=== PATIENT | female | born 1970 | race Caucasian/White ===

== ENCOUNTER 2020-11-25 21:38 | Emergency (ER) | payer BC, SELFPAY ==
--- NOTE | ~2020-11-25 | XR_ITS ---
EXAMINATION: XR TIBIA AND FIBULA, RIGHT CLINICAL INFORMATION: Low suspicion for osteomyelitis distal medial lower extremity COMPARISON: None TECHNIQUE: AP and lateral views of the right tibia and fibula were obtained. FINDINGS: The bones and soft tissues are normal. No fracture. No osseous lesions. XR/XR tibia fibula RT 2V IMPRESSION: Normal right tibia and fibula.
[2020-11-25 22:15] VITALS: BP 161/68; PULSE 57; RESP 18; TEMP 36.5; O2SAT 100; BMI 35.4
--- NOTE | 2020-11-25 22:54 | ED_ITS ---
HPI - General Adult General Chief complaint: General Medical Stated complaint: leg pain Time Seen by Provider: 11/25/20 22:41 Source: patient Mode of arrival: ambulatory Limitations: no limitations History of Present Illness HPI narrative: Patient comes emergency room complaining of pain in her right lower extremity distal aspect. Patient has a chronic healed ulcer, states that now she has a new small ulcer that is draining bloody fluid, but is unsure if she has seen pus. Patient denies fever or chills. Patient also complaining of left leg cramping. At this time, no cramping in either leg. Patient denies bilateral calf pain, no chest pain, no shortness of breath. Patient also concerned that she has not been taking Xarelto for over 3 weeks now. Patient has had history of multiple DVTs in the past due to antiphospholipid syndrome. Patient is considering moving to [place], and at the moment she has no access to her old primary care physician or to a new PCP. Patient denies GI bleed, no dark stool. Related Data Previous Rx's Medication Instructions Recorded cephalexin [Keflex] 750 mg PO BID #13 cap 11/26/20 doxycycline hyclate 100 mg PO BID #13 tab 11/26/20 rivaroxaban [Xarelto] 10 mg PO DAILY #30 tab 11/26/20 Allergies Allergy/AdvReac Type Severity Reaction Status Date / Time No Known Allergies Allergy Verified 11/25/20 22:18 Review of Systems Review of Systems: Constitutional : No Weight loss, No Fever, No Chills, No Night Sweats, No Fatigue, No Malaise ENT/Mouth : No Hearing loss, No Ear Pain, No Nasal Congestion, No Sinus Pain, No Hoarseness, No sore throat, No Rhinorrhea, No Swallowing Difficulty Eyes: No Eye Pain, No Swelling, No Redness, No Foreign Body, No Discharge, No Vision Changes Cardiovascular : No Chest Pain, No SOB, No Dyspnea on Exertion, No Orthopnea, No Edema, No Palpitations Respiratory : No Cough, No Sputum, No Wheezing, No Smoke Exposure, No Dyspnea Gastrointestinal : No Nausea, No Vomiting, No Diarrhea, No Constipation, No abdominal Pain, No Hematochezia, No Melena Genitourinary : no irregular bleeding, No Dysuria, No Urinary Frequency, No Hematuria, No Urinary Incontinence, No Urgency, No Flank Pain, No Urinary Flow Changes, No Hesitancy Musculoskeletal : No joint pain, complaining of left charley horse cramping this morning. Complaining and oozing ulcer in the right lower extremity Skin : No Skin Lesions, No rash Neuro : No Weakness, No Numbness, No Paresthesias, No Loss of Consciousness, No Dizziness, No Headache Psych : No Anxiety/Panic, No Depression, No SI/HI/AH/VH, No Social Issues, Heme/Lymph: No Bruising, No Bleeding,No Lymphadenopathy Endocrine : No Polyuria, No Polydipsia, No Temperature Intolerance [facility] Past Medical History Medical History Antiphospholipid syndrome Diabetes DVT (deep venous thrombosis) Pulmonary embolism Social History Social History Advance Directives: No Patient : No Physical Exam Vital Signs: Vital Signs: Last Vital Signs Temp 97.7 F 11/25/20 22:15 Pulse 57 11/25/20 22:15 Resp 18 11/25/20 22:15 BP 161/68 H 11/25/20 22:15 Pulse Ox 100 11/25/20 22:15 Body Mass Index 35.4 Appearance: Alert. Oriented X3. No acute distress. Eyes: Pupils equal, round and reactive to light. ENT: Pharynx normal. Neck: Normal inspection. Neck supple. No lymph nodes noted. No crepitus CVS: Normal heart rate and rhythm. Pulses normal. Normal S1 and S2 Respiratory: No respiratory distress. Breath sounds normal. No Wheezing. No rales Abdomen: Soft and nontender. No rigidity. No distention. good BS x4 Skin: Skin warm and dry. See below Extremities: No lower extremity edema. Right lower extremity distal aspect medial aspect, there is a 1 cm x 1 cm oozing ulcer, does not seem to be draining pus, has a small eschar on top. Very painful to touch, erythematous and warm. Negative Juliano sign bilaterally Neuro: Oriented X 3. No motor deficit. No sensory deficit. Moving all extermities. No slurred speech. Course Course Course Narrative: Patient likely has cellulitis, patient will be given antibiotic. Also, patient has been out of Xarelto for 3 weeks. Patient's coagulation studies and guaiac are within normal limits. Patient is at high risk for DVT and PE due to the antiphospholipid syndrome. At this time, discussed with the patient that we can go ahead and restart her on Xarelto, but she needs to have very close follow-up with her primary care physician back home. Medical Decision Making Lab Data Result diagrams: 11/25/20 23:19 11/25/20 23:19 Labs: Lab Results 11/25/20 11/25/20 11/25/20 Range/Units 23:19 23:19 23:19 WBC 7.0 (4.8-10.8) X10*3/uL RBC 4.01 L (4.20-5.50) X10*6/uL Hgb 10.8 L (12.0-16.0) g/dl Hct 33.6 L (37-47) % MCV 83.8 (80-98) fL MCH 26.9 L (27.0-33.0) pg MCHC 32.1 (31.0-35.0) g/dl RDW 14.6 (11.0-16.0) % Plt Count 249 (160-400) X10*3/uL MPV 11.5 (9.4-12.3) fL Immature Gran % (Auto) 0.3 (0.0-0.4) % Neut % (Auto) 58.9 (45-73) % Lymph % (Auto) 30.2 (20-40) % Maverick % (Auto) 7.2 (2-11) % Eos % (Auto) 2.4 (0-4) % Baso % (Auto) 1.0 (0-2) % Lymph # (Auto) 2.1 (1.2-4.9) X10*3/uL Maverick # (Auto) 0.5 (0.1-1.2) X10*3/uL Eos # (Auto) 0.2 (0.0-0.4) X10*3/uL Baso # (Auto) 0.1 (0.0-0.2) X10*3/uL Abs Immat Gran (auto) 0.02 (0.00-0.03) X10*3/uL Absolute Neuts (auto) 4.1 (2.0-8.3) X10*3/uL Absolute Nucleated RBC 0.000 (0.0-0.012) X10*3/uL Nucleated RBC % (auto) 0.0 (0.0-0.2) /100WBC PT 13.1 H (9.9-13.0) SEC INR 1.2 H (0.9-1.1) APTT 36.0 (24.1-38.0) SEC Sodium 142 (135-145) mmol/L Potassium 4.5 (3.3-5.1) mmol/L Chloride 108 (96-108) mmol/L Carbon Dioxide 26 (22-29) mmol/L Anion Gap 13 (12-20) BUN 17 H (9-16) mg/dL Creatinine 1.00 (0.5-1.4) mg/dL Estim Creat Clear Calc 89.4 Estimated GFR 59 Random Glucose 96 (60-115) mg/dL Calcium 9.0 (8.4-10.2) mg/dL Magnesium (1.6-2.6) mg/dL Total Bilirubin < 0.2 (0.0-1.0) mg/dL Direct Bilirubin < 0.2 (0.0-0.5) mg/dL AST 14 (5-31) U/L ALT 8 (0-31) U/L Alkaline Phosphatase 62 (39-117) U/L Total Protein 6.7 (6.5-8.0) g/dL Albumin 4.0 (3.5-5.0) g/dL Stool Occult Blood (NEGATIVE) 11/25/20 11/26/20 Range/Units 23:19 00:16 WBC (4.8-10.8) X10*3/uL RBC (4.20-5.50) X10*6/uL Hgb (12.0-16.0) g/dl Hct (37-47) % MCV (80-98) fL MCH (27.0-33.0) pg MCHC (31.0-35.0) g/dl RDW (11.0-16.0) % Plt Count (160-400) X10*3/uL MPV (9.4-12.3) fL Immature Gran % (Auto) (0.0-0.4) % Neut % (Auto) (45-73) % Lymph % (Auto) (20-40) % Maverick % (Auto) (2-11) % Eos % (Auto) (0-4) % Baso % (Auto) (0-2) % Lymph # (Auto) (1.2-4.9) X10*3/uL Maverick # (Auto) (0.1-1.2) X10*3/uL Eos # (Auto) (0.0-0.4) X10*3/uL Baso # (Auto) (0.0-0.2) X10*3/uL Abs Immat Gran (auto) (0.00-0.03) X10*3/uL Absolute Neuts (auto) (2.0-8.3) X10*3/uL Absolute Nucleated RBC (0.0-0.012) X10*3/uL Nucleated RBC % (auto) (0.0-0.2) /100WBC PT (9.9-13.0) SEC INR (0.9-1.1) APTT (24.1-38.0) SEC Sodium (135-145) mmol/L Potassium (3.3-5.1) mmol/L Chloride (96-108) mmol/L Carbon Dioxide (22-29) mmol/L Anion Gap (12-20) BUN (9-16) mg/dL Creatinine (0.5-1.4) mg/dL Estim Creat Clear Calc Estimated GFR Random Glucose (60-115) mg/dL Calcium (8.4-10.2) mg/dL Magnesium 1.9 (1.6-2.6) mg/dL Total Bilirubin (0.0-1.0) mg/dL Direct Bilirubin (0.0-0.5) mg/dL AST (5-31) U/L ALT (0-31) U/L Alkaline Phosphatase (39-117) U/L Total Protein (6.5-8.0) g/dL Albumin (3.5-5.0) g/dL Stool Occult Blood NEGATIVE (NEGATIVE) Discharge Plan Discharge Clinical Impression: Cellulitis of leg Qualifiers: Laterality: right Qualified Code(s): L03.115 - Cellulitis of right lower limb Patient Disposition: Home, Self-Care Instructions: Cellulitis (ED) Additional Instructions: Please follow-up with your primary care physician tomorrow. If you have any worsening or new symptoms, please return to the emergency room or call 911 Prescriptions: New doxycycline hyclate 100 mg tablet 100 mg PO BID Qty: 13 RF: 0 cephalexin [Keflex] 750 mg capsule 750 mg PO BID Qty: 13 RF: 0 Xarelto 10 mg tablet 10 mg PO DAILY Qty: 30 RF: 0
[2020-11-25 23:24] LABS: MANUAL DIFF FLAG NO
[2020-11-25 23:25] LABS: Basophils Absolute Auto 0.1 X10*3/uL (0.0-0.2); Eosinophils Absolute Auto 0.2 X10*3/uL (0.0-0.4); Eosinophils Percent Auto 2.4 % (0-4); Hematocrit 33.6 % (37-47); Hemoglobin 10.8 g/dl (12.0-16.0); Imm Gran Abs Auto 0.02 X10*3/uL (0.00-0.03); Imm Gran Pct Auto 0.3 % (0.0-0.4); Lymphocytes Absolute Auto 2.1 X10*3/uL (1.2-4.9); Lymphocytes Percent Auto 30.2 % (20-40); Mean Corpuscular HGB Conc 32.1 g/dl (31.0-35.0); Mean Corpuscular Hemoglobin 26.9 pg (27.0-33.0); Mean Corpuscular Volume 83.8 fL (80-98); Mean Platelet Volume 11.5 fL (9.4-12.3); Monocytes Absolute Auto 0.5 X10*3/uL (0.1-1.2); Monocytes Percent Auto 7.2 % (2-11); Neutrophils Absolute Auto 4.1 X10*3/uL (2.0-8.3); Neutrophils Percent Auto 58.9 % (45-73); Platelet Count 249 X10*3/uL (160-400); Red Blood Count 4.01 X10*6/uL (4.20-5.50); Red Cell Distribution Width 14.6 % (11.0-16.0)
[2020-11-25 23:31] LABS: INTERNATIONAL NORM RATIO 1.2 (0.9-1.1); Prothrombin Time 13.1 SEC (9.9-13.0)
[2020-11-25 23:54] LABS: Magnesium 1.9 mg/dL (1.6-2.6)
[2020-11-25 23:58] LABS: Alanine Aminotransferase 8 U/L (0-31); Alkaline Phosphatase 62 U/L (39-117); Anion Gap 13 (12-20); Aspartate Amino Transferase 14 U/L (5-31); Bilirubin Direct < 0.2 mg/dL (0.0-0.5); Bilirubin Total < 0.2 mg/dL (0.0-1.0); Blood Urea Nitrogen 17 mg/dL (9-16); Carbon Dioxide 26 mmol/L (22-29); Chloride 108 mmol/L (96-108); Creatinine Clr Calc Pharmacy 89.4; Estimated Glomerular Filt Rate 59; Glucose Random 96 mg/dL (60-115); Potassium 4.5 mmol/L (3.3-5.1); Sodium 142 mmol/L (135-145); Total Protein 6.7 g/dL (6.5-8.0)
[2020-11-26 00:20] LABS: OBS Int Ctl Valid YES; OBS1 NEGATIVE (NEGATIVE)
[2020-11-26] MEDS: cephALEXin 500 MG CAPSULE PO (00:52)
== END 2020-11-26 01:23 | disposition home or self-care (01) ==
PROVIDERS: Emergency Provider Emergency Medicine
DX: L03.115 Cellulitis of right lower limb (principal); M79.661 Pain in right lower leg; E11.9 Type 2 diabetes mellitus without complications; Z86.718 Personal history of other venous thrombosis and embolism; Z86.711 Personal history of pulmonary embolism; Z79.01 Long term (current) use of anticoagulants
CPT/HCPCS: 36415; 73590; 80048; 80076; 82272; 83735; 85025; 85610; 85730; 99283

== ENCOUNTER 2021-02-22 10:55 | Emergency (ER) | payer MEDICAID, SELFPAY ==
--- NOTE | ~2021-02-22 | US_ITS ---
EXAMINATION: US VENOUS ULTRASOUND WITH DOPPLER LOWER EXTREMITY, BILATERAL CLINICAL INFORMATION: Posterior knee pain COMPARISON: None TECHNIQUE: Ultrasound of the deep veins is performed from the hip to the calf with compression sonography and color and pulse Doppler assessment. Spectral analysis with color-flow imaging is performed. FINDINGS: RIGHT: There is normal venous compression and respiratory variation and augmented flow. The visualized common femoral vein, superficial femoral vein, profunda femoral vein, popliteal vein, and the trifurcation region shows no evidence of deep venous thrombosis. There is no significant popliteal fossa cyst. No popliteal artery aneurysm. LEFT: There is normal venous compression and respiratory variation and augmented flow. There appears be some thickening of the superficial femoral vein wall with some linear filling defects present with the appearance of synechiae from recannulated chronic deep venous thrombosis. There is no significant popliteal fossa cyst. No popliteal artery aneurysm. If the patient's symptoms persist, followup ultrasound in 5 days 7 days might be of value to exclude proximal propagation from a non-visualized calf vein. US/US venous duplex LE BI IMPRESSION: No acute DVT demonstrated in the bilateral lower extremity. Findings within the left deep venous system for old recannulated DVT.
--- NOTE | ~2021-02-22 | XR_ITS ---
EXAMINATION: RIGHT FOOT AND RIGHT TIBIA AND FIBULA. CLINICAL INFORMATION: Redness. Question osteomyelitis. COMPARISON: November 25, 2020 TECHNIQUE: Three-view right foot and AP and lateral views of the tibia and fibula. FINDINGS: There is no evidence of acute fracture or dislocation of the right tibia or fibula. No erosive changes are identified. There appears to be a soft tissue defect seen about the medial aspect of the distal tibia consistent with ulceration with some underlying edema. No new periosteal thickening is seen. Vascular calcifications are present. There is no evidence of acute fracture or dislocation of the right foot. There is some soft tissue swelling seen about the ankle and dorsum of the foot. No destructive bony lesions are identified. No osteopenia or erosive bony changes seen. Small calcaneal spurs at sites of insertion of Achilles and plantar tendons evident. Soft tissue ulceration with underlying edema is seen about the medial ankle. No radio opaque foreign body. XR/XR tibia fibula RT 2V IMPRESSION: No evidence to suggest acute osteomyelitis of the right foot or lower leg. Ulceration medial aspect of the distal tibia/ankle with edema.
--- NOTE | ~2021-02-22 | XR_ITS ---
EXAMINATION: RIGHT FOOT AND RIGHT TIBIA AND FIBULA. CLINICAL INFORMATION: Redness. Question osteomyelitis. COMPARISON: November 25, 2020 TECHNIQUE: Three-view right foot and AP and lateral views of the tibia and fibula. FINDINGS: There is no evidence of acute fracture or dislocation of the right tibia or fibula. No erosive changes are identified. There appears to be a soft tissue defect seen about the medial aspect of the distal tibia consistent with ulceration with some underlying edema. No new periosteal thickening is seen. Vascular calcifications are present. There is no evidence of acute fracture or dislocation of the right foot. There is some soft tissue swelling seen about the ankle and dorsum of the foot. No destructive bony lesions are identified. No osteopenia or erosive bony changes seen. Small calcaneal spurs at sites of insertion of Achilles and plantar tendons evident. Soft tissue ulceration with underlying edema is seen about the medial ankle. No radio opaque foreign body. XR/XR foot RT 2V IMPRESSION: No evidence to suggest acute osteomyelitis of the right foot or lower leg. Ulceration medial aspect of the distal tibia/ankle with edema.
[2021-02-22 11:47] VITALS: BP 122/59; PULSE 64; RESP 18; TEMP 36.4; O2SAT 99; BMI 36.4
--- NOTE | 2021-02-22 13:06 | ED_ITS ---
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 Patient denies any chest pain or shortness of breath. Patient denies any leg swelling. Patient th en states bilateral posterior knee pain was concern for DVT due to her supposedly should be taking Xarelto 20 mg per day for antiphospholipid but has been off medication for 2 months due to insurance purposes. Patient is from [place] and insurance was not active in [place]. Patient now states her insurance is active in [place]. <DEIDRE Medley Last Filed: 02/22/21 18:08> Related Data Home Medications: Previous Rx's Medication Instructions Recorded cephalexin 750 mg capsule (Keflex) 750 mg PO BID #13 cap 11/26/20 doxycycline hyclate 100 mg tablet 100 mg PO BID #13 tab 11/26/20 rivaroxaban 10 mg tablet (Xarelto) 10 mg PO DAILY #30 tab 11/26/20 cephalexin 500 mg capsule 500 mg PO QID 7 Days #28 cap 02/22/21 doxycycline hyclate 100 mg capsule 100 mg PO BID 7 Days #14 cap 02/22/21 rivaroxaban 20 mg tablet (Xarelto) 20 mg PO DAILY 20 Days #20 tab 02/22/21 <DEIDRE Medley Last Filed: 02/22/21 18:08> Allergies/Adverse Reactions: Allergies Allergy/AdvReac Type Severity Reaction Status Date / Time No Known Allergies Allergy Verified 11/25/20 22:18 <DEIDRE Medley - Last Filed: 02/22/21 18:08> Review of Systems Review of Systems: Yes all other systems are reviewed and are negative <DEIDRE Medley - Last Filed: 02/22/21 18:08> Constitutional: Constitutional: Reports as per HPI and Reports no additional constitutional complaints <DEIDRE Medley - Last Filed: 02/22/21 18:08> Eyes: Eyes: Reports as per HPI and Reports no additional eye complaints <DEIDRE Medley - Last Filed: 02/22/21 18:08> ENT: Reports system reviewed and no additional complaints, except as documented and Reports as per HPI <DEIDRE Medley Last Filed: 02/22/21 18:08> Cardiovascular: Cardiovascular: Reports as per HPI and Reports no additional cardiovascular complaints <DEIDRE Medley Last Filed: 02/22/21 18:08> Respiratory: Respiratory: Reports as per HPI and Reports no additional respiratory complaints <DEIDRE Medley - Last Filed: 02/22/21 18:08> Gastrointestinal: Gastrointestinal: Reports as per HPI and Reports no additional gastrointestinal complaints <DEIDRE Medley - Last Filed: 02/22/21 18:08> Genitourinary: Genitourinary: Reports no additional female genitourinary com plaints and Reports as per HPI <DEIDRE Medley - Last Filed: 02/22/21 18:08> Musculoskeletal: Musculoskeletal: Reports no additional musculoskeletal complaints, Reports as per HPI and Reports arthralgias (right venous stasis ulcer, right 2nd toe cellulitis) <DEIDRE Medley Last Filed: 02/22/21 1 8:08> Neurologic: Reports system reviewed and no additional complaints, except as documented and Reports as per HPI <DEIDRE Medley Last Filed: 02/22/21 18:08> Psychiatric: Psychiatric: Reports no additional psychiatric complaints and Reports as per HPI <DEIDRE Medley - Last Filed: 02/22/21 18:08> PMFSH Past Medical History Medical History: Medical History (Updated 02/22/21 @ 17:39 by DEIDRE Medley) Antiphospholipid syndrome Diabetes DVT (deep venous thrombosis) Pulmonary embolism Venous stasis of lower extremity <DEIDRE Medley - Last Filed: 02/22/21 18:08> Social History Social History: Social History Advance Directives: Yes Advance Directives Information Provided: Yes Advance Directives on File: No <DEIDRE Medley - Last Filed: 02/22/21 18:08> Physical Exam Vital Signs: Vital Signs: Last Vital Signs Temp 98.0 F 02/22/21 15:57 Pulse 50 02/22/21 15:57 Resp 20 02/22/21 15:57 BP 121/66 02/22/21 15:57 Pulse Ox 95 02/22/21 15:57 Body Mass Index 36.4 <DEIDRE Medley - Last Filed: 02/22/21 18:08> Vital Signs: Last Vital Signs Temp 98.0 F 02/22/21 15:57 Pulse 50 02/22/21 15:57 Resp 20 02/22/21 15:57 BP 121/66 02/22/21 15:57 Pulse Ox 95 02/22/21 15:57 Body Mass Index 36.4 <Dion Clarke MD - Last Filed: 02/22/21 16:43> Const: General: cooperative, healthy appearing, comfortable, no acute distress, well developed, alert, awake and Physically active <DEIDRE Medley - Last Filed: 02/22/21 18:08> Orientation/consciousness: patient oriented x3 <DEIDRE Medley - Last Filed: 02/22/21 18:08> HENMT: Head: Yes normal to inspection, Yes No palpable skull fracture present, Yes normocephalic, Yes atraumatic and No abrasion <DEIDRE Medley - Last Filed: 02/22/21 18:08> Eyes: General: appearance normal, both eyes and all related structures <DEIDRE Medley - Last Filed: 02/22/21 18:08> Neck: Neck: Yes normal visual inspection, Yes full ROM, Yes no lymphadenopathy, Yes no meningeal signs, Yes trachea midline, Yes supple and No tender <DEIDRE Medley - Last Filed: 02/22/21 18:08> Chest: Chest palpation & inspection: normal inspection of the chest and normal palpation of entire chest wall <Liu Charles DEIDRE Last Filed: 02/22/21 18:08> Resp: Effort & Inspection: normal respiratory effort and able to speak in complete sentences <Liu CharlesDEIDRE Last Filed: 02/22/21 18:08> Auscultation: clear to auscultation bilaterally <Liu CharlesDEIDRE Last Filed: 02/22/21 18:08> Cardio: Jugular venous distension: no JVD <Liu Charles DEIDRE Last Filed: 02/22/21 18:08> Heart sounds: S1 normal heart sound present and S2 normal heart sound present <Liu Charles, PA Last Filed: 02/22/21 18:08> GI: Inspection: Yes normal to inspection and No abdominal wall ecchymosis <Liu Charles DEIDRE Filed: 02/22/21 18:08> Palpation (GI): Soft to palpation, not firm, nontender, no guarding and not rigid <Liu Charles, PA Last Filed: 02/22/21 18:08> : General: No CVA tenderness and Yes no CVA tenderness <Liu Charles DEIDRE Last Filed: 02/22/21 18:08> Back/Spine/Pelvis: Back: no CVA tenderness, No CVA tenderness and No back tenderness <Liu Charles DEIDRE Last Filed: 02/22/21 18:08> Skin: General skin exam: no rashes or lesions noted and elasticity normal <Liu Charles DEIDRE Filed: 02/22/21 18:08> Neuro: General: patient oriented x3, gait normal, no meningeal signs and CN's II-XI intact bilaterally <Liu Charles DEIDRE Last Filed: 02/22/21 18:08> Cranial nerves: Yes CN's II-XII intact bilaterally <Liu Charles, PA Last Filed: 02/22/21 18:08> Extrem: Other: Venous stasis also negative for any erythema, swelling, tenderness, pus discharge, foul odor, to indicate infection. Right 2nd toe cellulitis negative for open wounds. Negative for pus discharge or foul odor. Right lower extremity motor/neuro/vascular exam intact. <DEIDRE Medley - Last Filed: 02/22/21 18:08> General: Yes normal to inspection and Yes full ROM <DEIDRE Medley - Last Filed: 02/22/21 18:08> Psych: Appearance: grossly normal, well kempt and not disheveled <DEIDRE Medley - Last Filed: 02/22/21 18:08> Course Course Course Narrative: Will do foot x-ray, leg x-ray, and bilateral ultrasounds. Also will do basic labs. <DEIDRE Medley - Last Filed: 02/22/21 18:08> Reevaluation(s) Reevaluation #1: Discussed restarting xarelto with Liu Soto and agree. He will discuss with heme/onc <Dion Clarke MD - Last Filed: 02/22/21 16:43> Time: 16:43 <Dion Clarke MD - Last Filed: 02/22/21 16:43> Reevaluation #2: X-rays negative for osteomyelitis. Ultrasound negative for DVT. Discuss case with Dr. Clarke to restart patient on Xarelto waiting for confirmation for heme oncologist on-call to discuss restarting Xarelto and for follow-up. Patient is not in any distress. Vital signs stable. Mild elevation of ESR CRP. No elevated white blood cell count. Patient could try outpatient p.o. antibiotics. For foot cellulitis. Venous stasis ulcer is not infected. <DEIDRE Medley - Last Filed: 02/22/21 18:08> Time: 17:09 <DEIDRE Medley - Last Filed: 02/22/21 18:08> Reevaluation #3: Spoke with Dr. Griffin of heme oncology and she recommends continuing patient back on Xarelto 20 mg and patient should follow up with her in clinic. <DEIDRE Medley - Last Filed: 02/22/21 18:08> Time: 17:35 <DEIDRE Medley - Last Filed: 02/22/21 18:08> MDM - Wound/Laceration MDM Narrative Medical decision making narrative: Cellulitis. Venous stasis also <DEIDRE Medley - Last Filed: 02/22/21 18:08> Lab Data Result diagrams: : 02/22/21 13:35 02/22/21 13:35 <DEIDRE Medley - Last Filed: 02/22/21 18:08> Labs: Lab Results 02/22/21 02/22/21 02/22/21 Range/Units 13:35 13:35 13:35 WBC 5.1 (4.8-10.8) X10*3/uL RBC 4.10 L (4.20-5.50) X10*6/uL Hgb 11.0 L (12.0-16.0) g/dl Hct 34.5 L (37-47) % MCV 84.1 (80-98) fL MCH 26.8 L (27.0-33.0) pg MCHC 31.9 (31.0-35.0) g/dl RDW 14.9 (11.0-16.0) % Plt Count 275 (160-400) X10*3/uL MPV 10.8 (9.4-12.3) fL Immature Gran % (Auto) 0.2 (0.0-0.4) % Neut % (Auto) 56.1 (45-73) % Lymph % (Auto) 31.8 (20-40) % [place] % (Auto) 7.8 (2-11) % Eos % (Auto) 3.1 (0-4) % Baso % (Auto) 1.0 (0-2) % Lymph # (Auto) 1.6 (1.2-4.9) X10*3/uL [place] # (Auto) 0.4 (0.1-1.2) X10*3/uL Eos # (Auto) 0.2 (0.0-0.4) X10*3/uL Baso # (Auto) 0.1 (0.0-0.2) X10*3/uL Abs Immat Gran (auto) 0.01 (0.00-0.03) X10*3/uL Absolute Neuts (auto) 2.9 (2.0-8.3) X10*3/uL Absolute Nucleated RBC 0.000 (0.0-0.012) X10*3/uL Nucleated RBC % (auto) 0.0 (0.0-0.2) /100WBC ESR 23 H (0-20) MM/HR PT 12.6 (9.9-13.0) SEC INR 1.1 (0.9-1.1) APTT 34.5 (24.1-38.0) SEC Sodium (135-145) mmol/L Potassium (3.3-5.1) mmol/L Chloride (96-108) mmol/L Carbon Dioxide (22-29) mmol/L Anion Gap (12-20) BUN (9-16) mg/dL Creatinine (0.5-1.4) mg/dL Estim Creat Clear Calc Estimated GFR Random Glucose (60-115) mg/dL Calcium (8.4-10.2) mg/dL Total Bilirubin (0.0-1.0) mg/dL Direct Bilirubin (0.0-0.5) mg/dL AST (5-31) U/L ALT (0-31) U/L Alkaline Phosphatase (39-117) U/L C-Reactive Protein (< or = 0.50) mg/dL Total Protein (6.5-8.0) g/dL Albumin (3.5-5.0) g/dL 02/22/21 Range/Units 13:35 WBC (4.8-10.8) X10*3/uL RBC (4.20-5.50) X10*6/uL Hgb (12.0-16.0) g/dl Hct (37-47) % MCV (80-98) fL MCH (27.0-33.0) pg MCHC (31.0-35.0) g/dl RDW (11.0-16.0) % Plt Count (160-400) X10*3/uL MPV (9.4-12.3) fL Immature Gran % (Auto) (0.0-0.4) % Neut % (Auto) (45-73) % Lymph % (Auto) (20-40) % Independence % (Auto) (2-11) % Eos % (Auto) (0-4) % Baso % (Auto) (0-2) % Lymph # (Auto) (1.2-4.9) X10*3/uL Independence # (Auto) (0.1-1.2) X10*3/uL Eos # (Auto) (0.0-0.4) X10*3/uL Baso # (Auto) (0.0-0.2) X10*3/uL Abs Immat Gran (auto) (0.00-0.03) X10*3/uL Absolute Neuts (auto) (2.0-8.3) X10*3/uL Absolute Nucleated RBC (0.0-0.012) X10*3/uL Nucleated RBC % (auto) (0.0-0.2) /100WBC ESR (0-20) MM/HR PT (9.9-13.0) SEC INR (0.9-1.1) APTT (24.1-38.0) SEC Sodium 140 (135-145) mmol/L Potassium 4.4 (3.3-5.1) mmol/L Chloride 109 H (96-108) mmol/L Carbon Dioxide 26 (22-29) mmol/L Anion Gap 9 L (12-20) BUN 12 (9-16) mg/dL Creatinine 0.69 (0.5-1.4) mg/dL Estim Creat Clear Calc 131.6 Estimated GFR > 60 Random Glucose 92 (60-115) mg/dL Calcium 8.9 (8.4-10.2) mg/dL Total Bilirubin 0.4 (0.0-1.0) mg/dL Direct Bilirubin 0.2 (0.0-0.5) mg/dL AST 10 (5-31) U/L ALT 6 (0-31) U/L Alkaline Phosphatase 63 (39-117) U/L C-Reactive Protein 0.75 H (< or = 0.50) mg/dL Total Protein 6.3 L (6.5-8.0) g/dL Albumin 3.7 (3.5-5.0) g/dL <DEIDRE Medley - Last Filed: 02/22/21 18:08> Lab Results 02/22/21 02/22/21 02/22/21 Range/Units 13:35 13:35 13:35 WBC 5.1 (4.8-10.8) X10*3/uL RBC 4.10 L (4.20-5.50) X10*6/uL Hgb 11.0 L (12.0-16.0) g/dl Hct 34.5 L (37-47) % MCV 84.1 (80-98) fL MCH 26.8 L (27.0-33.0) pg MCHC 31.9 (31.0-35.0) g/dl RDW 14.9 (11.0-16.0) % Plt Count 275 (160-400) X10*3/uL MPV 10.8 (9.4-12.3) fL Immature Gran % (Auto) 0.2 (0.0-0.4) % Neut % (Auto) 56.1 (45-73) % Lymph % (Auto) 31.8 (20-40) % Independence % (Auto) 7.8 (2-11) % Eos % (Auto) 3.1 (0-4) % Baso % (Auto) 1.0 (0-2) % Lymph # (Auto) 1.6 (1.2-4.9) X10*3/uL Independence # (Auto) 0.4 (0.1-1.2) X10*3/uL Eos # (Auto) 0.2 (0.0-0.4) X10*3/uL Baso # (Auto) 0.1 (0.0-0.2) X10*3/uL Abs Immat Gran (auto) 0.01 (0.00-0.03) X10*3/uL Absolute Neuts (auto) 2.9 (2.0-8.3) X10*3/uL Absolute Nucleated RBC 0.000 (0.0-0.012) X10*3/uL Nucleated RBC % (auto) 0.0 (0.0-0.2) /100WBC ESR 23 H (0-20) MM/HR PT 12.6 (9.9-13.0) SEC INR 1.1 (0.9-1.1) APTT 34.5 (24.1-38.0) SEC Sodium (135-145) mmol/L Potassium (3.3-5.1) mmol/L Chloride (96-108) mmol/L Carbon Dioxide (22-29) mmol/L Anion Gap (12-20) BUN (9-16) mg/dL Creatinine (0.5-1.4) mg/dL Estim Creat Clear Calc Estimated GFR Random Glucose (60-115) mg/dL Calcium (8.4-10.2) mg/dL Total Bilirubin (0.0-1.0) mg/dL Direct Bilirubin (0.0-0.5) mg/dL AST (5-31) U/L ALT (0-31) U/L Alkaline Phosphatase (39-117) U/L C-Reactive Protein (< or = 0.50) mg/dL Total Protein (6.5-8.0) g/dL Albumin (3.5-5.0) g/dL 02/22/21 Range/Units 13:35 WBC (4.8-10.8) X10*3/uL RBC (4.20-5.50) X10*6/uL Hgb (12.0-16.0) g/dl Hct (37-47) % MCV (80-98) fL MCH (27.0-33.0) pg MCHC (31.0-35.0) g/dl RDW (11.0-16.0) % Plt Count (160-400) X10*3/uL MPV (9.4-12.3) fL Immature Gran % (Auto) (0.0-0.4) % Neut % (Auto) (45-73) % Lymph % (Auto) (20-40) % Independence % (Auto) (2-11) % Eos % (Auto) (0-4) % Baso % (Auto) (0-2) % Lymph # (Auto) (1.2-4.9) X10*3/uL [place] # (Auto) (0.1-1.2) X10*3/uL Eos # (Auto) (0.0-0.4) X10*3/uL Baso # (Auto) (0.0-0.2) X10*3/uL Abs Immat Gran (auto) (0.00-0.03) X10*3/uL Absolute Neuts (auto) (2.0-8.3) X10*3/uL Absolute Nucleated RBC (0.0-0.012) X10*3/uL Nucleated RBC % (auto) (0.0-0.2) /100WBC ESR (0-20) MM/HR PT (9.9-13.0) SEC INR (0.9-1.1) APTT (24.1-38.0) SEC Sodium 140 (135-145) mmol/L Potassium 4.4 (3.3-5.1) mmol/L Chloride 109 H (96-108) mmol/L Carbon Dioxide 26 (22-29) mmol/L Anion Gap 9 L (12-20) BUN 12 (9-16) mg/dL Creatinine 0.69 (0.5-1.4) mg/dL Estim Creat Clear Calc 131.6 Estimated GFR > 60 Random Glucose 92 (60-115) mg/dL Calcium 8.9 (8.4-10.2) mg/dL Total Bilirubin 0.4 (0.0-1.0) mg/dL Direct Bilirubin 0.2 (0.0-0.5) mg/dL AST 10 (5-31) U/L ALT 6 (0-31) U/L Alkaline Phosphatase 63 (39-117) U/L C-Reactive Protein 0.75 H (< or = 0.50) mg/dL Total Protein 6.3 L (6.5-8.0) g/dL Albumin 3.7 (3.5-5.0) g/dL <Dion Clarke MD - Last Filed: 02/22/21 16:43> Discharge Plan Discharge Clinical Impression: Cellulitis, Venous stasis ulcer <DEIDRE Medley - Last Filed: 02/22/21 18:08> Patient Disposition: Home, Self-Care <DEIDRE Medley - Last Filed: 02/22/21 18:08> Instructions: Cellulitis (ED), Venous Insufficiency (DC), Chronic Wounds (ED) <DEIDRE Medley - Last Filed: 02/22/21 18:08> Additional Instructions: You will be discharged with antibiotics for 2nd toe cellulitis. Venous stasis also not infected. Lower extremities negative for DVT. Spoke without heme oncologist Dr. Griffin recommend you be started back on Xarelto and follow up with her as outpatient clinic. Return to the ED immediately for any chest pain, shortness of breath, increased swelling of lower extremity, foul odor of venous ulcer, pus discharge, redness, worsening toe cellulitis, or any other concerning symptoms. <DEIDRE Medley - Last Filed: 02/22/21 18:08> Prescriptions: New cephalexin 500 mg capsule 500 mg PO QID 7 Days Qty: 28 RF: 0 doxycycline hyclate 100 mg capsule 100 mg PO BID 7 Days Qty: 14 RF: 0 Xarelto 20 mg tablet 20 mg PO DAILY 20 Days Qty: 20 RF: 0 No Action doxycycline hyclate 100 mg tablet 100 mg PO BID Qty: 13 RF: 0 cephalexin [Keflex] 750 mg capsule 750 mg PO BID Qty: 13 RF: 0 Xarelto 10 mg tablet 10 mg PO DAILY Qty: 30 RF: 0 <DEIDRE Medley - Last Filed: 02/22/21 18:08> Referrals: [facility] [Provider Group] - 2 days (Chronic right leg venous stasis ulcer) Sherif Griffin MD [Physician] - 2 days (History of antiphospholipid syndrome restarted on Xarelto.) <DEIDRE Medley - Last Filed: 02/22/21 18:08> Discharge Date/Time: 02/22/21 17:58 <DEIDRE Medley - Last Filed: 02/22/21 18:08> Print Language: Swedish <DEIDRE Medley - Last Filed: 02/22/21 18:08>
[2021-02-22] MEDS: oxyCODONE HCl Immed Release 5 MG TABLET PO (13:30)
[2021-02-22 13:40] LABS: MANUAL DIFF FLAG NO
[2021-02-22 13:42] LABS: Basophils Absolute Auto 0.1 X10*3/uL (0.0-0.2); Eosinophils Absolute Auto 0.2 X10*3/uL (0.0-0.4); Eosinophils Percent Auto 3.1 % (0-4); Hematocrit 34.5 % (37-47); Imm Gran Abs Auto 0.01 X10*3/uL (0.00-0.03); Imm Gran Pct Auto 0.2 % (0.0-0.4); Lymphocytes Absolute Auto 1.6 X10*3/uL (1.2-4.9); Lymphocytes Percent Auto 31.8 % (20-40); Mean Corpuscular HGB Conc 31.9 g/dl (31.0-35.0); Mean Corpuscular Hemoglobin 26.8 pg (27.0-33.0); Mean Corpuscular Volume 84.1 fL (80-98); Mean Platelet Volume 10.8 fL (9.4-12.3); Monocytes Absolute Auto 0.4 X10*3/uL (0.1-1.2); Monocytes Percent Auto 7.8 % (2-11); Neutrophils Absolute Auto 2.9 X10*3/uL (2.0-8.3); Neutrophils Percent Auto 56.1 % (45-73); Platelet Count 275 X10*3/uL (160-400); Red Cell Distribution Width 14.9 % (11.0-16.0); White Blood Count 5.1 X10*3/uL (4.8-10.8)
[2021-02-22 13:46] LABS: INTERNATIONAL NORM RATIO 1.1 (0.9-1.1); Prothrombin Time 12.6 SEC (9.9-13.0)
[2021-02-22 13:49] LABS: Partial Thromboplastin Time 34.5 SEC (24.1-38.0)
[2021-02-22 14:05] LABS: Alanine Aminotransferase 6 U/L (0-31); Albumin Level 3.7 g/dL (3.5-5.0); Alkaline Phosphatase 63 U/L (39-117); Anion Gap 9 (12-20); Aspartate Amino Transferase 10 U/L (5-31); Bilirubin Direct 0.2 mg/dL (0.0-0.5); Bilirubin Total 0.4 mg/dL (0.0-1.0); Blood Urea Nitrogen 12 mg/dL (9-16); C Reactive Protein 0.75 mg/dL (< or = 0.50); Calcium 8.9 mg/dL (8.4-10.2); Carbon Dioxide 26 mmol/L (22-29); Chloride 109 mmol/L (96-108); Creatinine Clr Calc Pharmacy 131.6; Estimated Glomerular Filt Rate > 60; Glucose Random 92 mg/dL (60-115); Potassium 4.4 mmol/L (3.3-5.1); Sodium 140 mmol/L (135-145); Total Protein 6.3 g/dL (6.5-8.0)
[2021-02-22 14:30] LABS: Erythrocyte Sedimentation Rate 23 MM/HR (0-20)
[2021-02-22 15:57] VITALS: BP 121/66; PULSE 50; RESP 20; TEMP 36.7; O2SAT 95
== END 2021-02-22 17:58 | disposition home or self-care (01) ==
PROVIDERS: Physician Assistant; Emergency Provider Emergency Medicine
DX: L03.115 Cellulitis of right lower limb (principal); M25.571 Pain in right ankle and joints of right foot; R60.0 Localized edema; Z79.899 Other long term (current) drug therapy
CPT/HCPCS: 36415; 73590; 73620; 80053; 82248; 85025; 85610; 85652; 85730; 86140; 93970; 99284

== ENCOUNTER 2021-05-09 08:15 | Emergency (ER) | payer OTHER, SELFPAY ==
--- NOTE | ~2021-05-09 | XR_ITS ---
EXAMINATION: XR CHEST CLINICAL INFORMATION: Likely Covid COMPARISON: None TECHNIQUE: AP portable view of the chest was obtained. FINDINGS: No significant abnormality is noted involving the heart, lungs, mediastinum, bony thorax or soft tissues. XR/XR chest 1V IMPRESSION: No acute disease.
[2021-05-09 08:20] VITALS: BP 138/73; PULSE 70; RESP 19; TEMP 36.1; O2SAT 96; BMI 35.4
--- NOTE | 2021-05-09 08:46 | ED_ITS ---
HPI - General Adult General Chief complaint: General Medical Stated complaint: headache back pain chest pain chills Time Seen by Provider: 05/09/21 08:34 Source: patient Mode of arrival: ambulatory Limitations: no limitations History of Present Illness HPI narrative: Year old female presents to emergency department with multiple complaints including headache body aches fevers. She is unvaccinated. She has history of antiphospholipid syndrome and has had history of clots is anticoagulated. She denies any falls or injuries but states she has had overall body intermittent fevers and chills. Related Data Previous Rx's Medication Instructions Recorded cephalexin 750 mg capsule (Keflex) 750 mg PO BID #13 cap 11/26/20 doxycycline hyclate 100 mg tablet 100 mg PO BID #13 tab 11/26/20 rivaroxaban 10 mg tablet (Xarelto) 10 mg PO DAILY #30 tab 11/26/20 cephalexin 500 mg capsule 500 mg PO QID 7 Days #28 cap 02/22/21 doxycycline hyclate 100 mg capsule 100 mg PO BID 7 Days #14 cap 02/22/21 rivaroxaban 20 mg tablet (Xarelto) 20 mg PO DAILY 20 Days #20 tab 02/22/21 Allergies Allergy/AdvReac Type Severity Reaction Status Date / Time No Known Allergies Allergy Verified 11/25/20 22:18 Review of Systems Review of Systems: Review of systems: General: Patient denies any fever chills recent illness or falls Musculoskeletal: Denies back pain or body aches or other injuries HEENT: denies headache, runny nose, ear pain Respiratory: denies shortness of breath, cough Cardiovascular: no chest pain or palpitations : denies dysuria, frequency Abdomen: no nausea vomiting denies abdominal pain Extremities: no swelling, no pain Skin: no diaphoresis Yes all other systems are reviewed and are negative [facility] Past Medical History Medical History (Updated 05/09/21 @ 08:50 by Selvin Peraza DO) Antiphospholipid syndrome Diabetes DVT (deep venous thrombosis) Pulmonary embolism Venous stasis of lower extremity Social History Social History Advance Directives: No Advance Directives Information Provided: No Physical Exam Vital Signs: Vital Signs: Last Vital Signs Temp 97 F 05/09/21 08:20 Pulse 70 05/09/21 08:20 Resp 19 05/09/21 08:20 BP 138/73 01/06/22 08:20 Pulse Ox 96 05/09/21 08:20 BMI result Body Mass Index 35.4 General: Well-appearing well-nourished in no signs of distress HEENT: Normocephalic atraumatic Neck: No signs of JVD, no masses no tenderness or lymphadenopathy Cardiovascular: Regular rate and rhythm Respiratory: Clear to auscultation bilaterally Abdomen: Soft nontender no masses Extremities: Normal pedal pulses no signs of edema Skin: Dry warm no rashes Back: No tenderness full ROM Medical Decision Making MDM Narrative Medical decision making narrative: Concern for fluid versus apparently we do not have flu swabs here so the rapid as well as the COVID flu RSV. 1001 X-ray is negative rapid flu COVID RSV are all negative as well. Lab Data Labs: Lab Results 05/09/21 Range/Units 09:00 Influenza Type A (PCR) NEGATIVE (Negative) Influenza Type B (PCR) NEGATIVE (Negative) RSV RNA Qual (PCR) NEGATIVE (Negative) SARS-CoV-2 RNA (RT-PCR) NEGATIVE (Negative) Discharge Plan Discharge Clinical Impression: COVID-19 Patient Disposition: Home, Self-Care Instructions: COVID-19 (Coronavirus Disease 2019) (ED) Additional Instructions: You need to get vaccinated and 80 days. Please take Tylenol and fluids at home. If you have any other concerns feel more short of breath please do not hesitate to come back to emergency department. Prescriptions: No Action doxycycline hyclate 100 mg tablet 100 mg PO BID Qty: 13 RF: 0 cephalexin [Keflex] 750 mg capsule 750 mg PO BID Qty: 13 RF: 0 Xarelto 10 mg tablet 10 mg PO DAILY Qty: 30 RF: 0 cephalexin 500 mg capsule 500 mg PO QID 7 Days Qty: 28 RF: 0 doxycycline hyclate 100 mg capsule 100 mg PO BID 7 Days Qty: 14 RF: 0 Xarelto 20 mg tablet 20 mg PO DAILY 20 Days Qty: 20 RF: 0
[2021-05-09] MEDS: 0.9 % Sodium Chloride 500 ML 999 ML IV (09:15)
[2021-05-09] MEDS: Ketorolac Tromethamine 30 MG/ML VIAL 15 MG IVPUSH (09:16)
[2021-05-09] MEDS: Acetaminophen 325 MG TABLET 650 MG PO (09:16)
--- NOTE | 2021-05-09 09:28 | PC.NURSE ---
EVALUATED BY DR DUPREE. AWARE AND AGREEABLE TO ED CARE PLAN. #20 INSERTED TO LEFT AC. REPOS FOR COMFORT. NO ACUTE DISTRESS NOTED. RESP EVEN, EASY, UNLABORED. PT ABLE TO CONVERSE IN COMPLETE SENTENCES WITH THIS RN. NO SOB NOTED.
[2021-05-09 09:56] LABS: Influenza A PCR NEGATIVE (Negative); Influenza B PCR NEGATIVE (Negative); Resp Syncy Virus RNA Qual PCR NEGATIVE (Negative); SARS COV2 PCR INHOUSE NEGATIVE (Negative)
== END 2021-05-09 10:15 | disposition home or self-care (01) ==
PROVIDERS: Emergency Provider Student in an Organized Health Care Education/Training Program
DX: U07.1 COVID-19 (principal); R51.9 Headache, unspecified
CPT/HCPCS: 0241U; 71045; 96374; 99284; J1885

== ENCOUNTER 2021-07-23 09:03 | Outpatient (REF) | payer OTHER, SELFPAY ==
[2021-07-27 23:46] LABS: HPV 16 RNA NOT DETECTED (NOT DETECTED); HPV mRNA E6/E7 rflx Detected (Not Detected)
== END 2021-07-23 09:04 | disposition home or self-care (01) ==
LOC: HO.LAB 09:03
PROVIDERS: PCP Internal Medicine; Visit Provider Obstetrics & Gynecology
DX: Z01.419 Encounter for gynecological examination (general) (routine) without abnormal findings (principal); Z11.51 Encounter for screening for human papillomavirus (HPV)
CPT/HCPCS: 87624; 87625; 88142

== ENCOUNTER 2021-07-28 22:54 | Observation (INO) | payer OTHER, SELFPAY ==
--- NOTE | ~2021-07-28 | MR_ITS ---
EXAMINATION: MR BRAIN WITHOUT CONTRAST CLINICAL INFORMATION: TIA. COMPARISON: CT from 07/28/2021. TECHNIQUE: Multiplanar, multisequence imaging of the brain was performed without contrast. FINDINGS: No diffusion abnormalities are identified to suggest an acute or subacute infarct. The ventricles are normal in size. No mass effect or midline shift is seen. No brain parenchymal signal abnormality is noted. No extra-axial fluid collections are seen. The brainstem and cerebellum are normal. The gradient refocused acquisition is normal. The craniovertebral junction, marrow signal, and midline structures are normal. The major intracranial flow voids at the level of the [place] are preserved. The dural venous sinus flow voids are maintained. The mastoid air cells and paranasal sinuses are well aerated. MR/MR head/brain wo con IMPRESSION: No acute intracranial process. Normal MRI of the brain.
--- NOTE | ~2021-07-28 | CT_ITS ---
EXAMINATION: CTA NECK WITH CONTRAST (STROKE) CTA BRAIN WITH CONTRAST (STROKE) CLINICAL INFORMATION: Left-sided weakness COMPARISON: CT head from the same date TECHNIQUE: CTA of the head and neck was performed in the axial plane from the mediastinum to the skull vertex using 70 mL Omnipaque 350 intravenous contrast. Additional reformatted multiplanar images including maximum intensity projection MIP images are generated on the CT workstation. Stenoses are assessed in accordance with NASCET criteria unless otherwise indicated. This CT examination was performed using dose optimization techniques as appropriate, variously including the following: *Automated exposure control *Adjustment of mA and/or kV according to patient size (this includes techniques or standardized protocols for targeted exams where dose is matched to indication/reason for exam; i.e. extremities or head) *Use of iterative reconstruction technique DLP: 1452 mGy-cm. FINDINGS: CT head: There is no evidence of acute intracranial hemorrhage or territorial infarction. There is no loss of jordan to white matter differentiation. No abnormal mass effect or midline shift is seen. No extra-axial fluid collections are identified. There is no abnormal enhancement. The ventricles are normal in size. There is no abnormal attenuation within the brain parenchyma. The osseous structures and soft tissues are normal. The mastoid air cells and visualized portions of the paranasal sinuses are well aerated. CTA neck: The aortic arch is of normal contour and caliber. The left common carotid artery arises from the right brachiocephalic artery. No significant stenosis of the branch origins. The common and internal carotid arteries opacify normally without focal stenosis or occlusion. The cervical segments of the vertebral arteries opacify normally without focal stenosis or occlusion. The thyroid gland and remaining cervical soft tissues are within normal limits. No significant abnormalities of the cervical spine. The visualized lung apices and upper mediastinum are within normal limits. CTA head: There is normal opacification of major intracranial arteries. No focal flow-limiting stenosis, discrete proximal large artery occlusion, or saccular intradural aneurysm. Normal contrast opacification of the petrous, cavernous, paraophthalmic, and supraclinoid segments of the internal carotid arteries without focal stenosis. Normal appearance of the anterior cerebral and middle cerebral arteries without focal occlusion or stenosis. Normal anterior communicating artery. Normal arborization of the middle cerebral arteries. Normal appearance of the intradural vertebral and posterior inferior cerebellar arteries. Normal appearance of the basilar, superior cerebellar, and P1 segments of the posterior cerebral arteries. Normally opacified posterior communicating arteries. Normal appearance of the distal segments of the posterior cerebral arteries bilaterally. CT/CT angio head neck stroke IMPRESSION: No acute intracranial abnormalities are identified. No acute vascular findings are identified in the head and neck. This critical result was discussed by telephone with Serena Curran APRN on 07/29/2021 at 1:06 AM
--- NOTE | ~2021-07-28 | CT_ITS ---
EXAMINATION: CT HEAD WITHOUT CONTRAST (STROKE PROTOCOL) CLINICAL INFORMATION: Stroke protocol. Left-sided weakness. COMPARISON: None TECHNIQUE: Contiguous axial imaging was performed from the skull base to vertex without intravenous administration of contrast. This CT examination was performed using dose optimization techniques as appropriate, variously including the following: *Automated exposure control *Adjustment of mA and/or kV according to patient size (this includes techniques or standardized protocols for targeted exams where dose is matched to indication/reason for exam; i.e. extremities or head) *Use of iterative reconstruction technique DLP: 696.77 mGy-cm FINDINGS: There is no intracranial hemorrhage, hematoma, or extra-axial fluid collection. The ventricles are normal in size. There is no hydrocephalus, edema, or mass effect. The jordan-white matter differentiation appears symmetric. There is no acute infarct or mass lesion. The calvarium appears intact. There is no pneumocephalus or orbital emphysema. The visualized sinuses and middle ears and mastoid air cells show no significant mucosal thickening. There are no air-fluid levels. CT/CT head for stroke IMPRESSION: No acute intracranial pathology. This critical result was discussed with Serena Curran NP at 11:24 PM hours on 07/28/2021. It was ascertained that the content and urgency of the report was understood at the time of direct communication.
--- NOTE | 2021-07-28 22:59 | ED_ITS ---
HPI - Neuro Symptoms/Deficit General Chief Complaint: Neuro Symptoms/Deficit Stated Complaint: Left Side Tingling Pain Source: patient and EMS Mode of arrival: EMS Limitations: no limitations History of Present Illness HPI Narrative: 50-year-old female presents via EMS from home for approximately 10 minutes of left-sided numbness and tingling. Patient awoke with the symptoms, patient's called 911. Patient does not have any focal neural deficits at this time. Stroke alert has been activated. Onset (ago): minute(s) (Within 20 minutes of arrival) Last Observed Normal: 22:30 Timing confirmed by: spouse Location: left arm and left leg History of same: No Severity: mild Quality: numb, tingling and constant Relieving factors: none Context: sudden onset On Anticoagulants: Yes Associated symptoms: denies other symptoms Treatments Prior to Arrival: none Related Data Previous Rx's Medication Instructions Recorded rivaroxaban 20 mg tablet (Xarelto) 20 mg PO DAILY 20 Days #20 tab 02/22/21 Allergies Allergy/AdvReac Type Severity Reaction Status Date / Time No Known Allergies Allergy Verified 07/23/21 09:36 Review of Systems Review of Systems: Constitutional: No Fever, No Chills ENT/Mouth: No Ear Pain, No Hoarseness, No sore throat Eyes: No Eye Pain, No Swelling, No Redness, No Foreign Body Cardiovascular: No Chest Pain, No SOB Respiratory: No Cough, No Dyspnea Gastrointestinal: No Nausea, No Vomiting, No Diarrhea, No abdominal Pain Genitourinary: No Dysuria, No Hematuria Musculoskeletal: positive joint pain, No Myalgias, No Joint Swelling Skin: No Skin lacerations, No rash Neuro: No Weakness, positive Numbness, positive Paresthesias, No Loss of Consciousness, No Dizziness, No Headache Psych: No Anxiety/Panic, No Depression Heme/Lymph: no easy bruising, no Lymphadenopathy Endocrine: No Polyuria, No Polydipsia Yes all other systems are reviewed and are negative PMFSH Past Medical History Attestation statement: The following information was validated with the patient. Source: old records reviewed Medical History Antiphospholipid syndrome Diabetes DVT (deep venous thrombosis) Pulmonary embolism Tubal ligation evaluation Venous stasis of lower extremity Surgical History H/O gastric sleeve H/O skin graft H/O: knee surgery History of Family History Family History Maternal Aunt Breast CA Social History Social History Patient Tobacco Use Status: Current everyday Tobacco user Use of substances other than those prescribed or required for medical reasons: No Advance Directives: No Advance Directives Information Provided: No Physical Exam Vital Signs: Appearance: Alert. Oriented X3. No acute distress. Eyes: Pupils equal, round and reactive to light. ENT: Pharynx normal. Neck: Normal inspection. Neck supple. CVS: Normal heart rate and rhythm. Pulses normal. Respiratory: No respiratory distress. Breath sounds normal. Abdomen: Soft and nontender. Skin: Skin warm and dry. Normal skin color. Normal skin turgor. Extremities: No lower extremity edema. Moves all extremities against resista nce. Neuro: No motor deficit. No sensory deficit. Cranial nerves 2-12 intact. Course Course Course Narrative: 50-year-old female presents via EMS for left-sided numbness. Started approximately 10 minutes prior to arrival. Woke up with left-sided numbness and tingling, does not have any focal neural deficits. Stroke alert activated. Patient is on Xarelto. 23:00 upon presentation via EMS patient was transported directly to the CT scan for stroke alert. NIH stroke scale is 0 at this time. 23:[address] scan negative for acute findings. Midnight. Plan of care is to admit for TIA. MDM - Neuro Symptoms/Deficit Differential Diagnosis Differential diagnosis: Likely subarachnoid hemorrhage, cerebrovascular accident and transient cerebral ischemia Medical Records Attestation: I reviewed the patient's medical records. Lab Data Attestation: I reviewed the patient's lab results. Result diagrams: 07/29/21 00:21 07/29/21 00:21 Labs: Lab Results 07/28/21 07/28/21 07/29/21 Range/Units 23:06 23:06 00:21 WBC 6.2 (4.8-10.8) X10*3/uL RBC 4.03 L (4.20-5.50) X10*6/uL Hgb 10.9 L (12.0-16.0) g/dl Hct 34.5 L (37.0-47.0) % MCV 85.6 (80.0-98.0) fL MCH 27.0 (27.0-33.0) pg MCHC 31.6 (31.0-35.0) g/dl RDW 15.5 (11.0-16.0) % Plt Count 265 (160-400) X10*3/uL MPV 11.4 (9.4-12.3) fL Immature Gran % (Auto) 0.2 (0.0-0.4) % Neut % (Auto) 47.4 (45-73) % Lymph % (Auto) 38.6 (20-40) % [place] % (Auto) 7.9 (2-11) % Eos % (Auto) 4.9 H (0-4) % Baso % (Auto) 1.0 (0-2) % Lymph # (Auto) 2.4 (1.2-4.9) X10*3/uL [place] # (Auto) 0.5 (0.1-1.2) X10*3/uL Eos # (Auto) 0.3 (0.0-0.4) X10*3/uL Baso # (Auto) 0.1 (0.0-0.2) X10*3/uL Abs Immat Gran (auto) 0.01 (0.00-0.03) X10*3/uL Absolute Neuts (auto) 2.9 (2.0-8.3) x10*3/uL Absolute Nucleated RBC 0.000 (0.0-0.012) X10*3/uL Nucleated RBC % (auto) 0.0 (0.0-0.2) /100WBC PT (9.9-13.0) SEC Whole Blood PT 13.0 (11.1-13.5) sec INR (0.9-1.1) Whole Blood INR 1.1 (0.9-1.1) APTT (24.1-38.0) SEC Sodium (135-145) mmol/L Potassium (3.3-5.1) mmol/L Chloride (96-108) mmol/L Carbon Dioxide (22-29) mmol/L Anion Gap (12-20) BUN (9-16) mg/dL Creatinine (0.5-1.4) mg/dL Estim Creat Clear Calc Estimated GFR POC Glucose 91 (60-115) mg/dL Random Glucose (60-115) mg/dL Calcium (8.4-10.2) mg/dL Phosphorus (2.7-4.5) mg/dL Magnesium (1.6-2.6) mg/dL Total Bilirubin (0.0-1.0) mg/dL Direct Bilirubin (0.0-0.5) mg/dL AST (5-31) U/L ALT (0-31) U/L Alkaline Phosphatase (39-117) U/L Total Creatine Kinase (26-140) U/L Troponin I High Sens (<3.5-17.0) ng/L Total Protein (6.5-8.0) g/dL Albumin (3.5-5.0) g/dL Ethyl Alcohol mg/dL 07/29/21 07/29/21 07/29/21 Range/Units 00:21 00:21 00:21 WBC (4.8-10.8) X10*3/uL RBC (4.20-5.50) X10*6/uL Hgb (12.0-16.0) g/dl Hct (37.0-47.0) % MCV (80.0-98.0) fL MCH (27.0-33.0) pg MCHC (31.0-35.0) g/dl RDW (11.0-16.0) % Plt Count (160-400) X10*3/uL MPV (9.4-12.3) fL Immature Gran % (Auto) (0.0-0.4) % Neut % (Auto) (45-73) % Lymph % (Auto) (20-40) % [place] % (Auto) (2-11) % Eos % (Auto) (0-4) % Baso % (Auto) (0-2) % Lymph # (Auto) (1.2-4.9) X10*3/uL [place] # (Auto) (0.1-1.2) X10*3/uL Eos # (Auto) (0.0-0.4) X10*3/uL Baso # (Auto) (0.0-0.2) X10*3/uL Abs Immat Gran (auto) (0.00-0.03) X10*3/uL Absolute Neuts (auto) (2.0-8.3) x10*3/uL Absolute Nucleated RBC (0.0-0.012) X10*3/uL Nucleated RBC % (auto) (0.0-0.2) /100WBC PT 11.8 (9.9-13.0) SEC Whole Blood PT (11.1-13.5) sec INR 1.0 (0.9-1.1) Whole Blood INR (0.9-1.1) APTT 33.0 (24.1-38.0) SEC Sodium 141 (135-145) mmol/L Potassium 4.1 (3.3-5.1) mmol/L Chloride 106 (96-108) mmol/L Carbon Dioxide 28 (22-29) mmol/L Anion Gap 11 L (12-20) BUN 12 (9-16) mg/dL Creatinine 0.75 (0.5-1.4) mg/dL Estim Creat Clear Calc TNP Estimated GFR > 60 POC Glucose (60-115) mg/dL Random Glucose 98 (60-115) mg/dL Calcium 9.4 (8.4-10.2) mg/dL Phosphorus 4.1 (2.7-4.5) mg/dL Magnesium 1.9 (1.6-2.6) mg/dL Total Bilirubin 0.4 (0.0-1.0) mg/dL Direct Bilirubin < 0.2 (0.0-0.5) mg/dL AST 12 (5-31) U/L ALT 11 (0-31) U/L Alkaline Phosphatase 66 (39-117) U/L Total Creatine Kinase 50 (26-140) U/L Troponin I High Sens < 3.5 (<3.5-17.0) ng/L Total Protein 6.4 L (6.5-8.0) g/dL Albumin 3.8 (3.5-5.0) g/dL Ethyl Alcohol mg/dL 07/29/21 Range/Units 00:21 WBC (4.8-10.8) X10*3/uL RBC (4.20-5.50) X10*6/uL Hgb (12.0-16.0) g/dl Hct (37.0-47.0) % MCV (80.0-98.0) fL MCH (27.0-33.0) pg MCHC (31.0-35.0) g/dl RDW (11.0-16.0) % Plt Count (160-400) X10*3/uL MPV (9.4-12.3) fL Immature Gran % (Auto) (0.0-0.4) % Neut % (Auto) (45-73) % Lymph % (Auto) (20-40) % [place] % (Auto) (2-11) % Eos % (Auto) (0-4) % Baso % (Auto) (0-2) % Lymph # (Auto) (1.2-4.9) X10*3/uL [place] # (Auto) (0.1-1.2) X10*3/uL Eos # (Auto) (0.0-0.4) X10*3/uL Baso # (Auto) (0.0-0.2) X10*3/uL Abs Immat Gran (auto) (0.00-0.03) X10*3/uL Absolute Neuts (auto) (2.0-8.3) x10*3/uL Absolute Nucleated RBC (0.0-0.012) X10*3/uL Nucleated RBC % (auto) (0.0-0.2) /100WBC PT (9.9-13.0) SEC Whole Blood PT (11.1-13.5) sec INR (0.9-1.1) Whole Blood INR (0.9-1.1) APTT (24.1-38.0) SEC Sodium (135-145) mmol/L Potassium (3.3-5.1) mmol/L Chloride (96-108) mmol/L Carbon Dioxide (22-29) mmol/L Anion Gap (12-20) BUN (9-16) mg/dL Creatinine (0.5-1.4) mg/dL Estim Creat Clear Calc Estimated GFR POC Glucose (60-115) mg/dL Random Glucose (60-115) mg/dL Calcium (8.4-10.2) mg/dL Phosphorus (2.7-4.5) mg/dL Magnesium (1.6-2.6) mg/dL Total Bilirubin (0.0-1.0) mg/dL Direct Bilirubin (0.0-0.5) mg/dL AST (5-31) U/L ALT (0-31) U/L Alkaline Phosphatase (39-117) U/L Total Creatine Kinase (26-140) U/L Troponin I High Sens (<3.5-17.0) ng/L Total Protein (6.5-8.0) g/dL Albumin (3.5-5.0) g/dL Ethyl Alcohol < 10 mg/dL Imaging Data CT head: Attestation: I personally reviewed and interpreted this imaging study as follows: Radiologist's impression: EXAMINATION: CT HEAD WITHOUT CONTRAST (STROKE PROTOCOL) CLINICAL INFORMATION: Stroke protocol. Left-sided weakness.? COMPARISON: None TECHNIQUE: Contiguous axial imaging was performed from the skull base to vertex without intravenous administration of contrast. This CT examination was performed using dose optimization techniques as appropriate, variously including the following: *Automated exposure control *Adjustment of mA and/or kV according to patient size (this includes techniques or standardized protocols for targeted exams where dose is matched to indication/reason for exam; i.e. extremities or head) *Use of iterative reconstruction technique DLP: 696.77 mGy-cm FINDINGS: There is no intracranial hemorrhage, hematoma, or extra-axial fluid collection.? The ventricles are normal in size. There is no hydrocephalus, edema, or mass effect.? The jordan-white matter differentiation appears symmetric. There is no acute infarct or mass lesion. The calvarium appears intact. There is no pneumocephalus or orbital emphysema.? The visualized sinuses and middle ears and mastoid air cells show no significant mucosal thickening. There are no air-fluid levels. CT/CT head for stroke IMPRESSION: No acute intracranial pathology. ? This critical result was discussed with Serena Curran NP at 11:24 PM hours on 07/28/2021. It was ascertained that the content and urgency of the report was understood at the time of direct communication. CTA head neck: Attestation: I personally reviewed and interpreted this imaging study as follows: Radiologist's impression: EXAMINATION:? CTA NECK WITH CONTRAST (STROKE) CTA BRAIN WITH CONTRAST (STROKE) CLINICAL INFORMATION:? Left-sided weakness COMPARISON:? CT head from the same date TECHNIQUE: CTA of the head and neck was performed in the axial plane from the mediastinum to the skull vertex using 70 mL Omnipaque 350 intravenous contrast.? Additional reformatted multiplanar images including maximum intensity projection MIP images are generated on the CT workstation. Stenoses are assessed in accordance with NASCET criteria unless otherwise indicated. This CT examination was performed using dose optimization techniques as appropriate, variously including the following: *Automated exposure control *Adjustment of mA and/or kV according to patient size (this includes techniques or standardized protocols for targeted exams where dose is matched to indication/reason for exam; i.e. extremities or head) *Use of iterative reconstruction technique DLP: 1452 mGy-cm. FINDINGS: CT head: There is no evidence of acute intracranial hemorrhage or territorial infarction. There is no loss of jordan to white matter differentiation. No abnormal mass effect or midline shift is seen. No extra-axial fluid collections are identified. There is no abnormal enhancement. The ventricles are normal in size. There is no abnormal attenuation within the brain parenchyma. The osseous structures and soft tissues are normal. The mastoid air cells and visualized portions of the paranasal sinuses are well aerated. ? CTA neck: The aortic arch is of normal contour and caliber. The left common carotid artery arises from the right brachiocephalic artery. No significant stenosis of the branch origins. The common and internal carotid arteries opacify normally without focal stenosis or occlusion. The cervical segments of the vertebral arteries opacify normally without focal stenosis or occlusion. The thyroid gland and remaining cervical soft tissues are within normal limits. No significant abnormalities of the cervical spine. The visualized lung apices and upper mediastinum are within normal limits. CTA head: There is normal opacification of major intracranial arteries. No focal flow-limiting stenosis, discrete proximal large artery occlusion, or saccular intradural aneurysm. Normal contrast opacification of the petrous, cavernous, paraophthalmic, and supraclinoid segments of the internal carotid arteries without focal stenosis. Normal appearance of the anterior cerebral and middle cerebral arteries without focal occlusion or stenosis. Normal anterior communicating artery. Normal arborization of the middle cerebral arteries. Normal appearance of the intradural vertebral and posterior inferior cerebellar arteries. Normal appearance of the basilar, superior cerebellar, and P1 segments of the posterior cerebral arteries. Normally opacified posterior communicating arteries. Normal appearance of the distal segments of the posterior cerebral arteries bilaterally. CT/CT angio head? neck stroke IMPRESSION: No acute intracranial abnormalities are identified. No acute vascular findings are identified in the head and neck. ? This critical result was discussed by telephone with Serena Curran APRN on 07/29/2021 at 1:06 AM ECG Data Attestation: I personally reviewed and interpreted this ECG as follows: ECG interpretation date: 07/28/21 ECG interpretation time: 23:59 Prior ECG tracings: not available for review Interpretation: Vent. rate 45 BPM [place] interval 136 ms QRS duration 88 ms QT/QTc 460/397 ms P-R-T axes 22 62 53 Sinus bradycardia Otherwise normal ECG No previous ECGs available NIH Stroke Scale Internal: Initial- Upon Arrival Time: 23:00 Level of Consciousness: Alert Level of Consciousness Questions: Answers both questions correctly Level of Consciousness Commands: Performs both tasks correctly Best Gaze: Normal Visual: No visual loss Facial Palsy: Normal Motor Arm (Right): No drift Motor Arm (Left): No drift Motor Leg (Right): No drift Motor Leg (Left): No drift Limb Ataxia: Absent Sensory: Normal Best Language: No aphasia Dysarthia: Normal Extinction and Inattention: No abnormality Score: 0 Discharge Plan Discharge Clinical Impression: Transient cerebral ischemia Patient Disposition: Admitted As Inpatient
--- NOTE | 2021-07-28 22:59 | ECG_ITS ---
Test Reason : CHEST PAIN Blood Pressure : / mmHG Vent. Rate : 045 BPM Atrial Rate : 045 BPM P-R Int : 136 ms QRS Dur : 088 ms QT Int : 460 ms P-R-T Axes : 022 062 053 degrees QTc Int : 397 ms Sinus bradycardia Otherwise normal ECG No previous ECGs available Referred By: Serena Velazquez Electronically Signed By:TAMIKA WATTERS
[2021-07-28 23:06] VITALS: BP 130/76; PULSE 60; O2SAT 100
[2021-07-28 23:11] LABS: Glucose, Whole Blood 91 mg/dL (60-115); ~PT, ~INR - Anti Coag Clinic 1.1 (0.9-1.1)
[2021-07-28 23:24] VITALS: BP 114/79; PULSE 70; RESP 15; TEMP 36.8; O2SAT 100; BMI 33.3
[2021-07-29 00:28] LABS: MANUAL DIFF FLAG NO
[2021-07-29 00:31] LABS: Basophils Absolute Auto 0.1 X10*3/uL (0.0-0.2); Eosinophils Absolute Auto 0.3 X10*3/uL (0.0-0.4); Eosinophils Percent Auto 4.9 % (0-4); Hematocrit 34.5 % (37.0-47.0); Hemoglobin 10.9 g/dl (12.0-16.0); Imm Gran Abs Auto 0.01 X10*3/uL (0.00-0.03); Imm Gran Pct Auto 0.2 % (0.0-0.4); Lymphocytes Absolute Auto 2.4 X10*3/uL (1.2-4.9); Lymphocytes Percent Auto 38.6 % (20-40); Mean Corpuscular HGB Conc 31.6 g/dl (31.0-35.0); Mean Corpuscular Volume 85.6 fL (80.0-98.0); Mean Platelet Volume 11.4 fL (9.4-12.3); Monocytes Absolute Auto 0.5 X10*3/uL (0.1-1.2); Monocytes Percent Auto 7.9 % (2-11); Neutrophils Absolute Auto 2.9 x10*3/uL (2.0-8.3); Neutrophils Percent Auto 47.4 % (45-73); Platelet Count 265 X10*3/uL (160-400); Red Blood Count 4.03 X10*6/uL (4.20-5.50); Red Cell Distribution Width 15.5 % (11.0-16.0); White Blood Count 6.2 X10*3/uL (4.8-10.8)
[2021-07-29 00:40] LABS: Prothrombin Time 11.8 SEC (9.9-13.0)
[2021-07-29 00:41] LABS: Ethanol < 10 mg/dL
[2021-07-29 00:43] LABS: Stroke Lab Use COMPLETE
[2021-07-29 00:46] LABS: Alanine Aminotransferase 11 U/L (0-31); Albumin Level 3.8 g/dL (3.5-5.0); Alkaline Phosphatase 66 U/L (39-117); Anion Gap 11 (12-20); Aspartate Amino Transferase 12 U/L (5-31); Bilirubin Direct < 0.2 mg/dL (0.0-0.5); Bilirubin Total 0.4 mg/dL (0.0-1.0); Blood Urea Nitrogen 12 mg/dL (9-16); Calcium 9.4 mg/dL (8.4-10.2); Carbon Dioxide 28 mmol/L (22-29); Chloride 106 mmol/L (96-108); Estimated Glomerular Filt Rate > 60; Glucose Random 98 mg/dL (60-115); Magnesium 1.9 mg/dL (1.6-2.6); Phosphorus 4.1 mg/dL (2.7-4.5); Potassium 4.1 mmol/L (3.3-5.1); Sodium 141 mmol/L (135-145); Total Protein 6.4 g/dL (6.5-8.0)
[2021-07-29 00:50] LABS: Troponin-I High Sensitivity < 3.5 ng/L (<3.5-17.0)
[2021-07-29 01:33] VITALS: BP 106/53; PULSE 43; RESP 12; TEMP 36.4; O2SAT 99
[2021-07-29 01:55] LABS: Appearance Urine CLEAR; Color Urine YELLOW; Glucose Urine UA NEG (NEG); Leukocyte Esterase Urine NEG (NEG); Nitrite Urine NEG (NEG); Specific Gravity - Urine >= 1.030 (1.005-1.025); Urine Blood NEG (NEG); Urine Ketones NEG (NEG); Urine Protein NEG (NEG-TRACE)
[2021-07-29 02:16] LABS: COVID-19 Test Negative (Negative)
--- NOTE | 2021-07-29 02:56 | PC.NURSE ---
Patient's heart rate in the high 40's but patient is awake and on phone. She is not symptomatic. Hospitalist aware but states that since patient has no symptoms no orders were given.
[2021-07-29 03:49] LABS: Thyroid Stimulating Hormone 0.73 uIU/mL (0.32-4.0)
[2021-07-29 04:09] VITALS: BP 101/48; PULSE 43; RESP 12; TEMP 36.6; O2SAT 99
--- NOTE | 2021-07-29 05:48 | PM.IMHP ---
History of Present Illness Date of Service: 07/29/21 Chief Complaint: TIA symptoms 50-year-old female with past medical history antiphospholipid syndrome, PE, DVT who presents to the hospital with complaints of sudden onset pain that started in the back of her head, radiating to her left upper and lower extremities, feeling of numbness, sensation, significant weakness in upper or lower extremity, As well as difficulty with speech, and feeling that her speech was heavy. This lasted for less than a minute. She called EMS. She reports that she cannot describe in detail exactly how felt but it just felt very weird , where her whole left side felt strange. She reports that during the episode she also had blurry vision, she has left-sided headache, she denies any numbness, tingling, at this time reports no chest pain, abdominal pain nausea or vomiting, no palpitations, no urinary symptoms and no lower extremity edema. On arrival to the ED patient hemodynamically stable except found to have heart rate of 43 Labs are significant for WBC count of 6.2, hemoglobin of 10.9, labs otherwise unremarkable. UA negative. CT head negative, head and neck CT angiogram show no acute intracranial abnormalities, no acute vascular finding troponin negative, and EKG showed sinus bradycardia Review of Systems Review of Systems: Yes all other systems are reviewed and are negative [facility] Medical History Antiphospholipid syndrome Diabetes DVT (deep venous thrombosis) Pulmonary embolism Tubal ligation evaluation Venous stasis of lower extremity Family History Maternal Aunt Breast CA Surgical History H/O gastric sleeve H/O skin graft H/O: knee surgery History of Social History Patient Tobacco Use Status: Current everyday Tobacco user Use of substances other than those prescribed or required for medical reasons: No Advance Directives: No Advance Directives Information Provided: No Patient : No Meds Allergies Allergy/AdvReac Type Severity Reaction Status Date / Time No Known Allergies Allergy Verified 07/23/21 09:36 Active Medications: Current Medications Acetaminophen (Acetaminophen 325 Mg Tablet) 650 mg PO Q6H PRN PRN Reason: Pain, Mild (Pain Scale 1-3) Aspirin (Aspirin Enteric Coated 81 Mg Tablet.Dr) 81 mg PO DAILY KATHARINA Atorvastatin Calcium (Atorvastatin Calcium 80 Mg Tablet) 80 mg PO DAILY KATH[facility]INA Docusate Sodium (Docusate Sodium 100 Mg Capsule) 100 mg PO DAILY PRN PRN Reason: Constipation Ondansetron HCl (Ondansetron Hcl 4 Mg/2 Ml Vial) 4 mg IVPUSH Q8H PRN PRN Reason: Nausea and Vomiting Home Medications Medication Instructions Recorded Confirmed Last Taken Type omeprazole 20 mg capsule,delayed 1 cap PO DAILY 07/29/21 07/29/21 07/28/21 History release Physical Exam Vital Signs and Narrative: Vital Signs: Last Vital Signs Temp 97.8 F 07/29/21 04:09 Pulse 43 L 07/29/21 04:09 Resp 12 07/29/21 04:09 BP 101/48 L 07/29/21 04:09 Pulse Ox 99 07/29/21 04:09 BMI result Body Mass Index 33.3 Const: General: cooperative and no acute distress Orientation/consciousness: patient oriented x3 Eyes: General: appearance normal, both eyes and all related structures Resp: Effort & Inspection: normal respiratory effort Auscultation: clear to auscultation bilaterally Cardio: Rate: regular rate Rhythm: regular rhythm GI: Palpation (GI): Soft to palpation Auscultation: normal bowel sounds Skin: General skin exam: no rashes or lesions noted Neuro: Other: no neurological deficits, cranial nerves 2-12 intact, strength 5/5 in all extremities, sensation intact General: patient oriented x3 Cognition (Neuro): normal cognition Extrem: General: Yes normal to inspection and Yes no pedal edema Results Labs CBC and Chem 7: 07/29/21 00:21 07/29/21 00:21 Labs: Laboratory Results - last 24 hr 07/28/21 07/28/21 07/29/21 23:06 23:06 00:21 MCV 85.6 MCH 27.0 MCHC 31.6 RDW 15.5 Plt Count 265 MPV 11.4 Immature Gran % (Auto) 0.2 Neut % (Auto) 47.4 Lymph % (Auto) 38.6 Teller % (Auto) 7.9 Eos % (Auto) 4.9 H Baso % (Auto) 1.0 Lymph # (Auto) 2.4 Teller # (Auto) 0.5 Eos # (Auto) 0.3 Baso # (Auto) 0.1 Abs Immat Gran (auto) 0.01 Absolute Neuts (auto) 2.9 Absolute Nucleated RBC 0.000 Nucleated RBC % (auto) 0.0 PT Whole Blood PT 13.0 INR Whole Blood INR 1.1 APTT Anion Gap Estim Creat Clear Calc Estimated GFR POC Glucose 91 Random Glucose Calcium Phosphorus Magnesium Total Bilirubin Direct Bilirubin AST ALT Alkaline Phosphatase Total Creatine Kinase Total Protein Albumin TSH Urine Color Urine Appearance Urine pH Ur Specific [place] Urine Protein Urine Glucose (UA) Urine Ketones Urine Blood Urine Nitrite Ur Leukocyte Esterase Ethyl Alcohol COVID-19 ([place]) COVID-19 [employer] 07/29/21 07/29/21 07/29/21 00:21 00:21 00:21 MCV MCH MCHC RDW Plt Count MPV Immature Gran % (Auto) Neut % (Auto) Lymph % (Auto) Teller % (Auto) Eos % (Auto) Baso % (Auto) Lymph # (Auto) Teller # (Auto) Eos # (Auto) Baso # (Auto) Abs Immat Gran (auto) Absolute Neuts (auto) Absolute Nucleated RBC Nucleated RBC % (auto) PT 11.8 Whole Blood PT INR 1.0 Whole Blood INR APTT 33.0 Anion Gap 11 L Estim Creat Clear Calc TNP Estimated GFR > 60 POC Glucose Random Glucose 98 Calcium 9.4 Phosphorus 4.1 Magnesium 1.9 Total Bilirubin 0.4 Direct Bilirubin < 0.2 AST 12 ALT 11 Alkaline Phosphatase 66 Total Creatine Kinase 50 Total Protein 6.4 L Albumin 3.8 TSH 0.73 Urine Color Urine Appearance Urine pH Ur Specific [place] Urine Protein Urine Glucose (UA) Urine Ketones Urine Blood Urine Nitrite Ur Leukocyte Esterase Ethyl Alcohol < 10 COVID-19 ([place]) COVID-19 [employer] 07/29/21 07/29/21 01:47 01:53 MCV MCH MCHC RDW Plt Count MPV Immature Gran % (Auto) Neut % (Auto) Lymph % (Auto) Teller % (Auto) Eos % (Auto) Baso % (Auto) Lymph # (Auto) Teller # (Auto) Eos # (Auto) Baso # (Auto) Abs Immat Gran (auto) Absolute Neuts (auto) Absolute Nucleated RBC Nucleated RBC % (auto) PT Whole Blood PT INR Whole Blood INR APTT Anion Gap Estim Creat Clear Calc Estimated GFR POC Glucose Random Glucose Calcium Phosphorus Magnesium Total Bilirubin Direct Bilirubin AST ALT Alkaline Phosphatase Total Creatine Kinase Total Protein Albumin TSH Urine Color YELLOW Urine Appearance CLEAR Urine pH 6.0 Ur Specific [place] >= 1.030 H Urine Protein NEG Urine Glucose (UA) NEG Urine Ketones NEG Urine Blood NEG Urine Nitrite NEG Ur Leukocyte Esterase NEG Ethyl Alcohol COVID-19 ([place]) Negative COVID-19 Clin Com See Note Imaging Radiologist's Impressions: Impressions Head CT 07/28/21 23:04 IMPRESSION: No acute intracranial pathology. This critical result was discussed with Serena Curran NP at 11:24 PM hours on 07/28/2021. It was ascertained that the content and urgency of the report was understood at the time of direct communication. Head/Neck CTA 07/28/21 23:40 IMPRESSION: No acute intracranial abnormalities are identified. No acute vascular findings are identified in the head and neck. This critical result was discussed by telephone with Serena Curran APRN on 07/29/2021 at 1:06 AM Assessment and Plan (1) Transient cerebral ischemia: Status: Acute Plan this is a 50-year-old female with past medical history of antiphospholipid syndrome who presents to the hospital with TIA symptoms including numbness, tingling, weakness, speech difficulty to the left side. # TIA - risk factors include antiphospholipid syndrome, as well as her history of smoking - was started on aspirin, statin - will obtain MRI - neurology consulted - lipid battery # history of antiphospholipid syndrome - continue Xarelto DVT prophylaxis: Xarelto Quality Stroke Does the patient have a stroke diagnosis?: No VTE Prior VTE?: No VTE Risk Level:: Medical - moderate - high VTE Device Contraindication: Treatment Not Indicated VTE Drug Contraindication: N/A - Med Ordered
[2021-07-29] MEDS: Omeprazole 20 MG CAPSULE.DR PO (06:26)
[2021-07-29 06:57] LABS: MANUAL DIFF FLAG NO
--- NOTE | 2021-07-29 07:11 | PC.NURSE ---
Patient's heart rates dropping into 40's and even dipped as low as 38. Patient remains asymptomatic. Hospitalist aware of heart rate and stated that she contacted cardiology and they will be in to see the patient this morning.
[2021-07-29 07:12] LABS: Basophils Absolute Auto 0.1 X10*3/uL (0.0-0.2); Basophils Percent Auto 1.1 % (0-2); Eosinophils Absolute Auto 0.3 X10*3/uL (0.0-0.4); Hematocrit 34.8 % (37.0-47.0); Hemoglobin 10.8 g/dl (12.0-16.0); Imm Gran Abs Auto 0.01 X10*3/uL (0.00-0.03); Imm Gran Pct Auto 0.2 % (0.0-0.4); Lymphocytes Absolute Auto 2.1 X10*3/uL (1.2-4.9); Lymphocytes Percent Auto 39.6 % (20-40); Mean Corpuscular Hemoglobin 26.7 pg (27.0-33.0); Mean Corpuscular Volume 86.1 fL (80.0-98.0); Mean Platelet Volume 11.3 fL (9.4-12.3); Monocytes Absolute Auto 0.5 X10*3/uL (0.1-1.2); Monocytes Percent Auto 9.5 % (2-11); Neutrophils Absolute Auto 2.4 x10*3/uL (2.0-8.3); Neutrophils Percent Auto 44.6 % (45-73); Platelet Count 265 X10*3/uL (160-400); Red Blood Count 4.04 X10*6/uL (4.20-5.50); Red Cell Distribution Width 15.7 % (11.0-16.0); White Blood Count 5.4 X10*3/uL (4.8-10.8)
[2021-07-29 07:15] LABS: Anion Gap 10 (12-20); Blood Urea Nitrogen 10 mg/dL (9-16); Calcium 9.2 mg/dL (8.4-10.2); Carbon Dioxide 28 mmol/L (22-29); Chloride 109 mmol/L (96-108); Creatinine Clr Calc Pharmacy 118.7; Estimated Glomerular Filt Rate > 60; Glucose Random 98 mg/dL (60-115); Potassium 4.7 mmol/L (3.3-5.1); Sodium 142 mmol/L (135-145)
--- NOTE | 2021-07-29 09:44 | MHC.CM.PN ---
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
[2021-07-29 10:17] VITALS: BP 111/68; PULSE 64; O2SAT 97
[2021-07-29] MEDS: Atorvastatin Calcium 80 MG TABLET PO (10:18)
[2021-07-29] MEDS: Aspirin Enteric Coated 81 MG TABLET.DR PO (10:18)
--- NOTE | 2021-07-29 10:29 | PHA.MEDREC ---
Pharmacy Consult ? Medication Reconciliation Pharmacy has completed the medication reconciliation. pt also takes B12, multivitamin and vitamin D of some sort for bariatric. Said they [facility] [place] and also transfered to [facility] pharmacy and they only have old fill of B12 from december of 2020 confirmed omeprazole and xarelto with pt and pharmacy
--- NOTE | 2021-07-29 11:12 | MHC.STROKE ---
07/28/21 at 2246 EMS PRE-NOTIFIED STROKE ALERT , ARRIVED AT 2254. SEEN BY PROVIDER STROKE PROTOCOL ACTIVATED, CT AND CTA H/N DONE. NO BLEED NOT LVO. I MET WITH THE PATIENT THIS MORNING. SHE DESCRIBED HER SYMPTOMS A SUDDEN ONSET 2214, OF LEFT SIDED NECK PAIN THAT RADIATED TO HER LEFT SIDE OF HEAD AND DOWN THE LEFT ARM. SHE ALSO C/O LOSS OF STRENGTH IN HER LEFT ARM, SLIGHT NUMB/TINGLING. THIS LAST 10 MINUTES. SHE HAS NOT HAD THIS HAPPEN BEFORE. SHE HAS A 30 YEAR HISTORY OF ANTIPHOSPHOLIPID SYNDROME, SHE HAS BEEN ON COUMADIN FOR YEARS THEN SWITCHED TO XARELTO. BOTH MYSELF AND THE PHARMACIST ASKED HER ABOUT TAKING HER XARELTO. SHE DID NOT TAKE IT ON 07/28/21, SHE MIGHT HAVE TAKEN IT ON 07/27/21. SHE HAS BEEN INCONSISTENT IN TAKING THE XARELTO, SHE TAKES IT AT DIFFERENT TIMES OF THE DAY. SHE MOVED TO [place] ABOUT A YEAR AGO FROM [place]. I REVIEWED HER CT, CTA AND MRI RESULTS WITH HER. I PROVIDED STROKE EDUCATION AND REVIEWED HER PERSONAL RISK FACTORS AND STRESSED MEDICATION COMPLIANCE ESPECIALLY WITH THE XARELTO. I EXPLAINED THAT THE NEUROLOGIST WILL BE SEEING HER. I ANSWERED ALL OF HER QUESTIONS. I REPORTED THE BRADYCARDIA, THE NON-COMPLIANCE WITH XARELTO, AND PRESENTING SYMPTOMS TO DR FERRARI AND DR BECKER.
[2021-07-29] MEDS: Rivaroxaban 20 MG TABLET PO (11:31)
--- NOTE | 2021-07-29 11:58 | PM.EVENT ---
Event Note Date of Service: 07/29/21 Event Note: 50-year-old with past medical history of antiphospholipid syndrome, PE, DVT presented to [facility] with sudden onset of left-sided headache radiating to left upper arm and lower extremities with associated numbness weakness of left upper and lower extremity as well as difficulty in speech that felt heavy symptoms resolved within a minute, patient denied associated chest pain no palpitation no urinary symptoms no GI symptoms. 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 On examination awake alert no distress heart regular Reynaldo neuro nonfocal assessment and plan transient neurological deficit now resolved, question etiology no evidence of seizure, no evidence of CVA MRI brain this morning is unremarkable normal blood pressure, is stable blood sugars and electrolytes, normal TSH follow lipid profile await neuro input bradycardia denies symptoms of lightheadedness dizziness, no chest pain not on rate-controlling medications continue tele monitor, troponin negative with benign EKG check echocardiogram consult Cardiology if noted to have persistent symptoms history of antiphospholipid syndrome continue Xarelto, noncompliant with medications discuss importance of compliance ?DVT prophylaxis:? Xarelto
--- NOTE | 2021-07-29 14:00 | CA_ITS ---
Transthoracic Echocardiogram Patient (Last, First, Middle): Emy Leigh, Gender: Female Date of : 1970 Age: 50 Procedure Date: 07/29/2021 Procedure Type: Transthoracic Echocardiogram Location: ER Height: 175.26 cm Weight: 97.98 kg BSA: 2.13 m2 Heart Rate: bpm BP: 111 / 68 mmHg Joint Sealer: Referring MD: Jaswinder Nguyen MD Symptoms: bradycardia Study Quality: Fair ECG Rhythm: Sinus bradycardia Conclusions: - The left ventricular systolic function is normal. The visually estimated ejection fraction is between 55-60%. - No obvious valvular pathology seen on this study. Findings Left Ventricle Normal left ventricular cavity size. There is normal left ventricular wall thickness. The left ventricular systolic function is normal. The visually estimated ejection fraction is between 55-60%. There is no evidence of regional wall motion abnormalities. Diastolic function is normal for age. Right Ventricle Normal right ventricular cavity size and systolic function. Atria Both atria are normal in size. Aortic Valve There is a normal trileaflet aortic valve. There is no aortic valve stenosis. There is no aortic valve regurgitation. Mitral Valve The mitral valve appears normal. There is trace mitral valve regurgitation. There is no mitral valve stenosis. Pulmonic Valve The pulmonic valve is likely normal. There is trace pulmonic valve regurgitation. Tricuspid Valve Normal tricuspid valve structure. There is trace tricuspid valve regurgitation. The pulmonary artery systolic pressure is normal. Great Vessels The asc aorta is normal in size. Venous The inferior vena cava is normal in size and collapses greater than 50% with inspiration. Pericardium/Pleural There is no evidence of pericardial effusion. Prior Study Comparison No prior study available for comparison. Recommendations, Care & Conclusions No obvious valvular pathology seen on this study. Measurements 2D Linear Measurements IVSd: 0.77 0.6-0.9/0.6-1.0 cm LVIDd: 5.40 3.9-5.3/4.2-5.9 cm LVIDd Index: 2.54 2.4-3.2/2.2-3.1 cm/m2 LVIDs: 3.29 2.0-3.6 cm LVPWd: 0.79 0.7-1.1 cm LA Diam: 3.90 2.7-3.8/3.0-4.0 cm LAIDs Index: 1.83 1.5-2.3 cm/m2 LV Mass: 186.42 67-162/88-224 g LV Mass Index: 87.52 43-95/49-115 g/m2 LVOT Diam: 2.10 3.0+(-)1.3 cm 2D Systolic Function EF 4C: 58.80 >55% EF 2C: 48.60 >55% EF BiP: 54.00 >55% Mitral Valve MV Pk E: 0.93 MV PK A: 0.61 MV Decel Time: 201.00 E/A: 1.50 E'Lateral: 14.50 E'Medial: 12.50 E/E' Med: 7.50 E/E' Lat: 6.40 PHT: 59.00 MVA PHT: 3.73 Decel [place]: 4.64 Aortic Valve AoV Pk Sonny: 1.37 AoV Mn Sonny: 0.79 AoV VTI: 0.40 AoV Pk Grad: 8.00 Aov Mn Grad: 3.00 MIC Cont.VTI: 2.75 LVOT LVOT Pk Sonny: 1.08 LVOT Mn Sonny: 0.69 LVOT VTI: 0.32 LVOT Pk Grad: 5.00 LVOT Mn Grad: 2.00 LVOT Diam: 2.10 LVOT Area: 3.46 Diastolic Function MV Pk E: 0.93 MV Pk A: 0.61 E/A: 1.50 E'Medial: 12.50 E/E' Med: 7.50 E' Laterial: 14.50 E/E' Lat: 6.40 Right Ventricle TAPSE (mm): 26.10 TVS' Sonny: 12.90 Tricuspid Valve TR Pk Sonny: 2.33 TR Pk Grad: 22.00 RA Press: 3.00 RVSP: 25.00 Great Vessels Aorta Sinus of Valsalva: 3.27 2.0-3.[address] [place]: 3.00 1.7-3.4 cm Ao Asc: 3.40 2.1-3.4 cm Pulmonary Valve PV Pk Sonny: 0.80 Peak PV Grad: 3.00 Updated in Other Vendor System with Status of Final Otoniel Delgado MD electronically signed on 07/29/2021 4:11:41 PM with status of Final
[2021-07-29 14:03] VITALS: BP 117/51; PULSE 45; RESP 18; TEMP 36.6; O2SAT 98
--- NOTE | 2021-07-29 14:05 | PC.NURSE ---
Patients vital signs taken, heart rate of 45 reported to RN Patient offers no complaints at this time
--- NOTE | 2021-07-29 15:37 | P.CNNE_ITS ---
History of Present Illness Data of Consult Service Date: 07/29/21 Primary Care Provider: Zafar Espinoza MD [facility] Reason for consult: Left-sided numbness 50 years old woman who came to hospital with left-sided numbness. She said that she was in usual state of health sitting at home when suddenly left scapular area started hurting and soon this feeling extended to involve her left arm and then hand and her arm was heavy. Soon she noted same feeling going to left side of her chest face and also left leg. It was like or left body was involved. She got concerned called EMS and was brought to hospital. This feeling lasted for about 10-15 minutes and afterwards she had a moderate headache. She said that she was not having too many headaches lately there was no recent fever chills or cold-like symptom. Review of Systems Review of Systems: No recent cold or flu-like symptom or difficulty sleeping. [facility] Past Medical History Medical History Antiphospholipid syndrome Diabetes DVT (deep venous thrombosis) Pulmonary embolism Tubal ligation evaluation Venous stasis of lower extremity Family History Family History Maternal Aunt Breast CA Surgical History Surgical History H/O gastric sleeve H/O skin graft H/O: knee surgery History of Social History Social History Patient Tobacco Use Status: Current everyday Tobacco user Use of substances other than those prescribed or required for medical reasons: No Advance Directives: No Advance Directives Information Provided: No Patient : No service: No Current occupational status: employed Meds Allergies Allergy/AdvReac Type Severity Reaction Status Date / Time No Known Allergies Allergy Verified 07/23/21 09:36 Active Medications: Current Medications Acetaminophen (Acetaminophen 325 Mg Tablet) 650 mg PO Q6H PRN PRN Reason: Pain, Mild (Pain Scale 1-3) Aspirin (Aspirin Enteric Coated 81 Mg Tablet.) 81 mg PO DAILY [facility] Last Admin: 07/29/21 10:18 Dose: 81 mg Documented by: Atorvastatin Calcium (Atorvastatin Calcium 80 Mg Tablet) 80 mg PO DAILY [facility] Last Admin: 07/29/21 10:18 Dose: 80 mg Documented by: Cyanocobalamin (Cyanocobalamin (Vitamin B-12) 1,000 Mcg Tablet) 1,000 mcg PO DAILY [facility] Docusate Sodium (Docusate Sodium 100 Mg Capsule) 100 mg PO DAILY PRN PRN Reason: Constipation Omeprazole (Omeprazole 20 Mg Capsule.) 20 mg PO DAILY@0630 [facility] Last Admin: 07/29/21 06:26 Dose: 20 mg Documented by: Ondansetron HCl (Ondansetron Hcl 4 Mg/2 Ml Vial) 4 mg IVPUSH Q8H PRN PRN Reason: Nausea and Vomiting Rivaroxaban (Rivaroxaban 20 Mg Tablet) 20 mg PO DAILY@1700 [facility] Home Medications Medication Instructions Recorded Confirmed Last Taken Type cyanocobalamin (vitamin B-12) 1,000 mcg PO DAILY 07/29/21 07/29/21 Unknown History 1,000 mcg tablet multivitamin 1 tab PO DAILY 07/29/21 07/29/21 Unknown History omeprazole 20 mg capsule,delayed 1 cap PO DAILY 07/29/21 07/29/21 Unknown Histor y release Physical Exam Vital Signs: Vital Signs: Last Vital Signs Temp 97.8 F 07/29/21 14:03 Pulse 45 L 07/29/21 14:03 Resp 18 07/29/21 14:03 BP 117/51 L 07/29/21 14:03 Pulse Ox 98 07/29/21 14:03 BMI result Body Mass Index 33.3 Neuro: Other: She was alert and awake with normal spontaneity of speech fluency comprehension and affect. Face was symmetrical. Visual garza are full. There was no pronator drift. Deep tendon reflexes were trace with Results Labs CBC & Chem 7: 07/29/21 06:21 07/29/21 06:32 Labs: Short CBC 07/29/21 07/29/21 Range/Units 00:21 06:21 WBC 6.2 5.4 (4.8-10.8) X10*3/uL Hgb 10.9 L 10.8 L (12.0-16.0) g/dl Hct 34.5 L 34.8 L (37.0-47.0) % Plt Count 265 265 (160-400) X10*3/uL BMP 07/29/21 07/29/21 00:21 06:32 Sodium 141 142 Potassium 4.1 4.7 Chloride 106 109 H Carbon Dioxide 28 28 BUN 12 10 Creatinine 0.75 0.73 Calcium 9.4 9.2 Cardiac Enzymes 07/29/21 Range/Units 00:21 Total Creatine Kinase 50 (26-140) U/L Liver Function 07/29/21 Range/Units 00:21 Total Bilirubin 0.4 (0.0-1.0) mg/dL Direct Bilirubin < 0.2 (0.0-0.5) mg/dL AST 12 (5-31) U/L ALT 11 (0-31) U/L Alkaline Phosphatase 66 (39-117) U/L Albumin 3.8 (3.5-5.0) g/dL Urine 07/29/21 Range/Units 01:47 Urine Color YELLOW Urine Appearance CLEAR Urine pH 6.0 (5.0-8.0) Ur Specific [place] >= 1.030 H (1.005-1.025) Urine Protein NEG (NEG-TRACE) MG/DL Urine Glucose (UA) NEG (NEG) MG/DL Her noncontrast head CT, CTA of brain and neck, an MRI of brain reviewed. No significant pathology was noted. Assessment and Plan (1) Migraine with aura: Status: Acute 50 years old woman with previous history of antiphospholipid antibody syndrome, and pulmonary embolism who came to hospital with symptoms of left-sided numbness and heaviness for few minutes followed by headache. Her examination was nonfocal. Brain imaging did not reveal any acute or significant chronic lesion. Overall clinical picture was suggestive of migraine with aura resulting in numbness and weakness of left hemibody slowly spreading. Mainstay of management of his reassurance and education. She was educated about this condition. She said that she was not having any significant headaches lately. If this type of symptoms would recur, a medicine like topiramate can be started for prevention Procedures Date of Service Date of Service: 07/29/21
[2021-07-29 17:17] VITALS: BP 118/61; PULSE 48; RESP 16; TEMP 36.8; O2SAT 98
--- NOTE | 2021-07-29 19:13 | PM.DS ---
DS: Providers Provider Date of Service: 07/31/21 Date of admission: 07/29/21 03:03 Primary care physician: Zafar Espinoza MD Consults: 07/29/21 03:05 Consult to Neurology Routine Consulting Provider: [facility] Reason for consultation: TIA Has provider been notified: No DS: Diagnosis Discharge Diagnosis (1) Migraine with aura: Status: Resolved DS: Summary Hospital Course Hospital Course: Chief Complaint: TIA symptoms 50-year-old female with past medical history? antiphospholipid syndrome, PE, DVT who presents to the hospital with complaints of sudden onset pain that started in the back of her head, radiating to her left upper and lower extremities, feeling of numbness, sensation, significant weakness in upper or lower extremity, ? As well as difficulty with speech, and feeling that her speech was heavy.? This lasted for less than a minute.? She called EMS.? She reports that she cannot describe in detail exactly how felt but it just felt very weird , where her whole left side felt strange. ? She reports that during the episode she also had blurry vision, she has left-sided headache, she denies any numbness, tingling, at this time reports no chest pain, abdominal pain nausea or vomiting, no palpitations, no urinary symptoms and no lower extremity edema. On arrival to the ED patient hemodynamically stable except found to have heart rate of 43 Labs are significant for WBC count of 6.2, hemoglobin of 10.9, labs otherwise unremarkable.? UA negative.? CT head negative, head and neck CT angiogram show? no acute intracranial abnormalities, no acute vascular finding troponin negative, and EKG showed sinus bradycardia hospital course 50-year-old female patient with antiphospholipid syndrome on Eliquis presented to [facility] with headache associated with left-sided upper and lower extremity numbness and weakness, had difficulty in speech, symptoms resolved within a minute without associated chest pain palpitation no urinary or GI symptoms, workup in the ER including CT head, head and neck CT angiogram was unremarkable she had normal troponins however EKG showed sinus bradycardia patient admitted to telemetry unit for close monitoring and treatment patient evaluated by Neurology and they felt patient's symptoms are related to migraine with aura resulting in numbness and weakness of left hemibody he recommended reassurance and education and recommended Topamax if patient had recurrent symptoms, in regard to bradycardia and echocardiogram was obtained that was an unremarkable study tele monitor showed improvement in heart rate currently 60-70 range patient remained asymptomatic and is eager to be discharged home therefore recommended close outpatient follow-up with primary care physician. Time Spent with Patient Time attestation: Total time spent providing and/or coordinating discharge services: Discharge coordination time: Greater than 30 minutes Quality: Stroke Does the patient have a stroke diagnosis?: No Physical Exam Vital Signs: Vital Signs: Last Vital Signs Temp 98.2 F 07/29/21 17:17 Pulse 48 L 07/29/21 17:17 Resp 16 07/29/21 17:17 BP 118/61 07/29/21 17:17 Pulse Ox 98 07/29/21 17:17 BMI result Body Mass Index 33.3 Const: Other: General resting comfortably in no acute distress. Neck supple no JVD. CVS regular rate rhythm, Respiratory lungs clear to auscultation, no respiratory distress, no wheeze, no rhonchi. Gastrointestinal abdomen soft, nontender, bowel sounds audible Extremities no edema. Neuro nonfocal ,moving all 4 extremity, speech clear. Skin no rash Psych appropriate affect DS: Data Data Completed and Pending Labs on day of discharge: Laboratory Results - last 24 hr 07/28/21 07/28/21 07/29/21 23:06 23:06 00:21 WBC 6.2 RBC 4.03 L Hgb 10.9 L Hct 34.5 L MCV 85.6 MCH 27.0 MCHC 31.6 RDW 15.5 Plt Count 265 MPV 11.4 Immature Gran % (Auto) 0.2 Neut % (Auto) 47.4 Lymph % (Auto) 38.6 [place] % (Auto) 7.9 Eos % (Auto) 4.9 H Baso % (Auto) 1.0 Lymph # (Auto) 2.4 [place] # (Auto) 0.5 Eos # (Auto) 0.3 Baso # (Auto) 0.1 Abs Immat Gran (auto) 0.01 Absolute Neuts (auto) 2.9 Absolute Nucleated RBC 0.000 Nucleated RBC % (auto) 0.0 PT Whole Blood PT 13.0 INR Whole Blood INR 1.1 APTT Sodium Potassium Chloride Carbon Dioxide Anion Gap BUN Creatinine Estim Creat Clear Calc Estimated GFR POC Glucose 91 Random Glucose Calcium Phosphorus Magnesium Total Bilirubin Direct Bilirubin AST ALT Alkaline Phosphatase Total Creatine Kinase Troponin I High Sens Total Protein Albumin TSH Urine Color Urine Appearance Urine pH Ur Specific [place] Urine Protein Urine Glucose (UA) Urine Ketones Urine Blood Urine Nitrite Ur Leukocyte Esterase Ethyl Alcohol COVID-19 ([place]) COVID-19 [email or web address] Com 07/29/21 07/29/21 07/29/21 00:21 00:21 00:21 WBC RBC Hgb Hct MCV MCH MCHC RDW Plt Count MPV Immature Gran % (Auto) Neut % (Auto) Lymph % (Auto) [place] % (Auto) Eos % (Auto) Baso % (Auto) Lymph # (Auto) [place] # (Auto) Eos # (Auto) Baso # (Auto) Abs Immat Gran (auto) Absolute Neuts (auto) Absolute Nucleated RBC Nucleated RBC % (auto) PT 11.8 Whole Blood PT INR 1.0 Whole Blood INR APTT 33.0 Sodium 141 Potassium 4.1 Chloride 106 Carbon Dioxide 28 Anion Gap 11 L BUN 12 Creatinine 0.75 Estim Creat Clear Calc TNP Estimated GFR > 60 POC Glucose Random Glucose 98 Calcium 9.4 Phosphorus 4.1 Magnesium 1.9 Total Bilirubin 0.4 Direct Bilirubin < 0.2 AST 12 ALT 11 Alkaline Phosphatase 66 Total Creatine Kinase 50 Troponin I High Sens < 3.5 Total Protein 6.4 L Albumin 3.8 TSH 0.73 Urine Color Urine Appearance Urine pH Ur Specific [place] Urine Protein Urine Glucose (UA) Urine Ketones Urine Blood Urine Nitrite Ur Leukocyte Esterase Ethyl Alcohol COVID-19 ([place]) COVID-19 [employer] 07/29/21 07/29/21 07/29/21 00:21 01:47 01:53 WBC RBC Hgb Hct MCV MCH MCHC RDW Plt Count MPV Immature Gran % (Auto) Neut % (Auto) Lymph % (Auto) [place] % (Auto) Eos % (Auto) Baso % (Auto) Lymph # (Auto) [place] # (Auto) Eos # (Auto) Baso # (Auto) Abs Immat Gran (auto) Absolute Neuts (auto) Absolute Nucleated RBC Nucleated RBC % (auto) PT Whole Blood PT INR Whole Blood INR APTT Sodium Potassium Chloride Carbon Dioxide Anion Gap BUN Creatinine Estim Creat Clear Calc Estimated GFR POC Glucose Random Glucose Calcium Phosphorus Magnesium Total Bilirubin Direct Bilirubin AST ALT Alkaline Phosphatase Total Creatine Kinase Troponin I High Sens Total Protein Albumin TSH Urine Color YELLOW Urine Appearance CLEAR Urine pH 6.0 Ur Specific [place] >= 1.030 H Urine Protein NEG Urine Glucose (UA) NEG Urine Ketones NEG Urine Blood NEG Urine Nitrite NEG Ur Leukocyte Esterase NEG Ethyl Alcohol < 10 COVID-19 ([place]) Negative COVID-19 Clin Com See Note 07/29/21 07/29/21 06:21 06:32 WBC 5.4 RBC 4.04 L Hgb 10.8 L Hct 34.8 L MCV 86.1 MCH 26.7 L MCHC 31.0 RDW 15.7 Plt Count 265 MPV 11.3 Immature Gran % (Auto) 0.2 Neut % (Auto) 44.6 L Lymph % (Auto) 39.6 [place] % (Auto) 9.5 Eos % (Auto) 5.0 H Baso % (Auto) 1.1 Lymph # (Auto) 2.1 [place] # (Auto) 0.5 Eos # (Auto) 0.3 Baso # (Auto) 0.1 Abs Immat Gran (auto) 0.01 Absolute Neuts (auto) 2.4 Absolute Nucleated RBC 0.000 Nucleated RBC % (auto) 0.0 PT Whole Blood PT INR Whole Blood INR APTT Sodium 142 Potassium 4.7 Chloride 109 H Carbon Dioxide 28 Anion Gap 10 L BUN 10 Creatinine 0.73 Estim Creat Clear Calc 118.7 Estimated GFR > 60 POC Glucose Random Glucose 98 Calcium 9.2 Phosphorus Magnesium Total Bilirubin Direct Bilirubin AST ALT Alkaline Phosphatase Total Creatine Kinase Troponin I High Sens Total Protein Albumin TSH Urine Color Urine Appearance Urine pH Ur Specific [place] Urine Protein Urine Glucose (UA) Urine Ketones Urine Blood Urine Nitrite Ur Leukocyte Esterase Ethyl Alcohol COVID-19 ([place]) COVID-19 Clin Com Discharge Plan Discharge Patient Disposition: Home, Self-Care Discharge Diagnosis: left-sided numbness and heaviness bradycardia Referrals: Zafar Espinoza MD [Primary Care Provider] - 1 Week Discharge Medications: Continued Xarelto 20 mg tablet 20 mg PO DAILY 20 Days Qty: 20 0RF Rx Instructions: must administer with evening meal omeprazole 20 mg capsule,delayed release(DR/EC) 1 cap PO DAILY 0RF multivitamin Tablet 1 tab PO DAILY 0RF cyanocobalamin (vitamin B-12) 1,000 mcg Tablet 1,000 mcg PO DAILY 0RF Discharge Orders: Discharge Order (Routine); Ordered 07/29/21 Ordered By: Jaswinder Nguyen Diet: advance to usual diet Activity on Discharge: As tolerated Stand Alone Forms: Patient Portal Discharge page Care Plan Goals: transient left-sided numbness and headache seen by Neurology likely migraine with aura if symptoms reoccur Dr. Perkins from neurology recommend Topamax for prophylaxiss bradycardia heart rate in mid 40s improved to 60 to 70 range, echo unremarkable, normal troponin, recommend outpatient follow-up with PCP with symptoms of lightheadedness dizziness ? Need Holter monitor if noted to have recurrent symptoms. Health Concerns: recommend compliance with home medication take Xarelto daily Plan of Treatment: outpatient follow-up with primary care physician and follow-up with Cardiology if noted to have low heart rate. Assessment: per discharge summary Discharge Date/Time: 07/30/21 08:13
[2021-07-29 19:14] VITALS: BP 124/65; PULSE 74; RESP 16; TEMP 36.6; O2SAT 98
== END 2021-07-30 08:13 | disposition home or self-care (01) ==
LOC: HO.ED 07-29 00:51 → HO.EDOVER 07-29 03:16
PROVIDERS: Nurse Practitioner Family; Admitting Provider Internal Medicine; Emergency Provider Internal Medicine; PCP Internal Medicine; Visit Provider Hospitalist
DX: G43.109 Migraine with aura, not intractable, without status migrainosus (principal); R20.0 Anesthesia of skin; R53.1 Weakness; R00.1 Bradycardia, unspecified; R07.9 Chest pain, unspecified; E11.9 Type 2 diabetes mellitus without complications; D68.61 Antiphospholipid syndrome; F17.210 Nicotine dependence, cigarettes, uncomplicated; Z20.822 Contact with and (suspected) exposure to COVID-19; Z86.718 Personal history of other venous thrombosis and embolism; Z79.01 Long term (current) use of anticoagulants; Z79.899 Other long term (current) drug therapy
CPT/HCPCS: 36415; 70450; 70496; 70498; 70551; 80048; 80076; 81003; 82077; 82550; 82947; 83735; 84100; 84443; 84484; 85025; 85610; 85730; 87635; 93005; 93306; 96374; 97161; 97165; 99219; 99285

== ENCOUNTER 2021-07-30 08:11 | Outpatient (REF) | payer OTHER, SELFPAY ==
[2021-07-30 08:28] LABS: MANUAL DIFF FLAG NO
[2021-07-30 08:45] LABS: Basophils Percent Auto 1.1 % (0-2); Eosinophils Absolute Auto 0.2 X10*3/uL (0.0-0.4); Eosinophils Percent Auto 6.5 % (0-4); Hematocrit 40.2 % (37.0-47.0); Hemoglobin 12.5 g/dl (12.0-16.0); Imm Gran Abs Auto 0.01 X10*3/uL (0.00-0.03); Imm Gran Pct Auto 0.3 % (0.0-0.4); Lymphocytes Absolute Auto 1.5 X10*3/uL (1.2-4.9); Lymphocytes Percent Auto 40.6 % (20-40); Mean Corpuscular HGB Conc 31.1 g/dl (31.0-35.0); Mean Corpuscular Hemoglobin 26.7 pg (27.0-33.0); Mean Corpuscular Volume 85.7 fL (80.0-98.0); Mean Platelet Volume 11.3 fL (9.4-12.3); Monocytes Absolute Auto 0.3 X10*3/uL (0.1-1.2); Monocytes Percent Auto 6.8 % (2-11); Neutrophils Absolute Auto 1.6 x10*3/uL (2.0-8.3); Neutrophils Percent Auto 44.7 % (45-73); Platelet Count 290 X10*3/uL (160-400); Red Blood Count 4.69 X10*6/uL (4.20-5.50); Red Cell Distribution Width 15.9 % (11.0-16.0); White Blood Count 3.7 X10*3/uL (4.8-10.8)
[2021-07-30 09:13] LABS: Alanine Aminotransferase 14 U/L (0-31); Alkaline Phosphatase 61 U/L (39-117); Anion Gap 10 (12-20); Aspartate Amino Transferase 13 U/L (5-31); Bilirubin Total 0.6 mg/dL (0.0-1.0); Blood Urea Nitrogen 9 mg/dL (9-16); C Reactive Protein 0.13 mg/dL (< or = 0.50); Calcium 9.5 mg/dL (8.4-10.2); Carbon Dioxide 29 mmol/L (22-29); Chloride 107 mmol/L (96-108); Cholesterol 233 mg/dL; Estimated Glomerular Filt Rate > 60; Glucose Random 87 mg/dL (60-115); HDL Cholesterol 79 mg/dL; LDL Cholesterol Calculated 142 mg/dl; Potassium 4.3 mmol/L (3.3-5.1); Rheumatoid Factor < 15.0 IU/mL (<15.0); Sodium 142 mmol/L (135-145); Total Protein 6.8 g/dL (6.5-8.0); Triglycerides 60 mg/dL
[2021-07-30 09:25] LABS: Erythrocyte Sedimentation Rate 13 MM/HR (0-20)
[2021-07-30 09:35] LABS: Free T4 (Free Thyroxine) 1.07 ng/dL (0.71-1.85); Thyroid Stimulating Hormone 2.48 uIU/mL (0.32-4.0)
[2021-08-01 15:03] LABS: Anti Nuclear Antibody Screen NEGATIVE (NEGATIVE)
[2021-08-06 22:15] LABS: Estrogen 115.4 pg/mL
== END 2021-07-30 08:12 | disposition home or self-care (01) ==
LOC: HO.LAB 08:11
PROVIDERS: PCP Internal Medicine; Visit Provider Internal Medicine
DX: R53.83 Other fatigue (principal); E78.00 Pure hypercholesterolemia, unspecified
CPT/HCPCS: 36415; 80053; 80061; 82672; 84439; 84443; 85025; 85652; 86038; 86039; 86140; 86431

== ENCOUNTER 2021-10-07 15:49 | Emergency (ER) | payer OTHER, SELFPAY ==
[2021-10-07 15:58] VITALS: BP 112/64; PULSE 54; O2SAT 99
[2021-10-07 16:04] VITALS: BP 149/81; PULSE 52; RESP 13; TEMP 36.6; O2SAT 100; BMI 35.4
--- NOTE | 2021-10-07 16:35 | ED.CHESTPAIN ---
HPI - Chest Pain General Chief Complaint: Chest Pain Stated Complaint: Chest Discomfort Time Seen by Provider: 10/07/21 16:35 Source: patient Mode of arrival: EMS Limitations: no limitations History of Present Illness HPI narrative: Patient history of antiphospholipid syndrome on Xarelto with history of DVTs, anxiety came from doctor's office for chest pain which started at 01:00 while asleep per patient she went to bed at 21:00 woke up at 01:00 with squeezing left-sided chest pain lasted for about 8-10 minutes called the EMS who did the EKG did not find any changes in the cardiogram patient refused to come to the ER today she called her PCP office who are sister who saw her in the office and did the EKG showed T inversion in lead V1 V2 and lead V3. Patient received aspirin by EMS. At this time patient complains of mild chest discomfort, feels anxious patient never had similar chest pain in the past Related Data Home Medications Medication Instructions Recorded Confirmed cyanocobalamin (vitamin B-12) 1,000 mcg PO DAILY 07/29/21 07/29/21 1,000 mcg tablet multivitamin 1 tab PO DAILY 07/29/21 07/29/21 omeprazole 20 mg capsule,delayed 1 cap PO DAILY 07/29/21 07/29/21 release Previous Rx's Medication Instructions Recorded rivaroxaban 20 mg tablet (Xarelto) 20 mg PO DAILY 20 Days #20 tab 02/22/21 Allergies Allergy/AdvReac Type Severity Reaction Status Date / Time No Known Allergies Allergy Verified 07/23/21 09:36 Review of Systems Review of Systems: Yes all other systems are reviewed and are negative PMFSH Past Medical History Medical History Antiphospholipid syndrome Diabetes DVT (deep venous thrombosis) Pulmonary embolism Tubal ligation evaluation Venous stasis of lower extremity Surgical History H/O gastric sleeve H/O skin graft H/O: knee surgery History of Family History Family History Maternal Aunt Breast CA Social History Social History Alcohol intake: current Alcohol intake frequency: holidays/special occasions only Patient Tobacco Use Status: Current everyday Tobacco user Use of substances other than those prescribed or required for medical reasons: Yes Substance Use Type: Marijuana Substance Use Frequency: Daily Last Used Substance: Hours (ago) Advance Directives: No Advance Directives Information Provided: No Patient : No service: No Current occupational status: employed Physical Exam Vital Signs: Vital Signs: Last Vital Signs Temp 97.9 F 10/07/21 16:04 Pulse 52 10/07/21 16:04 Resp 13 10/07/21 16:04 BP 149/81 H 10/07/21 16:04 Pulse Ox 100 10/07/21 16:04 BMI result Body Mass Index 35.4 Appearance: Alert. Oriented X3. No acute distress. Eyes: No pallor or icterus ENT: Pharynx normal. Oral Mucosa moist Neck: Normal inspection. Neck supple. CVS: Normal heart rate and rhythm. Pulses normal. Respiratory: No respiratory distress. Equal air entry bilateral, no wheezing/rales/rhonchi Abdomen: Soft and nontender. Bowel sounds are present, no mass palpable, no CVA tenderness Skin: Skin warm and dry. Normal skin color. Normal skin turgor. Extremities: No lower extremity edema. No calf tenderness Neuro: Oriented X 3. No motor deficit. No sensory deficit.No cerebellar signs , cranial nerves II-XII intact MDM - Chest Pain Differential Diagnosis Differential diagnosis: Patient heart score of 1 recent 2D echo done on 07/23 with normal LV functions and normal heart Hus and troponin is negative patient already on Xarelto will discharge patient home advised to follow with PCP to schedule stress test Lab Data Attestation: I reviewed the patient's lab results. Result diagrams: 10/07/21 17:09 10/07/21 17:09 Labs: Lab Results 10/07/21 10/07/21 10/07/21 Range/Units 17:09 17:09 17:09 WBC 4.7 L (4.8-10.8) X10*3/uL RBC 4.22 (4.20-5.50) X10*6/uL Hgb 11.5 L (12.0-16.0) g/dl Hct 35.8 L (37.0-47.0) % MCV 84.8 (80.0-98.0) fL MCH 27.3 (27.0-33.0) pg MCHC 32.1 (31.0-35.0) g/dl RDW 14.2 (11.0-16.0) % Plt Count 255 (160-400) X10*3/uL MPV 10.8 (9.4-12.3) fL Immature Gran % (Auto) 0.2 (0.0-0.4) % Neut % (Auto) 48.7 (45-73) % Lymph % (Auto) 38.5 (20-40) % [place] % (Auto) 8.1 (2-11) % Eos % (Auto) 3.2 (0-4) % Baso % (Auto) 1.3 (0-2) % Lymph # (Auto) 1.8 (1.2-4.9) X10*3/uL [place] # (Auto) 0.4 (0.1-1.2) X10*3/uL Eos # (Auto) 0.2 (0.0-0.4) X10*3/uL Baso # (Auto) 0.1 (0.0-0.2) X10*3/uL Abs Immat Gran (auto) 0.01 (0.00-0.03) X10*3/uL Absolute Neuts (auto) 2.3 (2.0-8.3) x10*3/uL Absolute Nucleated RBC 0.000 (0.0-0.012) X10*3/uL Nucleated RBC % (auto) 0.0 (0.0-0.2) /100WBC Sodium 140 (135-145) mmol/L Potassium 4.2 (3.3-5.1) mmol/L Chloride 106 (96-108) mmol/L Carbon Dioxide 25 (22-29) mmol/L Anion Gap 13 (12-20) BUN 16 D (9-16) mg/dL Creatinine 0.75 (0.5-1.4) mg/dL Estim Creat Clear Calc 117.9 Estimated GFR > 60 Random Glucose 101 (60-115) mg/dL Calcium 9.2 (8.4-10.2) mg/dL Total Bilirubin 0.3 (0.0-1.0) mg/dL AST 12 (5-31) U/L ALT 11 (0-31) U/L Alkaline Phosphatase 61 (39-117) U/L Troponin I High Sens < 3.5 (<3.5-17.0) ng/L Total Protein 6.8 (6.5-8.0) g/dL Albumin 4.0 (3.5-5.0) g/dL Scores Heart Score History: -0- slightly suspicious ECG: -0- normal Age: -1- >45 - <65 Risk factory: -0- no risk factors known Troponin: -0- < or = normal limit Score: 1 Risk: 1.7% Discharge Plan Discharge Clinical Impression: Chest pain Patient Disposition: Home, Self-Care Instructions: Chest Pain (ED) Additional Instructions: 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
--- NOTE | 2021-10-07 16:50 | ECG_ITS ---
Test Reason : CP Blood Pressure : / mmHG Vent. Rate : 053 BPM Atrial Rate : 053 BPM P-R Int : 126 ms QRS Dur : 088 ms QT Int : 436 ms P-R-T Axes : 034 076 058 degrees QTc Int : 409 ms Sinus bradycardia with sinus arrhythmia Nonspecific T wave abnormality Borderline ECG When compared with ECG of 28-JUL-2021 23:59, No significant change was found Referred By: Herbie Talbert Electronically Signed By:TAMIKA WATTERS
[2021-10-07 17:13] LABS: MANUAL DIFF FLAG NO
[2021-10-07 17:20] LABS: Basophils Absolute Auto 0.1 X10*3/uL (0.0-0.2); Basophils Percent Auto 1.3 % (0-2); Eosinophils Absolute Auto 0.2 X10*3/uL (0.0-0.4); Eosinophils Percent Auto 3.2 % (0-4); Hematocrit 35.8 % (37.0-47.0); Hemoglobin 11.5 g/dl (12.0-16.0); Imm Gran Abs Auto 0.01 X10*3/uL (0.00-0.03); Imm Gran Pct Auto 0.2 % (0.0-0.4); Lymphocytes Absolute Auto 1.8 X10*3/uL (1.2-4.9); Lymphocytes Percent Auto 38.5 % (20-40); Mean Corpuscular HGB Conc 32.1 g/dl (31.0-35.0); Mean Corpuscular Hemoglobin 27.3 pg (27.0-33.0); Mean Corpuscular Volume 84.8 fL (80.0-98.0); Mean Platelet Volume 10.8 fL (9.4-12.3); Monocytes Absolute Auto 0.4 X10*3/uL (0.1-1.2); Monocytes Percent Auto 8.1 % (2-11); Neutrophils Absolute Auto 2.3 x10*3/uL (2.0-8.3); Neutrophils Percent Auto 48.7 % (45-73); Platelet Count 255 X10*3/uL (160-400); Red Blood Count 4.22 X10*6/uL (4.20-5.50); Red Cell Distribution Width 14.2 % (11.0-16.0); White Blood Count 4.7 X10*3/uL (4.8-10.8)
[2021-10-07 17:35] LABS: Alanine Aminotransferase 11 U/L (0-31); Alkaline Phosphatase 61 U/L (39-117); Anion Gap 13 (12-20); Aspartate Amino Transferase 12 U/L (5-31); Bilirubin Total 0.3 mg/dL (0.0-1.0); Blood Urea Nitrogen 16 mg/dL (9-16); Calcium 9.2 mg/dL (8.4-10.2); Carbon Dioxide 25 mmol/L (22-29); Chloride 106 mmol/L (96-108); Creatinine Clr Calc Pharmacy 117.9; Estimated Glomerular Filt Rate > 60; Glucose Random 101 mg/dL (60-115); Potassium 4.2 mmol/L (3.3-5.1); Sodium 140 mmol/L (135-145); Total Protein 6.8 g/dL (6.5-8.0)
[2021-10-07 17:39] LABS: Troponin-I High Sensitivity < 3.5 ng/L (<3.5-17.0)
== END 2021-10-07 19:10 | disposition home or self-care (01) ==
PROVIDERS: Emergency Provider Internal Medicine; PCP Internal Medicine
DX: R07.9 Chest pain, unspecified (principal); E11.9 Type 2 diabetes mellitus without complications; Z86.711 Personal history of pulmonary embolism; F17.200 Nicotine dependence, unspecified, uncomplicated; F12.90 Cannabis use, unspecified, uncomplicated; Z79.01 Long term (current) use of anticoagulants
CPT/HCPCS: 36415; 80053; 84484; 85025; 93005; 99283; 99284

== ENCOUNTER → 2021-10-15 08:31 | Outpatient (BNVA) | payer OTHER, SELFPAY | PROVIDERS: PCP Internal Medicine; Referring Provider Internal Medicine; Visit Provider Internal Medicine | DX: R07.2 Precordial pain (principal); E66.01 Morbid (severe) obesity due to excess calories; F17.200 Nicotine dependence, unspecified, uncomplicated; Z68.34 Body mass index [BMI] 34.0-34.9, adult | CPT/HCPCS: 99202 ==

== ENCOUNTER → 2021-11-14 15:02 | Outpatient (BNVA) | payer OTHER, SELFPAY | PROVIDERS: PCP Internal Medicine; Visit Provider Surgery Vascular Surgery | DX: I83.11 Varicose veins of right lower extremity with inflammation (principal); I82.409 Acute embolism and thrombosis of unspecified deep veins of unspecified lower extremity | CPT/HCPCS: 99202 ==

== ENCOUNTER → 2021-11-22 08:40 | Outpatient (REF) | payer OTHER, SELFPAY ==
--- NOTE | ~2021-11-22 | NM_ITS ---
Exercise Myocardial perfusion study Indication: Precordial chest pain to evaluate for myocardial ischemia Technique: The patient was brought in for an exercise perfusion study on 11/22/2021. Patient performed exercise as per Carlos protocol and was injected 25 mCi of sestamibi was given intravenously one target HR was achieved. Images were obtained using the SPECT gamma camera interlaced with the gating device. Images were obtained in supine position. Resting perfusion study was performed on 11/27/2021. Patient was administered 35 mCi of sestamibi intravenously at rest. Images were then obtained in supine position. Images obtained with and without CT attenuation. Total DLP 114 mGy-cm. Images were processed with the software and compared side to side in short axis, horizontal long axis and vertical long axis views. Findings: The stress perfusion study showed both attenuated corrected as well as non attenuated images show normal uptake of radiotracer in all segments of LV myocardium. The gated study shows normal LV systolic function with calculated LVEF of 57%. LV cavity is normal in size. The gated study shows normal systolic wall thickening and contraction of all segments. There is no transient ischemic dilation. Resting study shows no significant change in perfusion pattern compared to stress perfusion study. Gating at rest reveals normal systolic wall motion with ejection fraction at greater than 50%. The findings are consistent with normal myocardial perfusion. NM/NM cardiolite stress test Impression: 1. Normal myocardial perfusion 2. Gated LVEF is 57% 3. Transient ischemic dilatation not present Stress EKG is negative for ischemia
--- NOTE | 2021-11-22 11:49 | CA_ITS ---
Acquisition Time: 2021-11-22 09:42:47 Total Exercise Time: 00:07:05 Test Indications: Chest Pain Medications: XARELTO OMEPRAZOLE Protocol: SHAWN Max HR: 153 BPM 90% of Pred: 170 BPM Max BP: 178/068 mmHG Max Work Load: 7.0 METS Exercise stress test with exercise 7 min of Shawn protocol, ( stage 2 held due to target heart rate acheived and temporary difficulties with IV access), with mild shortness of breath, no chest discomfort, with sinus arrythmia, rare PAC and PVCs, with normotensive response to exercise, without EKG changes meeting criteria for ischemia, with T wave inversion lead III only. Nuclear images pending. Test reviewed with Dr Linder. Referred By: Otoniel Delgado Overread By: TONY RAUSCH
== END ==
LOC: HO.CARD 08:40
PROVIDERS: Visit Provider Internal Medicine
DX: R07.2 Precordial pain (principal)
CPT/HCPCS: 78452; 93017; A9500

== ENCOUNTER 2021-11-29 09:59 | Day surgery (SDC) | payer OTHER, SELFPAY ==
[2021-11-25 13:26] VITALS: BMI 34.0
--- NOTE | 2021-11-28 09:10 | HO.ANESPROP2 ---
Documented by User: Corina Cleveland NP 11/28/21 09:15 HPI - Anesthesia Eval Consult details Narrative: 51yo F for Upper Endoscopy and Colonoscopy Xarelto for DVT/PE Recent cardiac w/u for abn EKG changes with chest pain. All tests negative PMFSH Active Problems Active Problems: All Active Problems (Updated 11/25/21 @ 13:15 by Areli Juarez RN) COVID-19 (Acute) Well woman exam (Acute) Precordial chest pain (Acute) Morbid obesity (Acute) Smoker (Acute) Varicose veins of right lower extremity with inflammation (Acute) DVT (deep venous thrombosis) (Acute) Past Medical History Medical History Antiphospholipid syndrome Diabetes DVT (deep venous thrombosis) On anticoagulant therapy Pulmonary embolism Tubal ligation evaluation Venous stasis of lower extremity Family History Family History Maternal Aunt Breast CA Surgical History Surgical History H/O gastric sleeve H/O skin graft H/O: knee surgery History of Social History Social History (Updated 11/29/21 @ 10:52 by Lynda Love MD) Alcohol intake: current Alcohol intake frequency: holidays/special occasions only Patient Tobacco Use Status: Current everyday Tobacco user Cigarettes Per Day: 4 Smoked in Last 30 Days: Yes Use of substances other than those prescribed or required for medical reasons: Yes Substance Use Type: Marijuana Advance Directives: No Advance Directives Information Provided: Yes Nutrition Risks: No Nutritional Risk service: No Current occupational status: employed Meds Allergies Allergy/AdvReac Type Severity Reaction Status Date / Time shellfish derived Allergy Unknown Verified 11/25/21 13:20 Home Medications Medication Instructions Recorded Confirmed Last Taken Type cyanocobalamin (vitamin B-12) 1,000 mcg PO DAILY 07/29/21 11/25/21 Unknown History 1,000 mcg tablet multivitamin 1 tab PO DAILY 07/29/21 11/25/21 Unknown History omeprazole 20 mg capsule,delayed 20 mg PO DAILY 10/15/21 11/25/21 Unknown History release calcium carbonate 500 mg-vitamin 1 tab PO DAILY 11/14/21 11/25/21 Unknown History D3 10 mcg (400 unit) tablet (Calcium 500 With D) rivaroxaban 10 mg tablet (Xarelto) 1 tab PO DAILY 11/25/21 11/25/21 Unknown History Exam Exam Date and Time: November 28, 2021 0910 Height,Weight and Vital Signs: Height 5 ft 9 in Weight 104.326 kg Pertinent Lab Results Pertinent Lab Results: Laboratory Tests 10/07/21 10/07/21 17:09 17:09 WBC 4.7 L Hgb 11.5 L Hct 35.8 L Plt Count 255 Sodium 140 Potassium 4.2 Chloride 106 Carbon Dioxide 25 BUN 16 D Creatinine 0.75 Narrative Narrative: EKG 10/2021 Vent. Rate : 053 BPM ? ? Atrial Rate : 053 BPM ?? P-R Int : 126 ms? QRS Dur : 088 ms ? ? QT Int : 436 ms ? ? ? P-R-T Axes : 034 076 058 degrees ?? QTc Int : 409 ms ? Sinus bradycardia with sinus arrhythmia Nonspecific T wave abnormality Borderline ECG When compared with ECG of 28-JUL-2021 23:59, No significant change was found NM cardiolite stress test 11/2021 Impression: ? 1.? Normal myocardial perfusion 2.? Gated LVEF is 57% 3. Transient ischemic dilatation not present ? Stress EKG is negative for ischemia ECHO 07/2021 Conclusions: - The left ventricular systolic function is normal.? The visually estimated ejection fraction is between 55-60%. ? - No obvious valvular pathology seen on this study.?? Assessment and Plan Assessment Anesthesia Assessment: Chart Reviewed Documented by User: Lynda Love MD 11/29/21 11:07 PMFSH Active Problems Active Problems: All Active Problems (Updated 11/25/21 @ 13:15 by Areli Juarez RN) COVID-19 (Acute) Well woman exam (Acute) Precordial chest pain (Acute) Morbid obesity (Acute)S/p gastric sleeve 2017 Smoker (Acute) Varicose veins of right lower extremity with inflammation (Acute) DVT (deep venous thrombosis) (Acute) H/o DM. No meds since gastric sleeve H/o DVT and PE. On xarelto. Last dose 1 week ago Some epigastric pain this am. Did not take omeprazole Past Medical History Medical History Antiphospholipid syndrome Diabetes DVT (deep venous thrombosis) On anticoagulant therapy Pulmonary embolism Tubal ligation evaluation Venous stasis of lower extremity Family History Family History Maternal Aunt Breast CA Family history of problems with anesthesia: No Surgical History Surgical History H/O gastric sleeve H/O skin graft H/O: knee surgery History of History of Problems with Anesthesia: No Social History Social History (Updated 11/29/21 @ 10:52 by Lynda Love MD) Alcohol intake: current Alcohol intake frequency: holidays/special occasions only Patient Tobacco Use Status: Current everyday Tobacco user Cigarettes Per Day: 4 Smoked in Last 30 Days: Yes Use of substances other than those prescribed or required for medical reasons: Yes Substance Use Type: Marijuana Advance Directives: No Advance Directives Information Provided: Yes Nutrition Risks: No Nutritional Risk service: No Current occupational status: employed Meds Allergies Allergy/AdvReac Type Severity Reaction Status Date / Time shellfish derived Allergy Unknown Verified 11/25/21 13:20 Home Medications Medication Instructions Recorded Confirmed Last Taken Type cyanocobalamin (vitamin B-12) 1,000 mcg PO DAILY 07/29/21 11/25/21 Unknown History 1,000 mcg tablet multivitamin 1 tab PO DAILY 07/29/21 11/25/21 Unknown History omeprazole 20 mg capsule,delayed 20 mg PO DAILY 10/15/21 11/25/21 Unknown History release calcium carbonate 500 mg-vitamin 1 tab PO DAILY 11/14/21 11/25/21 Unknown History D3 10 mcg (400 unit) tablet (Calcium 500 With D) rivaroxaban 10 mg tablet (Xarelto) 1 tab PO DAILY 11/25/21 11/25/21 Unknown History Exam Height,Weight and Vital Signs: Height 5 ft 9 in Weight 104.326 kg Vital Signs Temp Pulse Resp BP Pulse Ox O2 Del Method 11/29/21 10:29 97.6 F 49 L 16 143/83 H 97 Room Air Airway Mallampati Class: II TM Dist: >3cm Neck ROM: Full Loose/Missing/Broken Teeth: No (No broken or loose teeth per patient) Heart: RRR Lungs: CTAB Assessment and Plan Assessment Anesthesia Assessment: Anesthesia Plan Discussed Final Anesthetic Review Family History of Problems with Anesthesia: No History of Problems with Anesthesia: No NPO: Yes ASA Class: III Final Preanesthetic Review: No Changes in Pt Med Stat, Meds/Allgs Chart Reviewed, Consent Obtained/Reviewed and Anes Risks/Benef Reviewed Patient Risk: Intermediate Procedure Risk: Low Assessment/Block/Sedation in SS: Assess/Block/Sedation-SS Anesthetic Plan Anesthetic Plan: MAC: Disposition: Standard PACU
[2021-11-29 10:29] VITALS: BP 143/83; PULSE 49; RESP 16; TEMP 36.4; O2SAT 97; BMI 34.0
--- NOTE | 2021-11-29 11:13 | MHC.SHP ---
Pre-Procedural Eval Section A Date of Service: 11/29/21 The patient is an INPATIENT: No Changes since office visit: No Cold of Flu in the past 2 weeks, No New Medical Problems, No Changes in Medication and No Patient answered all questions The History & Physical has been completed within 30 days and I have reviewed it.: Yes Section B Chief Complaint: reflux disease,screening Allergies: Allergies Allergy/AdvReac Type Severity Reaction Status Date / Time shellfish derived Allergy Unknown Verified 11/25/21 13:20 Plan I have reviewed the history and physical and performed a pertinent physical examination on my patient. No changes have occurred unless specified.
[2021-11-29] MEDS: Famotidine/PF 20 MG/2 ML VIAL IVPUSH (11:15)
[2021-11-29 11:58] VITALS: BP 111/56; PULSE 65; RESP 15; TEMP 36.2; O2SAT 98
--- NOTE | 2021-11-29 12:00 | PM.OP ---
Brief Operative Note Date of Service: 11/29/21 Pre-op diagnosis: gerd,screening Post-op diagnosis: same Surgeon: Melquiades Roblero Anesthesia: MAC Was an Tin Tie Machine Operator Automatic used for this Procedure?: No Estimated blood loss (mL): 2 Pathology: other Condition: stable Disposition: PACU
[2021-11-29 12:13] VITALS: BP 126/82; PULSE 60; RESP 17; O2SAT 100
[2021-11-29 12:34] VITALS: BP 108/63; PULSE 62; RESP 18; TEMP 36.2; O2SAT 98
--- NOTE | 2021-11-29 23:35 | OP_ITS ---
SURGEON: Melquiades Roblero MD INDICATIONS: Gastroesophageal reflux disease and colon cancer screening. PREOPERATIVE DIAGNOSIS: POSTOPERATIVE DIAGNOSIS: PROCEDURE PERFORMED: Upper endoscopy with biopsy, colonoscopy to the terminal ileum. ESTIMATED BLOOD LOSS: COMPLICATIONS: ANESTHESIA: ASSISTANTS: SPECIMENS: MEDICATIONS: Monitored anesthesia care. DESCRIPTION OF PROCEDURE: History and physical were performed. The risks and benefits of the procedure were explained to the patient. Informed consent was obtained. The patient was placed in the left lateral decubitus position. The Olympus video gastroscope was introduced into the esophagus, stomach, and duodenum. Examination was performed. The scope was removed. She was repositioned for colonoscopy. Digital rectal exam was performed and was found to be normal. The Olympus pediatric video colonoscope was introduced into the rectum and advanced easily to the cecum. The cecum was identified by transillumination, palpation, and identification of the ileocecal valve. Examination was performed. The scope was removed. She tolerated the both procedures well and was taken to recovery in stable condition. FINDINGS: UPPER ENDOSCOPY: Esophagus: The esophagus was normal. There was no esophagitis. Biopsies were obtained from the EG junction. Stomach: The stomach showed changes consistent with a prior history of gastric sleeve surgery. There was no ulceration. Antral biopsies were obtained to rule out H pylori. Duodenum: The bulb and second portion were normal. COLONOSCOPY: The terminal ileum was normal. The visualized colonic mucosa was normal. The quality of prep was good. No polyps were identified. Retroflexed examination did show small to moderate-sized internal hemorrhoids. IMPRESSION: 1. Gastroesophageal reflux disease. 2. Normal colonoscopy. RECOMMENDATION: 1. Follow up as needed. 2. Repeat colonoscopy is recommended in 10 years for average risk individuals. MD AYAN Dixon/ZHENG / [phone]
== END 2021-11-29 12:50 | disposition home or self-care (01) ==
PROVIDERS: PCP Internal Medicine; Visit Provider Internal Medicine Gastroenterology
PROC: (CPT 45378; principal; 2021-11-29 10:20)
DX: Z12.11 Encounter for screening for malignant neoplasm of colon (principal); K64.8 Other hemorrhoids; K21.9 Gastro-esophageal reflux disease without esophagitis; K29.50 Unspecified chronic gastritis without bleeding; D68.61 Antiphospholipid syndrome; Z98.84 Bariatric surgery status; Z79.899 Other long term (current) drug therapy; Z79.01 Long term (current) use of anticoagulants; Z86.711 Personal history of pulmonary embolism; Z86.718 Personal history of other venous thrombosis and embolism; F17.210 Nicotine dependence, cigarettes, uncomplicated
CPT/HCPCS: 45378; 43239; 88305; 88342

== ENCOUNTER 2022-04-09 11:12 | Emergency (ER) | payer OTHER, SELFPAY ==
--- NOTE | ~2022-04-09 | US_ITS ---
EXAMINATION: US VENOUS ULTRASOUND WITH DOPPLER LOWER EXTREMITY, RIGHT CLINICAL INFORMATION: Right leg pain. History of DVT. COMPARISON: February 22, 2021 TECHNIQUE: Ultrasound of the deep veins is performed from the hip to the calf with compression sonography and color and pulse Doppler assessment. Spectral analysis with color-flow imaging is performed. FINDINGS: There is normal venous compression and respiratory variation and augmented flow. There are some linear echogenic synechiae seen within the common, superficial femoral vein, and popliteal vein of the right lower extremity consistent with recanalization of chronic DVT. The visualized common femoral vein, superficial femoral vein, profunda femoral vein, popliteal vein, and the trifurcation region shows no evidence of acute deep venous thrombosis. There is no significant popliteal fossa cyst. No popliteal artery aneurysm. US/US venous duplex LE RT IMPRESSION: No acute DVT demonstrated in the right lower extremity. Sequela of previous deep venous thrombosis as described.
[2022-04-09 12:30] VITALS: BP 135/96; PULSE 69; RESP 16; TEMP 36.8; O2SAT 97; BMI 34.0
--- NOTE | 2022-04-09 12:37 | ED.GENADULT ---
HPI - General Adult General Chief complaint: General Medical <Aicha Fine MD - Last Filed: 04/09/22 12:40> Stated complaint: Jared Leg Pain R Leg Cellulitis <Aicha Fine MD - Last Filed: 04/09/22 12:40> Time Seen by Provider: 04/09/22 20:56 <Aicha Fine MD - Last Filed: 04/09/22 12:40> Source: patient <Herbie Talbert MD - Last Filed: 04/10/22 00:14> Mode of arrival: ambulatory <Herbie Talbert MD - Last Filed: 04/10/22 00:14> Limitations: no limitations <Herbie Talbert MD - Last Filed: 04/10/22 00:14> History of Present Illness HPI narrative: Patient's history of antiphospholipid syndrome on Xarelto for DVTs comes here for pain in the right leg for last few days getting worse with redness specially for last 2 days no fever no chills no shortness of breath no calf swelling <Herbie Talbert MD - Last Filed: 04/10/22 00:14> Related Data Home medications: Home Medications Medication Instructions Recorded Confirmed cyanocobalamin (vitamin B-12) 1,000 mcg PO DAILY 07/29/21 11/25/21 1,000 mcg tablet multivitamin 1 tab PO DAILY 07/29/21 11/25/21 omeprazole 20 mg capsule,delayed 20 mg PO DAILY 10/15/21 11/25/21 release calcium carbonate 500 mg-vitamin 1 tab PO DAILY 11/14/21 11/25/21 D3 10 mcg (400 unit) tablet (Calcium 500 With D) rivaroxaban 10 mg tablet (Xarelto) 1 tab PO DAILY 11/25/21 11/25/21 Previous Rx's Medication Instructions Recorded cephalexin 500 mg capsule 500 mg PO QID 10 days #40 caps 04/10/22 doxycycline hyclate 100 mg tablet 100 mg PO BID #20 tabs 04/10/22 tramadol 50 mg tablet 50 mg PO Q6H PRN pain #20 tabs 04/10/22 <Aicha Fine MD - Last Filed: 04/09/22 12:40> Allergies/adverse reactions: Allergies Allergy/AdvReac Type Severity Reaction Status Date / Time shellfish derived Allergy Unknown Verified 04/09/22 12:29 <Aicha Fine MD - Last Filed: 04/09/22 12:40> Review of Systems Review of Systems: Yes all other systems are reviewed and are negative <Herbie Talbert MD - Last Filed: 04/10/22 00:14> PMFSH Past Medical History Medical History: Medical History Antiphospholipid syndrome Diabetes DVT (deep venous thrombosis) On anticoagulant therapy Pulmonary embolism Tubal ligation evaluation Venous stasis of lower extremity <Aicha Fine MD - Last Filed: 04/09/22 12:40> Surgical History: Surgical History H/O gastric sleeve H/O skin graft H/O: knee surgery History of <Aicha Fine MD - Last Filed: 04/09/22 12:40> Family History Family History: Family History Maternal Aunt Breast CA <Aicha Fine MD - Last Filed: 04/09/22 12:40> Social History Social History: Social History Alcohol intake: current Alcohol intake frequency: holidays/special occasions only Patient Tobacco Use Status: Current everyday Tobacco user Cigarettes Per Day: 4 Smoked in Last 30 Days: Yes Use of substances other than those prescribed or required for medical reasons: Yes Substance Use Type: Marijuana Advance Directives: Yes Advance Directives Information Provided: Yes Advance Directives on File: No service: No Current occupational status: employed <Aicha Fine MD - Last Filed: 04/09/22 12:40> Physical Exam ED Vital Signs: Vital Signs - 24 hr 04/09/22 12:30 04/09/22 20:00 04/09/22 21:49 Temperature 98.3 F 98.0 F 98.0 F Pulse Rate 69 59 64 Respiratory Rate 16 18 18 Blood Pressure 135/96 H 113/50 L 115/38 L Pulse Oximetry 97 100 95 Oxygen Delivery Method Room Air Room Air Room Air 04/09/22 22:05 Temperature Pulse Rate 56 Respiratory Rate Blood Pressure 115/59 L Pulse Oximetry Oxygen Delivery Method BMI result Body Mass Index 34.0 <Aicha Fine MD - Last Filed: 04/09/22 12:40> Vital Signs - 24 hr 04/09/22 12:30 04/09/22 20:00 04/09/22 21:49 Temperature 98.3 F 98.0 F 98.0 F Pulse Rate 69 59 64 Respiratory Rate 16 18 18 Blood Pressure 135/96 H 113/50 L 115/38 L Pulse Oximetry 97 100 95 Oxygen Delivery Method Room Air Room Air Room Air 04/09/22 22:05 Temperature Pulse Rate 56 Respiratory Rate Blood Pressure 115/59 L Pulse Oximetry Oxygen Delivery Method BMI result Body Mass Index 34.0 <Herbie Talbert MD - Last Filed: 04/10/22 00:14> Appearance: Alert. Oriented X3. No acute distress. Eyes: PERRLA, No Nystagmus ENT: Pharynx normal. Oral Mucosa moist Neck: Normal inspection. Neck supple. CVS: Normal heart rate and rhythm. Pulses normal. Respiratory: No respiratory distress. Equal air entry bilateral, no wheezing/rales/rhonchi Abdomen: Soft and nontender. Bowel sounds are present, no mass palpable, no CVA tenderness Skin: Skin warm and dry. Normal skin color. Normal skin turgor. Extremities: No lower extremity edema. No calf tenderness right leg with erythema and warmth Neuro: Oriented X 3. No motor deficit. No sensory deficit.No cerebellar signs , cranial nerves II-XII intact <Herbie Talbert MD - Last Filed: 04/10/22 00:14> Course Course Course Narrative: rme- the patient is a 51-year-old female with a history of deep vein thrombosis history of antiphospholipid syndrome. Presented today with having increasing leg pain on the right side over the last few months. Patient has a baseline ulcer near the ankle now is having increasing redness swelling in the last 3 months. There is no chest pains no shortness of breath is no diaphoresis. Complaining of pain localized to that area. Patient cannot take it anymore presented to the ED. Cannot get in to see her primary. Labs were ordered. Patient her back in the waiting room. Doppler the lower extremity ordered. As patient has repeated history of DVTs in the past. <Aicha Fine MD - Last Filed: 04/09/22 12:40> Medications Administered Discontinued Medications Generic Name Dose Route Start Last Admin Trade Name Freq PRN Reason Stop Dose Admin Hydromorphone HCl 1 mg 04/09/22 21:30 04/09/22 22:23 Hydromorphone Hcl 1 Mg/Ml Syringe IVPUSH 04/09/22 21:31 1 mg ONCE ONE Administration Protocol Vancomycin HCl 1,000 mg/ 270 mls @ 270 mls/hr 04/09/22 21:23 04/09/22 23:49 Sodium Chloride IV 04/09/22 22:22 Infused ONCE ONE Infusion Ondansetron HCl 4 mg 04/09/22 21:30 04/09/22 22:23 Ondansetron Hcl 4 Mg/2 Ml Vial IVPUSH 04/09/22 21:31 4 mg ONCE ONE Administration <Aicha Fine MD - Last Filed: 04/09/22 12:40> Medications Administered Discontinued Medications Generic Name Dose Route Start Last Admin Trade Name Freq PRN Reason Stop Dose Admin Hydromorphone HCl 1 mg 04/09/22 21:30 04/09/22 22:23 Hydromorphone Hcl 1 Mg/Ml Syringe IVPUSH 04/09/22 21:31 1 mg ONCE ONE Administration Protocol Vancomycin HCl 1,000 mg/ 270 mls @ 270 mls/hr 04/09/22 21:23 04/09/22 23:49 Sodium Chloride IV 04/09/22 22:22 Infused ONCE ONE Infusion Ondansetron HCl 4 mg 04/09/22 21:30 04/09/22 22:23 Ondansetron Hcl 4 Mg/2 Ml Vial IVPUSH 04/09/22 21:31 4 mg ONCE ONE Administration <Herbie Talbert MD - Last Filed: 04/10/22 00:14> Medical Decision Making Medical Decision Making MDM Narrative: Patient with right lower extremity cellulitis with normal WBC count normal lactic acid level no open wound likely Staph patient received 1 g of vancomycin discharge patient home on doxy and cephalexin <Herbie Talbert MD - Last Filed: 04/10/22 00:14> Differential Diagnoses: Differential diagnosis (Cellulitis/DVT) <Herbie Talbert MD - Last Filed: 04/10/22 00:14> Lab Attestation: I reviewed the patient's lab results. <Herbie Talbert MD - Last Filed: 04/10/22 00:14> Discharge Plan Discharge Clinical Impression: Cellulitis of leg, right <Aicha Fine MD - Last Filed: 04/09/22 12:40> Patient Disposition: Home, Self-Care <Aicha Fine MD - Last Filed: 04/09/22 12:40> Instructions: Cellulitis (ED) <Aicha Fine MD - Last Filed: 04/09/22 12:40> Additional Instructions: Take antibiotic as prescribed Keep right leg elevated Pain medicine as prescribed Report to the ER if worsening of the redness/fever <Aicha Fine MD - Last Filed: 04/09/22 12:40> Prescriptions: New cephalexin 500 mg capsule 500 mg PO QID 10 Days Qty: 40 0RF doxycycline hyclate 100 mg tablet 100 mg PO BID Qty: 20 0RF tramadol 50 mg tablet 50 mg PO Q6H PRN (Reason: pain) Qty: 20 0RF No Action multivitamin Tablet 1 tab PO DAILY cyanocobalamin (vitamin B-12) 1,000 mcg Tablet 1,000 mcg PO DAILY omeprazole 20 mg capsule,delayed release(DR/EC) 20 mg PO DAILY Xarelto 10 mg tablet 1 tab PO DAILY calcium carbonate-vitamin D3 [Calcium 500 With D] 500 mg-10 mcg (400 unit) tablet 1 tab PO DAILY <Aicha Fine MD - Last Filed: 04/09/22 12:40>
[2022-04-09 14:48] LABS: MANUAL DIFF FLAG NO
[2022-04-09 14:49] LABS: Basophils Absolute Auto 0.1 X10*3/uL (0.0-0.2); Eosinophils Absolute Auto 0.2 X10*3/uL (0.0-0.4); Eosinophils Percent Auto 3.7 % (0-4); Hematocrit 38.8 % (37.0-47.0); Hemoglobin 12.3 g/dl (12.0-16.0); Imm Gran Abs Auto 0.01 X10*3/uL (0.00-0.03); Imm Gran Pct Auto 0.2 % (0.0-0.4); Lymphocytes Absolute Auto 1.2 X10*3/uL (1.2-4.9); Lymphocytes Percent Auto 19.5 % (20-40); Mean Corpuscular HGB Conc 31.7 g/dl (31.0-35.0); Mean Corpuscular Hemoglobin 26.9 pg (27.0-33.0); Mean Corpuscular Volume 84.7 fL (80.0-98.0); Mean Platelet Volume 10.6 fL (9.4-12.3); Monocytes Absolute Auto 0.5 X10*3/uL (0.1-1.2); Monocytes Percent Auto 7.9 % (2-11); Neutrophils Absolute Auto 4.2 x10*3/uL (2.0-8.3); Neutrophils Percent Auto 67.7 % (45-73); Platelet Count 304 X10*3/uL (160-400); Red Blood Count 4.58 X10*6/uL (4.20-5.50); Red Cell Distribution Width 14.6 % (11.0-16.0); White Blood Count 6.2 X10*3/uL (4.8-10.8)
[2022-04-09 15:04] LABS: Lactic Acid 0.8 mmol/L (0.5-2.0)
[2022-04-09 15:08] LABS: Alanine Aminotransferase 17 U/L (0-31); Alkaline Phosphatase 72 U/L (39-117); Anion Gap 10 (12-20); Aspartate Amino Transferase 16 U/L (5-31); Bilirubin Direct < 0.2 mg/dL (0.0-0.5); Bilirubin Total 0.3 mg/dL (0.0-1.0); Blood Urea Nitrogen 17 mg/dL (9-16); Calcium 9.2 mg/dL (8.4-10.2); Carbon Dioxide 29 mmol/L (22-29); Chloride 107 mmol/L (96-108); Creatinine Clr Calc Pharmacy 109.5; Estimated Glomerular Filt Rate > 60; Glucose Random 89 mg/dL (60-115); Potassium 4.3 mmol/L (3.3-5.1); Sodium 142 mmol/L (135-145); Total Protein 6.8 g/dL (6.5-8.0)
[2022-04-09 15:14] LABS: B Type Natriuretic Peptide 99 pg/mL (<100)
[2022-04-09 20:00] VITALS: BP 113/50; PULSE 59; RESP 18; TEMP 36.7; O2SAT 100
[2022-04-09 21:49] VITALS: BP 115/38; PULSE 64; RESP 18; TEMP 36.7; O2SAT 95
[2022-04-09 22:05] VITALS: BP 115/59; PULSE 56
[2022-04-09] MEDS: ondansetron HCL 4 MG/2 ML VIAL IVPUSH (22:23)
[2022-04-09] MEDS: vancomycin HCL 1,000 MG in 0.9 % Sodium Chloride 250 ML 270 MG IV (22:23)
[2022-04-09] MEDS: HYDROmorphone HCl 1 MG/ML SYRINGE IVPUSH (22:23)
[2022-04-09 22:41] LABS: Lactic Acid 1.3 mmol/L (0.5-2.0)
[2022-04-10 00:16] VITALS: BP 113/54; PULSE 67; RESP 16; TEMP 37; O2SAT 96
== END 2022-04-10 00:32 | disposition home or self-care (01) ==
PROVIDERS: Emergency Medicine Emergency Medical Services; Emergency Provider Internal Medicine; PCP Internal Medicine
DX: L03.115 Cellulitis of right lower limb (principal); R60.0 Localized edema; Z79.899 Other long term (current) drug therapy
CPT/HCPCS: 36415; 80048; 80076; 83605; 83880; 85025; 87040; 93971; 96365; 96375; 99284; J1170; J2405; J3370

== ENCOUNTER 2022-05-15 07:52 | Outpatient (REF) | payer OTHER, SELFPAY ==
--- NOTE | ~2022-05-15 | US_ITS ---
EXAMINATION: US LOWER EXTREMITY VENOUS (REFLUX EXAM), BILATERAL CLINICAL INDICATION: Varicose veins COMPARISON: None. TECHNIQUE: Color flow triplex imaging and compression Doppler was performed to evaluate both the deep and the superficial systems bilaterally. To evaluate the superficial system, the examination was performed in the upright position. Color-flow Doppler ultrasound and compression ultrasound were utilized. In addition, maneuvers were utilized to demonstrate reflux. FINDINGS: 1. DEEP VENOUS ULTRASOUND OF THE RIGHT LOWER EXTREMITY: Common Femoral Vein: Compressible, normal respiratory variation and augmented flow. Femoral Vein: Compressible, normal color flow and augmentation. Popliteal Vein: Compressible, normal augmentation. Deep Reflux: Reflux within the common femoral vein, mid femoral vein, and popliteal vein. There is no evidence of a Grayson's cyst. 2. SUPERFICIAL ULTRASOUND WITH DOPPLER OF RIGHT LOWER EXTREMITY: GREAT SAPHENOUS VEIN: Saphenofemoral Junction: 1.0 cm; Reflux: 0 ms Proximal Thigh: 1.0 cm; Reflux: 1240 ms Mid Thigh: 0.9 cm; Reflux: 1552 ms Above Knee: 0.9 cm; Reflux: 0 ms At Knee: 0.6 cm; Reflux: 744 ms Below Knee: 0.3 cm; Reflux: 0 ms Mid Calf: 0.2 cm; Reflux: 0 ms Ankle: 0.3 cm; Reflux: 0 ms DUPLICATED MEDIAL GREAT SAPHENOUS VEIN: Diameter: None Imaged Reflux: NA DUPLICATED LATERAL GREAT SAPHENOUS VEIN: Diameter: None Imaged Reflux: NA SMALL SAPHENOUS VEIN: Proximal: 0.1 cm; Reflux: 0 ms Distal: 0.3 cm; Reflux: 0 ms VEIN OF GIACOMINI: None Imaged. PERFORATORS: Location: Multiple perforators arising from small saphenous vein, in the mid thigh, and in the proximal calf Size: 0.4 cm in the mid thigh Reflux: 2012ms VARICOSITIES: Location: Mid thigh and at the knee Size: Dural 0.4-0.5 cm Reflux: NA 3. DEEP VENOUS ULTRASOUND OF THE LEFT LOWER EXTREMITY: Common Femoral Vein: Compressible, normal respiratory variation and augmented flow. Femoral Vein: Compressible, normal color flow and augmentation. Popliteal Vein: Compressible, normal augmentation. Deep Reflux: Reflux within the common femoral vein, mid femoral vein, and popliteal vein. Chronic nonocclusive thrombus in the left distal femoral vein. There is no evidence of a Grayson's cyst. 4. SUPERFICIAL ULTRASOUND WITH DOPPLER OF LEFT LOWER EXTREMITY: GREAT SAPHENOUS VEIN: Saphenofemoral Junction: 0.6 cm; Reflux: 0 ms Proximal Thigh: 0.4 cm; Reflux: 0 ms Mid Thigh: 0.5 cm; Reflux: 856 ms Above Knee: 0.2 cm; Reflux: 1380 ms At Knee: 0.2 cm; Reflux: 1032 ms Below Knee: 0.3 cm; Reflux: 1320 ms Mid Calf: 0.2 cm; Reflux: 0 ms Ankle: 0.2 cm; Reflux: 0 ms DUPLICATED MEDIAL GREAT SAPHENOUS VEIN: Diameter: None Imaged Reflux: NA DUPLICATED LATERAL GREAT SAPHENOUS VEIN: Proximal: 0.2 cm; Reflux: 2300 ms SMALL SAPHENOUS VEIN: Proximal: 0.2 cm; Reflux: 0 ms Distal: 0.4 cm; Reflux: 0 ms VEIN OF GIACOMINI: None Imaged. PERFORATORS: Location: Multiple fine calf perforators Size: 0.2-0.3 cm Reflux: NA VARICOSITIES: Location: Proximal thigh (x2) Size: They're 0.3 cm Reflux: 1156 US/US venous duplex LE BI IMPRESSION: 1. Right: Moderate reflux in the right great saphenous vein. 2. Left: Moderate reflux in the great saphenous vein. 3. No small saphenous venous reflux. 4. Bilateral refluxing perforators and varicosities. 5. Chronic nonocclusive thrombus in the left distal femoral vein.
== END 2022-05-15 07:53 | disposition home or self-care (01) ==
LOC: HO.US 07:52
PROVIDERS: Visit Provider Surgery Vascular Surgery
DX: I83.11 Varicose veins of right lower extremity with inflammation (principal)
CPT/HCPCS: 93970

== ENCOUNTER → 2022-05-20 14:07 | Outpatient (BNVA) | payer OTHER, SELFPAY | PROVIDERS: PCP Internal Medicine; Visit Provider Surgery Vascular Surgery | DX: I83.11 Varicose veins of right lower extremity with inflammation (principal); D68.61 Antiphospholipid syndrome; Z86.711 Personal history of pulmonary embolism; Z86.718 Personal history of other venous thrombosis and embolism | CPT/HCPCS: 99212 ==

== ENCOUNTER → 2022-06-06 07:42 | Outpatient (BNVA) | payer OTHER, SELFPAY | PROVIDERS: PCP Internal Medicine; Visit Provider Surgery Vascular Surgery | DX: I83.11 Varicose veins of right lower extremity with inflammation (principal) | CPT/HCPCS: 36482 ==

== ENCOUNTER 2022-06-09 15:18 | Outpatient (REF) | payer OTHER, SELFPAY ==
--- NOTE | ~2022-06-09 | US_ITS ---
EXAMINATION: US VENOUS ULTRASOUND WITH DOPPLER LOWER EXTREMITY, RIGHT CLINICAL INFORMATION: Right leg pain COMPARISON: 05/15/2022 TECHNIQUE: Ultrasound of the deep veins is performed from the hip to the calf with compression sonography and color and pulse Doppler assessment. Spectral analysis with color-flow imaging is performed. FINDINGS: There is normal venous compression and respiratory variation and augmented flow. The visualized common femoral vein, superficial femoral vein, profunda femoral vein, popliteal vein, and the trifurcation region shows no evidence of deep venous thrombosis. There is no significant popliteal fossa cyst. There is treated thrombus seen within the greater saphenous vein, which is occluded. This is 1.8 cm from the saphenous femoral junction. US/US venous duplex LE RT IMPRESSION: No DVT demonstrated in the right lower extremity. Occluded greater saphenous vein posttreatment.
== END 2022-06-09 15:19 | disposition home or self-care (01) ==
LOC: HO.US 15:18
PROVIDERS: Visit Provider Surgery Vascular Surgery
DX: M79.604 Pain in right leg (principal)
CPT/HCPCS: 93971

== ENCOUNTER → 2022-06-19 14:45 | Outpatient (BNVA) | payer OTHER, SELFPAY | PROVIDERS: PCP Internal Medicine; Visit Provider Surgery Vascular Surgery | DX: I83.11 Varicose veins of right lower extremity with inflammation (principal); Z98.890 Other specified postprocedural states | CPT/HCPCS: 99212 ==

== ENCOUNTER 2022-07-17 13:46 | Outpatient (REF) | payer OTHER, SELFPAY ==
--- NOTE | ~2022-07-17 | XR_ITS ---
EXAMINATION: XR KNEE, RIGHT CLINICAL INFORMATION: Right knee pain following Venaseal procedure COMPARISON: None available. TECHNIQUE: Four views of the right knee. FINDINGS: No fracture or subluxation. Compartmental joint space narrowing is mild at the medial compartment. Mild patellofemoral compartment narrowing. Tricompartmental mild marginal osteophytes. No joint effusion. Mild soft tissue swelling throughout. XR/XR knee RT 4V IMPRESSION: No acute abnormality. Mild tricompartmental degenerative changes.
== END 2022-07-17 13:47 | disposition home or self-care (01) ==
LOC: HO.HMGCX 13:46
PROVIDERS: PCP Internal Medicine; Visit Provider Internal Medicine
DX: M25.561 Pain in right knee (principal)
CPT/HCPCS: 73564

== ENCOUNTER 2022-07-18 07:52 | Outpatient (REF) | payer OTHER, SELFPAY ==
--- NOTE | ~2022-07-18 | US_ITS ---
EXAMINATION: Ultrasound arterial duplex bilateral lower extreme. CLINICAL INDICATIONS: Antiphospholipid syndrome. COMPARISON: Venous ultrasound 06/09/2022. FINDINGS: RIGHT LOWER EXTREMITY: There is normal antegrade flow seen in the right common femoral, superficial femoral, popliteal artery with triphasic lobe and normal peak systolic velocities. There is a monophasic flow in the right posterior tibial artery with normal velocity. This may be secondary to mild atherosclerotic disease. There is a known clot proximal greater saphenous vein from previous vena seal procedure. The clot is slightly closer subject leaving compared to last study. It is now 0.5 cm from the junction. Previously 1.8 cm from the junction. There is prominent lymph lymph node in the groin measuring 4.0 x 0.7 x 2.7 cm.. LEFT LOWER EXTREMITY: There is normal antegrade flow seen in the left common femoral, superficial femoral, popliteal and posterior tibial arteries with normal peak systolic velocities and triphasic flow. No discrete calcifications suspected. US/US arterial duplex LE IMPRESSION: Essentially unremarkable bilateral ultrasound arterial duplex of lower extremities. There is a vena seal clot in the right greater saphenous vein now slightly closer to the venous junction compared to last exam 06/09/2022. Nonspecific prominent right groin lymph node measuring 4 cm. However it has benign characteristics.
== END 2022-07-18 07:53 | disposition home or self-care (01) ==
LOC: HO.US 07:52
PROVIDERS: PCP Internal Medicine; Visit Provider Internal Medicine
DX: D68.61 Antiphospholipid syndrome (principal)
CPT/HCPCS: 93925

== ENCOUNTER → 2022-09-04 14:45 | Outpatient (BNVA) | payer OTHER, SELFPAY | PROVIDERS: PCP Internal Medicine; Visit Provider Surgery Vascular Surgery | DX: I83.11 Varicose veins of right lower extremity with inflammation (principal); M25.561 Pain in right knee | CPT/HCPCS: 99212 ==

== ENCOUNTER 2022-09-29 08:25 | Outpatient (REF) | payer OTHER, SELFPAY ==
--- NOTE | ~2022-09-29 | MR_ITS ---
EXAMINATION: MR KNEE WITHOUT CONTRAST, RIGHT CLINICAL INFORMATION: Severe medial pain. Rule out tear. COMPARISON: Radiograph dated 07/17/2022. TECHNIQUE: MRI of the knee without contrast was performed using routine sequences on a high-field scanner. Coronal PD fat-sat sequences were repeated due to motion artifact. FINDINGS: MENISCI: MEDIAL MENISCUS: Meniscal body is partially extruded from the jointline. There is a radial tear through the meniscal body sparing the more peripheral, proximal fibers, involving at least two-thirds of the meniscal cross-section. Surrounding soft tissues are edematous. Mild undersurface fraying at the posterior horn. A small radial tear may also be present at the inner margin of the posterior horn, though assessment of this region is somewhat limited by motion artifact. LATERAL MENISCUS: Intact. LIGAMENTS: CRUCIATE: Intact. COLLATERAL: Edema signal around the MCL is likely reactive to the underlying meniscal abnormality. Collateral ligaments are intact. EXTENSOR MECHANISM: Intact. ARTICULAR CARTILAGE/BONE: PATELLOFEMORAL COMPARTMENT: At the central patella, there is a transverse band of full-thickness chondral fissuring with [id number] nonuniform chondral thinning and mild subchondral edema. A 2 x 2 cm area of moderate to high-grade cartilage loss is also present at the inferior aspect of the lateral trochlear facet with underlying cortical irregularity and subcortical edema. MEDIAL COMPARTMENT: High-grade articular cartilage loss is present at the medial two-thirds of the posterior weightbearing surface of the medial femoral condyle over an area measuring roughly 2.3 x 1.6 cm. Similar high-grade cartilage loss is present at the medial two-thirds of the medial tibial plateau with articular cortical sclerosis, subchondral cystic change, and subchondral edema with marginal osteophytes. LATERAL COMPARTMENT: Mild nonuniform chondral thinning is present at the medial third of the lateral femoral condyle and lateral tibial plateau. Small marginal osteophytes. JOINT FLUID AND BURSAE: Small joint effusion and Grayson's cyst. MR/MR knee RT wo con IMPRESSION: 1. High-grade radial tear at the medial meniscal body with partial extrusion of the meniscal body. Probable small radial tear at the posterior horn, as well. 2. [id number] medial compartment osteoarthritis. More [id number] patellofemoral and mild lateral compartment osteoarthritis. 3. Small joint effusion and Grayson's cyst.
== END 2022-09-29 08:26 | disposition home or self-care (01) ==
LOC: HO.MRI 08:25
PROVIDERS: PCP Internal Medicine; Visit Provider Internal Medicine
DX: M25.561 Pain in right knee (principal)
CPT/HCPCS: 73721

== ENCOUNTER → 2022-10-17 15:00 | Outpatient (BNVA) | payer OTHER, SELFPAY | PROVIDERS: PCP Internal Medicine; Visit Provider Nurse Practitioner Family | DX: M25.561 Pain in right knee (principal); M17.11 Unilateral primary osteoarthritis, right knee; S83.241A Other tear of medial meniscus, current injury, right knee, initial encounter; X58.XXXA Exposure to other specified factors, initial encounter; Y93.9 Activity, unspecified; Y92.9 Unspecified place or not applicable; Y99.8 Other external cause status; D68.61 Antiphospholipid syndrome; Z98.84 Bariatric surgery status | CPT/HCPCS: 99202 ==

== ENCOUNTER → 2022-10-27 09:12 | Outpatient (BNVA) | payer OTHER, SELFPAY | PROVIDERS: PCP Internal Medicine; Visit Provider Orthopaedic Surgery | DX: M17.11 Unilateral primary osteoarthritis, right knee (principal); D68.61 Antiphospholipid syndrome; Z86.718 Personal history of other venous thrombosis and embolism; Z79.01 Long term (current) use of anticoagulants | CPT/HCPCS: 20610; 99202; J1100 ==

== ENCOUNTER 2022-11-17 08:33 | Emergency (ER) | payer OTHER, SELFPAY ==
--- NOTE | ~2022-11-17 | CT_ITS ---
EXAMINATION: CT ANGIOGRAM OF THE CHEST WITH AND WITHOUT CONTRAST (CT PULMONARY ANGIOGRAM FOR PE) CLINICAL INFORMATION: Reason for Exam intermittent thoracic pain h/o DVT r/o PE COMPARISON: None available. TECHNIQUE: Prior to contrast administration, noncontrast localization images were obtained. Subsequently, multidetector volumetric imaging was performed from the thoracic inlet to below the diaphragms following the administration of 65 mL Omnipaque 350 intravenous contrast. No contrast reaction reported Sagittal, coronal, and MIP oblique sagittal reformatted images were obtained on the CT workstation, uploaded to PACS, and reviewed. This CT examination was performed using dose optimization techniques as appropriate, variously including the following: *Automated exposure control *Adjustment of mA and/or kV according to patient size (this includes techniques or standardized protocols for targeted exams where dose is matched to indication/reason for exam; i.e. extremities or head) *Use of iterative reconstruction technique Total exam dose-length product 449 mGy-cm FINDINGS: QUALITY OF STUDY/CONTRAST BOLUS: Satisfactory. PULMONARY ARTERIES: No pulmonary emboli. THORACIC AORTA: No aneurysm. LUN mm nodule right upper lobe on image 79 of series 6. 8 x 10 mm groundglass nodule right upper lobe on image 143 of series 6. No focal consolidation. Central airways are patent. PLEURA: No pleural effusion or pneumothorax. MEDIASTINUM: Normal heart size. No pericardial effusion. No hilar or mediastinal lymphadenopathy. No evidence of septal bowing or right heart strain. CORONARY ARTERY CALCIFICATION: None visualized on this study. CHEST WALL/AXILLA: No axillary or internal mammary lymphadenopathy. OSSEOUS STRUCTURES: No destructive bone lesion. UPPER ABDOMEN: Postsurgical changes of the stomach. No reflux of contrast into the hepatic veins to suggest elevated right heart pressures. CT/CT angio chest PE protocol IMPRESSION: No evidence of pulmonary embolus. 8 x 10 mm groundglass nodule right upper lobe. Follow-up chest CT in 6-12 months is advised. VTE: negative
[2022-11-17 08:43] VITALS: BMI 38.8
[2022-11-17 08:58] VITALS: BP 117/63; PULSE 55; RESP 16; TEMP 36.6; O2SAT 99
--- NOTE | 2022-11-17 09:01 | ECG_ITS ---
Test Reason : chest pain Blood Pressure : / mmHG Vent. Rate : 057 BPM Atrial Rate : 057 BPM P-R Int : 148 ms QRS Dur : 084 ms QT Int : 422 ms P-R-T Axes : 022 066 014 degrees QTc Int : 410 ms Sinus bradycardia Nonspecific T wave abnormality Abnormal ECG When compared with ECG of 07-OCT-2021 16:46, No significant change was found Referred By: Constantino Serra Electronically Signed By:Qasim Gordon
--- NOTE | 2022-11-17 09:13 | ED.GENADULT ---
HPI - General Adult General Chief complaint: Abdominal Pain Stated complaint: abdominal pain x1week Time Seen by Provider: 11/17/22 08:48 Source: patient and EMS Mode of arrival: EMS Limitations: no limitations History of Present Illness HPI narrative: 52-year-old female presents with bilateral upper back pain. Symptoms started 24 hours ago. The symptoms are intermittent. The symptoms can be severe. She describes the pain is a burning sensation. Pain can radiate to the anterior lower chest bilaterally. There is no clear relieving or exacerbating features. Patient has tried different positions without relief. She denies any shortness of breath or specific chest pain. She does have a history of DVT and is on anticoagulation. She denies a history of pulmonary embolus. Patient denies any fevers, chills, cough or mucus production. She denies any additional myalgias. Patient never had anything like this before. She has no respiratory related symptoms. Related Data Home Medications Medication Instructions Recorded Confirmed cyanocobalamin (vitamin B-12) 1,000 mcg PO DAILY 07/29/21 11/25/21 1,000 mcg tablet multivitamin 1 tab PO DAILY 07/29/21 11/25/21 calcium carbonate 500 mg-vitamin 1 tab PO DAILY 11/14/21 11/25/21 D3 10 mcg (400 unit) tablet (Calcium 500 With D) rivaroxaban 10 mg tablet (Xarelto) 1 tab PO DAILY 11/25/21 11/25/21 rivaroxaban 20 mg tablet (Xarelto) 20 mg PO DAILY 05/20/22 omeprazole 40 mg capsule,delayed 40 mg PO QAM 10/17/22 release Previous Rx's Medication Instructions Recorded nystatin-triamcinolone 100,000 1 appl topical DAILY #30 grams 09/04/22 unit/g-0.1 % topical cream diclofenac sodium 1 % topical gel 4 g topical QID pain #100 grams 10/17/22 (Arthritis Pain (diclofenac)) leg brace (Knee Support Brace) #1 ea 10/17/22 lidocaine 5 % topical patch 1 patch topical DAILY pain 30 days 10/17/22 #30 ea hydrocodone 5 mg-acetaminophen 325 1 tab PO BID PRN pain 5 days #10 10/27/22 mg tablet tabs gabapentin 300 mg capsule 300 mg PO TID #20 caps 11/17/22 Allergies Allergy/AdvReac Type Severity Reaction Status Date / Time shellfish derived Allergy Unknown Verified 11/17/22 08:42 Review of Systems Review of Systems: CONSTITUTIONAL: Denies weight loss, fever and chills. HEENT: Denies changes in vision and hearing. RESPIRATORY: Denies SOB and cough. CV: Denies palpitations no CP. GI: Denies abdominal pain, nausea, vomiting and diarrhea. : Denies dysuria and urinary frequency. MSK: Denies myalgia and joint pain. SKIN: Denies rash and pruritus. NEUROLOGICAL: Denies headache and syncope. PSYCHIATRIC: Denies recent changes in mood. Denies anxiety and depression. All other ROS are negative unless in HPI PMFSH Past Medical History Medical History Antiphospholipid syndrome Diabetes DVT (deep venous thrombosis) On anticoagulant therapy Pulmonary embolism Tubal ligation evaluation Venous stasis of lower extremity Surgical History H/O gastric sleeve H/O skin graft H/O: knee surgery History of Family History Family History Maternal Aunt Breast CA Social History Social History Alcohol intake: current Alcohol intake frequency: holidays/special occasions only Patient Tobacco Use Status: Current everyday Tobacco user Cigarettes Per Day: 4 Substance Use Type: Marijuana Advance Directives: No Advance Directives Information Provided: No Patient : No service: No Current occupational status: employed Physical Exam ED Vital Signs: Vital Signs - 24 hr 11/17/22 08:58 Temperature 97.8 F Pulse Rate 55 Respiratory Rate 16 Blood Pressure 117/63 Pulse Oximetry 99 Oxygen Delivery Method Room Air BMI result Body Mass Index 38.8 GEN: Well developed, no acute distress, alert, oriented HEENT: Normocephalic, atraumatic, normal external ears, nose appears normal, no oropharyngeal edema or exudates Eyes: Normal to appearance Neck: Supple, no lymphadenopathy Respiratory: Talks in complete sentences, no respiratory distress, clear to auscultation bilaterally Cardiovascular: Regular rate and rhythm, no murmurs rubs or gallops Abdomen: Soft, nontender, nondistended, no guarding, no rebound Back: No CVA tenderness Extremities: No clubbing cyanosis or edema Neurologic: No focal neurologic deficits, cranial nerves 2-12 intact, strength is 5/5 bilaterally Skin: No rash Course Course Course Narrative: It is 12:00 p.m., feeling much studies with the exception some which she was made aware of and will need repeat imaging in several months. I will prescribe the patient gabapentin. Appears this is most likely a nerve related pain. She can follow up with her primary care provider. Medications Administered Discontinued Medications Generic Name Dose Route Start Last Admin Trade Name Marcelino PRN Reason Stop Dose Admin Acetaminophen 975 mg 11/17/22 09:03 11/17/22 09:26 Acetaminophen 325 Mg Tablet PO 11/17/22 09:04 975 mg ONCE ONE Administration Gabapentin 300 mg 11/17/22 09:03 11/17/22 09:26 Gabapentin 300 Mg Capsule PO 11/17/22 09:04 300 mg ONCE ONE Administration Iohexol 65 ml 11/17/22 10:55 11/17/22 10:55 Iohexol 350 Mg/Ml 100 Ml Infus..Btl IV 11/17/22 10:56 65 ml ONCE ONE Administration Medical Decision Making Medical Decision Making [facility] Narrative: 52-year-old female with history of DVT, antiphospholipid antibody presents with burning back pain sometimes radiating to the front. There are no other symptoms. This been going on for 24 hours. Her examination is benign. EKG shows nonspecific T-wave changes but no evidence of acute ST changes. Differential diagnosis could include pulmonary embolus given her history of DVT and antiphospholipid antibody although she is not on anticoagulation. Atypical pain, musculoskeletal, spasm, neuropathic, pneumonia, pleurisy, myositis. Plan to do routine laboratory analysis including inflammatory markers, CPK. Will obtain a CT scan angiogram of the chest rule out pulmonary embolus as well as other possible anatomical related pathology. Patient will be provided with Tylenol and gabapentin. Will withhold anti-inflammatory pain medication given the patient is currently on Xarelto Differential Diagnosis Differential Diagnoses: The differential diagnosis associated with the presentation includes (See above) Neuropathy Admission/Observation Consideration of admission/observation: Escalation of care including admission/observation considered Lab Data [facility] Lab Attestation statement: I reviewed the patient's lab results. 11/17/22 09:40 Labs: Lab Results 11/17/22 11/17/22 11/17/22 Range/Units 09:40 09:40 09:52 WBC 6.4 (4.8-10.8) X10*3/uL RBC 4.64 (4.20-5.50) X10*6/uL Hgb 12.2 (12.0-16.0) g/dl Hct 38.6 (37.0-47.0) % MCV 83.2 (80.0-98.0) fL MCH 26.3 L (27.0-33.0) pg MCHC 31.6 (31.0-35.0) g/dl RDW 13.8 (11.0-16.0) % Plt Count 218 D (160-400) X10*3/uL MPV 11.4 (9.4-12.3) fL Immature Gran % (Auto) 0.3 (0.0-0.4) % Neut % (Auto) 65.4 (45-73) % Lymph % (Auto) 20.5 (20-40) % Emmet % (Auto) 8.5 (2-11) % Eos % (Auto) 4.4 H (0-4) % Baso % (Auto) 0.9 (0-2) % Lymph # (Auto) 1.3 (1.2-4.9) X10*3/uL Emmet # (Auto) 0.5 (0.1-1.2) X10*3/uL Eos # (Auto) 0.3 (0.0-0.4) X10*3/uL Baso # (Auto) 0.1 (0.0-0.2) X10*3/uL Abs Immat Gran (auto) 0.02 (0.00-0.03) X10*3/uL Absolute Neuts (auto) 4.2 (2.0-8.3) x10*3/uL Absolute Nucleated RBC 0.000 (0.0-0.012) X10*3/uL Nucleated RBC % (auto) 0.0 (0.0-0.2) /100WBC ESR (0-20) MM/HR PT (10.0-13.1) SEC INR (0.9-1.1) APTT (26.0-36.4) SEC Sodium 142 (135-145) mmol/L Potassium 3.7 (3.3-5.1) mmol/L Chloride 106 (96-108) mmol/L Carbon Dioxide 26 (22-29) mmol/L Anion Gap 14 (12-20) BUN 13 (9-16) mg/dL Creatinine 0.73 (0.5-1.4) mg/dL Estim Creat Clear Calc 125.8 Estimated GFR > 60 Random Glucose 96 (60-115) mg/dL Calcium 9.8 D (8.4-10.2) mg/dL Total Creatine Kinase 61 (26-140) U/L Troponin I High Sens (<3.5-17.0) ng/L C-Reactive Protein 0.16 (< or = 0.50) mg/dL B-Natriuretic Peptide 34 (<100) pg/mL 11/17/22 11/17/22 11/17/22 Range/Units 09:52 09:52 11:28 WBC (4.8-10.8) X10*3/uL RBC (4.20-5.50) X10*6/uL Hgb (12.0-16.0) g/dl Hct (37.0-47.0) % MCV (80.0-98.0) fL MCH (27.0-33.0) pg MCHC (31.0-35.0) g/dl RDW (11.0-16.0) % Plt Count (160-400) X10*3/uL MPV (9.4-12.3) fL Immature Gran % (Auto) (0.0-0.4) % Neut % (Auto) (45-73) % Lymph % (Auto) (20-40) % Emmet % (Auto) (2-11) % Eos % (Auto) (0-4) % Baso % (Auto) (0-2) % Lymph # (Auto) (1.2-4.9) X10*3/uL Emmet # (Auto) (0.1-1.2) X10*3/uL Eos # (Auto) (0.0-0.4) X10*3/uL Baso # (Auto) (0.0-0.2) X10*3/uL Abs Immat Gran (auto) (0.00-0.03) X10*3/uL Absolute Neuts (auto) (2.0-8.3) x10*3/uL Absolute Nucleated RBC (0.0-0.012) X10*3/uL Nucleated RBC % (auto) (0.0-0.2) /100WBC ESR 25 H (0-20) MM/HR PT 10.8 (10.0-13.1) SEC INR 0.9 (0.9-1.1) APTT 28.9 (26.0-36.4) SEC Sodium (135-145) mmol/L Potassium (3.3-5.1) mmol/L Chloride (96-108) mmol/L Carbon Dioxide (22-29) mmol/L Anion Gap (12-20) BUN (9-16) mg/dL Creatinine (0.5-1.4) mg/dL Estim Creat Clear Calc Estimated GFR Random Glucose (60-115) mg/dL Calcium (8.4-10.2) mg/dL Total Creatine Kinase (26-140) U/L Troponin I High Sens < 2.7 (<3.5-17.0) ng/L C-Reactive Protein (< or = 0.50) mg/dL B-Natriuretic Peptide (<100) pg/mL Independent Interpretation I performed an independent interpretation of an: EKG (Sinus bradycardia heart rate 57, nonspecific T-wave changes, no acute ST elevations depressions, normal intervals) and CT Scan (CT angio chest: No acute pulmonary embolus) Radiology Impression Discussion of test interpretation with radiology: I have reviewed the radiologist's reading. Radiologist Impression: CT/CT angio chest PE protocol IMPRESSION: No evidence of pulmonary embolus. ? 8 x 10 mm groundglass nodule right upper lobe. Follow-up chest CT in 6-12 months is advised. ? VTE: negative Dictated By: Suma Landry MD Signed By: <Electronically signed by Suma Landry MD in OV> 11/17/22 1120 Prescription Management I considered prescription management with: Pain Medication Discharge Plan Discharge Clinical Impression: Back pain, Neuropathy, Abnormal CT scan Patient Disposition: Home, Self-Care Instructions: Peripheral Neuropathy (ED), Back Pain (ED), Computed Tomography Scan (ED) Additional Instructions: You were seen today for a burning thoracic back pain that radiated to the front of your body. Your imaging studies did have an abnormality which she will see below. I am recommending a 6-12 month follow-up with the CT scan. The meantime, he may take Tylenol 1000 mg every 6 hours as needed for pain. I will prescribe you gabapentin 300 mg 3 times a day which may cause drowsiness. Please follow-up with her primary care provider in 1 week for further treatment and re-evaluation. Prescriptions: New gabapentin 300 mg capsule 300 mg PO TID Qty: 20 0RF No Action hydrocodone-acetaminophen 5-325 mg tablet 1 tab PO BID PRN (Reason: pain) 5 Days Qty: 10 0RF Rx Instructions: Partial Fill upon patient request. multivitamin Tablet 1 tab PO DAILY cyanocobalamin (vitamin B-12) 1,000 mcg Tablet 1,000 mcg PO DAILY Xarelto 10 mg tablet 1 tab PO DAILY Xarelto 20 mg tablet 20 mg PO DAILY calcium carbonate-vitamin D3 [Calcium 500 With D] 500 mg-10 mcg (400 unit) tablet 1 tab PO DAILY nystatin-triamcinolone 100,000-0.1 unit/g-% cream 1 appl topical DAILY Qty: 30 0RF Rx Instructions: Applied to right medial calf daily as prescribed omeprazole 40 mg capsule,delayed release(DR/EC) 40 mg PO QAM diclofenac sodium [Arthritis Pain (diclofenac)] 1 % gel 4 g topical QID Qty: 100 0RF lidocaine 5 % adhesive patch,medicated 1 patch topical DAILY 30 Days Qty: 30 0RF (DME) [facility] See Rx Instructions .Route Qty: 1 0RF Rx Instructions: As directed Referrals: Grace Arroyo FNP [Primary Care Provider] - 1 week
[2022-11-17] MEDS: Acetaminophen 325 MG TABLET 975 MG PO (09:26)
[2022-11-17] MEDS: Gabapentin 300 MG CAPSULE PO (09:26)
[2022-11-17 09:45] LABS: MANUAL DIFF FLAG NO
[2022-11-17 09:48] LABS: Basophils Absolute Auto 0.1 X10*3/uL (0.0-0.2); Basophils Percent Auto 0.9 % (0-2); Eosinophils Absolute Auto 0.3 X10*3/uL (0.0-0.4); Eosinophils Percent Auto 4.4 % (0-4); Hematocrit 38.6 % (37.0-47.0); Hemoglobin 12.2 g/dl (12.0-16.0); Imm Gran Abs Auto 0.02 X10*3/uL (0.00-0.03); Imm Gran Pct Auto 0.3 % (0.0-0.4); Lymphocytes Absolute Auto 1.3 X10*3/uL (1.2-4.9); Lymphocytes Percent Auto 20.5 % (20-40); Mean Corpuscular HGB Conc 31.6 g/dl (31.0-35.0); Mean Corpuscular Hemoglobin 26.3 pg (27.0-33.0); Mean Corpuscular Volume 83.2 fL (80.0-98.0); Mean Platelet Volume 11.4 fL (9.4-12.3); Monocytes Absolute Auto 0.5 X10*3/uL (0.1-1.2); Monocytes Percent Auto 8.5 % (2-11); Neutrophils Absolute Auto 4.2 x10*3/uL (2.0-8.3); Neutrophils Percent Auto 65.4 % (45-73); Platelet Count 218 X10*3/uL (160-400); Red Blood Count 4.64 X10*6/uL (4.20-5.50); Red Cell Distribution Width 13.8 % (11.0-16.0); White Blood Count 6.4 X10*3/uL (4.8-10.8)
[2022-11-17 10:24] LABS: Anion Gap 14 (12-20); Blood Urea Nitrogen 13 mg/dL (9-16); C Reactive Protein 0.16 mg/dL (< or = 0.50); Calcium 9.8 mg/dL (8.4-10.2); Carbon Dioxide 26 mmol/L (22-29); Chloride 106 mmol/L (96-108); Creatinine Clr Calc Pharmacy 125.8; Estimated Glomerular Filt Rate > 60; Glucose Random 96 mg/dL (60-115); Potassium 3.7 mmol/L (3.3-5.1); Sodium 142 mmol/L (135-145)
[2022-11-17 10:24] LABS: B Type Natriuretic Peptide 34 pg/mL (<100)
[2022-11-17 10:37] LABS: Troponin-I High Sensitivity < 2.7 ng/L (<3.5-17.0)
[2022-11-17 10:48] LABS: Erythrocyte Sedimentation Rate 25 MM/HR (0-20)
[2022-11-17] MEDS: iohexoL 350 MG/ML 100 ML INFUS..BTL 65 ML IV (10:55)
[2022-11-17 11:44] LABS: INTERNATIONAL NORM RATIO 0.9 (0.9-1.1); Prothrombin Time 10.8 SEC (10.0-13.1)
[2022-11-17 11:46] LABS: Partial Thromboplastin Time 28.9 SEC (26.0-36.4)
[2022-11-17 12:59] LABS: Appearance Urine Clear; Color Urine Dark Yellow; Glucose Urine UA Negative (Negative); Leukocyte Esterase Urine Negative (Negative); Nitrite Urine Negative (Negative); Specific Gravity - Urine >= 1.030 (1.005-1.025); Urine Blood Negative (Negative); Urine Ketones Negative (Negative); Urine Protein Negative (Neg-Trace)
== END 2022-11-17 12:52 | disposition home or self-care (01) ==
PROVIDERS: Emergency Provider Emergency Medicine; PCP Nurse Practitioner Family
DX: M54.6 Pain in thoracic spine (principal); G62.9 Polyneuropathy, unspecified; R91.1 Solitary pulmonary nodule; E11.9 Type 2 diabetes mellitus without complications; F17.210 Nicotine dependence, cigarettes, uncomplicated; F12.90 Cannabis use, unspecified, uncomplicated; Z86.718 Personal history of other venous thrombosis and embolism; Z86.711 Personal history of pulmonary embolism; Z79.01 Long term (current) use of anticoagulants
CPT/HCPCS: 36415; 71275; 80048; 81003; 82550; 83880; 84484; 85025; 85610; 85652; 85730; 86140; 93005; 99284; 99285; Q9967

== ENCOUNTER → 2022-11-17 09:01 | Outpatient (BNV) | payer OTHER, SELFPAY | PROVIDERS: Emergency Provider Emergency Medicine; PCP Nurse Practitioner Family; Visit Provider Internal Medicine Cardiovascular Disease | DX: R00.1 Bradycardia, unspecified (principal) | CPT/HCPCS: 93010 ==

== ENCOUNTER 2022-11-20 11:14 | Outpatient (AMB) | payer OTHER, SELFPAY ==
--- NOTE | 2022-11-20 11:33 | MHC.OFFVIS ---
Intake Vital Signs 11/20/22 11:39 Height 5 ft 9 in Weight 261 lb 4 oz BMI 38.6 BP 144/88 H Blood Pressure Location Lt brachial Position Sitting Pulse 104 H Intake Visit Reasons: cholelithiasis Intake Note: Patient is seen in office for evaluation and treatment of cholelithiasis. 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 Accompanied by: Self / Same As Patient Allergies shellfish derived Allergy (Verified 11/20/22 11:43) Unknown Medication List - Last Reconciled 11/20/22 by Lance Perea MD calcium carbonate-vitamin D3 500 mg-10 mcg (400 unit) (Calcium 500 With D) 1 tab PO DAILY cyanocobalamin (vitamin B-12) 1,000 mcg PO DAILY diclofenac sodium 1% (Arthritis Pain (diclofenac)) 4 grams topical QID gabapentin 300 mg PO TID hydrocodone-acetaminophen 5-325 mg 1 tab PO BID PRN 5 days leg brace (Knee Support Brace) As directed lidocaine 5% 1 patch topical DAILY 30 days multivitamin 1 tab PO DAILY nystatin-triamcinolone 100,000-0.1 unit/g-% 1 appl topical DAILY omeprazole 40 mg PO QAM rivaroxaban (Xarelto) 20 mg PO DAILY HPI HPI Comments History of Present Illness Details 52-year-old female patient presenting with complaints of right posterior shoulder pain as well as abdominal pain in the epigastric and right upper quadrant. The pain increases with eating especially fatty/greasy foods. The pain begins ?awhile? after eating and is usually associated with nausea. She reports anorexia since the onset of the pain. She feels the pain is been getting worse and is afraid to eat now. She was evaluated in the emergency department at [facility] on 11/17/2022 at which time an ultrasound the abdomen was performed. This revealed multiple mobile gallstones with posterior acoustic shadowing. There is normal wall thickening and no pericholecystic fluid. There is a negative Seay sign. She has a prior history of deep venous thrombosis and pulmonary embolism and was determined to have antiphospholipid syndrome. She is on oral anticoagulation (Xarelto) prescribed by Dr. Espinoza. [facility] Medical History (Updated 11/20/22 @ 13:08 by Lance Perea MD) Antiphospholipid syndrome Diabetes DVT (deep venous thrombosis) On anticoagulant therapy Pulmonary embolism Tubal ligation evaluation Venous stasis of lower extremity Surgical History H/O gastric sleeve H/O skin graft H/O: knee surgery History of Family History Maternal Aunt Breast CA Social History Alcohol intake: current Alcohol intake frequency: holidays/special occasions only Patient Tobacco Use Status: Current everyday Tobacco user Cigarettes Per Day: 4 Substance Use Type: Marijuana service: No Current occupational status: employed Female Reproductive History Menstrual Age of Menarche: 13 Review of Systems Const All systems reviewed & are unremarkable except as noted in HPI and below Reports anorexia, Denies chills, Denies fever(s), Denies headache(s), Denies poor appetite and Denies weakness ENT Denies headache(s) Card Denies chest pain, Denies irregular heart rhythm, Denies palpitations and Denies dyspnea Resp Denies cough, Denies excessive phlegm production and Denies dyspnea GI Reports abdominal pain, Denies bloating, Denies change in bowel habits, Denies constipation, Denies heartburn, Denies diarrhea, Reports nausea and Denies vomiting Denies urinary frequency Musc Denies back pain, Denies muscle weakness and Denies numbness Skin/Breast Denies changing lesions and Denies unusual bruising Neuro Denies headache(s), Denies numbness, Denies paresthesias and Denies weakness Psych Denies anxiety and Denies depression Endo Denies palpitations Gordon/Lymph Denies lymphadenopathy Physical Exam Vital Signs: Last Vital Signs Pulse 104 H 11/20/22 11:39 BP 144/88 H 11/20/22 11:39 BMI result Body Mass Index 38.6 Const General: cooperative and no acute distress Nutritional Appearance: well nourished Orientation/consciousness: patient oriented x3 Limitations: no limitations HEENT Head: Yes normocephalic and Yes atraumatic Ears: hearing grossly normal bilaterally Resp Effort & Inspection: normal respiratory effort, no audible wheezes, no cough and no respiratory distress Cardio Jugular venous distension: no JVD GI Other: Well-healed trocar incisions from prior sleeve gastrectomy Inspection: Yes normal to inspection Palpation (GI): Soft to palpation, Tenderness to palpation present (GI) in the epigastrum, in the RUQ and Seay's sign positive; with no rebound tenderness and not rigid Percussion: Yes normal to percussion Auscultation: normal bowel sounds Rectal Exam - Female: deferred Skin Other: Warm, dry, no rash Neuro General: patient oriented x3 Extrem General: Yes no clubbing, cyanosis or edema Assessment & Plan Assessment & Plan (1) Chronic cholecystitis due to cholelithiasis with choledocholithiasis: Code(s): K80.64 - Calculus of gallbladder and bile duct with chronic cholecystitis without obstruction (2) Antiphospholipid syndrome: Code(s): D68.61 - Antiphospholipid syndrome (3) On anticoagulant therapy: Code(s): Z79.01 - retirement (current) use of anticoagulants Plan 52-year-old female patient presenting with complaints of severe right upper quadrant, epigastric and right shoulder pain found to have multiple gallstones within the gallbladder. On examination the patient is indeed tender in the right upper quadrant with a positive Seay sign. Findings are suggestive of symptomatic cholelithiasis. We discussed laparoscopic or possible open cholecystectomy. Patient is at risk for bleeding due to her anticoagulation but is also at risk for clotting disorders due to her anti phospholipid syndrome. Ideally her Xarelto should be held prior to surgery to limit postoperative bleeding. After discussion of the procedure, risks, and alternatives, she consents to the laparoscopic or possible open cholecystectomy. Coding Level of Care Code New Pt Level 4 (54138) Diagnoses Chronic cholecystitis due to cholelithiasis with choledocholithiasis K80.64 Antiphospholipid syndrome D68.61 On anticoagulant therapy Z79.01
[2022-11-20 11:39] VITALS: BP 144/88; PULSE 104; BMI 38.6
== END 2022-11-20 11:58 | disposition home or self-care (01) ==
PROVIDERS: PCP Internal Medicine; Referring Provider Internal Medicine; Visit Provider Surgery
DX: D68.61 Antiphospholipid syndrome (principal); Z79.01 Long term (current) use of anticoagulants; K80.64 Calculus of gallbladder and bile duct with chronic cholecystitis without obstruction
CPT/HCPCS: 99204

== ENCOUNTER → 2022-11-20 11:14 | Outpatient (BNVA) | payer OTHER, SELFPAY | PROVIDERS: PCP Internal Medicine; Referring Provider Internal Medicine; Visit Provider Surgery | DX: K80.64 Calculus of gallbladder and bile duct with chronic cholecystitis without obstruction (principal); D68.61 Antiphospholipid syndrome; Z79.01 Long term (current) use of anticoagulants | CPT/HCPCS: 99202 ==

== ENCOUNTER 2022-11-20 23:53 | Inpatient (IN) | payer OTHER, SELFPAY ==
--- NOTE | ~2022-11-20 | MR_ITS ---
EXAMINATION: MR ABDOMEN WITHOUT CONTRAST, MRCP CLINICAL INFORMATION: Choledocholithiasis. COMPARISON: Abdominal ultrasound earlier today. TECHNIQUE: MR abdomen is performed without gadolinium contrast. 3-D MRCP images were processed on an independent workstation under concurrent supervision. FINDINGS: LUNG BASES: The visualized lung bases are unremarkable. LIVER, GALLBLADDER, AND BILIARY TREE: The noncontrast liver is normal in size, shape and signal. No discrete focal liver lesion in this limited noncontrast examination. Cholelithiasis without significant associated wall thickening or pericholecystic inflammatory changes to suspect acute cholecystitis. Again noted dilatation of the common bile duct measuring up to 1 cm in diameter. There are some filling defects in the lower third of the common bile duct near the ampullary region measuring 1.2 cm on coronal MRCP image 11, series 12. There is minimal central and left-sided intrahepatic biliary ductal dilatation. PANCREAS: No peripancreatic free fluid or fat stranding. The main pancreatic duct is nondilated. SPLEEN: Normal size. No focal lesion. ADRENAL GLANDS: No adrenal mass. KIDNEYS AND URETERS: [id number] left-sided hydronephrosis. No significant perinephric fat stranding. Tiny T2 bright presumed simple cyst in the upper right kidney, for which no imaging follow up is recommended. GASTROINTESTINAL TRACT: No abnormal dilatation to suspect obstruction. ABDOMINAL WALL: No significant hernia is appreciated. LYMPH NODES: No lymphadenopathy. VASCULAR: Normal caliber abdominal aorta. OSSEOUS STRUCTURES: No acute or aggressive-appearing osseous findings. MR/MR MRCP IMPRESSION: 1. Biliary ductal dilatation with filling defects in the lower third of the common bile duct that could be related with choledocholithiasis. Recommend ERCP as clinically indicated. 2. Cholelithiasis without evidence of acute cholecystitis. 3. [id number] indeterminate left-sided hydronephrosis.
--- NOTE | ~2022-11-20 | US_ITS ---
EXAMINATION: US ABDOMEN LIMITED CLINICAL INFORMATION: Gallstones, question cholecystitis. COMPARISON: None available. TECHNIQUE: Real-time imaging of the gallbladder and common bile duct. FINDINGS: GALLBLADDER: Multiple gallstones are identified, including some in the neck which appear nonmobile. No abnormal gallbladder wall thickening. Right upper quadrant tenderness was reported during the exam. COMMON BILE DUCT: Dilated, measuring 0.9 cm in diameter. No choledocholithiasis is seen. US/US abdomen limited IMPRESSION: 1. Cholelithiasis, including in the gallbladder neck which appear nonmobile. Though there is no abnormal wall thickening, right upper quadrant tenderness was reported during the exam. If there is clinical concern for acute cholecystitis, assessment with nuclear medicine hepatobiliary scan may be more definitive. 2. Dilated common bile duct measuring up to 0.9 cm in diameter. No visible choledocholithiasis, though a distal obstructing stone remains a possibility. This may be further evaluated with MRCP or ERCP.
--- NOTE | ~2022-11-20 | FL_ITS ---
EXAMINATION: XR FLUOROSCOPY WITH IMAGES CLINICAL INFORMATION: ERCP COMPARISON: None available. TECHNIQUE: Fluoroscopy Supervised By: Dr. Carlo Hagen. Fluoroscopy Time: 306.9 seconds. Cumulative Dose: 139.49 mGy. Images: 9. FINDINGS: ERCP was performed. There is injection of the common bile duct and balloon sweep of the CBD. FL/FL guidance in OR IMPRESSION: Fluoroscopy performed by the gastroenterology department. Please see the operative report for additional information.
[2022-11-20 23:58] VITALS: BP 129/73; PULSE 73; RESP 24; TEMP 36.4; O2SAT 100; BMI 38.8
[2022-11-21] VITALS (7 sets, daily range): BP systolic 107–148; BP diastolic 52–88; PULSE 50–75; RESP 16–20; TEMP 36.2–36.6; O2SAT 96–99; BMI 38.4
--- NOTE | 2022-11-21 00:37 | ED_ITS ---
HPI - Abdominal Pain General Chief Complaint: Abdominal Pain Stated Complaint: Gallstones Time Seen by Provider: 11/21/22 00:36 Source: patient Mode of arrival: ambulatory Limitations: no limitations History of Present Illness HPI narrative: Patient with history of antiphospholipid syndrome , PE, DVT on Xarelto seen here on 11/17 0 right upper quadrant pain CTA was negative patient went to [facility] same day and had ultrasound done which showed gallstones comes here as patient been having pain since then and not getting better SC with nausea and vomiting no fever no chill patient been taking gabapentin oxycodone without much relief. No fever no chill no urine complaints Related Data Home Medications Medication Instructions Recorded Confirmed cyanocobalamin (vitamin B-12) 1,000 mcg PO DAILY 07/29/21 11/20/22 1,000 mcg tablet multivitamin 1 tab PO DAILY 07/29/21 11/20/22 calcium carbonate 500 mg-vitamin 1 tab PO DAILY 11/14/21 11/20/22 D3 10 mcg (400 unit) tablet (Calcium 500 With D) rivaroxaban 20 mg tablet (Xarelto) 20 mg PO DAILY 05/20/22 11/20/22 omeprazole 40 mg capsule,delayed 40 mg PO QAM 10/17/22 11/20/22 release Previous Rx's Medication Instructions Recorded nystatin-triamcinolone 100,000 1 appl topical DAILY #30 grams 09/04/22 unit/g-0.1 % topical cream diclofenac sodium 1 % topical gel 4 g topical QID pain #100 grams 10/17/22 (Arthritis Pain (diclofenac)) leg brace (Knee Support Brace) #1 ea 10/17/22 lidocaine 5 % topical patch 1 patch topical DAILY pain 30 days 10/17/22 #30 ea hydrocodone 5 mg-acetaminophen 325 1 tab PO BID PRN pain 5 days #10 10/27/22 mg tablet tabs gabapentin 300 mg capsule 300 mg PO TID #20 caps 11/17/22 Allergies Allergy/AdvReac Type Severity Reaction Status Date / Time shellfish derived Allergy Unknown Verified 11/20/22 11:43 Review of Systems Review of Systems Yes all other systems are reviewed and are negative PMFSH Past Medical History Medical History Antiphospholipid syndrome Diabetes DVT (deep venous thrombosis) On anticoagulant therapy Pulmonary embolism Tubal ligation evaluation Venous stasis of lower extremity Surgical History H/O gastric sleeve H/O skin graft H/O: knee surgery History of Family History Family History Maternal Aunt Breast CA Social History Social History Alcohol intake: never Patient Tobacco Use Status: Never used Tobacco Cigarettes Per Day: 4 Smoked in Last 30 Days: No Use of substances other than those prescribed or required for medical reasons: No Substance Use Type: Marijuana Advance Directives: No Advance Directives Information Provided: Yes Nutrition Risks: No Nutritional Risk Patient : No service: No Current occupational status: employed Physical Exam ED Vital Signs: Vital Signs - 24 hr 11/20/22 23:58 11/21/22 00:28 Temperature 97.5 F Pulse Rate 73 75 Respiratory Rate 24 H 20 Blood Pressure 129/73 148/88 H Pulse Oximetry 100 96 Oxygen Delivery Method Room Air Room Air BMI result Body Mass Index 38.8 Appearance: Alert. Oriented X3. No acute distress. Eyes: PERRLA, No Nystagmus ENT: Pharynx normal. Oral Mucosa moist Neck: Normal inspection. Neck supple. CVS: Normal heart rate and rhythm. Pulses normal. Respiratory: No respiratory distress. Equal air entry bilateral, no wheezing/rales/rhonchi Abdomen: Soft tender right upper quadrant with guarding no rebound tenderness. Bowel sounds are present, no mass palpable, no CVA tenderness Skin: Skin warm and dry. Normal skin color. Normal skin turgor. Extremities: No lower extremity edema. No calf tenderness Neuro: Oriented X 3. No motor deficit. No sensory deficit.No cerebellar signs , cranial nerves II-XII intact Medical Decision Making Medical Decision Making MDM Narrative: Patient with gallstone with pancreatitis with CBD dilatation of 9 mm will admit patient for further evaluation including ERCP patient on Xarelto Consult Healthcare Provider Management of the patient was discussed with: Hospitalist Lab Data MDM Lab Attestation statement: I reviewed the patient's lab results. 11/21/22 00:34 11/21/22 00:34 Labs: Lab Results 11/21/22 11/21/22 11/21/22 Range/Units 00:34 00:34 01:17 WBC 6.0 (4.8-10.8) X10*3/uL RBC 4.51 (4.20-5.50) X10*6/uL Hgb 11.9 L (12.0-16.0) g/dl Hct 36.6 L (37.0-47.0) % MCV 81.2 (80.0-98.0) fL MCH 26.4 L (27.0-33.0) pg MCHC 32.5 (31.0-35.0) g/dl RDW 14.2 (11.0-16.0) % Plt Count 305 D (160-400) X10*3/uL MPV 11.0 (9.4-12.3) fL Immature Gran % (Auto) 0.3 (0.0-0.4) % Neut % (Auto) 62.7 (45-73) % Lymph % (Auto) 23.9 (20-40) % [place] % (Auto) 8.3 (2-11) % Eos % (Auto) 4.3 H (0-4) % Baso % (Auto) 0.5 (0-2) % Lymph # (Auto) 1.4 (1.2-4.9) X10*3/uL [place] # (Auto) 0.5 (0.1-1.2) X10*3/uL Eos # (Auto) 0.3 (0.0-0.4) X10*3/uL Baso # (Auto) 0.0 (0.0-0.2) X10*3/uL Abs Immat Gran (auto) 0.02 (0.00-0.03) X10*3/uL Absolute Neuts (auto) 3.8 (2.0-8.3) x10*3/uL Absolute Nucleated RBC 0.000 (0.0-0.012) X10*3/uL Nucleated RBC % (auto) 0.0 (0.0-0.2) /100WBC Sodium 139 (135-145) mmol/L Potassium 3.5 (3.3-5.1) mmol/L Chloride 104 (96-108) mmol/L Carbon Dioxide 24 (22-29) mmol/L Anion Gap 15 (12-20) BUN 12 (9-16) mg/dL Creatinine 0.77 (0.5-1.4) mg/dL Estim Creat Clear Calc 119.3 Estimated GFR > 60 Random Glucose 150 H (60-115) mg/dL Lactic Acid 1.2 (0.5-2.0) mmol/L Calcium 10.1 (8.4-10.2) mg/dL Total Bilirubin 1.7 H (0.0-1.0) mg/dL AST 102 H (5-31) U/L ALT 175 H (0-31) U/L Alkaline Phosphatase 203 H (39-117) U/L Total Protein 7.4 (6.5-8.0) g/dL Albumin 3.9 (3.5-5.0) g/dL Lipase 1007 H (8-78) U/L Radiology Impression Discussion of test interpretation with radiology: I have reviewed the radiologist's reading. Radiologist Impression: US/US abdomen limited IMPRESSION: 1.? Cholelithiasis, including in the gallbladder neck which appear nonmobile. Though there is no abnormal wall thickening, right upper quadrant tenderness was reported during the exam. If there is clinical concern for acute cholecystitis, assessment with nuclear medicine hepatobiliary scan may be more definitive. 2.? Dilated common bile duct measuring up to 0.9 cm in diameter. No visible choledocholithiasis, though a distal obstructing stone remains a possibility. This may be further evaluated with MRCP or ERCP. Medications Administered Generic Name Dose Route Start Last Admin Trade Name Freq PRN Reason Stop Dose Admin Piperacillin Sod/Tazobactam 100 mls @ 200 mls/hr 11/21/22 05:00 11/21/22 04:18 Sod 4.5 gm/ Sodium Chloride IV 200 mls/hr Q6H KATHARINA Administration Morphine Sulfate 4 mg 11/21/22 03:42 11/21/22 04:17 Morphine Sulfate 4 Mg/Ml Cartridge IVPUSH 4 mg Q4H PRN Administration Pain, Severe (Pain Scale 7-10) Protocol Ondansetron HCl 4 mg 11/21/22 03:42 11/21/22 04:17 Ondansetron Hcl 4 Mg/2 Ml Vial IVPUSH 4 mg Q8H PRN Administration Nausea and Vomiting Discontinued Medications Generic Name Dose Route Start Last Admin Trade Name Marcelino PRN Reason Stop Dose Admin Sodium Chloride 1,000 mls @ 999 mls/hr 11/21/22 00:59 11/21/22 02:42 Ns IV 11/21/22 01:59 Infused .Q1H1M ONE Infusion Morphine Sulfate 4 mg 11/21/22 00:58 11/21/22 01:22 Morphine Sulfate 4 Mg/Ml Cartridge IVPUSH 11/21/22 00:59 4 mg ONCE ONE Administration Protocol Ondansetron HCl 4 mg 11/21/22 00:58 11/21/22 01:22 Ondansetron Hcl 4 Mg/2 Ml Vial IVPUSH 11/21/22 00:59 4 mg ONCE ONE Administration Discharge Plan Discharge Clinical Impression: Biliary colic, Acute gallstone pancreatitis Patient Disposition: Admitted As Inpatient
[2022-11-21 00:40] LABS: MANUAL DIFF FLAG NO
[2022-11-21 00:41] LABS: Basophils Percent Auto 0.5 % (0-2); Eosinophils Absolute Auto 0.3 X10*3/uL (0.0-0.4); Eosinophils Percent Auto 4.3 % (0-4); Hematocrit 36.6 % (37.0-47.0); Hemoglobin 11.9 g/dl (12.0-16.0); Imm Gran Abs Auto 0.02 X10*3/uL (0.00-0.03); Imm Gran Pct Auto 0.3 % (0.0-0.4); Lymphocytes Absolute Auto 1.4 X10*3/uL (1.2-4.9); Lymphocytes Percent Auto 23.9 % (20-40); Mean Corpuscular HGB Conc 32.5 g/dl (31.0-35.0); Mean Corpuscular Hemoglobin 26.4 pg (27.0-33.0); Mean Corpuscular Volume 81.2 fL (80.0-98.0); Monocytes Absolute Auto 0.5 X10*3/uL (0.1-1.2); Monocytes Percent Auto 8.3 % (2-11); Neutrophils Absolute Auto 3.8 x10*3/uL (2.0-8.3); Neutrophils Percent Auto 62.7 % (45-73); Platelet Count 305 X10*3/uL (160-400); Red Blood Count 4.51 X10*6/uL (4.20-5.50); Red Cell Distribution Width 14.2 % (11.0-16.0)
--- OUTSIDE RECORDS SUMMARY | 2022-11-21 00:45 | XMS_ITS | Continuity of Care Document ---
Author Name Unknown Organization [facility] ter Address [address] [place] [id number]- Care Team Providers Care In Home Aide Name Role Phone Olga JENKINS, Zafar Lo Primary Care Physician [phone] Encounter [facility] Date(s): 11/17/22 - 11/17/[address] [address]- Encounter Diagnosis Cholelithiasis(Final) - 11/17/22 Discharge Disposition: A-D/C Home Attending Physician: Rhona Ashraf DO Admitting Physician: Rhona Ashraf DO Referring Physician: Not on Staff, Referring MD Medications gabapentin 300 mg oral capsule 300 mg, Capsule, By Mouth, Once, STAT, 11/17/22 20:27:00 EDT, Stop date 11/17/22 20:27:00 EDT Start Date: 11/17/22 Stop Date: 11/17/22 Status: Completed MorPHINE Inj 4 mg, Injection, IV Push Slowly, Every 5 minutes for 3 doses/times, PRN for Pain , Moderate, and SBP greater than 100, Routine, 11/17/22 20:54:00 EDT, Stop date Limited # of times Start Date: 11/17/22 Status: Ordered oxyCODONE 5 mg oral tablet 5 mg, 1, tablet, By Mouth, Every 8 hours, PRN, # 12 tablet, Refills 0, Tot. Refills 0, Maintenance,as needed for pain, 11/17/22 22:35:00 EDT, Route to Pharmacy Electronically, [facility]/pharmacy #[id number], Partial fill upon patient request if the prescription... Start Date: 11/17/22 Status: Ordered Results Radiology Reports * Exam Date Time Procedure Performing Provider Status 11/17/22 9:17 PM US RUQ Kenia Tyson; Auth (V erified) Notes: (US RUQ) Reason For Exam: Abdominal Pain;Other: RESULT: US RUQ US RUQ Hx of Present Illness: burning sensation; Reason: Other:; Abdominal Pain; Clinical Question(s): Cholecystitis COMPARISON: None. FINDINGS: Suboptimal evaluation secondary to overlying bowel gas. Liver: Diffusely echogenic parenchyma. No suspicious lesion. Smooth hepatic contour. Main portal vein patent with normal hepatopetal direction of flow. Gallbladder: Multiple mobile gallstones with posterior acoustic shadowing. Normal wall thickness. No pericholecystic fluid. Negative Seay sign. Biliary Tree: No intrahepatic or extrahepatic bile duct dilation is identified. Common duct measures: 0.7 cm. Pancreas: No abnormality in the visualized portions of the pancreas. Right kidney: 11.6 cm in length. Normal parenchymal echotexture and thickness. No hydronephrosis, stone or mass. IMPRESSION: 1. Echogenic liver likely representing hepatic steatosis. 2. Cholelithiasis without evidence of acute cholecystitis. I have personally reviewed the images and I agree with this report. WSN: [id number] Ordering Physician: Edgar Comer Dictated By: Demetri Marie MD Dictated Date/Time: 11/17/22 9:23 pm Reviewed By: Cecelia Rubio MD Signed By: Cecelia Rubio MD Signed Date/Time: 11/17/22 9:28 pm Transcribed By: YEISON Transcribed Date/Time: 11/17/22 9:20 pm Vital Signs Most recent to oldest [Reference Range]: 1 2 3 Oxygen Saturation [94-100 %] 100 % (11/17/22 11:09 PM) 100 % (11/17/22 8:02 PM) Pulse Rate [55-90 bpm] 58 bpm (11/17/22 11:09 PM) 50 bpm *L* (11/17/22 8:02 PM) Blood Pressure [90-138/55-84 mm Hg] 130/50mm Hg (11/17/22 11:09 PM) 117/99mm Hg (11/17/22 8:02 PM) Respiratory Rate [16-30 br/min] 18 br/min (11/17/22 11:09 PM) 20 br/min (11/17/22 11:00 PM) 18 br/min (11/17/22 8:51 PM) Temperature [96.8-100.4 DegF] 98.5 DegF (11/17/22 11:09 PM) 97.7 DegF (11/17/22 8:02 PM) Liters per Minute 2 L/min (11/17/22 8:02 PM) Mode of Delivery (Oxygen) Nasal cannula (11/17/22 11:09 PM) Nasal cannula (11/17/22 8:02 PM) Temperature Route Oral (11/17/22 11:09 PM) Oral (11/17/22 8:02 PM) Note * Edgar Comer MD: PERFORM Event Display: Patient Education Leaflets Authored Date: [id number] Gallstones with Biliary Colic ?? [id number] C??lculos biliares con c??wayne biliar El dolor abdominal que usted siente??se debe a la irritaci??n y el espasmo presentes en la ves??cula biliar.??Merna se conoce mary c??wayne biliar.??La ves??cula biliar es un norma??o saco o bolsa que se encuentra debajo del h??gado, el cual almacena y libera bilis. La bilis es un l??quido producido en el h??gado que ayuda al cuerpo a hacer la digesti??n de la grasa.??Los kvng pueden formar piedras dentro de la ves??cula biliar (c??lculos). Los c??lculos pueden producir espasmos en la ves??cula biliar. Si los c??lculos bloquean el conducto que sale de la de la ves??cula biliar, pueden producir??dolor y hasta rima infecci??n.?? Existe rima gran variedad de cosas que aumentan el riesgo de sufrir c??lculos: ??? Ser jesus ??? Tener sobrepeso (ser rda) ??? Tener edad avanzada ??? Subir o bajar de peso de manera repentina ??? Ingerir alimentos de alto contenido olga??rico ??? Estar embarazada ??? Realizaruna terapia hormonal ??? Tener diabetes Cuidados en el hogar ??? Samaria reposo. ??? Siga rima dieta de l??quidos transparentes hasta que se sienta mejor. ??? Es posible que le hayan recetado medicamentos para tratar el dolor y las n??useas. [place] los medicamentos siguiendo las indicaciones que le hayan dado. ??? La grasa que haya en cheung dieta gagan?? que la ves??cula se contraiga y esto le aumentar?? el dolor. Por lo tanto, evite comer alimentos con grasa, mary l??cteos enteros, comidas fritas y magnus grasas, cj al menos 2 d??as. ??? Si tiene sobrepeso, consulte con cheung proveedor de atenci??n m??dica acerca de c??mo bajar de peso. ?? Visita de seguimiento Programe rima visita de seguimiento con cheung proveedor de atenci??n m??dica seg??n lo que se le haya indicado. Es posible que usted sufra otro ataque de dolor debido a los c??lculos??en alg??n momento.??Para evitar que eso suceda, rima de las opciones es extraer la ves??cula. Consulte con cheung proveedor de atenci??n m??dica sobre rebekah opciones de tratamiento. ?? Cu??ndo buscar atenci??n m??dica Llame al proveedor de atenci??n m??dica si ocurre algo de lo siguiente: ??? Dolor que empeora o quedura m??s de 6??horas ??? Dolor que se transfiere al lado inferior derecho del abdomen ??? V??mitospersistentes ??? Hinchaz??n del abdomen ??? Fiebre de 100.4?F (38?C) o m??s kriss, o mary le haya indicado cheung proveedor de atenci??n m??dica ??? Orina muy oscura o heces de colores sinan, o color amarillento en los ojos o la piel ??? Dolor de pecho, en un brazo, la espalda, el yuan o la jeanine??bula ??? Empeoramiento de los s??ntomas o aparici??n de nuevos s??ntomas ?? Last Reviewed Date: 2021 ?? [id number] [employer]. Todos los derechos reservados. Esta informaci??n no pretende sustituir la atenci??n m??dica profesional. S??lo cheung m??dico puede diagnosticar y tratar un problema de alex. ?? Patient Care team information Care Team Personnel Name: Zafar Espinoza MD Position: Reference Physician Member Role: PCP Address: Address: [address] [place] [id number] Name: Ester Hanks Position: [facility] ED [facility] Name: Edgar Comer MD Position: [facility] Resident Member Role: ED Resident Address: Address: [address] [place] [address] Name: Rhona Ashraf DO Position: [facility] Resident Member Role: Admitting Physician Address: Address: [address] [place] [address] Name: Frances Torres Position: [facility] ED RN W/OE and Tasks Member Role: Patient Care Provider
[2022-11-21 00:57] LABS: Alanine Aminotransferase 175 U/L (0-31); Albumin Level 3.9 g/dL (3.5-5.0); Alkaline Phosphatase 203 U/L (39-117); Anion Gap 15 (12-20); Aspartate Amino Transferase 102 U/L (5-31); Bilirubin Total 1.7 mg/dL (0.0-1.0); Blood Urea Nitrogen 12 mg/dL (9-16); Calcium 10.1 mg/dL (8.4-10.2); Carbon Dioxide 24 mmol/L (22-29); Chloride 104 mmol/L (96-108); Creatinine Clr Calc Pharmacy 119.3; Estimated Glomerular Filt Rate > 60; Glucose Random 150 mg/dL (60-115); Potassium 3.5 mmol/L (3.3-5.1); Sodium 139 mmol/L (135-145); Total Protein 7.4 g/dL (6.5-8.0)
[2022-11-21] MEDS: Morphine Sulfate 4 MG/ML CARTRIDGE IVPUSH ×5 (01:22→22:24)
[2022-11-21] MEDS: 0.9 % Sodium Chloride 1,000 ML 999 ML IV (01:22)
[2022-11-21] MEDS: ondansetron HCL 4 MG/2 ML VIAL IVPUSH ×2 (01:22→04:17)
[2022-11-21 01:34] LABS: Lactic Acid 1.2 mmol/L (0.5-2.0)
[2022-11-21 01:49] LABS: Lipase 1007 U/L (8-78)
--- NOTE | 2022-11-21 03:45 | PM.IMHP ---
History of Present Illness Date of Service: 11/21/22 Chief Complaint: Abdominal Pain This is a 52-year-old female with pertinent history of antiphospholipid syndrome on anticoagulation, gastroesophageal reflux disease who presents to the emergency department for evaluation of right sided abdominal pain. Patient states that she has been having right upper quadrant abdominal pain for the last 3 weeks. Initially it was intermittent but progressed to being constant. It is worse with p.o. intake and associated with nausea and multiple episodes of emesis. Patient was seen in the ER on 11/17 and discharged. Patient states she went to [facility] where gallstones were found. She followed up with General surgery as an outpatient on 11/20 and cholecystectomy was planned for 12/03. Patient states she continued to have severe abdominal pain not relieved on p.o. oxycodone and hence she decided to present to the ER. Unable to tolerate p.o. intake. Also complains of chills. She denies fever, chest palpitations, shortness of breath, changes in urinary or bowel habits. In the emergency department, imaging with cholelithiasis and dilated CBD Review of Systems Constitutional: Constitutional: Reports chills Cardiovascular: Cardiovascular: Reports no additional cardiovascular complaints Respiratory: Respiratory: Reports no additional respiratory complaints Gastrointestinal: Gastrointestinal: Reports abdominal pain, Reports nausea and Reports vomiting Genitourinary: Genitourinary: Reports no additional female genitourinary complaints Musculoskeletal: Musculoskeletal: Reports no additional musculoskeletal complaints [facility] Medical History Antiphospholipid syndrome Diabetes DVT (deep venous thrombosis) On anticoagulant therapy Pulmonary embolism Tubal ligation evaluation Venous stasis of lower extremity Family History Maternal Aunt Breast CA Surgical History H/O gastric sleeve H/O skin graft H/O: knee surgery History of Social History Alcohol intake: current Alcohol intake frequency: holidays/special occasions only Patient Tobacco Use Status: Current everyday Tobacco user Cigarettes Per Day: 4 Substance Use Type: Marijuana Advance Directives: No Advance Directives Information Provided: Yes service: No Current occupational status: employed Meds Allergies Allergy/AdvReac Type Severity Reaction Status Date / Time shellfish derived Allergy Unknown Verified 11/20/22 11:43 Home Medications Medication Instructions Recorded Confirmed Last Taken Type cyanocobalamin (vitamin B-12) 1,000 mcg PO DAILY 07/29/21 11/20/22 Unknown History 1,000 mcg tablet multivitamin 1 tab PO DAILY 07/29/21 11/20/22 Unknown History calcium carbonate 500 mg-vitamin 1 tab PO DAILY 11/14/21 11/20/22 Unknown History D3 10 mcg (400 unit) tablet (Calcium 500 With D) rivaroxaban 20 mg tablet (Xarelto) 20 mg PO DAILY 05/20/22 11/20/22 Unknown History omeprazole 40 mg capsule,delayed 40 mg PO QAM 10/17/22 11/20/22 Unknown History release Physical Exam Vital Signs and Narrative: Vital Signs: Last Vital Signs Temp 97.5 F 11/20/22 23:58 Pulse 75 11/21/22 00:28 Resp 20 11/21/22 00:28 BP 148/88 H 11/21/22 00:28 Pulse Ox 96 11/21/22 00:28 O2 Del Method Room Air 11/21/22 00:28 BMI result Body Mass Index 38.8 Middle-aged female lying in bed in mild distress Neck supple, no JVD Regular rate and rhythm, S1-S2 heard Regular breath sounds bilaterally, no wheezing or crackles appreciated Abdomen with right upper quadrant tenderness, positive Seay sign, no rigidity, no rebound tenderness Patient is awake, alert and oriented to self, place, time and person ; no focal motor deficit Psych: Normal mood No pedal edema Results Labs 11/21/22 00:34 11/21/22 00:34 Labs: Laboratory Results - last 24 hr 11/21/22 11/21/22 11/21/22 00:34 00:34 01:17 MCV 81.2 MCH 26.4 L MCHC 32.5 RDW 14.2 Plt Count 305 D MPV 11.0 Immature Gran % (Auto) 0.3 Neut % (Auto) 62.7 Lymph % (Auto) 23.9 [place] % (Auto) 8.3 Eos % (Auto) 4.3 H Baso % (Auto) 0.5 Lymph # (Auto) 1.4 [place] # (Auto) 0.5 Eos # (Auto) 0.3 Baso # (Auto) 0.0 Abs Immat Gran (auto) 0.02 Absolute Neuts (auto) 3.8 Absolute Nucleated RBC 0.000 Nucleated RBC % (auto) 0.0 Anion Gap 15 Estim Creat Clear Calc 119.3 Estimated GFR > 60 Random Glucose 150 H Lactic Acid 1.2 Calcium 10.1 Total Bilirubin 1.7 H AST 102 H ALT 175 H Alkaline Phosphatase 203 H Total Protein 7.4 Albumin 3.9 Lipase 1007 H Imaging Radiologist's Impressions: Impressions Abdomen Ultrasound 11/21/22 02:30 IMPRESSION: 1. Cholelithiasis, including in the gallbladder neck which appear nonmobile. Though there is no abnormal wall thickening, right upper quadrant tenderness was reported during the exam. If there is clinical concern for acute cholecystitis, assessment with nuclear medicine hepatobiliary scan may be more definitive. 2. Dilated common bile duct measuring up to 0.9 cm in diameter. No visible choledocholithiasis, though a distal obstructing stone remains a possibility. This may be further evaluated with MRCP or ERCP. Assessment and Plan (1) Cholecystitis: Status: Acute Plan This is a 52-year-old female with pertinent history of antiphospholipid syndrome on anticoagulation, gastroesophageal reflux disease who presents to the emergency department for evaluation of right sided abdominal pain. #. Acute calculous cholecystitis. Imaging with dilated CBD and concerns for choledocholithiasis. Will admit patient and initiate IV opioids p.r.n. for symptomatic control. Consulting general surgery and initiating empiric IV antibiotics. Also obtaining MRCP. Hold Xarelto #. Antiphospholipid syndrome. Hold Xarelto in anticipation of surgery Med rec pending DVT prophylaxis: Mechanical Full code Admit as inpatient and will require two night minimum hospital stay for treatment of cholecystitis with possible choledocholithiasis. Specialist consult pending Time Spent With Patient Time: Total time managing care of this patient today ____ minutes. Quality Stroke Does the patient have a stroke diagnosis?: No VTE Prior VTE?: No VTE Risk Level:: Medical - moderate - high VTE Device Contraindication: N/A - Device Ordered VTE Drug Contraindication: Treatment Not Indicated
[2022-11-21] MEDS: Piperacillin Sodium/Tazobactam 4.5 GM in 0.9 % Sodium Chloride 100 ML IV ×3 (04:18→22:25)
--- NOTE | 2022-11-21 04:20 | PC.NURSE ---
pt reports relief of pain from morphine administration from a 02/10 down to 10/11. pt appears much more comfortable but requesting pain medication to prevent pain from creeping back up and worsening. pt medicated per jul. antibiotics running. call le within reach. pt needs met at this time. will ctm.
[2022-11-21 05:11] LABS: MANUAL DIFF FLAG NO
[2022-11-21 05:14] LABS: Basophils Percent Auto 0.7 % (0-2); Eosinophils Absolute Auto 0.3 X10*3/uL (0.0-0.4); Eosinophils Percent Auto 5.1 % (0-4); Hematocrit 34.8 % (37.0-47.0); Hemoglobin 10.9 g/dl (12.0-16.0); Imm Gran Abs Auto 0.01 X10*3/uL (0.00-0.03); Imm Gran Pct Auto 0.2 % (0.0-0.4); Lymphocytes Absolute Auto 1.8 X10*3/uL (1.2-4.9); Mean Corpuscular HGB Conc 31.3 g/dl (31.0-35.0); Mean Corpuscular Hemoglobin 26.3 pg (27.0-33.0); Mean Corpuscular Volume 83.9 fL (80.0-98.0); Mean Platelet Volume 10.9 fL (9.4-12.3); Monocytes Absolute Auto 0.6 X10*3/uL (0.1-1.2); Monocytes Percent Auto 10.4 % (2-11); Neutrophils Absolute Auto 2.9 x10*3/uL (2.0-8.3); Neutrophils Percent Auto 51.6 % (45-73); Platelet Count 272 X10*3/uL (160-400); Red Blood Count 4.15 X10*6/uL (4.20-5.50); Red Cell Distribution Width 14.3 % (11.0-16.0); White Blood Count 5.7 X10*3/uL (4.8-10.8)
[2022-11-21 05:35] LABS: Anion Gap 10 (12-20); Blood Urea Nitrogen 11 mg/dL (9-16); Calcium 9.5 mg/dL (8.4-10.2); Carbon Dioxide 29 mmol/L (22-29); Chloride 106 mmol/L (96-108); Creatinine Clr Calc Pharmacy 125.8; Estimated Glomerular Filt Rate > 60; Glucose Random 109 mg/dL (60-115); Potassium 3.7 mmol/L (3.3-5.1); Sodium 141 mmol/L (135-145)
--- NOTE | 2022-11-21 07:10 | PC.NURSE ---
assumed care of pt at 0700. pt states she is in 2/10 abdominal pain. pt is resting quietly and comfortably.
[2022-11-21] MEDS: 0.9 % Sodium Chloride Flush 3 ML SYRINGE IVFLUSH ×2 (07:14→16:01)
--- NOTE | 2022-11-21 08:03 | PHA.MEDREC ---
Pharmacy Consult ? Medication Reconciliation Pharmacy has completed the medication reconciliation. Spoke to patient to confirm meds.
--- NOTE | 2022-11-21 08:18 | PM.CNGS ---
History of Present Illness Consult details Consult date: 11/21/22 Narrative: 52-year-old female patient presenting to the ED with complaints of increased right upper quadrant abdominal pain. Patient was previously evaluated in the office on 11/20/2022 for similar complaints. She reports pain in the right upper quadrant extending to the right posterior shoulder and epigastrium. Pain seems to increase with eating fatty/greasy foods and is associated with nausea and vomiting. Previous evaluation at [facility] on 11/17/2022 noted gallstones within the gallbladder by ultrasound. No wall thickening pericholecystic fluid was identified to indicate an acute cholecystitis. Patient has a prior history of antiphospholipid syndrome with history of DVT and pulmonary embolism. She is on chronic Xarelto. Her past surgical history is significant for a prior laparoscopic sleeve gastrectomy performed in [place] approximately 10 years ago. Workup in the emergency department revealed an elevated lipase level. Subsequent ultrasound revealed gallstones at the neck of the gallbladder as well as a dilated common bile duct. No common bile duct stone was identified. Findings are suggestive of gallstone pancreatitis. MRCP has been requested. Review of Systems Review of Systems: Yes all other systems are reviewed and are negative Respiratory: Respiratory: Denies cough and Denies pain with cough Gastrointestinal: Gastrointestinal: Reports abdominal pain, Reports bloating, Reports nausea and Reports vomiting Musculoskeletal: Musculoskeletal: Reports back pain PMFSH Past Medical History Medical History Antiphospholipid syndrome Diabetes DVT (deep venous thrombosis) On anticoagulant therapy Pulmonary embolism Tubal ligation evaluation Venous stasis of lower extremity Family History Family History Maternal Aunt Breast CA Surgical History Surgical History H/O gastric sleeve H/O skin graft H/O: knee surgery History of Social History Social History Alcohol intake: never Patient Tobacco Use Status: Never used Tobacco Cigarettes Per Day: 4 Smoked in Last 30 Days: No Use of substances other than those prescribed or required for medical reasons: No Substance Use Type: Marijuana Advance Directives: No Advance Directives Information Provided: Yes Nutrition Risks: No Nutritional Risk Patient : No service: No Current occupational status: employed Meds Allergies Allergy/AdvReac Type Severity Reaction Status Date / Time shellfish derived Allergy Unknown Verified 11/20/22 11:43 Active Medications: Current Medications Acetaminophen (Acetaminophen 325 Mg Tablet) 650 mg PO Q6H PRN PRN Reason: Pain, Mild (Pain Scale 1-3) Piperacillin Sod/Tazobactam (Sod 4.5 gm/ Sodium Chloride) 100 mls @ 200 mls/hr IV Q6H [facility] Last Infusion: 11/21/22 04:48 Dose: Infused Melatonin (Melatonin 3 Mg Tablet) 6 mg PO BEDTIME PRN PRN Reason: Insomnia Morphine Sulfate (Morphine Sulfate 4 Mg/Ml Cartridge) 4 mg IVPUSH Q4H PRN; Protocol PRN Reason: Pain, Severe (Pain Scale 7-10) Last Admin: 11/21/22 04:17 Dose: 4 mg Ondansetron HCl (Ondansetron Hcl 4 Mg/2 Ml Vial) 4 mg IVPUSH Q8H PRN PRN Reason: Nausea and Vomiting Last Admin: 11/21/22 04:17 Dose: 4 mg Pharmacy Consult (Consult Rx Perform Med Rec) 1 each MISCELLANE ONCE PRN PRN Reason: Consult order Sodium Chloride (0.9 % Sodium Chloride Flush 3 Ml Syringe) 3 ml IVFSH [facility] Last Admin: 11/21/22 07:14 Dose: 3 ml Home Medications Medication Instructions Recorded Confirmed Last Taken Type cyanocobalamin (vitamin B-12) 1,000 mcg PO DAILY 07/29/21 11/21/22 1 Week Ago History 1,000 mcg tablet ~11/14/22 multivitamin 1 tab PO DAILY 07/29/21 11/21/22 1 Week Ago History ~11/14/22 calcium carbonate 500 mg-vitamin 1 tab PO DAILY 11/14/21 11/21/22 1 Week Ago History D3 10 mcg (400 unit) tablet ~11/14/22 (Calcium 500 With D) rivaroxaban 20 mg tablet (Xarelto) 20 mg PO DAILY@1800 05/20/22 11/21/22 11/19/22 History omeprazole 40 mg capsule,delayed 40 mg PO DAILY@0630 10/17/22 11/21/22 11/20/22 History release diclofenac sodium 1 % topical gel 4 g topical QID PRN Pain 11/21/22 11/21/22 1 Week Ago History (Arthritis Pain (diclofenac)) ~11/14/22 nystatin-triamcinolone 100,000 1 appl topical DAILY PRN Itching 11/21/22 11/21/22 11/19/22 History unit/g-0.1 % topical cream oxycodone 5 mg tablet 5 mg PO TID PRN Pain 11/21/22 11/21/22 11/20/22 History Physical Exam Vital Signs: Vital Signs: Last Vital Signs Temp 97.5 F 11/20/22 23:58 Pulse 50 11/21/22 06:03 Resp 16 11/21/22 06:03 BP 107/52 L 11/21/22 06:03 Pulse Ox 98 11/21/22 06:03 O2 Del Method Room Air 11/21/22 00:28 BMI result Body Mass Index 38.8 Const: General: cooperative and no acute distress Nutritional Appearance: well nourished Orientation/consciousness: patient oriented x3 Limitations: no limitations HEENT: Head: Yes normocephalic and Yes atraumatic Ears: hearing grossly normal bilaterally Resp: Effort & Inspection: normal respiratory effort, no audible wheezes, no cough and no respiratory distress Cardio: Jugular venous distension: no JVD GI: Other: Well-healed trocar incisions from prior sleeve gastrectomy Inspection: Yes normal to inspection Palpation (GI): Soft to palpation, Tenderness to palpation present (GI) in the epigastrum, in the RUQ and Seay's sign positive; with no rebound tenderness and not rigid Percussion: Yes normal to percussion Auscultation: normal bowel sounds Rectal Exam - Female: deferred Skin: Other: Warm, dry, no rash Neuro: General: patient oriented x3 Extrem: General: Yes no clubbing, cyanosis or edema Results Labs 11/21/22 04:53 11/21/22 04:53 Labs: Abnormal lab results 11/21/22 11/21/22 11/21/22 Range/Units 00:34 00:34 04:53 RBC 4.15 L (4.20-5.50) X10*6/uL Hgb 11.9 L 10.9 L (12.0-16.0) g/dl Hct 36.6 L 34.8 L (37.0-47.0) % MCH 26.4 L 26.3 L (27.0-33.0) pg Eos % (Auto) 4.3 H 5.1 H (0-4) % Anion Gap (12-20) Random Glucose 150 H (60-115) mg/dL Total Bilirubin 1.7 H (0.0-1.0) mg/dL AST 102 H (5-31) U/L ALT 175 H (0-31) U/L Alkaline Phosphatase 203 H (39-117) U/L Lipase 1007 H (8-78) U/L 11/21/22 Range/Units 04:53 RBC (4.20-5.50) X10*6/uL Hgb (12.0-16.0) g/dl Hct (37.0-47.0) % MCH (27.0-33.0) pg Eos % (Auto) (0-4) % Anion Gap 10 L (12-20) Random Glucose (60-115) mg/dL Total Bilirubin (0.0-1.0) mg/dL AST (5-31) U/L ALT (0-31) U/L Alkaline Phosphatase (39-117) U/L Lipase (8-78) U/L Short CBC 11/21/22 11/21/22 Range/Units 00:34 04:53 WBC 6.0 5.7 (4.8-10.8) X10*3/uL Hgb 11.9 L 10.9 L (12.0-16.0) g/dl Hct 36.6 L 34.8 L (37.0-47.0) % Plt Count 305 D 272 (160-400) X10*3/uL BMP 11/21/22 11/21/22 00:34 04:53 Sodium 139 141 Potassium 3.5 3.7 Chloride 104 106 Carbon Dioxide 24 29 BUN 12 11 Creatinine 0.77 0.73 Calcium 10.1 9.5 Liver Function 11/21/22 Range/Units 00:34 Total Bilirubin 1.7 H (0.0-1.0) mg/dL AST 102 H (5-31) U/L ALT 175 H (0-31) U/L Alkaline Phosphatase 203 H (39-117) U/L Albumin 3.9 (3.5-5.0) g/dL All other labs normal. Assessment and Plan (1) Acute gallstone pancreatitis: Status: Acute (2) Cholecystitis: Status: Acute (3) Antiphospholipid syndrome: Status: Acute (4) On anticoagulant therapy: Status: Acute Plan 52-year-old female patient previously evaluated for symptomatic cholelithiasis now found to have gallstone pancreatitis. Ultrasound reveals a dilated common bile duct which may indicate there are a common bile duct stone or a previously passed stone. Agree with MRCP. Will need to hold anticoagulation in anticipation of possible ERCP and laparoscopic cholecystectomy. Would anticipate surgery early next week. Time Spent With Patient Time: Total time managing care of this patient today ____ minutes. Procedures Date of Service Date of Service: 11/21/22
[2022-11-21 08:31] LABS: Appearance Urine Clear; Color Urine Dark Yellow; Glucose Urine UA Negative (Negative); Leukocyte Esterase Urine Negative (Negative); Nitrite Urine Negative (Negative); PH 5.5 (5.0-9.0); Specific Gravity - Urine >= 1.030 (1.005-1.025); Urine Blood Negative (Negative); Urine Ketones Trace mg/dL (Negative); Urine Protein Trace mg/dL (Neg-Trace)
--- NOTE | 2022-11-21 08:58 | PC.NURSE ---
pt reproted 8 abdominal pain. Gave PRN pain med for pain.
[2022-11-21] MEDS: Cyanocobalamin (Vitamin B-12) 1,000 MCG TABLET 1000 MCG PO (09:46)
[2022-11-21] MEDS: Omeprazole 40 MG CAPSULE.DR PO (09:46)
[2022-11-21] MEDS: Calcium + Vitamin D 250 MG TABLET 500 MG PO (09:46)
[2022-11-21] MEDS: Multivitamin TABLET 1 TAB PO (09:46)
--- NOTE | 2022-11-21 09:49 | PC.NURSE ---
med given per order. pt refused lido patch. Pt reports 1/10 abdominal pain at this time.
--- NOTE | 2022-11-21 10:08 | PM.EVENT ---
Event Note Date of Service: 11/21/22 Event Note: Pt seen and examined, here with abdominal pain, cholecystitis. To continue iV Abx, MRCP in the near future. O/w A/P per H and P from this morning Time Spent With Patient Time: Total time managing care of this patient today ____ minutes.
[2022-11-22 00:15] VITALS: BP 132/60; PULSE 50; RESP 18; TEMP 36.3; O2SAT 98
[2022-11-22] MEDS: Morphine Sulfate 4 MG/ML CARTRIDGE IVPUSH ×3 (03:08→22:56)
[2022-11-22] MEDS: Piperacillin Sodium/Tazobactam 4.5 GM in 0.9 % Sodium Chloride 100 ML IV ×4 (04:44→23:03)
[2022-11-22] MEDS: Omeprazole 40 MG CAPSULE.DR PO (05:11)
[2022-11-22 07:33] VITALS: BP 111/55; PULSE 50; RESP 18; TEMP 36.1; O2SAT 99
[2022-11-22] MEDS: Multivitamin TABLET 1 TAB PO (09:13)
[2022-11-22] MEDS: Cyanocobalamin (Vitamin B-12) 1,000 MCG TABLET 1000 MCG PO (09:13)
[2022-11-22] MEDS: Calcium + Vitamin D 250 MG TABLET 500 MG PO (09:13)
[2022-11-22] MEDS: 0.9 % Sodium Chloride Flush 3 ML SYRINGE IVFLUSH ×2 (09:17→16:00)
--- NOTE | 2022-11-22 09:23 | P.PNGS_ITS ---
Subjective Subjective Date of Service: 11/22/22 Interval history: still with some abdl pain, mostly upper no N/V Physical Exam Vital Signs: Vital Signs: Last Vital Signs Temp 97.0 F 11/22/22 07:33 Pulse 50 11/22/22 07:33 Resp 18 11/22/22 07:33 BP 111/55 L 11/22/22 07:33 Pulse Ox 99 11/22/22 07:33 O2 Del Method Room Air 11/22/22 07:33 BMI result Body Mass Index 38.4 Const: General: no acute distress Resp: Effort & Inspection: normal respiratory effort Cardio: Rate: regular rate GI: Other: some tenderness upper abdomen Palpation (GI): Soft to palpation, not firm and no guarding Objective Data Active Medications Acetaminophen (Acetaminophen 325 Mg Tablet) 650 mg PO Q6H PRN PRN Reason: Pain, Mild (Pain Scale 1-3) Calcium Carbonate/Cholecalciferol (Calcium + Vitamin D 250 Mg Tablet) 500 mg PO DAILY [facility] Last Admin: 11/22/22 09:13 Dose: 500 mg Documented By: ELSIE Cyanocobalamin (Cyanocobalamin (Vitamin B-12) 1,000 Mcg Tablet) 1,000 mcg PO DAILY [facility] Last Admin: 11/22/22 09:13 Dose: 1,000 mcg Documented By: ELSIE Piperacillin Sod/Tazobactam (Sod 4.5 gm/ Sodium Chloride) 100 mls @ 200 mls/hr IV Q6H [facility] Last Infusion: 11/22/22 05:14 Dose: 0 mls/hr Documented By: MARTIN Lidocaine (Lidocaine 4 % Patch Adh..Patch) 1 patch TRANSDERMA DAILY [facility] Last Admin: 11/22/22 09:13 Dose: Not Given Documented By: ELSIE Non-Admin Reason: Patient Refused Melatonin (Melatonin 3 Mg Tablet) 6 mg PO BEDTIME PRN PRN Reason: Insomnia Morphine Sulfate (Morphine Sulfate 4 Mg/Ml Cartridge) 4 mg IVPUSH Q4H PRN; Protocol PRN Reason: Pain, Severe (Pain Scale 7-10) Last Admin: 11/22/22 03:08 Dose: 4 mg Documented By: MARTIN Multivitamins/Vitamin C (Multivitamin Tablet) 1 tab PO DAILY [facility] Last Admin: 11/22/22 09:13 Dose: 1 tab Documented By: ELSIE Nystatin/Triamcinolone Acetonide (Nystatin/Triamcinolone Cream 15 Gm Tube) [address] TOPICAL DAILY PRN; Protocol PRN Reason: Itching Omeprazole (Omeprazole 40 Mg Capsule.) 40 mg PO DAILY@0630 [facility] Last Admin: 11/22/22 05:11 Dose: 40 mg Documented By: MARTIN Ondansetron HCl (Ondansetron Hcl 4 Mg/2 Ml Vial) 4 mg IVPUSH Q8H PRN PRN Reason: Nausea and Vomiting Last Admin: 11/21/22 04:17 Dose: 4 mg Documented By: YIFAN Pharmacy Consult (Consult Rx Perform Med Rec) 1 each MISCELLANE ONCE PRN PRN Reason: Consult order Sodium Chloride (0.9 % Sodium Chloride Flush 3 Ml Syringe) 3 ml IVFLUSH [facility] Last Admin: 11/22/22 09:17 Dose: 3 ml Documented By: ELSIE Labs 11/21/22 04:53 11/21/22 04:53 Labs: Laboratory Results WBC 5.7 X10*3/uL (4.8-10.8) 11/21/22 04:53 RBC 4.15 X10*6/uL (4.20-5.50) L 11/21/22 04:53 Hgb 10.9 g/dl (12.0-16.0) L 11/21/22 04:53 Hct 34.8 % (37.0-47.0) L 11/21/22 04:53 MCV 83.9 fL (80.0-98.0) 11/21/22 04:53 MCH 26.3 pg (27.0-33.0) L 11/21/22 04:53 MCHC 31.3 g/dl (31.0-35.0) 11/21/22 04:53 RDW 14.3 % (11.0-16.0) 11/21/22 04:53 Plt Count 272 X10*3/uL (160-400) 11/21/22 04:53 MPV 10.9 fL (9.4-12.3) 11/21/22 04:53 Immature Gran % (Auto) 0.2 % (0.0-0.4) 11/21/22 04:53 Neut % (Auto) 51.6 % (45-73) 11/21/22 04:53 Lymph % (Auto) 32.0 % (20-40) 11/21/22 04:53 Prentiss % (Auto) 10.4 % (2-11) 11/21/22 04:53 Eos % (Auto) 5.1 % (0-4) H 11/21/22 04:53 Baso % (Auto) 0.7 % (0-2) 11/21/22 04:53 Lymph # (Auto) 1.8 X10*3/uL (1.2-4.9) 11/21/22 04:53 Prentiss # (Auto) 0.6 X10*3/uL (0.1-1.2) 11/21/22 04:53 Eos # (Auto) 0.3 X10*3/uL (0.0-0.4) 11/21/22 04:53 Baso # (Auto) 0.0 X10*3/uL (0.0-0.2) 11/21/22 04:53 Abs Immat Gran (auto) 0.01 X10*3/uL (0.00-0.03) 11/21/22 04:53 Absolute Neuts (auto) 2.9 x10*3/uL (2.0-8.3) 11/21/22 04:53 Absolute Nucleated RBC 0.000 X10*3/uL (0.0-0.012) 11/21/22 04:53 Nucleated RBC % (auto) 0.0 /100WBC (0.0-0.2) 11/21/22 04:53 Sodium 141 mmol/L (135-145) 11/21/22 04:53 Potassium 3.7 mmol/L (3.3-5.1) 11/21/22 04:53 Chloride 106 mmol/L (96-108) 11/21/22 04:53 Carbon Dioxide 29 mmol/L (22-29) 11/21/22 04:53 Anion Gap 10 (12-20) L 11/21/22 04:53 BUN 11 mg/dL (9-16) 11/21/22 04:53 Creatinine 0.73 mg/dL (0.5-1.4) 11/21/22 04:53 Estim Creat Clear Calc 125.8 11/21/22 04:53 Estimated GFR > 60 11/21/22 04:53 Random Glucose 109 mg/dL (60-115) 11/21/22 04:53 Lactic Acid 1.2 mmol/L (0.5-2.0) 11/21/22 01:17 Calcium 9.5 mg/dL (8.4-10.2) 11/21/22 04:53 Total Bilirubin 1.7 mg/dL (0.0-1.0) H 11/21/22 00:34 AST 102 U/L (5-31) H 11/21/22 00:34 ALT 175 U/L (0-31) H 11/21/22 00:34 Alkaline Phosphatase 203 U/L (39-117) H 11/21/22 00:34 Total Protein 7.4 g/dL (6.5-8.0) 11/21/22 00:34 Albumin 3.9 g/dL (3.5-5.0) 11/21/22 00:34 Lipase 1007 U/L (8-78) H 11/21/22 00:34 Urine Color Dark Yellow 11/21/22 08:17 Urine Appearance Clear 11/21/22 08:17 Urine pH 5.5 (5.0-9.0) 11/21/22 08:17 Ur Specific [place] >= 1.030 (1.005-1.025) H 11/21/22 08:17 Urine Protein Trace mg/dL (Neg-Trace) 11/21/22 08:17 Urine Glucose (UA) Negative mg/dL (Negative) 11/21/22 08:17 Urine Ketones Trace mg/dL (Negative) 11/21/22 08:17 Urine Blood Negative (Negative) 11/21/22 08:17 Urine Nitrite Negative (Negative) 11/21/22 08:17 Ur Leukocyte Esterase Negative (Negative) 11/21/22 08:17 Impressions Abdomen Ultrasound 11/21/22 02:30 IMPRESSION: 1. Cholelithiasis, including in the gallbladder neck which appear nonmobile. Though there is no abnormal wall thickening, right upper quadrant tenderness was reported during the exam. If there is clinical concern for acute cholecystitis, assessment with nuclear medicine hepatobiliary scan may be more definitive. 2. Dilated common bile duct measuring up to 0.9 cm in diameter. No visible choledocholithiasis, though a distal obstructing stone remains a possibility. This may be further evaluated with MRCP or ERCP. Cholangiopancreatography MRI 11/21/22 17:38 IMPRESSION: 1. Biliary ductal dilatation with filling defects in the lower third of the common bile duct that could be related with choledocholithiasis. Recommend ERCP as clinically indicated. 2. Cholelithiasis without evidence of acute cholecystitis. 3. Odty-wv-dcwxlogg indeterminate left-sided hydronephrosis. Microbiology Microbiology Results: Microbiology 11/21/22 01:17 Blood Culture - Preliminary Blood - Venous No growth after 24 hours. 11/21/22 01:17 Blood Culture - Preliminary Blood - Venous No growth after 24 hours. Procedures Date of Service Date of Service: 11/22/22 Progress Note: A&P Assessment and plan (1) Acute gallstone pancreatitis: Status: Acute (2) Choledocholithiasis: Status: Acute Assessment and Plan: MRI shows CBD stones will need ERCP hold anticoag follw LFTs, lipase exam otherwise benign plan is eventual lap sofía explained plan to pt Time Spent With Patient Time: Total time managing care of this patient today ____ minutes. Quality Stroke Does the patient have a stroke diagnosis?: No VTE Prior VTE?: No VTE Risk Level:: Medical - moderate - high VTE Device Contraindication: N/A - Device Ordered VTE Drug Contraindication: Treatment Not Indicated
--- NOTE | 2022-11-22 09:42 | HO.PM.IMPN ---
Subjective Subjective Date of Service: 11/22/22 Interval History: mild pain, Physical Exam Vital Signs: Vital Signs: Last Vital Signs Temp 97.0 F 11/22/22 07:33 Pulse 50 11/22/22 07:33 Resp 18 11/22/22 07:33 BP 111/55 L 11/22/22 07:33 Pulse Ox 99 11/22/22 07:33 O2 Del Method Room Air 11/22/22 07:33 BMI result Body Mass Index 38.4 Const: Other: General: AO X 3, no acute distress Resp: CTA bilateral CVS: S1,S2,RRR GI: +BS, mild tenderness Skin: No rash Neuro: motor grossly intact Psych: appropriate affect Objective Data Active Medications Acetaminophen (Acetaminophen 325 Mg Tablet) 650 mg PO Q6H PRN PRN Reason: Pain, Mild (Pain Scale 1-3) Calcium Carbonate/Cholecalciferol (Calcium + Vitamin D 250 Mg Tablet) 500 mg PO DAILY [facility] Last Admin: 11/22/22 09:13 Dose: 500 mg Documented By: ELSIE Cyanocobalamin (Cyanocobalamin (Vitamin B-12) 1,000 Mcg Tablet) 1,000 mcg PO DAILY [facility] Last Admin: 11/22/22 09:13 Dose: 1,000 mcg Documented By: ELSIE Piperacillin Sod/Tazobactam (Sod 4.5 gm/ Sodium Chloride) 100 mls @ 200 mls/hr IV Q6H [facility] Last Infusion: 11/22/22 05:14 Dose: 0 mls/hr Documented By: MARTIN Lidocaine (Lidocaine 4 % Patch Adh..Patch) 1 patch TRANSDERMA DAILY [facility] Last Admin: 11/22/22 09:13 Dose: Not Given Documented By: ELSIE Non-Admin Reason: Patient Refused Melatonin (Melatonin 3 Mg Tablet) 6 mg PO BEDTIME PRN PRN Reason: Insomnia Morphine Sulfate (Morphine Sulfate 4 Mg/Ml Cartridge) 4 mg IVPUSH Q4H PRN; Protocol PRN Reason: Pain, Severe (Pain Scale 7-10) Last Admin: 11/22/22 03:08 Dose: 4 mg Documented By: MARTIN Multivitamins/Vitamin C (Multivitamin Tablet) 1 tab PO DAILY [facility] Last Admin: 11/22/22 09:13 Dose: 1 tab Documented By: ELSIE Nystatin/Triamcinolone Acetonide (Nystatin/Triamcinolone Cream 15 Gm Tube) 1 appl TOPICAL DAILY PRN; Protocol PRN Reason: Itching Omeprazole (Omeprazole 40 Mg Vijaya.) 40 mg PO DAILY@0630 [facility] Last Admin: 11/22/22 05:11 Dose: 40 mg Documented By: MARTIN Ondansetron HCl (Ondansetron Hcl 4 Mg/2 Ml Vial) 4 mg IVPUSH Q8H PRN PRN Reason: Nausea and Vomiting Last Admin: 11/21/22 04:17 Dose: 4 mg Documented By: YIFAN Pharmacy Consult (Consult Rx Perform Med Rec) 1 each MISCELLANE ONCE PRN PRN Reason: Consult order Sodium Chloride (0.9 % Sodium Chloride Flush 3 Ml Syringe) 3 ml IVFLUSH QSHIFT [facility] Last Admin: 11/22/22 09:17 Dose: 3 ml Documented By: GRAZIC Labs 11/21/22 04:53 11/21/22 04:53 Microbiology Microbiology Results: Microbiology 11/21/22 01:17 Blood Culture - Preliminary Blood - Venous No growth after 24 hours. 11/21/22 01:17 Blood Culture - Preliminary Blood - Venous No growth after 24 hours. Assessment and Plan (1) Choledocholithiasis: Status: Acute (2) Biliary colic: Status: Acute Plan This is a 52-year-old female with pertinent history of antiphospholipid syndrome on anticoagulation, gastroesophageal reflux disease who presents to the emergency department for evaluation of right sided abdominal pain. #. Acute calculous cholecystitis, CBD dilatation confirmed on MR. GI consult for ERCP and will ultimately need CCY. Continue Zosyn -hold Xarelto, liquid diet #. Antiphospholipid syndrome. Hold Xarelto in anticipation of surgery DVT prophylaxis: Mechanical, ambulate need for inpatient: cholecystitis, will need ercp and CCY Time Spent With Patient Time: Total time managing care of this patient today ____ minutes. Quality Stroke Does the patient have a stroke diagnosis?: No VTE Prior VTE?: No VTE Risk Level:: Medical - moderate - high VTE Device Contraindication: N/A - Device Ordered VTE Drug Contraindication: Treatment Not Indicated
--- NOTE | 2022-11-22 11:34 | P.CNGI_ITS ---
History of Present Illness Data of Consult Service Date: 11/22/22 Requesting physician: Elfego Braun Primary Care Provider: Zafar Espinoza MD [facility] Reason for consult: CBD stone 52 YF with antiphospholipid syndrome on anticoagulation, GERD seen at [facility] on 11/21/22 for evaluation of right sided abdominal and back pain for the past 3 weeks.? Abdominal pain is intermittent and occurs several times a day and can wake her up from sleep. Abdominal pain was 20/10 on arrival to the ED and is 2/10 today. Patient is unable to describe the pain - feels like a rock in the abdomen which is pressing Feels lung is on fire Pain is worse on eating and can have pain withput eating. Nothing makes it better - she has tried gabapentin, Advil, Tylenol, oxycodone and a heating pad without relief of pain Patient has noted nausea, vomiting (1-2 episodes), chills and sweating and denies fevers. She complains of mild constipation since the pain started. Patient gives a history of heartburn and takes omeprazole daily. She admits to gaining 30 lb since she quitted smoking in June,. Of note, pt had a sleeve gastrectomy in 2016 and lost wt from 390 to 230 lbs after the surgery. Pt had a DVT in 1988 related to antiphospholipid antibody and has been on oral anticoagulation since then. She has not been taking Xarelto since 11/17/22 Pt admits to smoking 1/2 PPD x 2.5 yrs, stopped x 7.5 yrs and resumed smoking x 2 yrs before quitting in Jun, 2022 She had occasional ETOH and quitted in Jun, 2022 Pt admits to a hx of sleep apnea when she weighed 390 lbs which resolved after she lost weight. Patient is and lives with her fiance. She has 2 adult daughters. 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 Family hx is positibe for gall bladder disease in her Maternal GM, aunts and cousins who have had their gallbladders removed. Patient denies known family history of colon polyps, colon cancer or other GI malignancies. 11/17/22 Pt was seen at [facility] with back pain and discharged home. Patient states she went to [facility] where gallstones were found.? She was seen by Dr Perea as an outpatient on 11/20 and cholecystectomy is planned for 12/03/22. Pt was admitted and started on IV pain medications, IV antiemetics and antibiotics. 11/21/22 ABD US SHOWED: 1.? Cholelithiasis, including in the gallbladder neck which appear nonmobile. Though there is no abnormal wall thickening, right upper quadrant tenderness was reported during the exam. If there is clinical concern for acute cholecystitis, assessment with nuclear medicine hepatobiliary scan may be more definitive. 2.? Dilated common bile duct measuring up to 0.9 cm in diameter. No visible choledocholithiasis, though a distal obstructing stone remains a possibility. This may be further evaluated with MRCP or ERCP. 11/21/22 MRCP SHOWED: 1. Biliary ductal dilatation with filling defects in the lower third of the common bile duct that could be related with choledocholithiasis. Recommend ERCP as clinically indicated. 2. Cholelithiasis without evidence of acute cholecystitis. 3. Tfgl-[id number] indeterminate left-sided hydronephrosis. PMFSH Past Medical History Medical History Antiphospholipid syndrome Choledocholithiasis Diabetes DVT (deep venous thrombosis) On anticoagulant therapy Pulmonary embolism Tubal ligation evaluation Venous stasis of lower extremity Family History Family History Maternal Aunt Breast CA Surgical History Surgical History H/O gastric sleeve H/O skin graft H/O: knee surgery History of Social History Social History Household Members: Significant Other and Family Housing: House Do you presently have visiting nurse or other home services: No Alcohol intake: never Patient Tobacco Use Status: Former Tobacco user Cigarettes Per Day: 4 Second Hand Smoke Exposure: No Substance Use Type: Marijuana service: No Current occupational status: employed Meds Allergies Allergy/AdvReac Type Severity Reaction Status Date / Time shellfish derived Allergy Unknown Verified 11/20/22 11:43 Active Medications: Current Medications Acetaminophen (Acetaminophen 325 Mg Tablet) 650 mg PO Q6H PRN PRN Reason: Pain, Mild (Pain Scale 1-3) Calcium Carbonate/Cholecalciferol (Calcium + Vitamin D 250 Mg Tablet) 500 mg PO DAILY [facility] Last Admin: 11/22/22 09:13 Dose: 500 mg Cyanocobalamin (Cyanocobalamin (Vitamin B-12) 1,000 Mcg Tablet) 1,000 mcg PO DAILY [facility] Last Admin: 11/22/22 09:13 Dose: 1,000 mcg Piperacillin Sod/Tazobactam (Sod 4.5 gm/ Sodium Chloride) 100 mls @ 200 mls/hr IV Q6H [facility] Last Admin: 11/22/22 11:21 Dose: 200 mls/hr Lidocaine (Lidocaine 4 % Patch Adh..Patch) 1 patch TRANSDERMA DAILY [facility] Last Admin: 11/22/22 09:13 Dose: Not Given Melatonin (Melatonin 3 Mg Tablet) 6 mg PO BEDTIME PRN PRN Reason: Insomnia Morphine Sulfate (Morphine Sulfate 4 Mg/Ml Cartridge) 4 mg IVPUSH Q4H PRN; Protocol PRN Reason: Pain, Severe (Pain Scale 7-10) Last Admin: 11/22/22 03:08 Dose: 4 mg Multivitamins/Vitamin C (Multivitamin Tablet) 1 tab PO DAILY [facility] Last Admin: 11/22/22 09:13 Dose: 1 tab Nystatin/Triamcinolone Acetonide (Nystatin/Triamcinolone Cream 15 Gm Tube) 1 appl TOPICAL DAILY PRN; Protocol PRN Reason: Itching Omeprazole (Omeprazole 40 Mg Capsule.Dr) 40 mg PO DAILY@0630 [facility] Last Admin: 11/22/22 05:11 Dose: 40 mg Ondansetron HCl (Ondansetron Hcl 4 Mg/2 Ml Vial) 4 mg IVPUSH Q8H PRN PRN Reason: Nausea and Vomiting Last Admin: 11/21/22 04:17 Dose: 4 mg Pharmacy Consult (Consult Rx Perform Med Rec) 1 each MISCELLANE ONCE PRN PRN Reason: Consult order Sodium Chloride (0.9 % Sodium Chloride Flush 3 Ml Syringe) 3 ml IVFLUSH QSHIFT [facility] Last Admin: 11/22/22 09:17 Dose: 3 ml Home Medications Medication Instructions Recorded Confirmed Last Taken Type cyanocobalamin (vitamin B-12) 1,000 mcg PO DAILY 07/29/21 11/21/22 1 Week Ago History 1,000 mcg tablet ~11/14/22 multivitamin 1 tab PO DAILY 07/29/21 11/21/22 1 Week Ago History ~11/14/22 calcium carbonate 500 mg-vitamin 1 tab PO DAILY 11/14/21 11/21/22 1 Week Ago History D3 10 mcg (400 unit) tablet ~11/14/22 (Calcium 500 With D) rivaroxaban 20 mg tablet (Xarelto) 20 mg PO DAILY@1800 05/20/22 11/21/22 11/19/22 History omeprazole 40 mg capsule,delayed 40 mg PO DAILY@0630 10/17/22 11/21/22 11/20/22 History release diclofenac sodium 1 % topical gel 4 g topical QID PRN Pain 11/21/22 11/21/22 1 Week Ago History (Arthritis Pain (diclofenac)) ~11/14/22 nystatin-triamcinolone 100,000 1 appl topical DAILY PRN Itching 11/21/22 11/21/22 11/19/22 History unit/g-0.1 % topical cream oxycodone 5 mg tablet 5 mg PO TID PRN Pain 11/21/22 11/21/22 11/20/22 History Physical Exam Vital Signs: Vital Signs: Last Vital Signs Temp 97.0 F 11/22/22 07:33 Pulse 50 11/22/22 07:33 Resp 18 11/22/22 07:33 BP 111/55 L 11/22/22 07:33 Pulse Ox 99 11/22/22 07:33 O2 Del Method Room Air 11/22/22 07:33 BMI result Body Mass Index 38.4 Const: General: healthy appearing and no acute distress Nutritional Appearance: obese Orientation/consciousness: patient oriented x3 Limitations: no limitations HEENT: Head: Yes normal to inspection Ears: hearing grossly normal bilaterally Mouth: Normal oral and palatal mucosa present Eyes: Sclerae: sclerae normal Pupils: Equal, round and reactive pupils present Neck: Neck: Yes normal visual inspection Chest: Chest palpation & inspection: normal inspection of the chest Resp: Effort & Inspection: normal respiratory effort Auscultation: clear to auscultation bilaterally Cardio: Palpation: normal PMI Rate: regular rate Rhythm: regular rhythm Heart sounds: S1 normal heart sound present, S2 normal heart sound present and no murmurs GI: Inspection: Yes obesity Palpation (GI): Soft to palpation, Tenderness to palpation present (GI) (Mild to moderate epigastric tenderness without rebound) and No hepatosplenomegaly present Auscultation: normal bowel sounds Rectal Exam - Female: deferred Skin: General skin exam: no rashes or lesions noted Neuro: General: patient oriented x3, gait normal and moves all extremities Cranial nerves: Yes Equal, round and reactive pupils present Psych: Appearance: grossly normal Mental Status: mental status grossly norm al Results Labs 11/21/22 04:53 11/21/22 04:53 Microbiology Microbiology Results: Microbiology 11/21/22 01:17 Blood - Venous Blood Culture - Preliminary No growth after 24 hours. 11/21/22 01:17 Blood - Venous Blood Culture - Preliminary No growth after 24 hours. Assessment and Plan (1) Choledocholithiasis: Status: Acute (2) Acute gallstone pancreatitis: Status: Acute Plan 52 YF with antiphospholipid syndrome on anticoagulation, GERD seen at [facility] on 11/21/22 for evaluation of right sided abdominal and back pain for the past 3 weeks.? Labs showed elevated LFTs Abd US showed cholelithiasis, a dilated 9 mm CBD. MRCP showed biliary ductal dilation with filling defects in the lower 3rd of the CBD - suspected common bile duct stone. FU Labs today show improvement in her LFTs RECOMMENDATIONS: 1. Agree with IV antibiotics and pain medications 2. Start on a clear liquid diet 3. Pt will be scheduled for an ERCP with Dr Roblero or Dr Hagen on 11/24/22 If pt has worsening abdominal pain with an increase in LFTs, she can be transferred to a tertiary care hospital for ERCP this weekend 4. Lap sofía after ERCP. Above recommendations were reviewed with the patient and the hospitalist. Time Spent With Patient Time: Total time managing care of this patient today ____ minutes. Procedures Date of Service Date of Service: 11/24/22
[2022-11-22 12:53] LABS: Alanine Aminotransferase 146 U/L (0-31); Albumin Level 3.5 g/dL (3.5-5.0); Alkaline Phosphatase 185 U/L (39-117); Anion Gap 13 (12-20); Aspartate Amino Transferase 68 U/L (5-31); Bilirubin Total 1.2 mg/dL (0.0-1.0); Blood Urea Nitrogen 10 mg/dL (9-16); Calcium 9.7 mg/dL (8.4-10.2); Carbon Dioxide 27 mmol/L (22-29); Chloride 104 mmol/L (96-108); Creatinine Clr Calc Pharmacy 118.6; Estimated Glomerular Filt Rate > 60; Glucose Random 99 mg/dL (60-115); Lipase 86 U/L (8-78); Potassium 3.9 mmol/L (3.3-5.1); Sodium 140 mmol/L (135-145); Total Protein 6.8 g/dL (6.5-8.0)
--- NOTE | 2022-11-22 14:16 | MHC.CM.PN ---
PT REPORTS SHE LIVES WITH HER S/O, DAUGHTER AND [place]ON[place] SHE REPORTS SHE IS INDEPENDENT WITH CARE SHE DENIES USE OF DME OR HOME SERVICES PT REPORTS SHE HAS A HCP COMPLETED ALREADY, COPY REQUESTED PCP: NEFTALI SOMMER DCP: HOME NO SERVICES VIA PRIVATE TRANSPORT
[2022-11-22 15:31] VITALS: BP 134/60; PULSE 52; RESP 21; TEMP 36.2; O2SAT 99
[2022-11-22 20:00] VITALS: BP 135/72; PULSE 62; RESP 20; TEMP 36.1; O2SAT 100
[2022-11-23 02:35] VITALS: BP 141/68; PULSE 60; RESP 20; TEMP 36.6; O2SAT 98
[2022-11-23] MEDS: 0.9 % Sodium Chloride Flush 3 ML SYRINGE IVFLUSH ×2 (05:08→22:57)
[2022-11-23] MEDS: Morphine Sulfate 4 MG/ML CARTRIDGE IVPUSH ×3 (05:08→23:00)
[2022-11-23] MEDS: Piperacillin Sodium/Tazobactam 4.5 GM in 0.9 % Sodium Chloride 100 ML IV ×4 (05:13→22:55)
[2022-11-23] MEDS: Omeprazole 40 MG CAPSULE.DR PO (05:47)
[2022-11-23] MEDS: Lactated Ringers 1,000 ML 125 ML IVCONT ×3 (07:21→22:56)
[2022-11-23 07:34] VITALS: BP 142/68; PULSE 65; RESP 16; TEMP 36.1; O2SAT 96
[2022-11-23] MEDS: Cyanocobalamin (Vitamin B-12) 1,000 MCG TABLET 1000 MCG PO (08:27)
[2022-11-23] MEDS: Calcium + Vitamin D 250 MG TABLET 500 MG PO (08:27)
[2022-11-23] MEDS: Multivitamin TABLET 1 TAB PO (08:27)
--- NOTE | 2022-11-23 08:50 | P.PNIM_ITS ---
Subjective Subjective Date of Service: 11/23/22 Interval History: no pain at this time, no n/v Physical Exam Vital Signs: Vital Signs: Last Vital Signs Temp 96.9 F 11/23/22 07:34 Pulse 65 11/23/22 07:34 Resp 16 11/23/22 07:34 BP 142/68 H 11/23/22 07:34 Pulse Ox 96 11/23/22 07:34 O2 Del Method Room Air 11/23/22 07:34 BMI result Body Mass Index 38.4 Const: Other: General: AO X 3, no acute distress Resp: CTA bilateral CVS: S1,S2,RRR GI: +BS, NT, ND Skin: No rash Neuro: motor grossly intact Psych: appropriate affect Objective Data Active Medications Acetaminophen (Acetaminophen 325 Mg Tablet) 650 mg PO Q6H PRN PRN Reason: Pain, Mild (Pain Scale 1-3) Calcium Carbonate/Cholecalciferol (Calcium + Vitamin D 250 Mg Tablet) 500 mg PO DAILY [facility] Last Admin: 11/23/22 08:27 Dose: 500 mg Documented By: ELSIE Cyanocobalamin (Cyanocobalamin (Vitamin B-12) 1,000 Mcg Tablet) 1,000 mcg PO DAILY [facility] Last Admin: 11/23/22 08:27 Dose: 1,000 mcg Documented By: ELSIE Piperacillin Sod/Tazobactam (Sod 4.5 gm/ Sodium Chloride) 100 mls @ 200 mls/hr IV Q6H [facility] Last Infusion: 11/23/22 05:49 Dose: 0 mls/hr Documented By: ODRISM Lactated Ringer's (Lr) 1,000 mls @ 125 mls/hr IVCONT .Q8H [facility] Last Admin: 11/23/22 07:21 Dose: 125 mls/hr Documented By: ELSIE Lidocaine (Lidocaine 4 % Patch Adh..Patch) 1 patch TRANSDERMA DAILY [facility] Last Admin: 11/23/22 08:28 Dose: Not Given Documented By: ELSIE Non-Admin Reason: Patient Refused Melatonin (Melatonin 3 Mg Tablet) 6 mg PO BEDTIME PRN PRN Reason: Insomnia Morphine Sulfate (Morphine Sulfate 4 Mg/Ml Cartridge) 4 mg IVPUSH Q4H PRN; Protocol PRN Reason: Pain, Severe (Pain Scale 7-10) Last Admin: 11/23/22 05:08 Dose: 4 mg Documented By: MARILOU Multivitamins/Vitamin C (Multivitamin Tablet) 1 tab PO DAILY [facility] Last Admin: 11/23/22 08:27 Dose: 1 tab Documented By: ELSIE Nystatin/Triamcinolone Acetonide (Nystatin/Triamcinolone Cream 15 Gm Tube) 1 appl TOPICAL DAILY PRN; Protocol PRN Reason: Itching Omeprazole (Omeprazole 40 Mg Vijaya.) 40 mg PO DAILY@0630 [facility] Last Admin: 11/23/22 05:47 Dose: 40 mg Documented By: MARILOU Ondansetron HCl (Ondansetron Hcl 4 Mg/2 Ml Vial) 4 mg IVPUSH Q8H PRN PRN Reason: Nausea and Vomiting Last Admin: 11/21/22 04:17 Dose: 4 mg Documented By: YIFAN Pharmacy Consult (Consult Rx Perform Med Rec) 1 each MISCELLANE ONCE PRN PRN Reason: Consult order Sodium Chloride (0.9 % Sodium Chloride Flush 3 Ml Syringe) 3 ml IVFLUSH QSHIFT [facility] Last Admin: 11/23/22 07:24 Dose: Not Given Documented By: ELSIE Non-Admin Reason: IV Running Labs 11/21/22 04:53 11/22/22 11:53 Labs: Laboratory Results - last 24 hr 11/22/22 11:53 Anion Gap 13 Estim Creat Clear Calc 118.6 Estimated GFR > 60 Random Glucose 99 Calcium 9.7 Total Bilirubin 1.2 H AST 68 H ALT 146 H Alkaline Phosphatase 185 H Total Protein 6.8 Albumin 3.5 Lipase 86 H Microbiology Microbiology Results: Microbiology 11/21/22 01:17 Blood Culture - Preliminary Blood - Venous No growth after 48 hours. 11/21/22 01:17 Blood Culture - Preliminary Blood - Venous No growth after 48 hours. Assessment and Plan (1) Choledocholithiasis: Status: Acute (2) Biliary colic: Status: Acute Plan This is a 52-year-old female with pertinent history of antiphospholipid syndrome on anticoagulation, gastroesophageal reflux disease who presents to the emergency department for evaluation of right sided abdominal pain. #. Acute calculous cholecystitis, CBD dilatation confirmed on MR. To have ERCP 11/24/22, eventually will need CCY -hold Xarelto, liquid diet, IVF #. Antiphospholipid syndrome. Hold Xarelto in anticipation of surgery DVT prophylaxis: Mechanical, ambulate need for inpatient: cholecystitis, will need ercp and CCY Time Spent With Patient Time: Total time managing care of this patient today ____ minutes. Quality Stroke Does the patient have a stroke diagnosis?: No VTE Prior VTE?: No VTE Risk Level:: Medical - moderate - high VTE Device Contraindication: N/A - Device Ordered VTE Drug Contraindication: Treatment Not Indicated
--- NOTE | 2022-11-23 09:50 | P.PNGS_ITS ---
Subjective Subjective Date of Service: 11/23/22 Interval history: she feels ok today although with some mild pain no N/V tolerating clears Physical Exam Vital Signs: Vital Signs: Last Vital Signs Temp 96.9 F 11/23/22 07:34 Pulse 65 11/23/22 07:34 Resp 16 11/23/22 07:34 BP 142/68 H 11/23/22 07:34 Pulse Ox 96 11/23/22 07:34 O2 Del Method Room Air 11/23/22 07:34 BMI result Body Mass Index 38.4 Const: General: comfortable and no acute distress Resp: Effort & Inspection: normal respiratory effort Cardio: Rate: regular rate GI: Other: some tenderness on epig and RUQ Palpation (GI): Soft to palpation, not firm and no guarding Objective Data Active Medications Acetaminophen (Acetaminophen 325 Mg Tablet) 650 mg PO Q6H PRN PRN Reason: Pain, Mild (Pain Scale 1-3) Calcium Carbonate/Cholecalciferol (Calcium + Vitamin D 250 Mg Tablet) 500 mg PO DAILY [facility] Last Admin: 11/23/22 08:27 Dose: 500 mg Documented By: ELSIE Cyanocobalamin (Cyanocobalamin (Vitamin B-12) 1,000 Mcg Tablet) 1,000 mcg PO DAILY [facility] Last Admin: 11/23/22 08:27 Dose: 1,000 mcg Documented By: ELSIE Piperacillin Sod/Tazobactam (Sod 4.5 gm/ Sodium Chloride) 100 mls @ 200 mls/hr IV Q6H [facility] Last Infusion: 11/23/22 05:49 Dose: 0 mls/hr Documented By: MARILOU Lactated Ringer's (Lr) 1,000 mls @ 125 mls/hr IVCONT .Q8H [facility] Last Admin: 11/23/22 07:21 Dose: 125 mls/hr Documented By: ELSIE Lidocaine (Lidocaine 4 % Patch Adh..Patch) 1 patch TRANSDERMA DAILY [facility] Last Admin: 11/23/22 08:28 Dose: Not Given Documented By: ELSIE Non-Admin Reason: Patient Refused Melatonin (Melatonin 3 Mg Tablet) 6 mg PO BEDTIME PRN PRN Reason: Insomnia Morphine Sulfate (Morphine Sulfate 4 Mg/Ml Cartridge) 4 mg IVPUSH Q4H PRN; Protocol PRN Reason: Pain, Severe (Pain Scale 7-10) Last Admin: 11/23/22 09:24 Dose: 4 mg Documented By: ELSIE Multivitamins/Vitamin C (Multivitamin Tablet) 1 tab PO DAILY [facility] Last Admin: 11/23/22 08:27 Dose: 1 tab Documented By: ELSIE Nystatin/Triamcinolone Acetonide (Nystatin/Triamcinolone Cream 15 Gm Tube) 1 appl TOPICAL DAILY PRN; Protocol PRN Reason: Itching Omeprazole (Omeprazole 40 Mg Capsule.) 40 mg PO DAILY@0630 [facility] Last Admin: 11/23/22 05:47 Dose: 40 mg Documented By: ODRISElizabeth Ondansetron HCl (Ondansetron Hcl 4 Mg/2 Ml Vial) 4 mg IVPUSH Q8H PRN PRN Reason: Nausea and Vomiting Last Admin: 11/21/22 04:17 Dose: 4 mg Documented By: YIFAN Pharmacy Consult (Consult Rx Perform Med Rec) 1 each MISCELLANE ONCE PRN PRN Reason: Consult order Sodium Chloride (0.9 % Sodium Chloride Flush 3 Ml Syringe) 3 ml IVFLUSH QSHIFT [facility] Last Admin: 11/23/22 07:24 Dose: Not Given Documented By: ELSIE Non-Admin Reason: IV Running Labs 11/21/22 04:53 11/22/22 11:53 Labs: Laboratory Results - last 24 hr 11/22/22 11:53 Anion Gap 13 Estim Creat Clear Calc 118.6 Estimated GFR > 60 Random Glucose 99 Calcium 9.7 Total Bilirubin 1.2 H AST 68 H ALT 146 H Alkaline Phosphatase 185 H Total Protein 6.8 Albumin 3.5 Lipase 86 H Microbiology Microbiology Results: Microbiology 11/21/22 01:17 Blood Culture - Preliminary Blood - Venous No growth after 48 hours. 11/21/22 01:17 Blood Culture - Preliminary Blood - Venous No growth after 48 hours. Procedures Date of Service Date of Service: 11/23/22 Progress Note: A&P Assessment and plan (1) Choledocholithiasis: Status: Acute Assessment and Plan: bili 1.2 MRCP showing CBD stones as per GI - ERCP tomorrow eventual cholecystectomy clinically nontoxic looking on clear liquids anticoagulant has been on hold she understands the plan (2) Acute gallstone pancreatitis: Status: Acute Time Spent With Patient Time: Total time managing care of this patient today ____ minutes. Quality Stroke Does the patient have a stroke diagnosis?: No VTE Prior VTE?: No VTE Risk Level:: Medical - moderate - high VTE Device Contraindication: N/A - Device Ordered VTE Drug Contraindication: Treatment Not Indicated
[2022-11-23] MEDS: Morphine Sulfate 2 MG/ML CARTRIDGE IVPUSH (10:26)
[2022-11-23 15:34] VITALS: BP 143/69; PULSE 53; RESP 18; TEMP 36.1; O2SAT 99
[2022-11-23 19:42] VITALS: BP 120/61; PULSE 66; RESP 16; TEMP 36.1; O2SAT 99
[2022-11-24] VITALS (10 sets, daily range): BP systolic 129–168; BP diastolic 62–87; PULSE 42–51; RESP 14–18; TEMP 35.9–37.4; O2SAT 94–100
[2022-11-24] MEDS: Morphine Sulfate 4 MG/ML CARTRIDGE IVPUSH ×4 (02:38→19:47)
[2022-11-24] MEDS: Piperacillin Sodium/Tazobactam 4.5 GM in 0.9 % Sodium Chloride 100 ML IV ×3 (05:49→19:47)
[2022-11-24] MEDS: Lactated Ringers 1,000 ML 125 ML IVCONT ×3 (05:49→19:35)
[2022-11-24] MEDS: Omeprazole 40 MG CAPSULE.DR PO (05:49)
[2022-11-24] MEDS: 0.9 % Sodium Chloride Flush 3 ML SYRINGE IVFLUSH (07:44)
--- NOTE | 2022-11-24 08:41 | MHC.SHP ---
Pre-Procedural Eval Section A Date of Service: 11/24/22 The patient is an INPATIENT: Yes The History & Physical has been completed within 30 days and I have reviewed it.: Yes Section B Chief Complaint: Abdominal pain Allergies: Allergies Allergy/AdvReac Type Severity Reaction Status Date / Time shellfish derived Allergy Unknown Verified 11/20/22 11:43 Plan I have reviewed the history and physical and performed a pertinent physical examination on my patient. No changes have occurred unless specified. Time Spent With Patient Time: Total time managing care of this patient today ____ minutes.
--- NOTE | 2022-11-24 08:50 | HO.PM.IMPN ---
Subjective Subjective Date of Service: 11/24/22 Interval History: Has som3 ruq pain, no n/v Physical Exam Vital Signs: Vital Signs: Last Vital Signs Temp 98.0 F 11/24/22 07:44 Pulse 51 11/24/22 07:44 Resp 18 11/24/22 07:44 BP 158/70 H 11/24/22 07:44 Pulse Ox 99 11/24/22 07:44 O2 Del Method Room Air 11/24/22 07:44 BMI result Body Mass Index 38.4 Const: Other: General: AO X 3, no acute distress Resp: CTA bilateral CVS: S1,S2,RRR GI: +BS, mild ruq tenderness, ND Skin: No rash Neuro: motor grossly intact Psych: appropriate affect Objective Data Active Medications Acetaminophen (Acetaminophen 325 Mg Tablet) 650 mg PO Q6H PRN PRN Reason: Pain, Mild (Pain Scale 1-3) Calcium Carbonate/Cholecalciferol (Calcium + Vitamin D 250 Mg Tablet) 500 mg PO DAILY [facility] Last Admin: 11/24/22 07:44 Dose: Not Given Documented By: YANET Non-Admin Reason: NPO Cyanocobalamin (Cyanocobalamin (Vitamin B-12) 1,000 Mcg Tablet) 1,000 mcg PO DAILY [facility] Last Admin: 11/24/22 07:45 Dose: Not Given Documented By: YANET Non-Admin Reason: NPO pt refused Piperacillin Sod/Tazobactam (Sod 4.5 gm/ Sodium Chloride) 100 mls @ 200 mls/hr IV Q6H [facility] Last Infusion: 11/24/22 07:07 Dose: 0 mls/hr Documented By: ABRIL Lactated Ringer's (Lr) 1,000 mls @ 125 mls/hr IVCONT .Q8H [facility] Last Admin: 11/24/22 05:49 Dose: 125 mls/hr Documented By: ABRIL Indomethacin (Indomethacin 50 Mg Supp.Rect) 100 mg NE PREOP ONE Stop: 11/24/22 08:43 Lidocaine (Lidocaine 4 % Patch Adh..Patch) 1 patch TRANSDERMA DAILY [facility] Last Admin: 11/24/22 07:45 Dose: Not Given Documented By: YANET Non-Admin Reason: Patient Refused Melatonin (Melatonin 3 Mg Tablet) 6 mg PO BEDTIME PRN PRN Reason: Insomnia Morphine Sulfate (Morphine Sulfate 4 Mg/Ml Cartridge) 4 mg IVPUSH Q4H PRN; Protocol PRN Reason: Pain, Severe (Pain Scale 7-10) Last Admin: 11/24/22 07:43 Dose: 4 mg Documented By: YANET Multivitamins/Vitamin C (Multivitamin Tablet) 1 tab PO DAILY [facility] Last Admin: 11/24/22 07:46 Dose: Not Given Documented By: YANET Non-Admin Reason: pt refused Nystatin/Triamcinolone Acetonide (Nystatin/Triamcinolone Cream 15 Gm Tube) 1 appl TOPICAL DAILY PRN; Protocol PRN Reason: Itching Omeprazole (Omeprazole 40 Mg Capsule.) 40 mg PO DAILY@0630 [facility] Last Admin: 11/24/22 05:49 Dose: 40 mg Documented By: ABRIL Ondansetron HCl (Ondansetron Hcl 4 Mg/2 Ml Vial) 4 mg IVPUSH Q8H PRN PRN Reason: Nausea and Vomiting Last Admin: 11/21/22 04:17 Dose: 4 mg Documented By: YIFAN Pharmacy Consult (Consult Rx Perform Med Rec) 1 each MISCELLANE ONCE PRN PRN Reason: Consult order Sodium Chloride (0.9 % Sodium Chloride Flush 3 Ml Syringe) 3 ml IVFLUSH QSHIFT [facility] Last Admin: 11/24/22 07:44 Dose: 3 ml Documented By: YANET Labs 11/21/22 04:53 11/22/22 11:53 Assessment and Plan (1) Choledocholithiasis: Status: Acute (2) Biliary colic: Status: Acute Plan This is a 52-year-old female with pertinent history of antiphospholipid syndrome on anticoagulation, gastroesophageal reflux disease who presents to the emergency department for evaluation of right sided abdominal pain. #. Acute calculous cholecystitis, CBD dilatation confirmed on MRCP. To have ERCP today 11/24/22, eventually will need CCY -hold Xarelto. NPO, IVF. #. Antiphospholipid syndrome. Hold Xarelto in anticipation of surgery, DVT prophylaxis: Mechanical, ambulate need for inpatient: cholecystitis, will need ercp and CCY Time Spent With Patient Time: Total time managing care of this patient today ____ minutes. Quality Stroke Does the patient have a stroke diagnosis?: No VTE Prior VTE?: No VTE Risk Level:: Medical - moderate - high VTE Device Contraindication: N/A - Device Ordered VTE Drug Contraindication: Treatment Not Indicated
[2022-11-24 09:50] LABS: MANUAL DIFF FLAG NO
[2022-11-24 09:56] LABS: Basophils Absolute Auto 0.1 X10*3/uL (0.0-0.2); Basophils Percent Auto 1.2 % (0-2); Eosinophils Absolute Auto 0.5 X10*3/uL (0.0-0.4); Eosinophils Percent Auto 9.4 % (0-4); Hematocrit 34.7 % (37.0-47.0); Hemoglobin 11.1 g/dl (12.0-16.0); Imm Gran Abs Auto 0.01 X10*3/uL (0.00-0.03); Imm Gran Pct Auto 0.2 % (0.0-0.4); Lymphocytes Percent Auto 41.2 % (20-40); Mean Corpuscular Hemoglobin 26.9 pg (27.0-33.0); Mean Corpuscular Volume 84.2 fL (80.0-98.0); Mean Platelet Volume 11.1 fL (9.4-12.3); Monocytes Absolute Auto 0.5 X10*3/uL (0.1-1.2); Monocytes Percent Auto 9.8 % (2-11); Neutrophils Absolute Auto 1.9 x10*3/uL (2.0-8.3); Neutrophils Percent Auto 38.2 % (45-73); Platelet Count 276 X10*3/uL (160-400); Red Blood Count 4.12 X10*6/uL (4.20-5.50); Red Cell Distribution Width 14.6 % (11.0-16.0); White Blood Count 4.9 X10*3/uL (4.8-10.8)
[2022-11-24 10:06] LABS: Alanine Aminotransferase 132 U/L (0-31); Albumin Level 3.4 g/dL (3.5-5.0); Alkaline Phosphatase 168 U/L (39-117); Anion Gap 10 (12-20); Aspartate Amino Transferase 70 U/L (5-31); Bilirubin Total 0.9 mg/dL (0.0-1.0); Blood Urea Nitrogen 8 mg/dL (9-16); Calcium 9.6 mg/dL (8.4-10.2); Carbon Dioxide 32 mmol/L (22-29); Chloride 105 mmol/L (96-108); Creatinine Clr Calc Pharmacy 120.1; Estimated Glomerular Filt Rate > 60; Glucose Random 106 mg/dL (60-115); Sodium 143 mmol/L (135-145); Total Protein 6.7 g/dL (6.5-8.0)
--- NOTE | 2022-11-24 15:11 | P.PNGS_ITS ---
Subjective Subjective Date of Service: 11/24/22 Interval history: Patient reports improved abdominal pain. Does complain of leg itching. She is awaiting ERCP later today. Physical Exam Vital Signs: Vital Signs: Last Vital Signs Temp 98.0 F 11/24/22 07:44 Pulse 51 11/24/22 07:44 Resp 18 11/24/22 07:44 BP 158/70 H 11/24/22 07:44 Pulse Ox 99 11/24/22 07:44 O2 Del Method Room Air 11/24/22 07:44 BMI result Body Mass Index 38.4 Const: General: no acute distress Nutritional Appearance: well nourished Orientation/consciousness: patient oriented x3 Limitations: no limitations Resp: Effort & Inspection: normal respiratory effort, no audible wheezes, no cough and no respiratory distress GI: Inspection: Yes normal to inspection Palpation (GI): Soft to palpation, nontender and no guarding Neuro: General: patient oriented x3 Extrem: Other: Chronic venous stasis changes lower extremities Objective Data Active Medications Acetaminophen (Acetaminophen 325 Mg Tablet) 650 mg PO Q6H PRN PRN Reason: Pain, Mild (Pain Scale 1-3) Calcium Carbonate/Cholecalciferol (Calcium + Vitamin D 250 Mg Tablet) 500 mg PO DAILY [facility] Last Admin: 11/24/22 07:44 Dose: Not Given Documented By: YANET Non-Admin Reason: NPO Cyanocobalamin (Cyanocobalamin (Vitamin B-12) 1,000 Mcg Tablet) 1,000 mcg PO DAILY [facility] Last Admin: 11/24/22 07:45 Dose: Not Given Documented By: YANET Non-Admin Reason: NPO pt refused Piperacillin Sod/Tazobactam (Sod 4.5 gm/ Sodium Chloride) 100 mls @ 200 mls/hr IV Q6H [facility] Last Infusion: 11/24/22 12:46 Dose: 0 mls/hr Documented By: YANET Lactated Ringer's (Lr) 1,000 mls @ 125 mls/hr IVCONT .Q8H [facility] Last Admin: 11/24/22 14:50 Dose: 125 mls/hr Documented By: YANET Lidocaine (Lidocaine 4 % Patch Adh..Patch) 1 patch TRANSDERMA DAILY [facility] Last Admin: 11/24/22 07:45 Dose: Not Given Documented By: YANET Non-Admin Reason: Patient Refused Melatonin (Melatonin 3 Mg Tablet) 6 mg PO BEDTIME PRN PRN Reason: Insomnia Morphine Sulfate (Morphine Sulfate 4 Mg/Ml Cartridge) 4 mg IVPUSH Q4H PRN; Protocol PRN Reason: Pain, Severe (Pain Scale 7-10) Last Admin: 11/24/22 12:19 Dose: 4 mg Documented By: YANET Multivitamins/Vitamin C (Multivitamin Tablet) 1 tab PO DAILY [facility] Last Admin: 11/24/22 07:46 Dose: Not Given Documented By: YANET Non-Admin Reason: pt refused Nystatin/Triamcinolone Acetonide (Nystatin/Triamcinolone Cream 15 Gm Tube) 1 appl TOPICAL DAILY PRN; Protocol PRN Reason: Itching Omeprazole (Omeprazole 40 Mg Capsule.) 40 mg PO DAILY@0630 [facility] Last Admin: 11/24/22 05:49 Dose: 40 mg Documented By: ABRIL Ondansetron HCl (Ondansetron Hcl 4 Mg/2 Ml Vial) 4 mg IVPUSH Q8H PRN PRN Reason: Nausea and Vomiting Last Admin: 11/21/22 04:17 Dose: 4 mg Documented By: YIFAN Pharmacy Consult (Consult Rx Perform Med Rec) 1 each MISCELLANE ONCE PRN PRN Reason: Consult order Sodium Chloride (0.9 % Sodium Chloride Flush 3 Ml Syringe) 3 ml IVFLUSH QSHIFT [facility] Last Admin: 11/24/22 07:44 Dose: 3 ml Documented By: YANET Labs 11/24/22 09:36 11/24/22 09:36 Labs: Laboratory Results - last 24 hr 11/24/22 11/24/22 09:36 09:36 MCV 84.2 MCH 26.9 L MCHC 32.0 RDW 14.6 Plt Count 276 MPV 11.1 Immature Gran % (Auto) 0.2 Neut % (Auto) 38.2 L Lymph % (Auto) 41.2 H [place] % (Auto) 9.8 Eos % (Auto) 9.4 H Baso % (Auto) 1.2 Lymph # (Auto) 2.0 [place] # (Auto) 0.5 Eos # (Auto) 0.5 H Baso # (Auto) 0.1 Abs Immat Gran (auto) 0.01 Absolute Neuts (auto) 1.9 L Absolute Nucleated RBC 0.000 Nucleated RBC % (auto) 0.0 Anion Gap 10 L Estim Creat Clear Calc 120.1 Estimated GFR > 60 Random Glucose 106 Calcium 9.6 Total Bilirubin 0.9 AST 70 H ALT 132 H Alkaline Phosphatase 168 H Total Protein 6.7 Albumin 3.4 L Procedures Date of Service Date of Service: 11/24/22 Progress Note: A&P Assessment and plan (1) Choledocholithiasis: Status: Acute (2) Acute gallstone pancreatitis: Status: Acute (3) Biliary colic: Status: Acute Plan 52-year-old female patient presenting with complaints of epigastric and right upper quadrant abdominal pain radiating into the chest found on workup to have choledocholithiasis and gallstone pancreatitis. She underwent MRCP which confirmed a common bile duct stone. She is now waiting ERCP later today. I will tentatively schedule her for a laparoscopic or possible open cholecystectomy for tomorrow. I reviewed the procedure, risks, and alternatives, and she consents to the laparoscopic or possible open cholecystectomy. Time Spent With Patient Time: Total time managing care of this patient today ____ minutes. Quality Stroke Does the patient have a stroke diagnosis?: No VTE Prior VTE?: No VTE Risk Level:: Medical - moderate - high VTE Device Contraindication: N/A - Device Ordered VTE Drug Contraindication: Treatment Not Indicated
--- NOTE | 2022-11-24 16:02 | HO.ANESPROP2 ---
[facility] Active Problems Active Problems: All Active Problems (Updated 11/22/22 @ 09:26 by Adrian Crowley MD) Choledocholithiasis (Acute) Biliary colic (Acute) Acute gallstone pancreatitis (Acute) Cholecystitis (Acute) On anticoagulant therapy (Acute) Chronic cholecystitis due to cholelithiasis with choledocholithiasis (Acute) Antiphospholipid syndrome (Acute) Medial meniscus tear (Acute) Osteoarthritis of right knee (Acute) Right knee pain (Acute) COVID-19 (Acute) Well woman exam (Acute) Precordial chest pain (Acute) Morbid obesity (Acute) Smoker (Acute) Varicose veins of right lower extremity with inflammation (Acute) DVT (deep venous thrombosis) (Acute) Past Medical History Medical History Antiphospholipid syndrome Choledocholithiasis Diabetes DVT (deep venous thrombosis) On anticoagulant therapy Pulmonary embolism Tubal ligation evaluation Venous stasis of lower extremity Family History Family History Maternal Aunt Breast CA Family history of problems with anesthesia: No Surgical History Surgical History H/O gastric sleeve H/O skin graft H/O: knee surgery History of History of Problems with Anesthesia: No Social History Social History Household Members: Significant Other and Family Housing: House Do you presently have visiting nurse or other home services: No Alcohol intake: never Patient Tobacco Use Status: Former Tobacco user Cigarettes Per Day: 4 Second Hand Smoke Exposure: No Substance Use Type: Marijuana service: No Current occupational status: employed Meds Allergies Allergy/AdvReac Type Severity Reaction Status Date / Time shellfish derived Allergy Unknown Verified 11/20/22 11:43 Active Medications: Current Medications Acetaminophen (Acetaminophen 325 Mg Tablet) 650 mg PO Q6H PRN PRN Reason: Pain, Mild (Pain Scale 1-3) Calcium Carbonate/Cholecalciferol (Calcium + Vitamin D 250 Mg Tablet) 500 mg PO DAILY COUNTS INCLUDE 234 BEDS AT THE [facility] Last Admin: 11/24/22 07:44 Dose: Not Given Cyanocobalamin (Cyanocobalamin (Vitamin B-12) 1,000 Mcg Tablet) 1,000 mcg PO DAILY COUNTS INCLUDE 234 BEDS AT THE [facility] Last Admin: 11/24/22 07:45 Dose: Not Given Piperacillin Sod/Tazobactam (Sod 4.5 gm/ Sodium Chloride) 100 mls @ 200 mls/hr IV Q6H COUNTS INCLUDE 234 BEDS AT THE [facility] Last Infusion: 11/24/22 12:46 Dose: Infused Lactated Ringer's (Lr) 1,000 mls @ 125 mls/hr IVCONT .Q8H COUNTS INCLUDE 234 BEDS AT THE [facility] Last Admin: 11/24/22 14:50 Dose: 125 mls/hr Lidocaine (Lidocaine 4 % Patch Adh..Patch) 1 patch TRANSDERMA DAILY COUNTS INCLUDE 234 BEDS AT THE [facility] Last Admin: 11/24/22 07:45 Dose: Not Given Melatonin (Melatonin 3 Mg Tablet) 6 mg PO BEDTIME PRN PRN Reason: Insomnia Morphine Sulfate (Morphine Sulfate 4 Mg/Ml Cartridge) 4 mg IVPUSH Q4H PRN; Protocol PRN Reason: Pain, Severe (Pain Scale 7-10) Last Admin: 11/24/22 12:19 Dose: 4 mg Multivitamins/Vitamin C (Multivitamin Tablet) 1 tab PO DAILY COUNTS INCLUDE 234 BEDS AT THE [facility] Last Admin: 11/24/22 07:46 Dose: Not Given Nystatin/Triamcinolone Acetonide (Nystatin/Triamcinolone Cream 15 Gm Tube) 1 appl TOPICAL DAILY PRN; Protocol PRN Reason: Itching Omeprazole (Omeprazole 40 Mg Capsule.Dr) 40 mg PO DAILY@0630 COUNTS INCLUDE 234 BEDS AT THE [facility] Last Admin: 11/24/22 05:49 Dose: 40 mg Ondansetron HCl (Ondansetron Hcl 4 Mg/2 Ml Vial) 4 mg IVPUSH Q8H PRN PRN Reason: Nausea and Vomiting Last Admin: 11/21/22 04:17 Dose: 4 mg Pharmacy Consult (Consult Rx Perform Med Rec) 1 each MISCELLANE ONCE PRN PRN Reason: Consult order Sodium Chloride (0.9 % Sodium Chloride Flush 3 Ml Syringe) 3 ml IVFLUSH QSHIFT COUNTS INCLUDE 234 BEDS AT THE [facility] Last Admin: 11/24/22 15:33 Dose: Not Given Home Medications Medication Instructions Recorded Confirmed Last Taken Type cyanocobalamin (vitamin B-12) 1,000 mcg PO DAILY 07/29/21 11/21/22 1 Week Ago History 1,000 mcg tablet ~11/14/22 multivitamin 1 tab PO DAILY 07/29/21 11/21/22 1 Week Ago History ~11/14/22 calcium carbonate 500 mg-vitamin 1 tab PO DAILY 11/14/21 11/21/22 1 Week Ago History D3 10 mcg (400 unit) tablet ~11/14/22 (Calcium 500 With D) rivaroxaban 20 mg tablet (Xarelto) 20 mg PO DAILY@1800 05/20/22 11/21/22 11/19/22 History omeprazole 40 mg capsule,delayed 40 mg PO DAILY@0630 10/17/22 11/21/22 11/20/22 History release diclofenac sodium 1 % topical gel 4 g topical QID PRN Pain 11/21/22 11/21/22 1 Week Ago History (Arthritis Pain (diclofenac)) ~11/14/22 nystatin-triamcinolone 100,000 1 appl topical DAILY PRN Itching 11/21/22 11/21/22 11/19/22 History unit/g-0.1 % topical cream oxycodone 5 mg tablet 5 mg PO TID PRN Pain 11/21/22 11/21/22 11/20/22 History Exam Exam Date and Time: November 24, 2022 1602 Height,Weight and Vital Signs: Height 5 ft 9 in Weight 118 kg Last Vital Signs Temp 98.0 F 11/24/22 07:44 Pulse 51 11/24/22 07:44 Resp 18 11/24/22 07:44 BP 158/70 H 11/24/22 07:44 Pulse Ox 99 11/24/22 07:44 O2 Del Method Room Air 11/24/22 07:44 Pertinent Lab Results Pertinent Lab Results: Laboratory Tests 11/21/22 11/21/22 11/21/22 00:34 00:34 01:17 WBC 6.0 RBC 4.51 Hgb 11.9 L Hct 36.6 L MCV 81.2 MCH 26.4 L MCHC 32.5 RDW 14.2 Plt Count 305 D MPV 11.0 Immature Gran % (Auto) 0.3 Neut % (Auto) 62.7 Lymph % (Auto) 23.9 [place] % (Auto) 8.3 Eos % (Auto) 4.3 H Baso % (Auto) 0.5 Lymph # (Auto) 1.4 [place] # (Auto) 0.5 Eos # (Auto) 0.3 Baso # (Auto) 0.0 Abs Immat Gran (auto) 0.02 Absolute Neuts (auto) 3.8 Absolute Nucleated RBC 0.000 Nucleated RBC % (auto) 0.0 Sodium 139 Potassium 3.5 Chloride 104 Carbon Dioxide 24 Anion Gap 15 BUN 12 Creatinine 0.77 Estim Creat Clear Calc 119.3 Estimated GFR > 60 Random Glucose 150 H Lactic Acid 1.2 Calcium 10.1 Total Bilirubin 1.7 H AST 102 H ALT 175 H Alkaline Phosphatase 203 H Total Protein 7.4 Albumin 3.9 Lipase 1007 H Urine Color Urine Appearance Urine pH Ur Specific [place] Urine Protein Urine Glucose (UA) Urine Ketones Urine Blood Urine Nitrite Ur Leukocyte Esterase 11/21/22 11/21/22 11/21/22 04:53 04:53 08:17 WBC 5.7 RBC 4.15 L Hgb 10.9 L Hct 34.8 L MCV 83.9 MCH 26.3 L MCHC 31.3 RDW 14.3 Plt Count 272 MPV 10.9 Immature Gran % (Auto) 0.2 Neut % (Auto) 51.6 Lymph % (Auto) 32.0 [place] % (Auto) 10.4 Eos % (Auto) 5.1 H Baso % (Auto) 0.7 Lymph # (Auto) 1.8 [place] # (Auto) 0.6 Eos # (Auto) 0.3 Baso # (Auto) 0.0 Abs Immat Gran (auto) 0.01 Absolute Neuts (auto) 2.9 Absolute Nucleated RBC 0.000 Nucleated RBC % (auto) 0.0 Sodium 141 Potassium 3.7 Chloride 106 Carbon Dioxide 29 Anion Gap 10 L BUN 11 Creatinine 0.73 Estim Creat Clear Calc 125.8 Estimated GFR > 60 Random Glucose 109 Lactic Acid Calcium 9.5 Total Bilirubin AST ALT Alkaline Phosphatase Total Protein Albumin Lipase Urine Color Dark Yellow Urine Appearance Clear Urine pH 5.5 Ur Specific [place] >= 1.030 H Urine Protein Trace Urine Glucose (UA) Negative Urine Ketones Trace Urine Blood Negative Urine Nitrite Negative Ur Leukocyte Esterase Negative 11/22/22 11/24/22 11/24/22 11:53 09:36 09:36 WBC 4.9 RBC 4.12 L Hgb 11.1 L Hct 34.7 L MCV 84.2 MCH 26.9 L MCHC 32.0 RDW 14.6 Plt Count 276 MPV 11.1 Immature Gran % (Auto) 0.2 Neut % (Auto) 38.2 L Lymph % (Auto) 41.2 H [place] % (Auto) 9.8 Eos % (Auto) 9.4 H Baso % (Auto) 1.2 Lymph # (Auto) 2.0 [place] # (Auto) 0.5 Eos # (Auto) 0.5 H Baso # (Auto) 0.1 Abs Immat Gran (auto) 0.01 Absolute Neuts (auto) 1.9 L Absolute Nucleated RBC 0.000 Nucleated RBC % (auto) 0.0 Sodium 140 143 Potassium 3.9 4.0 Chloride 104 105 Carbon Dioxide 27 32 H Anion Gap 13 10 L BUN 10 8 L Creatinine 0.77 0.76 Estim Creat Clear Calc 118.6 120.1 Estimated GFR > 60 > 60 Random Glucose 99 106 Lactic Acid Calcium 9.7 9.6 Total Bilirubin 1.2 H 0.9 AST 68 H 70 H ALT 146 H 132 H Alkaline Phosphatase 185 H 168 H Total Protein 6.8 6.7 Albumin 3.5 3.4 L Lipase 86 H Urine Color Urine Appearance Urine pH Ur Specific [place] Urine Protein Urine Glucose (UA) Urine Ketones Urine Blood Urine Nitrite Ur Leukocyte Esterase Airway Mallampati Class: II TM Dist: >3cm Neck ROM: Full Loose/Missing/Broken Teeth: No Heart: RRR Lungs: CTA Assessment and Plan Assessment Anesthesia Assessment: Anesthesia Plan Discussed and Chart Reviewed Final Anesthetic Review Family History of Problems with Anesthesia: No History of Problems with Anesthesia: No NPO: Yes ASA Class: II Final Preanesthetic Review: Meds/Allgs Chart Reviewed, Consent Obtained/Reviewed and Anes Risks/Benef Reviewed Patient Risk: Low Procedure Risk: Intermediate Anesthetic Plan Anesthetic Plan: GA Disposition: Standard PACU
--- NOTE | 2022-11-24 16:48 | PM.EVENT ---
Event Note Date of Service: 11/24/22 Event Note: GI-Case and chart reviewed. Patient seen by me in preop area. Seen by Dr. Robison over the weekend re: CBD stones, pancreatitis, and gallstones. Presently comfortable. Plan: ERCP today. Full consent obtained for this, including risks of bleeding, perforation, cholangitis, and pancreatitis. Patient is comfortable with this plan. Time Spent With Patient Time: Total time managing care of this patient today ____ minutes.
--- NOTE | 2022-11-24 18:30 | PM.OP ---
Brief Operative Note Date of Service: 11/24/22 Pre-op diagnosis: Choledocholithiasis Post-op diagnosis: same Procedure: ERCP with sphincterotomy and removal of stone and stone fragment Surgeon: Carlo Hagen Anesthesia: GETA Was an Potato Bucker used for this Procedure?: No Estimated blood loss (mL): 0 Pathology: none sent Condition: stable Disposition: PACU
--- NOTE | 2022-11-24 18:31 | PM.EVENT ---
Event Note Date of Service: 11/24/22 Event Note: [id number] note dictated Findings: 1. Normal major papilla 2. Initial attempts at cannulation with a straight guidewire yielded entry into the pancreatic duct judging fluoroscopically. No dye was injected. 3. Performed a several mm precut sphincterotomy which then allowed easy passage of the guidewire and sphicterotome into the biliary tree 4. Selective cholangiograms revealed at least 1 filling defect in the distal CBD, although portions of the CBD were obscured by intestinal gas 5. After extending the sphincterotomy I swept the CBD with a 12 mm balloon with removal of a single intact stone and a stone fragment. The balloon pulled easily into the duodenum as well. 6. F/U occlusion cholangiograms did not reveal any further definitive filling defects. There was excellent drainage of dye and bile into the duodenum. Sweeping of the duct several times did not yield anymore stones and allowed easy removal of the balloon into the duodenum in the 12mm inflated position. Imp: Choledocholithiasis Rec: Observe. No aspirin, NSAIDs, blood thinners, etc. for at least 5 days. F/U labs in AM. Lap CCY in AM if stable as per General Surgery. Please contact me if problems or questions. D/W patient and daughter, Libertad in detail. Thanks Time Spent With Patient Time: Total time managing care of this patient today ____ minutes.
--- NOTE | 2022-11-24 18:44 | PC.NURSE ---
DR. REBOLLAR REVIEW WITH PATIENT PLAN OF CARE POST OP PLAN ICE [id number], SIPS. NPO AT 0000 FOR SURGERY IN MORNING.
[2022-11-24 20:23] LABS: Troponin-I High Sensitivity < 2.7 ng/L (<3.5-17.0)
[2022-11-25] VITALS (30 sets, daily range): BP systolic 126–175; BP diastolic 44–84; PULSE 45–83; RESP 12–20; TEMP 35.9–37.3; O2SAT 96–99
[2022-11-25] MEDS: Morphine Sulfate 4 MG/ML CARTRIDGE IVPUSH ×4 (00:28→21:24)
[2022-11-25] MEDS: Piperacillin Sodium/Tazobactam 4.5 GM in 0.9 % Sodium Chloride 100 ML IV ×3 (00:28→18:20)
--- NOTE | 2022-11-25 02:44 | MHC.PIE ---
late entry. 11/24 1909 p; pt arrived from pacu c/o h/a. vs 130/70, p 45, t 99.3 o2 99ra. i;dr warren notified p; pt c/o ch pain 12/11. i; dr warren notified. new order ekg now, trop now. p; pt refused ivf i; dr warren notifed e; trop -, ekg reported to , ch pain 12/11 - prn morphine given with good result, will cont to moiotor
--- NOTE | 2022-11-25 04:29 | OP_ITS ---
DATE OF SERVICE: 11/24/2022 SURGEON: Carlo Hagen MD INDICATIONS: The patient presents for evaluation of choledocholithiasis and recent gallstone pancreatitis. Full consent was obtained from her for this, including risks of bleeding, perforation, cholangitis, and pancreatitis. PREOPERATIVE DIAGNOSIS: POSTOPERATIVE DIAGNOSIS: PROCEDURE PERFORMED: Endoscopic retrograde cholangiopancreatography with sphincterotomy and removal of common duct stones. ESTIMATED BLOOD LOSS: COMPLICATIONS: ANESTHESIA: General anesthesia and glucagon 0.5 mg IV x2 doses. ASSISTANTS: SPECIMENS: PREOPERATIVE DIAGNOSES: Choledocholithiasis and recent gallstone pancreatitis. POSTOPERATIVE DIAGNOSES: Choledocholithiasis and recent gallstone pancreatitis. DESCRIPTION OF PROCEDURE: The patient was placed in the semiprone position. The [employer] video duodenoscope was passed in the posterior oropharynx and upper esophagus. The scope entered the stomach and was advanced to the pylorus. The duodenum was cannulated to the descending portion. The region of the major papilla was visualized and appeared normal. Initial attempts at cannulation with a straight guidewire and [employer] triple lumen sphincterotome yielded entry into the pancreatic duct with the guidewire judging fluoroscopically. There was no injection of dye. After several attempts without gaining access to the biliary tree, I opted to perform a several millimeter precut sphincterotomy and the anatomy was quite conducive to that. Once I had done that, I was then able to gain easy access into the biliary tree with the straight guidewire and the sphincterotome. Selective cholangiograms revealed good filling of the intrahepatic ducts, which appeared normal. The extrahepatic duct filled well and did drain as well. There appeared to be at least 1 filling defect in the distal portion of the common duct. Some portions of the common duct were obscured by intestinal gas. I then extended the sphincterotomy to a total of 8-10 mm without any immediate complication. There was further good drainage of bile and dye noted at that point. I then switched the sphincterotome to a balloon catheter over the guidewire. Multiple cholangiograms were obtained with the balloon inflated and deflated with again good filling of both the intrahepatic and extrahepatic ducts at that time. Again noted was what appeared to be the single filling defect in the distal portion of the duct, but no other definitive filling defects were noted. A single stone was brought into the duodenum with the 12 mm balloon inflated. The balloon itself pulled easily into the duodenum as well. At that point, there was good drainage of bile and dye noted. Followup cholangiograms with the balloon inflated and deflated did not reveal any further definitive filling defects. A single small stone fragment did come into the duodenum as well. The balloon was swept through the bile duct several times and no further stones were noted and the balloon pulled easily into the duodenum in the 12 mm inflated position. Again, there was no dye injected into the pancreatic duct. At that point, the procedure was terminated. She tolerated the procedure well and was returned to recovery area in stable condition. IMPRESSION: Choledocholithiasis. PLAN: The patient will be observed overnight. She will have followup laboratories in the morning. She will continue on antibiotics. If things are stable, she will undergo laparoscopic cholecystectomy as per the general surgery service tomorrow. This has been discussed with the patient and her daughter, Libertad, in detail. She should avoid all aspirin, NSAIDs, and other blood thinners for at least 5 days. MD PAOLA Centeno/ZHENG / [phone]
[2022-11-25 06:18] LABS: MANUAL DIFF FLAG NO
[2022-11-25 06:35] LABS: Basophils Percent Auto 0.3 % (0-2); Eosinophils Percent Auto 0.2 % (0-4); Hematocrit 37.8 % (37.0-47.0); Hemoglobin 12.1 g/dl (12.0-16.0); Imm Gran Abs Auto 0.04 X10*3/uL (0.00-0.03); Imm Gran Pct Auto 0.6 % (0.0-0.4); Lymphocytes Percent Auto 15.1 % (20-40); Mean Corpuscular Hemoglobin 27.1 pg (27.0-33.0); Mean Corpuscular Volume 84.6 fL (80.0-98.0); Mean Platelet Volume 11.6 fL (9.4-12.3); Monocytes Absolute Auto 0.2 X10*3/uL (0.1-1.2); Monocytes Percent Auto 2.6 % (2-11); Neutrophils Absolute Auto 5.3 x10*3/uL (2.0-8.3); Neutrophils Percent Auto 81.2 % (45-73); Platelet Count 328 X10*3/uL (160-400); Red Blood Count 4.47 X10*6/uL (4.20-5.50); Red Cell Distribution Width 14.1 % (11.0-16.0); White Blood Count 6.5 X10*3/uL (4.8-10.8)
[2022-11-25 06:43] LABS: Alanine Aminotransferase 144 U/L (0-31); Albumin Level 3.8 g/dL (3.5-5.0); Alkaline Phosphatase 171 U/L (39-117); Anion Gap 12 (12-20); Aspartate Amino Transferase 73 U/L (5-31); Bilirubin Direct 0.5 mg/dL (0.0-0.5); Bilirubin Total 0.8 mg/dL (0.0-1.0); Blood Urea Nitrogen 10 mg/dL (9-16); Calcium 9.9 mg/dL (8.4-10.2); Carbon Dioxide 29 mmol/L (22-29); Chloride 103 mmol/L (96-108); Estimated Glomerular Filt Rate > 60; Glucose Fasting 120 mg/dL (60-99); Potassium 4.6 mmol/L (3.3-5.1); Sodium 139 mmol/L (135-145); Total Protein 7.5 g/dL (6.5-8.0)
--- NOTE | 2022-11-25 07:37 | P.PNGS_ITS ---
Subjective Subjective Date of Service: 11/25/22 Interval history: Patient reports some right upper quadrant abdominal pain. Denies fever or chills. Physical Exam Vital Signs: Vital Signs: Last Vital Signs Temp 98 F 11/25/22 07:06 Pulse 52 11/25/22 07:06 Resp 16 11/25/22 07:06 BP 144/76 H 11/25/22 07:06 Pulse Ox 99 11/25/22 07:06 O2 Del Method Room Air 11/25/22 07:06 O2 Flow Rate 2 11/24/22 18:37 BMI result Body Mass Index 38.4 Const: General: no acute distress Nutritional Appearance: well nourished Orientation/consciousness: patient oriented x3 Limitations: no limitations Resp: Effort & Inspection: normal respiratory effort, no audible wheezes, no c ough and no respiratory distress GI: Inspection: Yes normal to inspection Palpation (GI): Soft to palpation, nontender and no guarding Neuro: General: patient oriented x3 Extrem: Other: Chronic venous stasis changes lower extremities Objective Data Active Medications Acetaminophen (Acetaminophen 325 Mg Tablet) 650 mg PO Q6H PRN PRN Reason: Pain, Mild (Pain Scale 1-3) Acetaminophen (Acetaminophen 325 Mg Tablet) 650 mg PO ONCE PRN PRN Reason: Pain, Mild (Pain Scale 1-3) Albuterol Sulfate (Albuterol Sulfate (0.083%) 2.5 Mg/3 Ml Vial.Neb) 2.5 mg INHALE ONCE PRN PRN Reason: Wheezing Calcium Carbonate/Cholecalciferol (Calcium + Vitamin D 250 Mg Tablet) 500 mg PO DAILY [facility] Last Admin: 11/24/22 07:44 Dose: Not Given Documented By: YANET Non-Admin Reason: NPO Cyanocobalamin (Cyanocobalamin (Vitamin B-12) 1,000 Mcg Tablet) 1,000 mcg PO DAILY [facility] Last Admin: 11/24/22 07:45 Dose: Not Given Documented By: YANET Non-Admin Reason: NPO pt refused Fentanyl (Fentanyl Citrate/Pf 100 Mcg/2 Ml Vial) 50 mcg IVPUSH Q5M PRN; Protocol PRN Reason: Pain, Severe (Pain Scale 7-10) Fentanyl (Fentanyl Citrate/Pf 100 Mcg/2 Ml Vial) 25 mcg IVPUSH Q5M PRN; Protocol PRN Reason: Pain, Moderate(Pain Scale 4-6) Lactated Ringer's (Lr) 1,000 mls @ 125 mls/hr IVCONT .Q8H [facility] Last Infusion: 11/24/22 22:12 Dose: 0 mls/hr Documented By: ABRIL Promethazine HCl 6.25 mg/ (Sodium Chloride) 50.25 mls @ 201 mls/hr IV ONCE PRN PRN Reason: Nausea and Vomiting Piperacillin Sod/Tazobactam (Sod 4.5 gm/ Sodium Chloride) 100 mls @ 200 mls/hr IV Q6H [facility] Last Infusion: 11/25/22 06:45 Dose: 0 mls/hr Documented By: ABRIL Cefotetan Disodium 2 gm/ (Sodium Chloride) 50 mls @ 100 mls/hr IV PREOP ONE Stop: 11/25/22 07:43 Lidocaine (Lidocaine 4 % Patch Adh..Patch) 1 patch TRANSDERMA DAILY [facility] Last Admin: 11/24/22 07:45 Dose: Not Given Documented By: YANET Non-Admin Reason: Patient Refused Melatonin (Melatonin 3 Mg Tablet) 6 mg PO BEDTIME PRN PRN Reason: Insomnia Morphine Sulfate (Morphine Sulfate 4 Mg/Ml Cartridge) 4 mg IVPUSH Q4H PRN; Protocol PRN Reason: Pain, Severe (Pain Scale 7-10) Last Admin: 11/25/22 06:13 Dose: 4 mg Documented By: ABRLI Multivitamins/Vitamin C (Multivitamin Tablet) 1 tab PO DAILY [facility] Last Admin: 11/24/22 07:46 Dose: Not Given Documented By: YANET Non-Admin Reason: pt refused Nystatin/Triamcinolone Acetonide (Nystatin/Triamcinolone Cream 15 Gm Tube) 1 appl TOPICAL DAILY PRN; Protocol PRN Reason: Itching Omeprazole (Omeprazole 40 Mg Capsule.Dr) 40 mg PO DAILY@0630 [facility] Last Admin: 11/25/22 06:15 Dose: Not Given Documented By: ABRIL Non-Admin Reason: NPO Ondansetron HCl (Ondansetron Hcl 4 Mg/2 Ml Vial) 4 mg IVPUSH Q8H PRN PRN Reason: Nausea and Vomiting Last Admin: 11/21/22 04:17 Dose: 4 mg Documented By: YIFAN Ondansetron HCl (Ondansetron Hcl 4 Mg/2 Ml Vial) 4 mg IVPUSH ONCE PRN PRN Reason: Nausea and Vomiting Pharmacy Consult (Consult Rx Perform Med Rec) 1 each MISCELLANE ONCE PRN PRN Reason: Consult order Sodium Chloride (0.9 % Sodium Chloride Flush 3 Ml Syringe) 3 ml IVFLUSH QSHIFT [facility] Last Admin: 11/24/22 20:59 Dose: Not Given Documented By: ABRIL Non-Admin Reason: IV Running Labs 11/25/22 06:03 11/25/22 06:03 Labs: Laboratory Results - last 24 hr 11/24/22 11/24/22 11/25/22 09:36 09:36 06:03 MCV 84.2 84.6 MCH 26.9 L 27.1 MCHC 32.0 32.0 RDW 14.6 14.1 Plt Count 276 328 MPV 11.1 11.6 Immature Gran % (Auto) 0.2 0.6 H Neut % (Auto) 38.2 L 81.2 H Lymph % (Auto) 41.2 H 15.1 L [place] % (Auto) 9.8 2.6 Eos % (Auto) 9.4 H 0.2 Baso % (Auto) 1.2 0.3 Lymph # (Auto) 2.0 1.0 L [place] # (Auto) 0.5 0.2 Eos # (Auto) 0.5 H 0.0 Baso # (Auto) 0.1 0.0 Abs Immat Gran (auto) 0.01 0.04 H Absolute Neuts (auto) 1.9 L 5.3 Absolute Nucleated RBC 0.000 0.000 Nucleated RBC % (auto) 0.0 0.0 Anion Gap 10 L Estim Creat Clear Calc 120.1 Estimated GFR > 60 Random Glucose 106 Fasting Glucose Calcium 9.6 Total Bilirubin 0.9 Direct Bilirubin AST 70 H ALT 132 H Alkaline Phosphatase 168 H Total Protein 6.7 Albumin 3.4 L 11/25/22 06:03 MCV MCH MCHC RDW Plt Count MPV Immature Gran % (Auto) Neut % (Auto) Lymph % (Auto) [place] % (Auto) Eos % (Auto) Baso % (Auto) Lymph # (Auto) [place] # (Auto) Eos # (Auto) Baso # (Auto) Abs Immat Gran (auto) Absolute Neuts (auto) Absolute Nucleated RBC Nucleated RBC % (auto) Anion Gap 12 Estim Creat Clear Calc 110.0 Estimated GFR > 60 Random Glucose Fasting Glucose 120 H Calcium 9.9 Total Bilirubin 0.8 Direct Bilirubin 0.5 AST 73 H ALT 144 H Alkaline Phosphatase 171 H Total Protein 7.5 Albumin 3.8 Procedures Date of Service Date of Service: 11/25/22 Progress Note: A&P Assessment and plan (1) Choledocholithiasis: Status: Acute (2) Acute gallstone pancreatitis: Status: Acute (3) Biliary colic: Status: Acute Plan 52-year-old female patient presenting with complaints of epigastric and right upper quadrant abdominal pain radiating into the chest found on workup to have choledocholithiasis and gallstone pancreatitis. She underwent MRCP which confirmed a common bile duct stone. ERCP was performed yesterday by Dr. Hieu mercado removal of common bile duct stone. Patient tolerated the procedure well. She continues to have some right upper quadrant abdominal pain. She is eager to proceed with surgery today. I reviewed the procedure, risks, and alternatives of laparoscopic cholecystectomy and she consents to the surgery. Time Spent With Patient Time: Total time managing care of this patient today ____ minutes. Quality Stroke Does the patient have a stroke diagnosis?: No VTE Prior VTE?: No VTE Risk Level:: Medical - moderate - high VTE Device Contraindication: N/A - Device Ordered VTE Drug Contraindication: Treatment Not Indicated
[2022-11-25] MEDS: Calcium + Vitamin D 250 MG TABLET 500 MG PO (08:31)
[2022-11-25] MEDS: Cyanocobalamin (Vitamin B-12) 1,000 MCG TABLET 1000 MCG PO (08:31)
[2022-11-25] MEDS: Lactated Ringers 1,000 ML 125 ML IVCONT (08:31)
[2022-11-25] MEDS: Multivitamin TABLET 1 TAB PO (08:31)
--- NOTE | 2022-11-25 12:05 | P.CONAN_ITS ---
[facility] Active Problems Active Problems: All Active Problems (Updated 11/22/22 @ 09:26 by Adrian Crowley MD) Choledocholithiasis (Acute) Biliary colic (Acute) Acute gallstone pancreatitis (Acute) Cholecystitis (Acute) On anticoagulant therapy (Acute) Chronic cholecystitis due to cholelithiasis with choledocholithiasis (Acute) Antiphospholipid syndrome (Acute) Medial meniscus tear (Acute) Osteoarthritis of right knee (Acute) Right knee pain (Acute) COVID-19 (Acute) Well woman exam (Acute) Precordial chest pain (Acute) Morbid obesity (Acute) Smoker (Acute) Varicose veins of right lower extremity with inflammation (Acute) DVT (deep venous thrombosis) (Acute) Past Medical History Medical History Antiphospholipid syndrome Choledocholithiasis Diabetes DVT (deep venous thrombosis) On anticoagulant therapy Pulmonary embolism Tubal ligation evaluation Venous stasis of lower extremity Family History Family History Maternal Aunt Breast CA Family history of problems with anesthesia: No Surgical History Surgical History H/O gastric sleeve H/O skin graft H/O: knee surgery History of History of Problems with Anesthesia: No Social History Social History Household Members: Significant Other and Family Housing: House Do you presently have visiting nurse or other home services: No Alcohol intake: never Patient Tobacco Use Status: Former Tobacco user Cigarettes Per Day: 4 Second Hand Smoke Exposure: No Substance Use Type: Marijuana service: No Current occupational status: employed Meds Allergies Allergy/AdvReac Type Severity Reaction Status Date / Time shellfish derived Allergy Unknown Verified 11/20/22 11:43 Active Medications: Current Medications Acetaminophen (Acetaminophen 325 Mg Tablet) 650 mg PO Q6H PRN PRN Reason: Pain, Mild (Pain Scale 1-3) Acetaminophen (Acetaminophen 325 Mg Tablet) 650 mg PO ONCE PRN PRN Reason: Pain, Mild (Pain Scale 1-3) Albuterol Sulfate (Albuterol Sulfate (0.083%) 2.5 Mg/3 Ml Vial.Neb) 2.5 mg INHALE ONCE PRN PRN Reason: Wheezing Calcium Carbonate/Cholecalciferol (Calcium + Vitamin D 250 Mg Tablet) 500 mg PO DAILY [facility] Last Admin: 11/25/22 08:31 Dose: 500 mg Cyanocobalamin (Cyanocobalamin (Vitamin B-12) 1,000 Mcg Tablet) 1,000 mcg PO DAILY [facility] Last Admin: 11/25/22 08:31 Dose: 1,000 mcg Fentanyl (Fentanyl Citrate/Pf 100 Mcg/2 Ml Vial) 50 mcg IVPUSH Q5M PRN; Protocol PRN Reason: Pain, Severe (Pain Scale 7-10) Fentanyl (Fentanyl Citrate/Pf 100 Mcg/2 Ml Vial) 25 mcg IVPUSH Q5M PRN; Protocol PRN Reason: Pain, Moderate(Pain Scale 4-6) Lactated Ringer's (Lr) 1,000 mls @ 125 mls/hr IVCONT .Q8H [facility] Last Admin: 11/25/22 08:31 Dose: 125 mls/hr Promethazine HCl 6.25 mg/ (Sodium Chloride) 50.25 mls @ 201 mls/hr IV ONCE PRN PRN Reason: Nausea and Vomiting Piperacillin Sod/Tazobactam (Sod 4.5 gm/ Sodium Chloride) 100 mls @ 200 mls/hr IV Q6H [facility] Last Infusion: 11/25/22 06:45 Dose: Infused Lidocaine (Lidocaine 4 % Patch Adh..Patch) 1 patch TRANSDERMA DAILY [facility] Last Admin: 11/25/22 08:38 Dose: Not Given Melatonin (Melatonin 3 Mg Tablet) 6 mg PO BEDTIME PRN PRN Reason: Insomnia Morphine Sulfate (Morphine Sulfate 4 Mg/Ml Cartridge) 4 mg IVPUSH Q4H PRN; Protocol PRN Reason: Pain, Severe (Pain Scale 7-10) Last Admin: 11/25/22 10:51 Dose: 4 mg Multivitamins/Vitamin C (Multivitamin Tablet) 1 tab PO DAILY [facility] Last Admin: 11/25/22 08:31 Dose: 1 tab Nystatin/Triamcinolone Acetonide (Nystatin/Triamcinolone Cream 15 Gm Tube) 1 appl TOPICAL DAILY PRN; Protocol PRN Reason: Itching Omeprazole (Omeprazole 40 Mg Capsule.) 40 mg PO DAILY@0630 [facility] Last Admin: 11/25/22 06:15 Dose: Not Given Ondansetron HCl (Ondansetron Hcl 4 Mg/2 Ml Vial) 4 mg IVPUSH Q8H PRN PRN Reason: Nausea and Vomiting Last Admin: 11/21/22 04:17 Dose: 4 mg Ondansetron HCl (Ondansetron Hcl 4 Mg/2 Ml Vial) 4 mg IVPUSH ONCE PRN PRN Reason: Nausea and Vomiting Pharmacy Consult (Consult Rx Perform Med Rec) 1 each MISCELLANE ONCE PRN PRN Reason: Consult order Sodium Chloride (0.9 % Sodium Chloride Flush 3 Ml Syringe) 3 ml IVFLUSH [facility] Last Admin: 11/25/22 08:32 Dose: Not Given Home Medications Medication Instructions Recorded Confirmed Last Taken Type cyanocobalamin (vitamin B-12) 1,000 mcg PO DAILY 07/29/21 11/21/22 1 Week Ago History 1,000 mcg tablet ~11/14/22 multivitamin 1 tab PO DAILY 07/29/21 11/21/22 1 Week Ago History ~11/14/22 calcium carbonate 500 mg-vitamin 1 tab PO DAILY 11/14/21 11/21/22 1 Week Ago History D3 10 mcg (400 unit) tablet ~11/14/22 (Calcium 500 With D) rivaroxaban 20 mg tablet (Xarelto) 20 mg PO DAILY@1800 05/20/22 11/21/22 11/19/22 History omeprazole 40 mg capsule,delayed 40 mg PO DAILY@0630 10/17/22 11/21/22 11/20/22 History release diclofenac sodium 1 % topical gel 4 g topical QID PRN Pain 11/21/22 11/21/22 1 Week Ago History (Arthritis Pain (diclofenac)) ~11/14/22 nystatin-triamcinolone 100,000 1 appl topical DAILY PRN Itching 11/21/22 11/21/22 11/19/22 History unit/g-0.1 % topical cream oxycodone 5 mg tablet 5 mg PO TID PRN Pain 11/21/22 11/21/22 11/20/22 History Exam Exam Date and Time: November 25, 2022 120 Height,Weight and Vital Signs: Height 5 ft 9 in Weight 118 kg Last Vital Signs Temp 98 F 11/25/22 07:06 Pulse 52 11/25/22 07:06 Resp 16 11/25/22 07:06 BP 144/76 H 11/25/22 07:06 Pulse Ox 99 11/25/22 07:06 O2 Del Method Room Air 11/25/22 07:06 O2 Flow Rate 2 11/24/22 18:37 Pertinent Lab Results Pertinent Lab Results: 8Laboratory Tests 11/21/22 11/21/22 11/21/22 00:34 00:34 01:17 WBC 6.0 RBC 4.51 Hgb 11.9 L Hct 36.6 L MCV 81.2 MCH 26.4 L MCHC 32.5 RDW 14.2 Plt Count 305 D MPV 11.0 Immature Gran % (Auto) 0.3 Neut % (Auto) 62.7 Lymph % (Auto) 23.9 [place] % (Auto) 8.3 Eos % (Auto) 4.3 H Baso % (Auto) 0.5 Lymph # (Auto) 1.4 [place] # (Auto) 0.5 Eos # (Auto) 0.3 Baso # (Auto) 0.0 Abs Immat Gran (auto) 0.02 Absolute Neuts (auto) 3.8 Absolute Nucleated RBC 0.000 Nucleated RBC % (auto) 0.0 Sodium 139 Potassium 3.5 Chloride 104 Carbon Dioxide 24 Anion Gap 15 BUN 12 Creatinine 0.77 Estim Creat Clear Calc 119.3 Estimated GFR > 60 Random Glucose 150 H Fasting Glucose Lactic Acid 1.2 Calcium 10.1 Total Bilirubin 1.7 H Direct Bilirubin AST 102 H ALT 175 H Alkaline Phosphatase 203 H Troponin I High Sens Total Protein 7.4 Albumin 3.9 Lipase 1007 H Urine Color Urine Appearance Urine pH Ur Specific [place] Urine Protein Urine Glucose (UA) Urine Ketones Urine Blood Urine Nitrite Ur Leukocyte Esterase 11/21/22 11/21/22 11/21/22 04:53 04:53 08:17 WBC 5.7 RBC 4.15 L Hgb 10.9 L Hct 34.8 L MCV 83.9 MCH 26.3 L MCHC 31.3 RDW 14.3 Plt Count 272 MPV 10.9 Immature Gran % (Auto) 0.2 Neut % (Auto) 51.6 Lymph % (Auto) 32.0 [place] % (Auto) 10.4 Eos % (Auto) 5.1 H Baso % (Auto) 0.7 Lymph # (Auto) 1.8 [place] # (Auto) 0.6 Eos # (Auto) 0.3 Baso # (Auto) 0.0 Abs Immat Gran (auto) 0.01 Absolute Neuts (auto) 2.9 Absolute Nucleated RBC 0.000 Nucleated RBC % (auto) 0.0 Sodium 141 Potassium 3.7 Chloride 106 Carbon Dioxide 29 Anion Gap 10 L BUN 11 Creatinine 0.73 Estim Creat Clear Calc 125.8 Estimated GFR > 60 Random Glucose 109 Fasting Glucose Lactic Acid Calcium 9.5 Total Bilirubin Direct Bilirubin AST ALT Alkaline Phosphatase Troponin I High Sens Total Protein Albumin Lipase Urine Color Dark Yellow Urine Appearance Clear Urine pH 5.5 Ur Specific [place] >= 1.030 H Urine Protein Trace Urine Glucose (UA) Negative Urine Ketones Trace Urine Blood Negative Urine Nitrite Negative Ur Leukocyte Esterase Negative 11/22/22 11/24/22 11/24/22 11:53 09:36 09:36 WBC 4.9 RBC 4.12 L Hgb 11.1 L Hct 34.7 L MCV 84.2 MCH 26.9 L MCHC 32.0 RDW 14.6 Plt Count 276 MPV 11.1 Immature Gran % (Auto) 0.2 Neut % (Auto) 38.2 L Lymph % (Auto) 41.2 H [place] % (Auto) 9.8 Eos % (Auto) 9.4 H Baso % (Auto) 1.2 Lymph # (Auto) 2.0 [place] # (Auto) 0.5 Eos # (Auto) 0.5 H Baso # (Auto) 0.1 Abs Immat Gran (auto) 0.01 Absolute Neuts (auto) 1.9 L Absolute Nucleated RBC 0.000 Nucleated RBC % (auto) 0.0 Sodium 140 143 Potassium 3.9 4.0 Chloride 104 105 Carbon Dioxide 27 32 H Anion Gap 13 10 L BUN 10 8 L Creatinine 0.77 0.76 Estim Creat Clear Calc 118.6 120.1 Estimated GFR > 60 > 60 Random Glucose 99 106 Fasting Glucose Lactic Acid Calcium 9.7 9.6 Total Bilirubin 1.2 H 0.9 Direct Bilirubin AST 68 H 70 H ALT 146 H 132 H Alkaline Phosphatase 185 H 168 H Troponin I High Sens Total Protein 6.8 6.7 Albumin 3.5 3.4 L Lipase 86 H Urine Color Urine Appearance Urine pH Ur Specific [place] Urine Protein Urine Glucose (UA) Urine Ketones Urine Blood Urine Nitrite Ur Leukocyte Esterase 11/24/22 11/25/22 11/25/22 19:50 06:03 06:03 WBC 6.5 RBC 4.47 Hgb 12.1 Hct 37.8 MCV 84.6 MCH 27.1 MCHC 32.0 RDW 14.1 Plt Count 328 MPV 11.6 Immature Gran % (Auto) 0.6 H Neut % (Auto) 81.2 H Lymph % (Auto) 15.1 L [place] % (Auto) 2.6 Eos % (Auto) 0.2 Baso % (Auto) 0.3 Lymph # (Auto) 1.0 L [place] # (Auto) 0.2 Eos # (Auto) 0.0 Baso # (Auto) 0.0 Abs Immat Gran (auto) 0.04 H Absolute Neuts (auto) 5.3 Absolute Nucleated RBC 0.000 Nucleated RBC % (auto) 0.0 Sodium 139 Potassium 4.6 Chloride 103 Carbon Dioxide 29 Anion Gap 12 BUN 10 Creatinine 0.83 Estim Creat Clear Calc 110.0 Estimated GFR > 60 Random Glucose Fasting Glucose 120 H Lactic Acid Calcium 9.9 Total Bilirubin 0.8 Direct Bilirubin 0.5 AST 73 H ALT 144 H Alkaline Phosphatase 171 H Troponin I High Sens < 2.7 Total Protein 7.5 Albumin 3.8 Lipase Urine Color Urine Appearance Urine pH Ur Specific [place] Urine Protein Urine Glucose (UA) Urine Ketones Urine Blood Urine Nitrite Ur Leukocyte Esterase Assessment and Plan Assessment Anesthesia Assessment: Anesthesia Plan Discussed and Smoking Cess. Discussed Final Anesthetic Review Family History of Problems with Anesthesia: No History of Problems with Anesthesia: No ASA Class: III Final Preanesthetic Review: Meds/Allgs Chart Reviewed, Consent Obtained/Reviewed and Anes Risks/Benef Reviewed Patient Risk: Intermediate Procedure Risk: Intermediate Anesthetic Plan Anesthetic Plan: GA Disposition: Standard PACU
--- NOTE | 2022-11-25 13:06 | P.PNIM_ITS ---
Subjective Subjective Date of Service: 11/25/22 Interval History: seen and evaluated this morning complaining of RUQ pain no fever or chills plans for surgery today Review of Systems Review of Systems: Yes all other systems are reviewed and are negative Physical Exam Vital Signs: Vital Signs: Last Vital Signs Temp 98.1 F 11/25/22 12:23 Pulse 45 L 11/25/22 12:47 Resp 16 11/25/22 12:23 BP 137/60 11/25/22 12:23 Pulse Ox 99 11/25/22 12:23 O2 Del Method Room Air 11/25/22 12:23 O2 Flow Rate 2 11/24/22 18:37 BMI result Body Mass Index 38.4 Const: Other: General: AO X 3, no acute distress Resp: CTA bilateral CVS: S1,S2,RRR GI: +BS, mild RUQ tenderness Skin: No rash Neuro: motor grossly intact Psych: appropriate affect Objective Data Active Medications Acetaminophen (Acetaminophen 325 Mg Tablet) 650 mg PO Q6H PRN PRN Reason: Pain, Mild (Pain Scale 1-3) Acetaminophen (Acetaminophen 325 Mg Tablet) 650 mg PO ONCE PRN PRN Reason: Pain, Mild (Pain Scale 1-3) Albuterol Sulfate (Albuterol Sulfate (0.083%) 2.5 Mg/3 Ml Vial.Neb) 2.5 mg INHALE ONCE PRN PRN Reason: Wheezing Calcium Carbonate/Cholecalciferol (Calcium + Vitamin D 250 Mg Tablet) 500 mg PO DAILY [facility] Last Admin: 11/25/22 08:31 Dose: 500 mg Documented By: SAMMY Cyanocobalamin (Cyanocobalamin (Vitamin B-12) 1,000 Mcg Tablet) 1,000 mcg PO DAILY [facility] Last Admin: 11/25/22 08:31 Dose: 1,000 mcg Documented By: SAMMY Fentanyl (Fentanyl Citrate/Pf 100 Mcg/2 Ml Vial) 50 mcg IVPUSH Q5M PRN; Protocol PRN Reason: Pain, Severe (Pain Scale 7-10) Fentanyl (Fentanyl Citrate/Pf 100 Mcg/2 Ml Vial) 25 mcg IVPUSH Q5M PRN; Protocol PRN Reason: Pain, Moderate(Pain Scale 4-6) Lactated Ringer's (Lr) 1,000 mls @ 125 mls/hr IVCONT .Q8H [facility] Last Admin: 11/25/22 08:31 Dose: 125 mls/hr Documented By: SAMMY Promethazine HCl 6.25 mg/ (Sodium Chloride) 50.25 mls @ 201 mls/hr IV ONCE PRN PRN Reason: Nausea and Vomiting Piperacillin Sod/Tazobactam (Sod 4.5 gm/ Sodium Chloride) 100 mls @ 200 mls/hr IV Q6H [facility] Last Infusion: 11/25/22 06:45 Dose: 0 mls/hr Documented By: ABRIL Lidocaine (Lidocaine 4 % Patch Adh..Patch) 1 patch TRANSDERMA DAILY [facility] Last Admin: 11/25/22 08:38 Dose: Not Given Documented By: SAMMY Non-Admin Reason: Patient Refused Melatonin (Melatonin 3 Mg Tablet) 6 mg PO BEDTIME PRN PRN Reason: Insomnia Morphine Sulfate (Morphine Sulfate 4 Mg/Ml Cartridge) 4 mg IVPUSH Q4H PRN; Protocol PRN Reason: Pain, Severe (Pain Scale 7-10) Last Admin: 11/25/22 10:51 Dose: 4 mg Documented By: SAMMY Multivitamins/Vitamin C (Multivitamin Tablet) 1 tab PO DAILY [facility] Last Admin: 11/25/22 08:31 Dose: 1 tab Documented By: SAMMY Nystatin/Triamcinolone Acetonide (Nystatin/Triamcinolone Cream 15 Gm Tube) 1 appl TOPICAL DAILY PRN; Protocol PRN Reason: Itching Omeprazole (Omeprazole 40 Mg Capsule.Dr) 40 mg PO DAILY@0630 [facility] Last Admin: 11/25/22 06:15 Dose: Not Given Documented By: ABRIL Non-Admin Reason: NPO Ondansetron HCl (Ondansetron Hcl 4 Mg/2 Ml Vial) 4 mg IVPUSH Q8H PRN PRN Reason: Nausea and Vomiting Last Admin: 11/21/22 04:17 Dose: 4 mg Documented By: YIFAN Ondansetron HCl (Ondansetron Hcl 4 Mg/2 Ml Vial) 4 mg IVPUSH ONCE PRN PRN Reason: Nausea and Vomiting Pharmacy Consult (Consult Rx Perform Med Rec) 1 each MISCELLANE ONCE PRN PRN Reason: Consult order Sodium Chloride (0.9 % Sodium Chloride Flush 3 Ml Syringe) 3 ml IVFLUSH QSHIFT [facility] Last Admin: 11/25/22 08:32 Dose: Not Given Documented By: SAMMY Non-Admin Reason: IV Running Labs 11/25/22 06:03 11/25/22 06:03 Labs: Laboratory Results - last 24 hr 11/25/22 11/25/22 06:03 06:03 MCV 84.6 MCH 27.1 MCHC 32.0 RDW 14.1 Plt Count 328 MPV 11.6 Immature Gran % (Auto) 0.6 H Neut % (Auto) 81.2 H Lymph % (Auto) 15.1 L [place] % (Auto) 2.6 Eos % (Auto) 0.2 Baso % (Auto) 0.3 Lymph # (Auto) 1.0 L [place] # (Auto) 0.2 Eos # (Auto) 0.0 Baso # (Auto) 0.0 Abs Immat Gran (auto) 0.04 H Absolute Neuts (auto) 5.3 Absolute Nucleated RBC 0.000 Nucleated RBC % (auto) 0.0 Anion Gap 12 Estim Creat Clear Calc 110.0 Estimated GFR > 60 Fasting Glucose 120 H Calcium 9.9 Total Bilirubin 0.8 Direct Bilirubin 0.5 AST 73 H ALT 144 H Alkaline Phosphatase 171 H Total Protein 7.5 Albumin 3.8 Assessment and Plan (1) Choledocholithiasis: Status: Acute (2) Cholecystitis: Status: Acute Plan This is a 52-year-old female with pertinent history of antiphospholipid syndrome on anticoagulation, gastroesophageal reflux disease who presents to the emergency department for evaluation of right sided abdominal pain. # Acute calculous cholecystitis, CBD dilatation confirmed on MRCP. ERCP done 11/24/22, removing obstructing stone Plan for CCY today by surgry Hold Xarelto. NPO, IVF. # Antiphospholipid syndrome. Hold Xarelto in anticipation of surgery, DVT prophylaxis: Mechanical, ambulate need for inpatient: cholecystitis, will need CCY Time Spent With Patient Time: Total time managing care of this patient today ____ minutes. Quality Stroke Does the patient have a stroke diagnosis?: No VTE Prior VTE?: No VTE Risk Level:: Medical - moderate - high VTE Device Contraindication: N/A - Device Ordered VTE Drug Contraindication: Treatment Not Indicated
--- NOTE | 2022-11-25 13:10 | PC.NURSE ---
attempted two iv insertions no success. anesthesia to attempt new iv insertion.
--- NOTE | 2022-11-25 13:25 | W.PM.OPN ---
Operative Note Operative Note Date of Service: 11/25/22 Narrative: Preoperative diagnosis: Postoperative diagnosis: Same Procedure: Laparoscopic cholecystectomy Surgeon: Lance Perea MD Senior Reactor Operator: Adrian Crowley MD Anesthesia: General endotracheal Indications for procedure: Operative findings: Specimen: gallbladder Estimated blood loss: Complications: Procedure details: Patient was brought to the OR and placed in a supine position. After administering general anesthesia the patient's abdomen was prepped with ChloraPrep and draped in a sterile fashion. Local anesthesia consisting of 0.5% Sensorcaine without epinephrine was infiltrated in a periumbilical region. A 5 mm incision was made above the umbilicus in a transverse fashion. The Veress needle was then inserted while elevating abdominal cavity with towel clips. Because of the patient's body habitus, Veress needle was unable to be inserted into the abdominal cavity therefore Person port was placed. The incision was widened and dissection continued down to the fascia. Two stay sutures were placed on the fascia and the fascia opened in the midline. Peritoneum was then brought up through the incision and incised with Metzenbaum scissors. Under direct vision the Person port was then inserted into the peritoneal cavity. This was then secured using the stay sutures. The abdomen was insufflated to a pressure 15 mmHg the camera inserted. A 12 mm trocar was then placed in the epigastrium. Two 5 mm trocars placed in the right upper quadrant by the assistant clinical director. The patient was placed in reverse Trendelenburg positioning and rotated to the left. The gallbladder was grasped with the fundus and retracted cephalad by the assistant clinical director. The infundibulum was then grasped and retracted away from the liver bed, also by the assistant clinical director. The Luisn dissector was then used by the surgeon to dissect the peritoneum off the infundibulum to reveal the junction with the cystic duct. Cystic artery was noted slightly medial and posterior to the cystic duct. After obtaining a critical view the cystic duct was doubly clipped and divided. The cystic artery was then doubly clipped and divided. The gallbladder was then dissected off the liver bed using electrocautery with an L hook. Hemostasis was assured all times using the electrocautery. When the gallbladder is completely dissected off the liver bed was placed in an Endo-Catch bag and brought out through the epigastric incision. The gallbladder was sent to pathology for further examination. The abdomen was then re-examined. The liver bed was irrigated and suctioned dry. No bleeding or bile leak could be identified. CO2 was then evacuated and all trocars removed. Fascia was closed at the umbilical incision using a [id number] 0 Polysorb suture. Skin was closed in all incisions using a subcuticular 4 0 Polysorb suture by both the surgeon and assistant clinical director. Sterile dressings consisting of Steri-Strips, 2 x 2 gauze, and Tegaderm were then applied. The patient tolerated the procedure well. Sponge instrument and needle counts reported as correct. The patient was transferred to PACU in stable condition.
--- NOTE | 2022-11-25 14:35 | HO.POSTANES ---
Post Anesthesia Evaluation Post Anesthesia Evaluation Date of Service: 11/25/22 Vital Signs: Vital Signs Temp Pulse Resp BP Pulse Ox O2 Del Method 11/25/22 12:47 45 L 11/25/22 12:23 98.1 F 50 16 137/60 99 Room Air 11/25/22 07:06 98 F 52 16 144/76 H 99 Room Air 11/25/22 03:18 96.7 F L 45 L 18 156/78 H 98 Room Air Anesthesia: General Endotracheal-GETA Mental Status: Awake Pain Control: Satisfactory Nausea/Vomiting: None Hydration: Adequate Anesthesia-Related Issues: No Anes. Related Issues
[2022-11-25] MEDS: fentaNYL citrate/PF 100 MCG/2 ML VIAL 50 MCG IVPUSH ×4 (15:10→15:42)
[2022-11-25] MEDS: Acetaminophen 1,000 MG/100 ML PIGGYBACK 400 MG IV (15:18)
[2022-11-25] MEDS: HYDROmorphone HCl 0.5 MG/0.5 ML SYRINGE IVPUSH ×3 (16:25→16:37)
[2022-11-26] VITALS (7 sets, daily range): BP systolic 113–164; BP diastolic 53–86; PULSE 53–63; RESP 16–20; TEMP 36–36.6; O2SAT 96–100
[2022-11-26] MEDS: Morphine Sulfate 4 MG/ML CARTRIDGE IVPUSH (01:22)
[2022-11-26] MEDS: Piperacillin Sodium/Tazobactam 4.5 GM in 0.9 % Sodium Chloride 100 ML IV ×4 (01:24→18:24)
[2022-11-26] MEDS: Omeprazole 40 MG CAPSULE.DR PO (06:17)
[2022-11-26 06:19] LABS: Anion Gap 14 (12-20); Blood Urea Nitrogen 12 mg/dL (9-16); Calcium 9.2 mg/dL (8.4-10.2); Carbon Dioxide 22 mmol/L (22-29); Chloride 107 mmol/L (96-108); Creatinine Clr Calc Pharmacy 114.2; Estimated Glomerular Filt Rate > 60; Glucose Random 116 mg/dL (60-115); Potassium 4.5 mmol/L (3.3-5.1); Sodium 138 mmol/L (135-145)
[2022-11-26] MEDS: HYDROmorphone HCl 0.5 MG/0.5 ML SYRINGE IVPUSH ×3 (06:21→22:43)
--- NOTE | 2022-11-26 07:48 | PM.PNGS ---
Subjective Subjective Date of Service: 11/26/22 Interval history: Patient with some incisional pain but otherwise had a good night. She was able to tolerate her diet last night without increased pain, nausea or vomiting. She reports taking her own Xeralto last night. Physical Exam Vital Signs: Vital Signs: Last Vital Signs Temp 98 F 11/26/22 04:00 Pulse 60 11/26/22 04:00 Resp 17 11/26/22 04:00 BP 113/53 L 11/26/22 04:00 Pulse Ox 96 11/26/22 04:00 O2 Del Method Room Air 11/26/22 04:00 O2 Flow Rate 2 11/25/22 17:37 BMI result Body Mass Index 38.4 Const: General: no acute distress and well developed Nutritional Appearance: well nourished Orientation/consciousness: patient oriented x3 Limitations: no limitations Resp: Effort & Inspection: normal respiratory effort GI: Other: Trocar incisions are clean, dry and intact. No evidence of bleeding. Neuro: General: patient oriented x3 Extrem: Other: no edema Objective Data Active Medications Acetaminophen (Acetaminophen 325 Mg Tablet) 650 mg PO Q6H PRN PRN Reason: Pain, Mild (Pain Scale 1-3) Acetaminophen (Acetaminophen 325 Mg Tablet) 650 mg PO ONCE PRN PRN Reason: Pain, Mild (Pain Scale 1-3) Albuterol Sulfate (Albuterol Sulfate (0.083%) 2.5 Mg/3 Ml Vial.Neb) 2.5 mg INHALE ONCE PRN PRN Reason: Wheezing Calcium Carbonate/Cholecalciferol (Calcium + Vitamin D 250 Mg Tablet) 500 mg PO DAILY [facility] Last Admin: 11/25/22 08:31 Dose: 500 mg Documented By: SAMMY Cyanocobalamin (Cyanocobalamin (Vitamin B-12) 1,000 Mcg Tablet) 1,000 mcg PO DAILY [facility] Last Admin: 11/25/22 08:31 Dose: 1,000 mcg Documented By: SAMMY Fentanyl (Fentanyl Citrate/Pf 100 Mcg/2 Ml Vial) 25 mcg IVPUSH Q5M PRN; Protocol PRN Reason: Pain, Moderate(Pain Scale 4-6) Fentanyl (Fentanyl Citrate/Pf 100 Mcg/2 Ml Vial) 50 mcg IVPUSH Q5M PRN; Protocol PRN Reason: Pain, Severe (Pain Scale 7-10) Hydromorphone HCl (Hydromorphone Hcl 0.5 Mg/0.5 Ml Syringe) 0.5 mg IVPUSH Q5M PRN; Protocol PRN Reason: Pain, Severe (Pain Scale 7-10) Last Admin: 11/26/22 06:21 Dose: 0.5 mg Documented By: BRENDA Lactated Ringer's (Lr) 1,000 mls @ 125 mls/hr IVCONT .Q8H [facility] Last Admin: 11/26/22 00:59 Dose: Not Given Documented By: BRENDA Non-Admin Reason: IV Running Promethazine HCl 6.25 mg/ (Sodium Chloride) 50.25 mls @ 201 mls/hr IV ONCE PRN PRN Reason: Nausea and Vomiting Piperacillin Sod/Tazobactam (Sod 4.5 gm/ Sodium Chloride) 100 mls @ 200 mls/hr IV Q6H [facility] Last Admin: 11/26/22 06:17 Dose: 200 mls/hr Documented By: BRENDA Lidocaine (Lidocaine 4 % Patch Adh..Patch) 1 patch TRANSDERMA DAILY [facility] Last Admin: 11/25/22 08:38 Dose: Not Given Documented By: SAMMY Non-Admin Reason: Patient Refused Melatonin (Melatonin 3 Mg Tablet) 6 mg PO BEDTIME PRN PRN Reason: Insomnia Multivitamins/Vitamin C (Multivitamin Tablet) 1 tab PO DAILY [facility] Last Admin: 11/25/22 08:31 Dose: 1 tab Documented By: SAMMY Nystatin/Triamcinolone Acetonide (Nystatin/Triamcinolone Cream 15 Gm Tube) 1 appl TOPICAL DAILY PRN; Protocol PRN Reason: Itching Omeprazole (Omeprazole 40 Mg Capsule.Dr) 40 mg PO DAILY@0630 [facility] Last Admin: 11/26/22 06:17 Dose: 40 mg Documented By: BRENDA Ondansetron HCl (Ondansetron Hcl 4 Mg/2 Ml Vial) 4 mg IVPUSH Q8H PRN PRN Reason: Nausea and Vomiting Last Admin: 11/21/22 04:17 Dose: 4 mg Documented By: YIFAN Ondansetron HCl (Ondansetron Hcl 4 Mg/2 Ml Vial) 4 mg IVPUSH ONCE PRN PRN Reason: Nausea and Vomiting Ondansetron HCl (Ondansetron Hcl 4 Mg/2 Ml Vial) 4 mg IVPUSH ONCE PRN PRN Reason: Nausea and Vomiting Pharmacy Consult (Consult Rx Perform Med Rec) 1 each MISCELLANE ONCE PRN PRN Reason: Consult order Sodium Chloride (0.9 % Sodium Chloride Flush 3 Ml Syringe) 3 ml IVFLUSH QSHIFT [facility] Last Admin: 11/26/22 01:11 Dose: Not Given Documented By: BRENDA Non-Admin Reason: Previously Administered Labs 11/25/22 06:03 11/26/22 05:44 Labs: Laboratory Results - last 24 hr 11/26/22 05:44 Anion Gap 14 Estim Creat Clear Calc 114.2 Estimated GFR > 60 Random Glucose 116 H Calcium 9.2 D Microbiology Microbiology Results: Microbiology 11/21/22 01:17 Blood Culture - Final Blood - Venous No growth after 5 days. 11/21/22 01:17 Blood Culture - Final Blood - Venous No growth after 5 days. Procedures Date of Service Date of Service: 11/26/22 Progress Note: A&P Assessment and plan (1) Choledocholithiasis: Status: Acute (2) Acute gallstone pancreatitis: Status: Acute Plan POD #1 s/p laparoscopic cholecystectomy. Patient is hemodynamically stable and tolerated the surgery well. She is tolerating po and ambulating well. She reports taking her own Xeralto last night. Possible discharge to home today; follow up in office in one week. Recommend not returning to work for one week. Time Spent With Patient Time: Total time managing care of this patient today ____ minutes. Quality Stroke Does the patient have a stroke diagnosis?: No VTE Prior VTE?: No VTE Risk Level:: Medical - moderate - high VTE Device Contraindication: N/A - Device Ordered VTE Drug Contraindication: Treatment Not Indicated
--- NOTE | 2022-11-26 07:52 | HO.POSTANES ---
Post Anesthesia Evaluation Post Anesthesia Evaluation Date of Service: 11/26/22 Vital Signs: Vital Signs Temp Pulse Resp BP Pulse Ox O2 Del Method 11/26/22 07:47 97.9 F 53 16 150/78 H 96 Room Air 11/26/22 04:00 98 F 60 17 113/53 L 96 Room Air 11/26/22 03:50 98 F 60 17 113/53 L 96 Room Air Anesthesia: General Endotracheal-GETA Mental Status: Awake Pain Control: Satisfactory Nausea/Vomiting: None Hydration: Adequate Anesthesia-Related Issues: No Anes. Related Issues
--- NOTE | 2022-11-26 07:56 | P.POSTANES_ITS ---
<Statement entered by Sameer Cohen MD - 12/09/22 09:47> signature did not go through Post Anesthesia Evaluation Post Anesthesia Evaluation Date of Service: 11/26/22 Vital Signs: Vital Signs Temp Pulse Resp BP Pulse Ox O2 Del Method 11/26/22 07:47 97.9 F 53 16 150/78 H 96 Room Air 11/26/22 04:00 98 F 60 17 113/53 L 96 Room Air 11/26/22 03:50 98 F 60 17 113/53 L 96 Room Air
[2022-11-26 08:29] LABS: Hematocrit 32.9 % (37.0-47.0); Hemoglobin 10.4 g/dl (12.0-16.0); Mean Corpuscular HGB Conc 31.6 g/dl (31.0-35.0); Mean Corpuscular Volume 85.5 fL (80.0-98.0); Mean Platelet Volume 11.7 fL (9.4-12.3); Platelet Count 281 X10*3/uL (160-400); Red Blood Count 3.85 X10*6/uL (4.20-5.50); Red Cell Distribution Width 14.6 % (11.0-16.0); White Blood Count 8.1 X10*3/uL (4.8-10.8)
[2022-11-26] MEDS: 0.9 % Sodium Chloride Flush 3 ML SYRINGE IVFLUSH ×2 (09:11→14:59)
[2022-11-26] MEDS: Lactated Ringers 1,000 ML 125 ML IVCONT (09:11)
[2022-11-26] MEDS: Multivitamin TABLET 1 TAB PO (09:12)
[2022-11-26] MEDS: Calcium + Vitamin D 250 MG TABLET 500 MG PO (09:12)
[2022-11-26] MEDS: Cyanocobalamin (Vitamin B-12) 1,000 MCG TABLET 1000 MCG PO (09:12)
--- NOTE | 2022-11-26 13:03 | P.PNIM_ITS ---
Subjective Subjective Date of Service: 11/26/22 Interval History: seen and evaluated this morning POD 1 complaining of RUQ pain no fever or chills plans for surgery today Review of Systems Review of Systems: Yes all other systems are reviewed and are negative Physical Exam Vital Signs: Vital Signs: Last Vital Signs Temp 96.8 F 11/26/22 12:11 Pulse 63 11/26/22 12:11 Resp 18 11/26/22 12:11 BP 164/78 H 11/26/22 12:11 Pulse Ox 97 11/26/22 12:11 O2 Del Method Room Air 11/26/22 12:11 O2 Flow Rate 2 11/25/22 17:37 BMI result Body Mass Index 38.4 Const: Other: General: AO X 3, no acute distress Resp: CTA bilateral CVS: S1,S2,RRR GI: +BS, mild RUQ tenderness Skin: No rash, surgical wound covered with dressing Neuro: motor grossly intact Psych: appropriate affect Objective Data Active Medications Acetaminophen (Acetaminophen 325 Mg Tablet) 650 mg PO Q6H PRN PRN Reason: Pain, Mild (Pain Scale 1-3) Acetaminophen (Acetaminophen 325 Mg Tablet) 650 mg PO ONCE PRN PRN Reason: Pain, Mild (Pain Scale 1-3) Albuterol Sulfate (Albuterol Sulfate (0.083%) 2.5 Mg/3 Ml Vial.Neb) 2.5 mg INHALE ONCE PRN PRN Reason: Wheezing Calcium Carbonate/Cholecalciferol (Calcium + Vitamin D 250 Mg Tablet) 500 mg PO DAILY [facility] Last Admin: 11/26/22 09:12 Dose: 500 mg Documented By: YAYA Cyanocobalamin (Cyanocobalamin (Vitamin B-12) 1,000 Mcg Tablet) 1,000 mcg PO DAILY [facility] Last Admin: 11/26/22 09:12 Dose: 1,000 mcg Documented By: YAYA Fentanyl (Fentanyl Citrate/Pf 100 Mcg/2 Ml Vial) 25 mcg IVPUSH Q5M PRN; Protocol PRN Reason: Pain, Moderate(Pain Scale 4-6) Fentanyl (Fentanyl Citrate/Pf 100 Mcg/2 Ml Vial) 50 mcg IVPUSH Q5M PRN; Protocol PRN Reason: Pain, Severe (Pain Scale 7-10) Hydromorphone HCl (Hydromorphone Hcl 0.5 Mg/0.5 Ml Syringe) 0.5 mg IVPUSH Q4H PRN; Protocol PRN Reason: Pain, Severe (Pain Scale 7-10) Promethazine HCl 6.25 mg/ (Sodium Chloride) 50.25 mls @ 201 mls/hr IV ONCE PRN PRN Reason: Nausea and Vomiting Piperacillin Sod/Tazobactam (Sod 4.5 gm/ Sodium Chloride) 100 mls @ 200 mls/hr IV Q6H [facility] Last Infusion: 11/26/22 09:12 Dose: 0 mls/hr Documented By: YAYA Lidocaine (Lidocaine 4 % Patch Adh..Patch) 1 patch TRANSDERMA DAILY [facility] Last Admin: 11/26/22 09:13 Dose: Not Given Documented By: YAYA Non-Admin Reason: Patient Refused Melatonin (Melatonin 3 Mg Tablet) 6 mg PO BEDTIME PRN PRN Reason: Insomnia Multivitamins/Vitamin C (Multivitamin Tablet) 1 tab PO DAILY [facility] Last Admin: 11/26/22 09:12 Dose: 1 tab Documented By: YAYA Nystatin/Triamcinolone Acetonide (Nystatin/Triamcinolone Cream 15 Gm Tube) 1 appl TOPICAL DAILY PRN; Protocol PRN Reason: Itching Omeprazole (Omeprazole 40 Mg Capsule.Dr) 40 mg PO DAILY@0630 [facility] Last Admin: 11/26/22 06:17 Dose: 40 mg Documented By: BRENDA Ondansetron HCl (Ondansetron Hcl 4 Mg/2 Ml Vial) 4 mg IVPUSH Q8H PRN PRN Reason: Nausea and Vomiting Last Admin: 11/21/22 04:17 Dose: 4 mg Documented By: YIFAN Ondansetron HCl (Ondansetron Hcl 4 Mg/2 Ml Vial) 4 mg IVPUSH ONCE PRN PRN Reason: Nausea and Vomiting Ondansetron HCl (Ondansetron Hcl 4 Mg/2 Ml Vial) 4 mg IVPUSH ONCE PRN PRN Reason: Nausea and Vomiting Pharmacy Consult (Consult Rx Perform Med Rec) 1 each MISCELLANE ONCE PRN PRN Reason: Consult order Sodium Chloride (0.9 % Sodium Chloride Flush 3 Ml Syringe) 3 ml IVFLUSH QSHIFT [facility] Last Admin: 11/26/22 09:11 Dose: 3 ml Documented By: YAYA Labs 11/26/22 07:56 11/26/22 05:44 Labs: Laboratory Results - last 24 hr 11/26/22 11/26/22 05:44 07:56 MCV 85.5 MCH 27.0 MCHC 31.6 RDW 14.6 Plt Count 281 MPV 11.7 Absolute Nucleated RBC 0.000 Nucleated RBC % (auto) 0.0 Anion Gap 14 Estim Creat Clear Calc 114.2 Estimated GFR > 60 Random Glucose 116 H Calcium 9.2 D Microbiology Microbiology Results: Microbiology 11/21/22 01:17 Blood Culture - Final Blood - Venous No growth after 5 days. 11/21/22 01:17 Blood Culture - Final Blood - Venous No growth after 5 days. Assessment and Plan (1) Biliary colic: Status: Acute (2) Cholecystitis: Status: Acute Plan This is a 52-year-old female with pertinent history of antiphospholipid syndrome on anticoagulation, gastroesophageal reflux disease who presents to the emergency department for evaluation of right sided abdominal pain. # Acute calculous cholecystitis, CBD dilatation confirmed on MRCP ERCP done 11/24/22, removing obstructing stone POD 1 post CCY Hold Xarelto DC IVF Dilaudid for pain Surgery following # Antiphospholipid syndrome. Hold Xarelto in anticipation of surgery DVT prophylaxis: Mechanical, ambulate need for inpatient: cholecystitis, POD 1 post CCY Time Spent With Patient Time: Total time managing care of this patient today ____ minutes. Quality Stroke Does the patient have a stroke diagnosis?: No VTE Prior VTE?: No VTE Risk Level:: Medical - moderate - high VTE Device Contraindication: N/A - Device Ordered VTE Drug Contraindication: Treatment Not Indicated
[2022-11-26] MEDS: Acetaminophen 325 MG TABLET 650 MG PO (13:30)
--- NOTE | 2022-11-26 15:57 | PC.NURSE ---
Staff members reported seeing pt. getting into the elevator, security alerted and they found pt. in Cafeteria getting food. Pt, directed back into the room and she stated she didn't know that she couldn't leave the floor, also adding in [place] she would even go in her car to smoke Cigarette. Education and [facility] policies were discussed. Pt. agreed.
--- NOTE | 2022-11-26 16:48 | MHC.CM.PN ---
DP Home self care. Patient will arrange for transport home. Per MD rounds Pt not medically cleared for DC today. Discharge is anticipated tomorrow.
[2022-11-27] MEDS: Piperacillin Sodium/Tazobactam 4.5 GM in 0.9 % Sodium Chloride 100 ML IV ×2 (00:50→06:16)
[2022-11-27] MEDS: 0.9 % Sodium Chloride Flush 3 ML SYRINGE IVFLUSH ×2 (00:55→08:38)
[2022-11-27 02:53] VITALS: BP 150/70; PULSE 53; RESP 18; TEMP 36.6; O2SAT 98
[2022-11-27] MEDS: HYDROmorphone HCl 0.5 MG/0.5 ML SYRINGE IVPUSH ×2 (03:46→08:39)
[2022-11-27 06:04] LABS: Anion Gap 16 (12-20); Blood Urea Nitrogen 12 mg/dL (9-16); Calcium 9.1 mg/dL (8.4-10.2); Carbon Dioxide 25 mmol/L (22-29); Chloride 103 mmol/L (96-108); Creatinine Clr Calc Pharmacy 118.6; Estimated Glomerular Filt Rate > 60; Glucose Random 93 mg/dL (60-115); Potassium 4.1 mmol/L (3.3-5.1); Sodium 140 mmol/L (135-145)
[2022-11-27 06:06] LABS: Alanine Aminotransferase 114 U/L (0-31); Albumin Level 3.4 g/dL (3.5-5.0); Alkaline Phosphatase 117 U/L (39-117); Aspartate Amino Transferase 50 U/L (5-31); Bilirubin Direct 0.3 mg/dL (0.0-0.5); Bilirubin Total 0.6 mg/dL (0.0-1.0); Total Protein 6.5 g/dL (6.5-8.0)
[2022-11-27] MEDS: Omeprazole 40 MG CAPSULE.DR PO (06:15)
[2022-11-27 07:27] VITALS: BP 121/71; PULSE 95; RESP 18; TEMP 36.3; O2SAT 99
--- NOTE | 2022-11-27 08:08 | PM.PNGS ---
Subjective Subjective Date of Service: 11/27/22 Interval history: Patient reports some pain in her siblings but otherwise feels improved. She was able to the 3 meals yesterday without nausea or vomiting. Physical Exam Vital Signs: Vital Signs: Last Vital Signs Temp 97.3 F 11/27/22 07:27 Pulse 95 11/27/22 07:27 Resp 18 11/27/22 07:27 BP 121/71 11/27/22 07:27 Pulse Ox 99 11/27/22 07:27 O2 Del Method Room Air 11/27/22 07:27 O2 Flow Rate 2 11/25/22 17:37 BMI result Body Mass Index 38.4 Const: General: no acute distress Nutritional Appearance: well nourished Orientation/consciousness: patient oriented x3 Resp: Effort & Inspection: normal respiratory effort GI: Other: Wounds are clean, dry, and intact without redness or discharge. Palpation (GI): Soft to palpation, no guarding and not rigid Skin: General skin exam: no rashes or lesions noted Neuro: General: patient oriented x3 Extrem: General: Yes normal exam except as noted Objective Data Active Medications Acetaminophen (Acetaminophen 325 Mg Tablet) 650 mg PO Q6H PRN PRN Reason: Pain, Mild (Pain Scale 1-3) Last Admin: 11/26/22 13:30 Dose: 650 mg Documented By: YAYA Acetaminophen (Acetaminophen 325 Mg Tablet) 650 mg PO ONCE PRN PRN Reason: Pain, Mild (Pain Scale 1-3) Albuterol Sulfate (Albuterol Sulfate (0.083%) 2.5 Mg/3 Ml Vial.Neb) 2.5 mg INHALE ONCE PRN PRN Reason: Wheezing Calcium Carbonate/Cholecalciferol (Calcium + Vitamin D 250 Mg Tablet) 500 mg PO DAILY [facility] Last Admin: 11/26/22 09:12 Dose: 500 mg Documented By: YAYA Cyanocobalamin (Cyanocobalamin (Vitamin B-12) 1,000 Mcg Tablet) 1,000 mcg PO DAILY [facility] Last Admin: 11/26/22 09:12 Dose: 1,000 mcg Documented By: YAYA Fentanyl (Fentanyl Citrate/Pf 100 Mcg/2 Ml Vial) 25 mcg IVPUSH Q5M PRN; Protocol PRN Reason: Pain, Moderate(Pain Scale 4-6) Fentanyl (Fentanyl Citrate/Pf 100 Mcg/2 Ml Vial) 50 mcg IVPUSH Q5M PRN; Protocol PRN Reason: Pain, Severe (Pain Scale 7-10) Hydromorphone HCl (Hydromorphone Hcl 0.5 Mg/0.5 Ml Syringe) 0.5 mg IVPUSH Q4H PRN; Protocol PRN Reason: Pain, Severe (Pain Scale 7-10) Last Admin: 11/27/22 03:46 Dose: 0.5 mg Documented By: MARILOU Promethazine HCl 6.25 mg/ (Sodium Chloride) 50.25 mls @ 201 mls/hr IV ONCE PRN PRN Reason: Nausea and Vomiting Piperacillin Sod/Tazobactam (Sod 4.5 gm/ Sodium Chloride) 100 mls @ 200 mls/hr IV Q6H [facility] Last Admin: 11/27/22 06:16 Dose: 200 mls/hr Documented By: MARILOU Lidocaine (Lidocaine 4 % Patch Adh..Patch) 1 patch TRANSDERMA DAILY [facility] Last Admin: 11/26/22 09:13 Dose: Not Given Documented By: YAYA Non-Admin Reason: Patient Refused Melatonin (Melatonin 3 Mg Tablet) 6 mg PO BEDTIME PRN PRN Reason: Insomnia Multivitamins/Vitamin C (Multivitamin Tablet) 1 tab PO DAILY [facility] Last Admin: 11/26/22 09:12 Dose: 1 tab Documented By: YAYA Nystatin/Triamcinolone Acetonide (Nystatin/Triamcinolone Cream 15 Gm Tube) 1 appl TOPICAL DAILY PRN; Protocol PRN Reason: Itching Omeprazole (Omeprazole 40 Mg Vijaya.) 40 mg PO DAILY@0630 [facility] Last Admin: 11/27/22 06:15 Dose: 40 mg Documented By: MARILOU Ondansetron HCl (Ondansetron Hcl 4 Mg/2 Ml Vial) 4 mg IVPUSH Q8H PRN PRN Reason: Nausea and Vomiting Last Admin: 11/21/22 04:17 Dose: 4 mg Documented By: YIFAN Ondansetron HCl (Ondansetron Hcl 4 Mg/2 Ml Vial) 4 mg IVPUSH ONCE PRN PRN Reason: Nausea and Vomiting Ondansetron HCl (Ondansetron Hcl 4 Mg/2 Ml Vial) 4 mg IVPUSH ONCE PRN PRN Reason: Nausea and Vomiting Pharmacy Consult (Consult Rx Perform Med Rec) 1 each MISCELLANE ONCE PRN PRN Reason: Consult order Sodium Chloride (0.9 % Sodium Chloride Flush 3 Ml Syringe) 3 ml IVFLUSH QSHIFT [facility] Last Admin: 11/27/22 00:55 Dose: 3 ml Documented By: MARILOU Labs 11/26/22 07:56 11/27/22 05:28 Labs: Laboratory Results - last 24 hr 11/26/22 11/27/22 11/27/22 07:56 05:28 05:28 MCV 85.5 MCH 27.0 MCHC 31.6 RDW 14.6 Plt Count 281 MPV 11.7 Absolute Nucleated RBC 0.000 Nucleated RBC % (auto) 0.0 Anion Gap 16 Estim Creat Clear Calc 118.6 Estimated GFR > 60 Random Glucose 93 Calcium 9.1 Total Bilirubin 0.6 Direct Bilirubin 0.3 AST 50 H ALT 114 H Alkaline Phosphatase 117 Total Protein 6.5 Albumin 3.4 L Procedures Date of Service Date of Service: 11/27/22 Progress Note: A&P Assessment and plan (1) Choledocholithiasis: Status: Acute (2) Biliary colic: Status: Acute Plan 52-year-old female patient status post laparoscopic cholecystectomy pod 2 for choledocholithiasis and gallstone pancreatitis. She remains hemodynamically stable. H&H has drifted slightly but not significantly. She is tolerating regular diet and passed her bowels normally. Clear for discharge from my standpoint. Follow-up in office in 1 week. Time Spent With Patient Time: Total time managing care of this patient today ____ minutes. Quality Stroke Does the patient have a stroke diagnosis?: No VTE Prior VTE?: No VTE Risk Level:: Medical - moderate - high VTE Device Contraindication: N/A - Device Ordered VTE Drug Contraindication: Treatment Not Indicated
[2022-11-27] MEDS: Cyanocobalamin (Vitamin B-12) 1,000 MCG TABLET 1000 MCG PO (08:38)
[2022-11-27] MEDS: Multivitamin TABLET 1 TAB PO (08:38)
[2022-11-27] MEDS: Calcium + Vitamin D 250 MG TABLET 500 MG PO (08:38)
--- NOTE | 2022-11-27 11:51 | P.DS_ITS ---
DS: Providers Provider Date of Service: 11/27/22 Date of admission: 11/21/22 03:43 Primary care physician: Zafar Espinoza MD Consults: 11/21/22 04:06 Consult to General Surgery Routine Consulting Provider: [facility] Reason for consultation: cholecystitis 11/22/22 08:21 Consult to Gastroenterology Routine Consulting Provider: Kay Robison Reason for consultation: CBD stone, needs ERCP Has provider been notified: No DS: Diagnosis Discharge Diagnosis (1) Choledocholithiasis: Status: Acute (2) Biliary colic: Status: Acute (3) Acute gallstone pancreatitis: Status: Acute (4) Cholecystitis: Status: Acute (5) On anticoagulant therapy: Status: Acute (6) Antiphospholipid syndrome: Status: Acute DS: Summary Hospital Course Hospital Course: Admission note HPI This is a 52-year-old female with pertinent history of antiphospholipid syndrome on anticoagulation, gastroesophageal reflux disease who presents to the emergency department for evaluation of right sided abdominal pain.? Patient states that she has been having right upper quadrant abdominal pain for the last 3 weeks.? Initially it was intermittent but progressed to being constant.? It is worse with p.o. intake and associated with nausea and multiple episodes of emesis.? Patient was seen in the ER on 11/17 and discharged.? Patient states she went to [facility] where gallstones were found.? She followed up with General surgery as an outpatient on 11/20 and cholecystectomy was planned for 12/03.? Patient states she continued to have severe abdominal pain not relieved on p.o. oxycodone and hence she decided to present to the ER.? Unable to tolerate p.o. intake.? Also complains of chills.? She denies fever, chest palpitations, shortness of breath, changes in urinary or bowel habits.In the emergency depa rtment, imaging with cholelithiasis and dilated CBD Hospital course Admitted for abdominal pain. Noticed to have Acute calculous cholecystitis, an MRCP done showing CBD dilatation with likely stone obstruction. ERCP done 11/24/22, removing obstructing stone. GI recommended to hold anticoagulation for 5 days post op. Went to laproscopic cholecystectomy on 11/25 with good response as the pain improved and she was able to tolerate diet which was advanced gradually as the patient was followed by surgical team who cleared her to discharge. To finish 10 days of Abx. Has hx of Antiphospholipid syndrome.?with continue to Hold Xarelto ntil 11/30 per GI recommendations. Continue Antibiotics as prescribed Pain medication as needed Advance your diet at home To follow with dr Perea as scheduled outpatient for wound check Time Spent with Patient Time attestation: Total time managing care of this patient today ____ minutes. Discharge coordination time: Greater than 30 minutes Quality: Safe Use of Opioids Does Pt have an Active Cancer Diagnosis on the Problem List?: No Quality: Stroke Does the patient have a stroke diagnosis?: No Physical Exam Vital Signs: Vital Signs: Last Vital Signs Temp 97.3 F 11/27/22 07:27 Pulse 95 11/27/22 07:27 Resp 18 11/27/22 07:27 BP 121/71 11/27/22 07:27 Pulse Ox 99 11/27/22 07:27 O2 Del Method Room Air 11/27/22 07:27 O2 Flow Rate 2 11/25/22 17:37 BMI result Body Mass Index 38.4 Const: Other: General: AO X 3, no acute distress Resp: CTA bilateral CVS: S1,S2,RRR GI: +BS, mild RUQ tenderness Skin: No rash, surgical wound covered with dressing Neuro: motor grossly intact Psych: appropriate affect DS: Data Data Completed and Pending Pending studies at discharge: Pending at discharge 11/25/22 14:38 Surgical [PTH] Routine Labs on day of discharge: Laboratory Results - last 24 hr 11/27/22 11/27/22 05:28 05:28 Sodium 140 Potassium 4.1 Chloride 103 Carbon Dioxide 25 Anion Gap 16 BUN 12 Creatinine 0.77 Estim Creat Clear Calc 118.6 Estimated GFR > 60 Random Glucose 93 Calcium 9.1 Total Bilirubin 0.6 Direct Bilirubin 0.3 AST 50 H ALT 114 H Alkaline Phosphatase 117 Total Protein 6.5 Albumin [address] scan - abdomen: Radiologist's impression: ITS Impressions Abdomen Ultrasound 11/21/22 02:30 IMPRESSION: 1. Cholelithiasis, including in the gallbladder neck which appear nonmobile. Though there is no abnormal wall thickening, right upper quadrant tenderness was reported during the exam. If there is clinical concern for acute cholecystitis, assessment with nuclear medicine hepatobiliary scan may be more definitive. 2. Dilated common bile duct measuring up to 0.9 cm in diameter. No visible choledocholithiasis, though a distal obstructing stone remains a possibility. This may be further evaluated with MRCP or ERCP. Cholangiopancreatography MRI 11/21/22 17:38 IMPRESSION: 1. Biliary ductal dilatation with filling defects in the lower third of the common bile duct that could be related with choledocholithiasis. Recommend ERCP as clinically indicated. 2. Cholelithiasis without evidence of acute cholecystitis. 3. Usam-wk-[id number] indeterminate left-sided hydronephrosis. Guidance Fluoroscopy 11/24/22 18:07 IMPRESSION: Fluoroscopy performed by the gastroenterology department. Please see the operative report for additional information. Discharge Plan Discharge Anticipated Discharge Date/Time: 11/27/22 11:44 Patient Disposition: Home, Self-Care Discharge Diagnosis: Acute cholecystitis and pancreatitis Gallbladder stones post laparoscopic cholecystectomy Referrals: Zafar Espinoza MD [Primary Care Provider] - 1 Week Discharge Medications: New ondansetron 4 mg tablet,disintegrating 4 mg PO Q8H PRN (Reason: nausea and vomiting) Qty: 14 0RF oxycodone 5 mg tablet 5 mg PO Q6H PRN (Reason: pain (scale score 7-10)) Qty: 15 0RF Rx Instructions: Partial Fill upon patient request. amoxicillin-pot clavulanate 875-125 mg tablet 1 tab PO BID Qty: 6 0RF Continued multivitamin Tablet 1 tab PO DAILY cyanocobalamin (vitamin B-12) 1,000 mcg Tablet 1,000 mcg PO DAILY oxycodone 5 mg tablet 5 mg PO TID PRN (Reason: Pain) nystatin-triamcinolone 100,000-0.1 unit/g-% cream 1 appl topical DAILY PRN (Reason: Itching) Rx Instructions: Applied to right medial calf daily as prescribed diclofenac sodium [Arthritis Pain (diclofenac)] 1 % gel 4 g topical QID PRN (Reason: Pain) Rx Instructions: apply to affected areas calcium carbonate-vitamin D3 [Calcium 500 With D] 500 mg-10 mcg (400 unit) tablet 1 tab PO DAILY omeprazole 40 mg capsule,delayed release(DR/EC) 40 mg PO DAILY@0630 lidocaine 5 % adhesive patch,medicated 1 patch topical DAILY 30 Days Qty: 30 0RF (DME) Knee Support Brace Misc See Rx Instructions .Route Qty: 1 0RF Rx Instructions: As directed Held Xarelto 20 mg tablet 20 mg PO DAILY@1800 Hold Instructions: Resume on 11/30/22. Discharge Orders: Discharge Order (Routine); Ordered 11/27/22 Ordered By: Dave Sanchez Diet: Low fat, low cholesterol Activity on Discharge: As tolerated Stand Alone Forms: Patient Portal Discharge page, Work/School Release Care Plan Goals: Read below Health Concerns: Read below Plan of Treatment: Read below Assessment: You were admitted to the hospital for evaluation of abdominal pain. found to have gallbladder inflammation with an obstructing stone to your billiary track r emoved by ERCP procedure. you were seen by surgery team who performed laproscopic cholecystectomy with good tolerance. Treated with IV antibiotics and pain medications. Continue Antibiotics as prescribed Pain medication as needed Advance your diet at home To follow with dr Perea as scheduled outpatient for wound check
--- NOTE | 2022-11-27 12:28 | MHC.CM.PN ---
PT WILL DC HOME TODAY WITH NO SERVICES VIA SELF ARRANGED TRANSPORT
== END 2022-11-27 13:00 | disposition home or self-care (01) | DRG 263 ==
LOC: HO.ED 11-21 04:22 → HO.EDOVER 11-21 04:31 → HO.S3 11-21 13:16
PROVIDERS: Internal Medicine; Internal Medicine Gastroenterology; Surgery; Admitting Provider Student in an Organized Health Care Education/Training Program; Emergency Provider Internal Medicine; PCP Internal Medicine; Visit Provider Student in an Organized Health Care Education/Training Program
PROC: 0FC98ZZ Extirpation of Matter from Common Bile Duct, Via Natural or Artificial Opening Endoscopic (ICD-10-PCS; CPT 43260; principal; 2022-11-24 16:00)
PROC: 0FT44ZZ Resection of Gallbladder, Percutaneous Endoscopic Approach (ICD-10-PCS; CPT 47562; principal; 2022-11-25 13:00)
DX: K80.42 Calculus of bile duct with acute cholecystitis without obstruction (principal); K85.10 Biliary acute pancreatitis without necrosis or infection; D68.61 Antiphospholipid syndrome; K21.9 Gastro-esophageal reflux disease without esophagitis; Z79.01 Long term (current) use of anticoagulants; Z98.84 Bariatric surgery status; Z86.711 Personal history of pulmonary embolism; Z87.891 Personal history of nicotine dependence; Z79.899 Other long term (current) drug therapy; Z86.718 Personal history of other venous thrombosis and embolism
CPT/HCPCS: 36415; 74181; 76705; 80048; 80053; 80076; 81003; 83605; 83690; 84484; 85025; 85027; 87040; 88304; 99285; J0131; J1100; J1170; J1610; J2250; J2270; J2405; J2543; J2795; J3010; Q9967

== ENCOUNTER → 2022-11-21 00:44 | Outpatient (BNV) | payer OTHER, SELFPAY | PROVIDERS: Emergency Provider Internal Medicine; PCP Internal Medicine; Visit Provider Student in an Organized Health Care Education/Training Program | DX: K80.50 Calculus of bile duct without cholangitis or cholecystitis without obstruction (principal) | CPT/HCPCS: 99222; 99232; 99239; 99499 ==

== ENCOUNTER → 2022-11-21 03:43 | Outpatient (BNV) | payer OTHER, SELFPAY | PROVIDERS: Admitting Provider Student in an Organized Health Care Education/Training Program; Emergency Provider Internal Medicine; PCP Internal Medicine; Visit Provider Surgery | DX: K85.10 Biliary acute pancreatitis without necrosis or infection (principal); K81.9 Cholecystitis, unspecified | CPT/HCPCS: 47562; 99024; 99223; 99231; 99232 ==

== ENCOUNTER → 2022-11-21 03:43 | Outpatient (BNV) | payer OTHER, SELFPAY | PROVIDERS: Admitting Provider Student in an Organized Health Care Education/Training Program; Emergency Provider Internal Medicine; PCP Internal Medicine; Visit Provider Internal Medicine Gastroenterology | DX: K80.50 Calculus of bile duct without cholangitis or cholecystitis without obstruction (principal); K85.10 Biliary acute pancreatitis without necrosis or infection | CPT/HCPCS: 99223 ==

== ENCOUNTER 2022-12-09 09:35 | Outpatient (AMB) | payer OTHER, SELFPAY ==
--- NOTE | 2022-12-09 09:37 | A.OFFVIS_ITS ---
Intake Vital Signs 12/09/22 09:49 Height 5 ft 9 in Weight 265 lb 2 oz BMI 39.1 BP 180/82 H Blood Pressure Location Lt brachial Position Sitting Pulse 94 Intake Visit Reasons: S/P lap sofía Intake Note: Patient is seen in office for post op assessment post laparoscopic cholecystectomy. 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 Accompanied by: Self / Same As Patient Allergies shellfish derived Allergy (Verified 12/09/22 09:38) Unknown Medication List - Last Reconciled 12/09/22 by Lance Perea MD amoxicillin-pot clavulanate 875-125 mg 1 tab PO BID calcium carbonate-vitamin D3 500 mg-10 mcg (400 unit) (Calcium 500 With D) 1 tab PO DAILY cyanocobalamin (vitamin B-12) 1,000 mcg PO DAILY diclofenac sodium 1% (Arthritis Pain (diclofenac)) 4 grams topical QID PRN leg brace (Knee Support Brace) As directed lidocaine 5% 1 patch topical DAILY 30 days multivitamin 1 tab PO DAILY nystatin-triamcinolone 100,000-0.1 unit/g-% 1 appl topical DAILY PRN omeprazole 40 mg PO DAILY@0630 ondansetron 4 mg PO Q8H PRN oxycodone 5 mg PO TID PRN oxycodone 5 mg PO Q6H PRN rivaroxaban (Xarelto) 20 mg PO DAILY@1800 HPI HPI Comments History of Present Illness Details 52-year-old female patient status post laparoscopic cholecystectomy for acute cholecystitis. She returns 1 week following surgery and reports feeling much improved. She is eating well without nausea or vomiting. She denies diarrhea or constipation. She does have some incisional discomfort and occasional discomfort in the right shoulder. She denies fever or chills. [facility] Medical History (Updated 11/28/22 @ 00:02 by Rut Brady) Antiphospholipid syndrome Choledocholithiasis Diabetes DVT (deep venous thrombosis) On anticoagulant therapy Pulmonary embolism Tubal ligation evaluation Venous stasis of lower extremity Surgical History H/O gastric sleeve H/O skin graft H/O: knee surgery History of History of laparoscopic cholecystectomy (11/25/22) Family History Maternal Aunt Breast CA Social History Household Members: Significant Other and Family Housing: House Do you presently have visiting nurse or other home services: No Alcohol intake: never Patient Tobacco Use Status: Former Tobacco user Cigarettes Per Day: 4 Second Hand Smoke Exposure: No Substance Use Type: Marijuana service: No Current occupational status: employed Female Reproductive History Menstrual Age of Menarche: 13 Physical Exam Vital Signs: Last Vital Signs Pulse 94 12/09/22 09:49 BP 180/82 H 12/09/22 09:49 BMI result Body Mass Index 39.1 Const General: no acute distress Nutritional Appearance: well nourished Orientation/consciousness: patient oriented x3 Limitations: no limitations Resp Effort & Inspection: normal respiratory effort GI Other: Trocar incisions are clean, dry, and intact without redness or discharge. No hernias identified. Skin General skin exam: no rashes or lesions noted Neuro General: patient oriented x3 Assessment & Plan Assessment & Plan (1) Chronic cholecystitis due to cholelithiasis with choledocholithiasis: Code(s): K80.64 - Calculus of gallbladder and bile duct with chronic cholecystitis without obstruction Plan 52-year-old female patient status post laparoscopic cholecystectomy she feels much improved and her wounds are healing nicely. She may return to work but should avoid lifting greater than 10 lb for the next week. She should also avoid greasy/fried foods for 1 month. She should follow up as needed. Medications: Discontinued nystatin-triamcinolone 100,000-0.1 unit/g-% Applied to right medial calf daily as prescribed 1 appl topical DAILY 30 grams 0RF diclofenac sodium 1% 4 grams topical QID 100 grams 0RF pain M17.11 - Unilateral primary osteoarthritis, right knee, M25.561 - Pain in right knee Coding Level of Care Code Global (44541) Diagnoses Chronic cholecystitis due to cholelithiasis with choledocholithiasis K80.64
[2022-12-09 09:49] VITALS: BP 180/82; PULSE 94; BMI 39.1
== END 2022-12-09 09:58 | disposition home or self-care (01) ==
PROVIDERS: PCP Internal Medicine; Visit Provider Surgery
DX: K80.64 Calculus of gallbladder and bile duct with chronic cholecystitis without obstruction (principal)
CPT/HCPCS: 99024

== ENCOUNTER → 2022-12-09 09:35 | Outpatient (BNVA) | payer OTHER, SELFPAY | PROVIDERS: PCP Internal Medicine; Visit Provider Surgery ==

== ENCOUNTER 2023-01-29 14:30 | Outpatient (AMB) | payer OTHER, SELFPAY ==
[2023-01-29 14:32] VITALS: BMI 39.1
--- NOTE | 2023-01-29 14:32 | MHC.OFFVIS ---
Intake Vital Signs 01/29/23 14:32 Height 5 ft 9 in Weight 265 lb BMI 39.1 Intake Visit Reasons: OV-right lower extremity Cyanoacralate ablation Intake Note: Emy is a 52 year old female who presents today for a follow up of her right knee. Last injection was done on 10/27/22, she reports that she had about 2 months of relief with this injection. She would like to talk about other treatment options. Allergies shellfish derived Allergy (Verified 01/29/23 15:20) Unknown HPI OV-right lower extremity Cyanoacralate ablation HPI Details Emy is a 52 year old woman who Returns to discuss her right knee OA. She has a right MMT & is ~8 months S/P a RLE Cyanoacrylate ablation due to a Hx of DVT & APS. She was last seen and injected on 10/27/22, and sent for PT. She says her last injection was helpful for ~2 months and she would like to discuss alternative treatment options. She complains of pain with daily activity, worse with waking, using stairs, and at night. She says she has changed positions at her job and it involves more amounts of walking. She says her pain was worse after prolonged sitting instead of walking. [facility] Medical History (Updated 01/29/23 @ 16:13 by Ankush Vidal MD) Choledocholithiasis On anticoagulant therapy Tubal ligation evaluation Venous stasis of lower extremity Pulmonary embolism DVT (deep venous thrombosis) Diabetes Antiphospholipid syndrome Surgical History H/O gastric sleeve H/O skin graft H/O: knee surgery History of History of laparoscopic cholecystectomy (11/25/22) Family History Maternal Aunt Breast CA Social History Household Members: Significant Other and Family Housing: House Do you presently have visiting nurse or other home services: No Alcohol intake: never Patient Tobacco Use Status: Former Tobacco user Cigarettes Per Day: 4 Second Hand Smoke Exposure: No Substance Use Type: Marijuana service: No Current occupational status: employed Female Reproductive History Menstrual Age of Menarche: 13 Review of Systems Const All systems reviewed & are unremarkable except as noted in HPI and below Physical Exam Vital Signs: BMI result Body Mass Index 39.1 Const General: no acute distress, alert and awake Orientation/consciousness: patient oriented x3 HEENT Head: Yes normocephalic and Yes atraumatic Eyes EOM: EOMs intact bilaterally Resp Effort & Inspection: normal respiratory effort and able to speak in complete sentences Cardio Jugular venous distension: no JVD Skin General skin exam: turgor normal Rashes: no rashes Neuro General: patient oriented x3 Extrem Other: Right Knee: Retropatellar TTP - Jose E's No JLT Psych Appearance: grossly normal Affect: normal affect Attitude: cooperative Results Reviewed Results Reviewed: I personally reviewed relevant MR images 1.? High-grade radial tear at the medial meniscal body with partial extrusion of the meniscal body. Probable small radial tear at the posterior horn, as well. ? 2.? Ebatlszs-bj-nfplju medial compartment osteoarthritis. More hgtp-dd-jxixojmc patellofemoral and mild lateral compartment osteoarthritis. ? 3.? Small joint effusion and Grayson's cyst. Assessment & Plan Assessment & Plan (1) Osteoarthritis of right knee: Code(s): M17.11 - Unilateral primary osteoarthritis, right knee Plan: This is a 52 year old woman with moderate-severe right knee OA. She has pain with daily activity, worse with ambulation, stairs, and at night. Her pain has improved since she switched duties at work, as she is now spending most of her shift ambulating opposed to sitting. She has a Hx of DVT & APS, and is S/P Cyanoacrylate ablation, DOS: 06/05/[address] Vidal. She found ~2 months of relief from her previous steroid injection and has been attending PT. I discussed her diagnosis and treatment options. TKA may be an option but her vascular status puts her at risk. She is currently taking Xarelto and is not able to take NSAIDs at this time. She would like to delay injections at this time as her pain is tolerable. I ordered a topical compounding cream for her to use prn. She can follow up prn. (2) DVT (deep venous thrombosis): Code(s): I82.409 - Acute embolism and thrombosis of unspecified deep veins of unspecified lower extremity Plan: Hx of DVT, on Xarelto, S/P Cyanoacrylate ablation, DOS: 06/05/[address] Vidal (3) Antiphospholipid syndrome: Code(s): D68.61 - Antiphospholipid syndrome Plan Scribed for Marco Norton MD by Ronald Dong, medical instrument technician, on 01/29/23 at 3:00 PM, EST. Coding Level of Care Code Est Pt Level 4 (30956) Diagnoses Osteoarthritis of right knee M17.11 DVT (deep venous thrombosis) I82.409 Antiphospholipid syndrome D68.61
== END 2023-01-29 15:11 | disposition home or self-care (01) ==
PROVIDERS: PCP Internal Medicine; Visit Provider Orthopaedic Surgery
DX: M17.11 Unilateral primary osteoarthritis, right knee (principal); S83.231A Complex tear of medial meniscus, current injury, right knee, initial encounter; I82.409 Acute embolism and thrombosis of unspecified deep veins of unspecified lower extremity; D68.61 Antiphospholipid syndrome
CPT/HCPCS: 99213

== ENCOUNTER → 2023-01-29 14:30 | Outpatient (BNVA) | payer OTHER, SELFPAY | PROVIDERS: PCP Internal Medicine; Visit Provider Orthopaedic Surgery | DX: I83.11 Varicose veins of right lower extremity with inflammation (principal); M17.11 Unilateral primary osteoarthritis, right knee; D68.61 Antiphospholipid syndrome; Z86.718 Personal history of other venous thrombosis and embolism; Z79.01 Long term (current) use of anticoagulants; Z98.890 Other specified postprocedural states | CPT/HCPCS: 99212 ==

== ENCOUNTER 2023-01-29 15:10 | Outpatient (AMB) | payer OTHER, SELFPAY ==
--- NOTE | 2023-01-29 15:18 | MHC.OFFVIS ---
Intake Intake Visit Reasons: Add-on for wounds w/ Hx of Venaseal 06/06/22 Intake Note: pt here for 3 month fu vein check she says that her right leg has been worst and she is getting ulcers and blister shes in pain 7 out of 10 and she is still waiting on a appointment from wound care Allergies shellfish derived Allergy (Verified 01/29/23 15:20) Unknown HPI Add-on for wounds w/ Hx of Venaseal 06/06/22 HPI Details Very pleasant 51-year-old female who had undergone previous right lower extremity great saphenous vein Cyanoacralate ablation presents for follow-up with continued nonhealing ulcers of the right calf. She reports that she has some swelling and discomfort but has developed these small ulcerations. She reports persistent pain of the leg as well. She now presents to us for follow-up of that right leg. [facility] Medical History (Updated 01/29/23 @ 16:13 by Ankush Vidal MD) Choledocholithiasis On anticoagulant therapy Tubal ligation evaluation Venous stasis of lower extremity Pulmonary embolism DVT (deep venous thrombosis) Diabetes Antiphospholipid syndrome Surgical History H/O gastric sleeve H/O skin graft H/O: knee surgery History of History of laparoscopic cholecystectomy (11/25/22) Family History Maternal Aunt Breast CA Social History Household Members: Significant Other and Family Housing: House Do you presently have visiting nurse or other home services: No Alcohol intake: never Patient Tobacco Use Status: Former Tobacco user Cigarettes Per Day: 4 Second Hand Smoke Exposure: No Substance Use Type: Marijuana service: No Current occupational status: employed Female Reproductive History Menstrual Age of Menarche: 13 Review of Systems Const All systems reviewed & are unremarkable except as noted in HPI and below Reports no additional complaints ENT Reports Normal hearing present Card Denies chest pain, Denies chest pain at rest, Denies chest pain with activity and Denies pedal edema Resp Denies cough GI Denies abdominal pain Musc Denies abnormal gait, Denies muscle cramps and Denies radiating pain into limb Skin/Breast Denies skin ulcer and Denies wounds Neuro Reports Normal hearing present and Denies abnormal gait Psych Reports no additional complaints Physical Exam Const General: cooperative, healthy appearing and comfortable Orientation/consciousness: oriented to person, oriented to place and oriented to time HEENT Head: Yes normal to inspection Neck Neck: Yes normal visual inspection Carotids: no bruits Chest Chest palpation & inspection: normal inspection of the chest Resp Effort & Inspection: normal respiratory effort and able to speak in complete sentences Auscultation: clear to auscultation bilaterally, no crackles, no rales, no rhonchi and no wheezes Cardio Rate: regular rate Rhythm: regular rhythm Heart sounds: S1 normal heart sound present and S2 normal heart sound present Bruits: no carotid bruits Peripheral pulses: Peripheral pulses 2+ throughout GI Inspection: Yes normal to inspection Skin Other: Right medial calf skin discoloration with punctate ulcerations. Wounds: no wounds Hair: normal Neuro General: oriented to person, oriented to place and oriented to time Cranial nerves: Yes CN's II-XII intact bilaterally and Yes Normal hearing present Cognition (Neuro): normal cognition Motor exam (neuro): 5/5 motor strength present throughout Extrem Other: venous exam: No significant superficial varicosities or spider telangiectasias, minimal edema General: No clubbing, No cyanosis and No edema Psych Appearance: grossly normal Mental Status: mental status grossly normal Speech and movement: Normal speech and movement present Assessment & Plan Assessment & Plan (1) Varicose veins of right lower extremity with inflammation: Comment: 06/06/2022 - right great saphenous vein Cyanoacralate ablation Code(s): I83.11 - Varicose veins of right lower extremity with inflammation Plan: In short patient has developed recurrent ulcerations of that right leg. She was unable to get in to [facility] so she was referred to [facility]. In addition I will repeat the right lower extremity venous insufficiency testing to ensure that no additional varicosities are reflux has developed. She will follow up with us after testing. Thank you for allowing us to assist in her care. If there are any questions or concerns please do not hesitate to contact us. Orders: Orders US venous duplex LE RT 1 Week I83.11 - Varicose veins of right lower extremity with inflammation Coding Level of Care Code Est Pt Level 3 (20418) Diagnoses Varicose veins of right lower extremity with inflammation I83.11
== END 2023-01-29 16:05 | disposition home or self-care (01) ==
PROVIDERS: PCP Internal Medicine; Visit Provider Surgery Vascular Surgery
DX: I83.11 Varicose veins of right lower extremity with inflammation (principal)
CPT/HCPCS: 99213

== ENCOUNTER 2023-03-17 12:43 | Outpatient (REF) | payer OTHER, SELFPAY ==
--- NOTE | ~2023-03-17 | US_ITS ---
EXAMINATION: US LOWER EXTREMITY (REFLUX EXAM), RIGHT CLINICAL INDICATION: Chronic venous insufficiency, history of ureterocele ablation of the right great saphenous vein with right lower extremity varicose veins and inflammation COMPARISON: Ultrasounds from 05/15/2022 and 06/09/2022 TECHNIQUE: Color flow triplex imaging and compression Doppler was performed to evaluate both the deep and the superficial systems of the right lower extremity. To evaluate the superficial system, the examination was performed in the upright position. Color-flow Doppler ultrasound and compression ultrasound were utilized. In addition, maneuvers were utilized to demonstrate reflux. FINDINGS: 1. DEEP VENOUS DOPPLER ULTRASOUND: Common Femoral Vein: Compressible, normal respiratory variation and augmented flow. Femoral Vein: Compressible, normal color flow and augmentation. Popliteal Vein: Compressible, normal augmentation. Deep Reflux: Deep venous reflux is seen in the common femoral vein, superficial femoral vein and popliteal vein with reflux ranging from 1040 ms to 2755 ms There is no evidence of a Grayson's cyst. 2. SUPERFICIAL VENOUS DOPPLER ULTRASOUND: GREAT SAPHENOUS VEIN: Saphenofemoral Junction: 0.6 cm; Reflux: 5147 ms Proximal Thigh: 0.3 cm; Reflux: 0 ms, saphenous vein is occluded beginning 3 cm from the saphenofemoral junction Mid Thigh: Occluded Above Knee: Occluded At Knee: Occluded Below Knee: 0.8 cm; Reflux: 0 ms Mid Calf: 0.4 cm; Reflux: 0 ms Ankle: 0.5 cm; Reflux: 756 ms DUPLICATED MEDIAL GREAT SAPHENOUS VEIN: Diameter: None imaged Reflux: NA DUPLICATED LATERAL GREAT SAPHENOUS VEIN: Diameter: 0.2 cm Reflux: None SMALL SAPHENOUS VEIN: Proximal: 0.2 cm; Reflux: 0 ms Distal: 0.3 cm; Reflux: 0 ms VEIN OF GIACOMINI: Size: NA Reflux: NA PERFORATORS: Location: Proximal calf extending into the great saphenous vein Size: 0.5 cm Reflux: 3462 ms VARICOSITIES: Location: Proximal calf off the great saphenous Size: 0.5 cm Reflux: None VARICOSITIES: Location: Mid calf off the great saphenous extending to the small saphenous Size: 0.3 cm Reflux: 2572 ms VARICOSITIES: Location: Mid thigh off the residual great saphenous vein Size: 0.4 cm Reflux: 1132 ms US/US venous duplex LE RT IMPRESSION: Closure of the great saphenous vein from the proximal thigh to the knee consistent with prior Venaseal procedure. There is a large refluxing personal injury specialist vein in the proximal calf extending into the great saphenous vein with evidence of recanalized flow or persistent flow within the great saphenous vein throughout the calf with severe reflux. Branching varicosities are seen off the great saphenous vein as described above
== END 2023-03-17 12:44 | disposition home or self-care (01) ==
LOC: HO.US 12:43
PROVIDERS: PCP Internal Medicine; Visit Provider Surgery Vascular Surgery
DX: I83.11 Varicose veins of right lower extremity with inflammation (principal)
CPT/HCPCS: 93971

== ENCOUNTER → 2023-03-19 14:57 | Outpatient (BNVA) | payer OTHER, SELFPAY | PROVIDERS: PCP Internal Medicine; Visit Provider Physician Assistant ==

== ENCOUNTER 2023-03-25 08:13 | Outpatient (AMB) | payer OTHER, SELFPAY ==
--- NOTE | 2023-03-25 11:02 | MHC.OFFVISWM ---
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 BMI 42.6 Allergies shellfish derived Allergy (Verified 03/25/23 11:02) Unknown Medication List - Last Reconciled 03/25/23 by Jakub Gar MD calcium carbonate-vitamin D3 500 mg-10 mcg (400 unit) (Calcium 500 With D) 1 tab PO DAILY cyanocobalamin (vitamin B-12) 1,000 mcg PO DAILY diclofenac sodium 1% (Arthritis Pain (diclofenac)) 4 grams topical QID PRN leg brace (Knee Support Brace) As directed lidocaine 5% 1 patch topical DAILY 30 days multivitamin 1 tab PO DAILY nystatin-triamcinolone 100,000-0.1 unit/g-% 1 appl topical DAILY PRN omeprazole 40 mg PO DAILY@0630 rivaroxaban (Xarelto) 20 mg PO DAILY@1800 zolpidem (Ambien) 5 mg PO BEDTIME HPI 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 BMI 42.6 HPI Details Start time: 10.59am, End time: 11.52am ?I spent 48 minutes speaking with the patient on the phone plus an additional 5 minutes reviewing and updating records for a total of 53 minutes HPI Comments History of Present Illness Details Previous weight loss efforts: sleeve gastrectomy Wakes up: 5am, Sleeps: 9-10pm Breakfast: 9am (2 boiled eggs, egg snadwich, oatmeal, cereal) Lunch: 12-1pm (pizza, or left over from dinner) Dinner: 6pm (pork chop, potatoes and beans, rice, sandwich) Snacks: 6.30am (crackers and cheese), 11am (nuts and donuts), 3pm (cheese, chips) Fluids: Coffee: 12oz per day (creamer and sugar), tea: none, soda: none, juice: rarely, ETOH: none PFSH Medical History (Updated 03/25/23 @ 11:13 by Jakub Gar MD) Insomnia GERD (gastroesophageal reflux disease) On anticoagulant therapy Choledocholithiasis Tubal ligation evaluation Venous stasis of lower extremity Pulmonary embolism DVT (deep venous thrombosis) Diabetes Antiphospholipid syndrome Surgical History (Updated 03/19/23 @ 15:09 by Cara Mckenzie CMA) History of laparoscopic cholecystectomy (11/25/22) H/O skin graft H/O: knee surgery History of H/O gastric sleeve Family History Maternal Aunt Breast CA Household Members: Significant Other and Family Housing: House Do you presently have visiting nurse or other home services: No Alcohol intake: never Patient Tobacco Use Status: Former Tobacco user Cigarettes Per Day: 4 Second Hand Smoke Exposure: No Substance Use Type: Marijuana service: No Current occupational status: employed Female Reproductive History Menstrual Age of Menarche: 13 Assessment & Plan Assessment & Plan (1) Morbid obesity: Code(s): E66.01 - Morbid (severe) obesity due to excess calories Plan: 1.? Plan for lap sleeve gastrectomy revision. If diaphragmatic or ventral hernias are present at time of surgery, these will be repaired laparoscopically as well. Risks and complications were discussed in detail including possible conversion to an open procedure, anastomotic leak, bleeding requiring transfusion, small bowel obstruction, , DVT and pulmonary embolism, cardiac, or pulmonary complications, as jail complications such as anastomotic ulcer, insufficient weight loss and vitamin deficiencies. I emphasized the importance of close follow-up, adherence to instructions and good communication. 2. Nutritional counseling. Start with 2 CELEBRATE REBUILD protein (buy at hospital[facility] gift shop) shakes (ONE scoop EACH in 8oz low fat unsweetened almond milk each) at 6am-8am and 9am-11am, 2 protein bars (CELEBRATE protein bars, buy at [facility]'s [employer] shop) at 12pm-2pm and 3pm-5pm, dinner at 6pm (6 forks of protein and 6 forks of salad/vegetables) AND one more protein bar after dinner at 8pm-10pm. So you do 2 protein shakes, 3 protein bars and one meal per day. Meal to include lean meat (beef, fish, pork, turkey, chicken), or british yogurt, or egg whites, or beans with a salad with olive oil and fruits (berries, pears, apples, kiwi). Avoid salt, breads, potatoes, rice, pasta, desserts. 3. Each shake would be drunk slowly, like coffee in a period of 2 hours. 4. Cut each bar in 4 pieces and eat each piece in 30min ?to make each bar last 2 hours. 5. I emphasized the importance of measuring accurately the food portion and measure it when serving the food in plate 6. The meal portions include 6 full-size forks of meat and 6 full-size forks of salad. You always eat the meat portion but you can replace up to 3 forks for salad/vegetables with rice, potatoes or pasta, or a fruit ?if you like. The less you do it the better weight loss will be. 7. One full-size fork is what it can be scooped on the fork without falling aside and not what can be bit with the fork. Use regular forks like those you find in a typical restaurant. 8.? Please send me weight measurements as soon as possible and then once a week. Always include your diet and exercise plan. 9. Start walking outside daily, tracking calories with a goal of 300 calories per day, daily. Goal is to burn 2000 calories per week on exercise, which means either 300 calories daily, or 400 calories 5 days per week, or 500 calories 4 days per week, or 650 calories 3 days per week. 10. I strongly recommended that you purchased a stationary bike, elliptical or treadmill at home that can track calories. Let me know if you do so I can give you an exercise plan. 11.?Goal is to lose at least 1.5-2lbs per week 12. Goal to lose 10% of your weight before surgery, which is about 29lbs. Ultimate weight goal: 259lbs before surgery 13. Please follow the diet plan exactly without any change. If you don't like something about the plan or you feel hungry you need to communicate with me so I can help you revise the plan. You should not change the plan yourself. 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 The possibility of biopsies was discussed. Patient needs to avoid use of NSAIDs and aspirin for 1 week prior to EGD. Risks of perforation and? bleeding was discussed with the patient. This will be an outpatient procedure with IV sedation. (7) Insomnia: Code(s): G47.00 - Insomnia, unspecified Orders: Orders Insulin Today E66.01 - Morbid (severe) obesity due to excess calories, G47.00 - Insomnia, unspecified, I26.99 - Other pulmonary embolism without acute cor pulmonale, I82.409 - Acute embolism and thrombosis of unspecified deep veins of unspecified lower extremity, K21.9 - Gastro-esophageal reflux disease without esophagitis, M17.11 - Unilateral primary osteoarthritis, right knee, Z79.01 - detention (current) use of anticoagulants Zinc Today E66.01 - Morbid (severe) obesity due to excess calories, G47.00 - Insomnia, unspecified, I26.99 - Other pulmonary embolism without acute cor pulmonale, I82.409 - Acute embolism and thrombosis of unspecified deep veins of unspecified lower extremity, K21.9 - Gastro-esophageal reflux disease without esophagitis, M17.11 - Unilateral primary osteoarthritis, right knee, Z79.01 - exterminator termite (current) use of anticoagulants Vitamin B1 Today E66.01 - Morbid (severe) obesity due to excess calories, G47.00 - Insomnia, unspecified, I26.99 - Other pulmonary embolism without acute cor pulmonale, I82.409 - Acute embolism and thrombosis of unspecified deep veins of unspecified lower extremity, K21.9 - Gastro-esophageal reflux disease without esophagitis, M17.11 - Unilateral primary osteoarthritis, right knee, Z79.01 - detention (current) use of anticoagulants Ferritin Today E66.01 - Morbid (severe) obesity due to excess calories, G47.00 - Insomnia, unspecified, I26.99 - Other pulmonary embolism without acute cor pulmonale, I82.409 - Acute embolism and thrombosis of unspecified deep veins of unspecified lower extremity, K21.9 - Gastro-esophageal reflux disease without esophagitis, M17.11 - Unilateral primary osteoarthritis, right knee, Z79.01 - exterminator termite (current) use of anticoagulants TSH reflex Free T4 Today E66.01 - Morbid (severe) obesity due to excess calories, G47.00 - Insomnia, unspecified, I26.99 - Other pulmonary embolism without acute cor pulmonale, I82.409 - Acute embolism and thrombosis of unspecified deep veins of unspecified lower extremity, K21.9 - Gastro-esophageal reflux disease without esophagitis, M17.11 - Unilateral primary osteoarthritis, right knee, Z79.01 - detention (current) use of anticoagulants H Pylori Breath Test Today E66.01 - Morbid (severe) obesity due to excess calories, G47.00 - Insomnia, unspecified, I26.99 - Other pulmonary embolism without acute cor pulmonale, I82.409 - Acute embolism and thrombosis of unspecified deep veins of unspecified lower extremity, K21.9 - Gastro-esophageal reflux disease without esophagitis, M17.11 - Unilateral primary osteoarthritis, right knee, Z79.01 - exterminator termite (current) use of anticoagulants Vitamin D 25-OH Total Today E66.01 - Morbid (severe) obesity due to excess calories, G47.00 - Insomnia, unspecified, I26.99 - Other pulmonary embolism without acute cor pulmonale, I82.409 - Acute embolism and thrombosis of unspecified deep veins of unspecified lower extremity, K21.9 - Gastro-esophageal reflux disease without esophagitis, M17.11 - Unilateral primary osteoarthritis, right knee, Z79.01 - exterminator termite (current) use of anticoagulants Hemoglobin A1c Today E66.01 - Morbid (severe) obesity due to excess calories, G47.00 - Insomnia, unspecified, I26.99 - Other pulmonary embolism without acute cor pulmonale, I82.409 - Acute embolism and thrombosis of unspecified deep veins of unspecified lower extremity, K21.9 - Gastro-esophageal reflux disease without esophagitis, M17.11 - Unilateral primary osteoarthritis, right knee, Z79.01 - exterminator termite (current) use of anticoagulants US abdomen comp w elastography Today E66.01 - Morbid (severe) obesity due to excess calories, G47.00 - Insomnia, unspecified, I26.99 - Other pulmonary embolism without acute cor pulmonale, I82.409 - Acute embolism and thrombosis of unspecified deep veins of unspecified lower extremity, K21.9 - Gastro-esophageal reflux disease without esophagitis, M17.11 - Unilateral primary osteoarthritis, right knee, Z79.01 - detention (current) use of anticoagulants XR chest 2V Today E66.01 - Morbid (severe) obesity due to excess calories, G47.00 - Insomnia, unspecified, I26.99 - Other pulmonary embolism without acute cor pulmonale, I82.409 - Acute embolism and thrombosis of unspecified deep veins of unspecified lower extremity, K21.9 - Gastro-esophageal reflux disease without esophagitis, M17.11 - Unilateral primary osteoarthritis, right knee, Z79.01 - exterminator termite (current) use of anticoagulants RT home sleep study Today E66.01 - Morbid (severe) obesity due to excess calories, G47.00 - Insomnia, unspecified, I26.99 - Other pulmonary embolism without acute cor pulmonale, I82.409 - Acute embolism and thrombosis of unspecified deep veins of unspecified lower extremity, K21.9 - Gastro-esophageal reflux disease without esophagitis, M17.11 - Unilateral primary osteoarthritis, right knee, Z79.01 - exterminator termite (current) use of anticoagulants Lipid Panel Today E66.01 - Morbid (severe) obesity due to excess calories, G47.00 - Insomnia, unspecified, I26.99 - Other pulmonary embolism without acute cor pulmonale, I82.409 - Acute embolism and thrombosis of unspecified deep veins of unspecified lower extremity, K21.9 - Gastro-esophageal reflux disease without esophagitis, M17.11 - Unilateral primary osteoarthritis, right knee, Z79.01 - detention (current) use of anticoagulants IRON PROFILE Today E66.01 - Morbid (severe) obesity due to excess calories, G47.00 - Insomnia, unspecified, I26.99 - Other pulmonary embolism without acute cor pulmonale, I82.409 - Acute embolism and thrombosis of unspecified deep veins of unspecified lower extremity, K21.9 - Gastro-esophageal reflux disease without esophagitis, M17.11 - Unilateral primary osteoarthritis, right knee, Z79.01 - detention (current) use of anticoagulants Complete Blood Count Auto Diff Today E66.01 - Morbid (severe) obesity due to excess calories, G47.00 - Insomnia, unspecified, I26.99 - Other pulmonary embolism without acute cor pulmonale, I82.409 - Acute embolism and thrombosis of unspecified deep veins of unspecified lower extremity, K21.9 - Gastro-esophageal reflux disease without esophagitis, M17.11 - Unilateral primary osteoarthritis, right knee, Z79.01 - exterminator termite (current) use of anticoagulants Vitamin B12 and Folate Today E66.01 - Morbid (severe) obesity due to excess calories, G47.00 - Insomnia, unspecified, I26.99 - Other pulmonary embolism without acute cor pulmonale, I82.409 - Acute embolism and thrombosis of unspecified deep veins of unspecified lower extremity, K21.9 - Gastro-esophageal reflux disease without esophagitis, M17.11 - Unilateral primary osteoarthritis, right knee, Z79.01 - exterminator termite (current) use of anticoagulants Comprehensive Met. Panel Today E66.01 - Morbid (severe) obesity due to excess calories, G47.00 - Insomnia, unspecified, I26.99 - Other pulmonary embolism without acute cor pulmonale, I82.409 - Acute embolism and thrombosis of unspecified deep veins of unspecified lower extremity, K21.9 - Gastro-esophageal reflux disease without esophagitis, M17.11 - Unilateral primary osteoarthritis, right knee, Z79.01 - exterminator termite (current) use of anticoagulants Vitamin A Today E66.01 - Morbid (severe) obesity due to excess calories, G47.00 - Insomnia, unspecified, I26.99 - Other pulmonary embolism without acute cor pulmonale, I82.409 - Acute embolism and thrombosis of unspecified deep veins of unspecified lower extremity, K21.9 - Gastro-esophageal reflux disease without esophagitis, M17.11 - Unilateral primary osteoarthritis, right knee, Z79.01 - detention (current) use of anticoagulants C Reactive Protein Today E66.01 - Morbid (severe) obesity due to excess calories, G47.00 - Insomnia, unspecified, I26.99 - Other pulmonary embolism without acute cor pulmonale, I82.409 - Acute embolism and thrombosis of unspecified deep veins of unspecified lower extremity, K21.9 - Gastro-esophageal reflux disease without esophagitis, M17.11 - Unilateral primary osteoarthritis, right knee, Z79.01 - detention (current) use of anticoagulants PTHI Today E66.01 - Morbid (severe) obesity due to excess calories, G47.00 - Insomnia, unspecified, I26.99 - Other pulmonary embolism without acute cor pulmonale, I82.409 - Acute embolism and thrombosis of unspecified deep veins of unspecified lower extremity, K21.9 - Gastro-esophageal reflux disease without esophagitis, M17.11 - Unilateral primary osteoarthritis, right knee, Z79.01 - exterminator termite (current) use of anticoagulants ECG 12 lead EKG Today E66.01 - Morbid (severe) obesity due to excess calories, G47.00 - Insomnia, unspecified, I26.99 - Other pulmonary embolism without acute cor pulmonale, I82.409 - Acute embolism and thrombosis of unspecified deep veins of unspecified lower extremity, K21.9 - Gastro-esophageal reflux disease without esophagitis, M17.11 - Unilateral primary osteoarthritis, right knee, Z79.01 - exterminator termite (current) use of anticoagulants FL upper GI w air Today E66.01 - Morbid (severe) obesity due to excess calories, G47.00 - Insomnia, unspecified, I26.99 - Other pulmonary embolism without acute cor pulmonale, I82.409 - Acute embolism and thrombosis of unspecified deep veins of unspecified lower extremity, K21.9 - Gastro-esophageal reflux disease without esophagitis, M17.11 - Unilateral primary osteoarthritis, right knee, Z79.01 - detention (current) use of anticoagulants Referrals Nutrition/Dietitian Referral E66.01 - Morbid (severe) obesity due to excess calories, G47.00 - Insomnia, unspecified, I26.99 - Other pulmonary embolism without acute cor pulmonale, I82.409 - Acute embolism and thrombosis of unspecified deep veins of unspecified lower extremity, K21.9 - Gastro-esophageal reflux disease without esophagitis, M17.11 - Unilateral primary osteoarthritis, right knee, Z79.01 - exterminator termite (current) use of anticoagulants Behavioral Health Referral E66.01 - Morbid (severe) obesity due to excess calories, G47.00 - Insomnia, unspecified, I26.99 - Other pulmonary embolism without acute cor pulmonale, I82.409 - Acute embolism and thrombosis of unspecified deep veins of unspecified lower extremity, K21.9 - Gastro-esophageal reflux disease without esophagitis, M17.11 - Unilateral primary osteoarthritis, right knee, Z79.01 - detention (current) use of anticoagulants Telehealth Telehealth Location of provider rendering services: practice address Location of patient: address on file Patient Identification confirmed using: Name, : Yes Telehealth method: voice only Patient verbally consented to treatment: Yes Patient verbally consented to billing insurance company: Yes Patient informed of any privacy concerns related to visit: Yes Minutes spent on Phone/Video with Pt.: 53 Coding Level of Care Code Tele [facility] Pt Level 4 (19567) Diagnoses Morbid obesity E66.01 Osteoarthritis of right knee M17.11 DVT (deep venous thrombosis) I82.409 On anticoagulant therapy Z79.01 Pulmonary embolism I26.99 GERD (gastroesophageal reflux disease) K21.9 Insomnia G47.00 Time Spent (min) 53
[2023-03-25 11:23] VITALS: BMI 42.5
== END 2023-03-25 11:53 | disposition home or self-care (01) ==
PROVIDERS: PCP Internal Medicine; Visit Provider Surgery
DX: E66.01 Morbid (severe) obesity due to excess calories (principal); M17.11 Unilateral primary osteoarthritis, right knee; I82.409 Acute embolism and thrombosis of unspecified deep veins of unspecified lower extremity; Z79.01 Long term (current) use of anticoagulants; I26.99 Other pulmonary embolism without acute cor pulmonale; K21.9 Gastro-esophageal reflux disease without esophagitis; G47.00 Insomnia, unspecified
CPT/HCPCS: 99204

== ENCOUNTER 2023-03-25 08:13 | Outpatient (REF) | payer OTHER, SELFPAY ==
[2023-04-03 03:28] LABS: HPV mRNA E6/E7 rflx Not Detected (Not Detected)
== END 2023-03-25 08:14 | disposition home or self-care (01) ==
LOC: HO.LNP 08:13
PROVIDERS: Obstetrics & Gynecology; PCP Internal Medicine; Visit Provider Surgery
DX: Z01.419 Encounter for gynecological examination (general) (routine) without abnormal findings (principal); Z11.51 Encounter for screening for human papillomavirus (HPV)
CPT/HCPCS: 87624; 88142

== ENCOUNTER 2023-03-25 14:40 | Outpatient (AMB) | payer OTHER, SELFPAY ==
--- NOTE | 2023-03-25 14:48 | A.OFFVIS_ITS ---
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 No complaints. Last Pap/HPV was in 07/23 was negative/HPV positive, high-risk HPV 16/18/45 negative Last Mammogram was many years ago Last Colonoscopy was in 11/22, the recommendation was to repeat in 10 years [facility] Medical History Insomnia GERD (gastroesophageal reflux disease) On anticoagulant therapy Choledocholithiasis Tubal ligation evaluation Venous stasis of lower extremity Pulmonary embolism DVT (deep venous thrombosis) Diabetes Antiphospholipid syndrome Surgical History History of laparoscopic cholecystectomy (11/25/22) H/O skin graft H/O: knee surgery History of H/O gastric sleeve Family History Maternal Aunt Breast CA Household Members: Significant Other and Family Housing: House Do you presently have visiting nurse or other home services: No Alcohol intake: never Patient Tobacco Use Status: Former Tobacco user Cigarettes Per Day: 4 Second Hand Smoke Exposure: No Substance Use Type: Marijuana service: No Current occupational status: employed Female Reproductive History Menstrual Age of Menarche: 13 control method: permanent sterilization and other (tubal ligation) Total pregnancies: 3 Full term: 2 Number of Living Children: 2 Ab spontaneous: 1 Date of last pap smear: 07/24/21 (+HPV) History of abnormal pap smear: Yes Review of Systems Const All systems reviewed & are unremarkable except as noted in HPI and below Card Reports as per HPI Resp Reports as per HPI GI Reports as per HPI and Reports no additional complaints Reports as per HPI Physical Exam Vital Signs: Last Vital Signs BP 126/68 03/25/23 14:49 BMI result Body Mass Index 43.0 Const General: cooperative, healthy appearing and comfortable Chest Chest palpation & inspection: normal inspection of the chest and normal palpation of entire chest wall Breast/axilla inspection: normal inspection of the breasts and normal inspection of the axillae Breast/axilla palpation: normal palpation of the breasts, normal palpation of the axillae and no axillary lymphadenopathy Resp Effort & Inspection: normal respiratory effort Auscultation: clear to auscultation bilaterally Percussion: percussion normal Cardio Palpation: normal PMI Rate: regular rate Rhythm: regular rhythm Heart sounds: no murmurs and no rubs Peripheral pulses: Peripheral pulses 2+ throughout GI Inspection: Yes normal to inspection Palpation (GI): Soft to palpation, nontender, no guarding, not rigid and No hepatosplenomegaly present Percussion: Yes normal to percussion Auscultation: normal bowel sounds Rectal Exam - Female: deferred General: Yes bladder normal to palpation External Female Exam: No lesion Speculum Exam - Vagina: normal appearance of the vagina, normal palpation, normal vaginal discharge and not erythematous Speculum Exam - Cervix: normal appearance of the cervix and normal palpation Bimanual exam- vagina & uterus: normal bimanual exam, normal palpation, uterine size normal, bladder normal to palpation, consistency normal and normal palpation Bimanual Exam- Adnexa, other: normal adnexae, no masses and no tenderness Assessment & Plan Assessment & Plan (1) Well woman exam: Code(s): Z01.419 - Encounter for gynecological examination (general) (routine) without abnormal findings Plan: Cotesting done. Mammogram ordered. Counseled the patient about the recommended dietary allowance of 1000 mg of Calcium & 600 IU of vitamin D. The patient was instructed to perform monthly self-breast exams and to schedule an annual exam in a year; All questions answered and the patient verbalized understanding. Instructed the patient to schedule annual exam in a year Orders: Orders MM screening mammo BI Today Z12.31 - Encounter for screening mammogram for malignant neoplasm of breast Coding Level of Care Code Est Pt Prev Care 40-64y(73162) Diagnoses Well woman exam Z01.419
[2023-03-25 14:49] VITALS: BP 126/68; BMI 43.0
== END 2023-03-25 15:05 | disposition home or self-care (01) ==
LOC: HO.HWS 14:40
PROVIDERS: PCP Internal Medicine; Visit Provider Obstetrics & Gynecology
DX: Z01.419 Encounter for gynecological examination (general) (routine) without abnormal findings (principal)
CPT/HCPCS: 99396

== ENCOUNTER → 2023-04-08 09:58 | Outpatient (REF) | payer OTHER, SELFPAY ==
--- NOTE | ~2023-04-08 | XR_ITS ---
EXAMINATION: XR CHEST CLINICAL INFORMATION: Morbid obesity COMPARISON: CT angiography chest from 11/17/2022, chest radiograph from 05/09/2021 TECHNIQUE: 2 views of the chest were obtained. FINDINGS: Stable elevation of the right hemidiaphragm. Bibasilar atelectasis. No pneumothorax. Trachea is midline. Cardiac mediastinal silhouette is not enlarged. No large pleural effusion. Degenerative changes of the thoracolumbar spine. Soft tissues are unremarkable. XR/XR chest 2V IMPRESSION: 1. Stable elevation of the right hemidiaphragm. 2. Bibasilar atelectasis.
--- NOTE | 2023-04-08 10:26 | ECG_ITS ---
Test Reason : morbid obesity Blood Pressure : / mmHG Vent. Rate : 065 BPM Atrial Rate : 065 BPM P-R Int : 136 ms QRS Dur : 086 ms QT Int : 416 ms P-R-T Axes : 026 060 031 degrees QTc Int : 432 ms Normal sinus rhythm Nonspecific T wave abnormality Borderline ECG When compared with ECG of 17-NOV-2022 09:06, No significant changes seen Referred By: Jakub Gar Electronically Signed By:TAMIKA WATTERS
== END ==
LOC: HO.CARD 09:58
PROVIDERS: PCP Internal Medicine; Visit Provider Surgery
DX: E66.01 Morbid (severe) obesity due to excess calories (principal); I26.99 Other pulmonary embolism without acute cor pulmonale; M17.11 Unilateral primary osteoarthritis, right knee; K21.9 Gastro-esophageal reflux disease without esophagitis; G47.00 Insomnia, unspecified; Z79.01 Long term (current) use of anticoagulants
CPT/HCPCS: 71046; 93005

== ENCOUNTER → 2023-04-08 10:26 | Outpatient (BNV) | payer OTHER, SELFPAY | PROVIDERS: PCP Internal Medicine; Visit Provider Internal Medicine | DX: I26.99 Other pulmonary embolism without acute cor pulmonale (principal) | CPT/HCPCS: 93010 ==

== ENCOUNTER 2023-04-10 06:20 | Outpatient (REF) | payer OTHER, SELFPAY ==
[2023-04-10 06:55] LABS: MANUAL DIFF FLAG NO
[2023-04-10 07:57] LABS: Estimated Average Glucose 128 mg/dL; Hemoglobin A1C 129.1135 umol/L; Hemoglobin A1c % 6.1 % (<6.0)
[2023-04-10 07:58] LABS: Basophils Absolute Auto 0.1 X10*3/uL (0.0-0.2); Basophils Percent Auto 1.7 % (0-2); Eosinophils Absolute Auto 0.4 X10*3/uL (0.0-0.4); Eosinophils Percent Auto 8.3 % (0-4); Hematocrit 35.9 % (37.0-47.0); Hemoglobin 11.5 g/dl (12.0-16.0); Imm Gran Abs Auto 0.01 X10*3/uL (0.00-0.03); Imm Gran Pct Auto 0.2 % (0.0-0.4); Lymphocytes Absolute Auto 1.5 X10*3/uL (1.2-4.9); Mean Corpuscular Hemoglobin 25.8 pg (27.0-33.0); Mean Corpuscular Volume 80.7 fL (80.0-98.0); Mean Platelet Volume 11.1 fL (9.4-12.3); Monocytes Absolute Auto 0.3 X10*3/uL (0.1-1.2); Monocytes Percent Auto 6.9 % (2-11); Neutrophils Percent Auto 46.9 % (45-73); Platelet Count 313 X10*3/uL (160-400); Red Blood Count 4.45 X10*6/uL (4.20-5.50); Red Cell Distribution Width 14.8 % (11.0-16.0); White Blood Count 4.2 X10*3/uL (4.8-10.8)
[2023-04-10 08:46] LABS: Alanine Aminotransferase 12 U/L (0-31); Albumin Level 3.9 g/dL (3.5-5.0); Alkaline Phosphatase 83 U/L (39-117); Anion Gap 13 (12-20); Aspartate Amino Transferase 15 U/L (5-31); Bilirubin Total 0.4 mg/dL (0.0-1.0); Blood Urea Nitrogen 16 mg/dL (9-16); C Reactive Protein 0.57 mg/dL (< or = 0.50); Calcium 9.5 mg/dL (8.4-10.2); Carbon Dioxide 29 mmol/L (22-29); Chloride 107 mmol/L (96-108); Cholesterol 205 mg/dL (<200); Estimated Glomerular Filt Rate > 60; Glucose Random 103 mg/dL (60-115); HDL Cholesterol 78 mg/dL (>40); Iron 44 mcg/dL (30-160); LDL Cholesterol Calculated 116 mg/dL (<100); Percent Iron Saturation 12 % (15-50); Potassium 4.6 mmol/L (3.3-5.1); Sodium 144 mmol/L (135-145); Total Iron Binding Capacity 366 mcg/dL (228-428); Total Protein 7.3 g/dL (6.5-8.0); Triglycerides 55 mg/dL (<150); Unsaturated Iron Binding 322 ug/dL
[2023-04-10 08:55] LABS: Ferritin 8 ng/mL (10-250); Insulin 7 uU/mL (2-29); TSH reflex Free T4 2.02 uIU/mL (0.32-4.0); Vitamin D 25-OH Total 20.7 ng/mL (>30)
[2023-04-10 09:09] LABS: Folate 11.6 ng/mL (> or = 4.0); Vitamin B12 421 pg/mL (200-900)
[2023-04-13 19:09] LABS: Zinc 67 mcg/dL (60-130)
[2023-04-14 22:08] LABS: Vitamin A 43 mcg/dL (38-98)
[2023-04-16 14:19] LABS: Vitamin B1 15 nmol/L (8-30)
== END 2023-04-10 06:21 | disposition home or self-care (01) ==
LOC: HO.LAB 06:20
PROVIDERS: PCP Internal Medicine; Visit Provider Surgery
DX: E66.01 Morbid (severe) obesity due to excess calories (principal); I82.409 Acute embolism and thrombosis of unspecified deep veins of unspecified lower extremity; M17.11 Unilateral primary osteoarthritis, right knee; I26.99 Other pulmonary embolism without acute cor pulmonale; K21.9 Gastro-esophageal reflux disease without esophagitis; G47.00 Insomnia, unspecified; Z71.3 Dietary counseling and surveillance; Z79.01 Long term (current) use of anticoagulants
CPT/HCPCS: 80053; 80061; 82306; 82607; 82728; 82746; 83036; 83525; 83540; 84425; 84443; 84590; 84630; 85025; 86140

== ENCOUNTER 2023-04-10 08:06 | Outpatient (AMB) | payer OTHER, SELFPAY ==
--- NOTE | 2023-04-10 11:17 | A.OFFVIS_ITS ---
Intake Intake Visit Reasons: TV Follow Up SWL - 1ST Allergies shellfish derived Allergy (Verified 03/25/23 14:51) Unknown HPI TV Follow Up SWL - 1ST HPI Details Start time: 11.00am, End time: 11.20am ?I spent 15 minutes speaking with the patient on the phone plus an additional 5 minutes reviewing and updating records for a total of 20 minutes HPI Comments History of Present Illness Details Was able to purchase the body composition scale and she will set it up this weekend and send me weight measurements Has purchased the Celebrate Rebuild protein shakes and Celebrate bars and has all instructions how to use them We discussed the instructions again today [facility] Medical History Insomnia GERD (gastroesophageal reflux disease) On anticoagulant therapy Choledocholithiasis Tubal ligation evaluation Venous stasis of lower extremity Pulmonary embolism DVT (deep venous thrombosis) Diabetes Antiphospholipid syndrome Surgical History History of laparoscopic cholecystectomy (11/25/22) H/O skin graft H/O: knee surgery History of H/O gastric sleeve Family History Maternal Aunt Breast CA Social History Household Members: Significant Other and Family Housing: House Do you presently have visiting nurse or other home services: No Alcohol intake: never Patient Tobacco Use Status: Former Tobacco user Cigarettes Per Day: 4 Second Hand Smoke Exposure: No Substance Use Type: Marijuana service: No Current occupational status: employed Female Reproductive History Menstrual Age of Menarche: 13 Assessment & Plan Assessment & Plan (1) Morbid obesity: Code(s): E66.01 - Morbid (severe) obesity due to excess calories Plan: 1. Nutritional counseling. Start with 2 CELEBRATE REBUILD protein (buy at [employer]) shakes (ONE scoop EACH in 8oz low fat unsweetened almond milk each) at 6am-8am and 9am-11am, 2 protein bars (CELEBRATE protein bars, buy at [employer]) at 12pm-2pm and 3pm-5pm, dinner at 6pm (6 forks of protein and 6 forks of salad/vegetables) AND one more protein bar after dinner at 8pm-10pm. So you do 2 protein shakes, 3 protein bars and one meal per day. Meal to include lean meat (beef, fish, pork, turkey, chicken), or maltese yogurt, or egg whites, or beans with a salad with olive oil and fruits (berries, pears, apples, kiwi). Avoid salt, breads, potatoes, rice, pasta, desserts. 2. Each shake would be drunk slowly, like coffee in a period of 2 hours. 3. Cut each bar in 4 pieces and eat each piece in 30min ?to make each bar last 2 hours. 4. I emphasized the importance of measuring accurately the food portion and measure it when serving the food in plate 5. The meal portions include 6 full-size forks of meat and 6 full-size forks of salad. You always eat the meat portion but you can replace up to 3 forks for salad/vegetables with rice, potatoes or pasta, or a fruit ?if you like. The less you do it the better weight loss will be. 6. One full-size fork is what it can be scooped on the fork without falling aside and not what can be bit with the fork. Use regular forks like those you find in a typical restaurant. 7.? Please send me weight measurements as soon as possible and then once a week. Always include your diet and exercise plan. 8. Start walking outside daily, tracking calories with a goal of 300 calories per day, daily. Goal is to burn 2000 calories per week on exercise, which means either 300 calories daily, or 400 calories 5 days per week, or 500 calories 4 days per week, or 650 calories 3 days per week. 9. I strongly recommended that you purchased a stationary bike, elliptical or treadmill at home that can track calories. Let me know if you do so I can give you an exercise plan. 10.?Goal is to lose at least 1.5-2lbs per week 11. Goal to lose 10% of your weight before surgery, which is about 29lbs. Ultimate weight goal: 259lbs before surgery Telehealth Telehealth Location of provider rendering services: practice address Location of patient: address on file Patient Identification confirmed using: Name, : Yes Telehealth method: voice only Patient verbally consented to treatment: Yes Patient verbally consented to billing insurance company: Yes Patient informed of any privacy concerns related to visit: Yes Minutes spent on Phone/Video with Pt.: 20 Coding Level of Care Code Tele Est Pt Level 3 (98912) Diagnoses Morbid obesity E66.01 Time Spent (min) 20
== END 2023-04-10 11:21 | disposition home or self-care (01) ==
LOC: HO.HBS 08:06
PROVIDERS: PCP Internal Medicine; Visit Provider Surgery
DX: E66.01 Morbid (severe) obesity due to excess calories (principal)
CPT/HCPCS: 99213

== ENCOUNTER 2023-04-16 15:12 | Outpatient (AMB) | payer OTHER, SELFPAY ==
--- NOTE | 2023-04-16 15:12 | MHC.OFFVIS ---
Intake Intake Visit Reasons: follow up US 03/17/2023 Intake Note: Pt here for fallow up 03/17/23 pt states that she sis doing a little better but she is going to wound care for the wounds on her legs. She sees them once every 2 weeks Allergies shellfish derived Allergy (Verified 04/16/23 15:17) Unknown HPI follow up 03/17/2023 HPI Details Very pleasant 52-year-old female presents for follow-up regarding venous insufficiency. She has this rather large excoriated open ulcer in the right medial calf. Of note she has undergone previous right great saphenous vein Cyanoacralate ablation. In addition she has a history significant for DVTs. She now presents for follow-up with repeat venous insufficiency testing. She is being seen by the [facility]. [facility] Medical History Insomnia GERD (gastroesophageal reflux disease) On anticoagulant therapy Choledocholithiasis Tubal ligation evaluation Venous stasis of lower extremity Pulmonary embolism DVT (deep venous thrombosis) Diabetes Antiphospholipid syndrome Surgical History History of laparoscopic cholecystectomy (11/25/22) H/O skin graft H/O: knee surgery History of H/O gastric sleeve Family History Maternal Aunt Breast CA Social History Household Members: Significant Other and Family Housing: House Do you presently have visiting nurse or other home services: No Alcohol intake: never Patient Tobacco Use Status: Former Tobacco user Cigarettes Per Day: 4 Second Hand Smoke Exposure: No Substance Use Type: Marijuana service: No Current occupational status: employed Female Reproductive History Menstrual Age of Menarche: 13 Review of Systems Const Reports as per HPI ENT Reports no additional complaints Card Denies chest pain, Denies chest pain at rest and Denies chest pain with activity Resp Denies chest congestion and Denies cough GI Reports no additional complaints Musc Details: pain over varicosities, aching of lower extremities, swelling, cramping, heaviness and tiredness, itching Denies abnormal gait Skin/Breast Reports pruritus and Denies wounds Neuro Reports no additional complaints and Denies abnormal gait Psych Denies no additional complaints Physical Exam Const General: cooperative, healthy appearing and comfortable Orientation/consciousness: oriented to person, oriented to place and oriented to time Neck Carotids: no bruits Chest Chest palpation & inspection: normal inspection of the chest and normal palpation of entire chest wall Resp Effort & Inspection: normal respiratory effort and able to speak in complete sentences Cardio Rate: regular rate Heart sounds: S1 normal heart sound present and S2 normal heart sound present Peripheral pulses: Peripheral pulses 2+ throughout GI Inspection: Yes normal to inspection Skin Other: +2 edema, CEAP Classification C 6-active ulcer Ep - Etiology Primary As - superficial veins P - reflux General skin exam: dry skin Neuro General: oriented to person, oriented to place and oriented to time Extrem Right lower extremity: full ROM, normal capillary refill and edema Left lower extremity: full ROM, normal capillary refill and edema Psych Mental Status: mental status grossly normal Results Reviewed Results Reviewed: Brief summary of venous insufficiency testing is as follows: right great saphenous vein: negative right small saphenous vein: negative right accessory vein: none present Of note right lower extremity deep system is positive for reflux Written report and images were reviewed Assessment & Plan Assessment & Plan (1) Varicose veins of right lower extremity with inflammation: Comment: 06/06/2022 - right great saphenous vein Cyanoacralate ablation Code(s): I83.11 - Varicose veins of right lower extremity with inflammation Plan: In short patient has nonhealing ulcer of right lower extremity. I do believe there is an element of dermatitis for that and she appears to be doing relatively well with her current cream regimen. The itching and discomfort appears to be improving. I did discuss continued conservative measures including compression elevation and exercise. At the current time there is no indication for any venous intervention. She will follow up with us on an as-needed basis. She will continue to follow-up with the [facility]. Thank you for allowing us to assist in her care. If there are any questions or concerns please do not hesitate to contact us. Coding Level of Care Code Est Pt Level 4 (68874) Diagnoses Varicose veins of right lower extremity with inflammation I83.11
== END 2023-04-16 16:07 | disposition home or self-care (01) ==
PROVIDERS: PCP Internal Medicine; Visit Provider Surgery Vascular Surgery
DX: I83.012 Varicose veins of right lower extremity with ulcer of calf (principal)
CPT/HCPCS: 99214

== ENCOUNTER → 2023-04-16 15:12 | Outpatient (BNVA) | payer OTHER, SELFPAY | PROVIDERS: PCP Internal Medicine; Visit Provider Surgery Vascular Surgery | DX: I83.11 Varicose veins of right lower extremity with inflammation (principal) | CPT/HCPCS: 99212 ==

== ENCOUNTER 2023-04-20 15:19 | Outpatient (AMB) | payer OTHER, SELFPAY ==
--- NOTE | 2023-04-20 15:10 | MHC.AMNUTRGE ---
Intake Intake Visit Reasons: VIDEO Initial Nutrition SWL Allergies shellfish derived Allergy (Verified 04/16/23 15:17) Unknown HPI Nutrition Presentation Details Seeking Revision of LSG from 2017 [facility] - moved locally in 2020 Reason for consult elevated BMI Diet Assmnt Details im not doing too great with his plan , i'm hungry . reports big change from eating food. isn't satisfied , so coming home and feeling extremely hungry. Feeling that her shake isn't satisfying with just 1 scoop. has been doing 2 scoops and feeling much better. Previous weight loss methods attempted 390# - 220 lowest weight - regain began this past year Dietary counseling reduction Who buys your food self Who prepares/cooks your food self Meal frequency regular: breakfast (6am coffee with ritz and cheese or belvita ), lunch (sandwich or empanada ), dinner (sandwich ) and snacks (9am cheese , crackers or egg sandwich ) Lifestyle Eating out 1-3 times/week Food frequency Grains/pasta/breads/cereal (carbs): daily, Meats/poultry/fish (protein): daily (seafood allergy), Meat substitutes/nuts/seeds/legumes: daily, Restaurants/fast foods: several times weekly and Coffee: daily Diagnosis Nutrition problem #1 overweight/obesity As related to (etiology) #1 excess energy intake and physical inactivity As evidenced by (sign/symptom) #1 high BMI Monitoring/Goals Nutrition problem monitoring total energy intake, level of knowledge/skill, total PRO intake, total CHO intake and weight Outcome progress applied knowledge Learning/Education Readiness to learn fair Most Recent Diabetes Results: Cholesterol 205 mg/dL (<200) H 04/10/23 HDL Cholesterol 78 mg/dL (>40) 04/10/23 Triglycerides 55 mg/dL (<150) 04/10/23 Creatinine 0.75 mg/dL (0.5-1.4) 04/10/23 Blood Urea Nitrogen 16 mg/dL (9-16) 04/10/23 Sodium 144 mmol/L (135-145) 04/10/23 Potassium 4.6 mmol/L (3.3-5.1) 04/10/23 Chloride 107 mmol/L (96-108) 04/10/23 Carbon Dioxide 29 mmol/L (22-29) 04/10/23 Calcium 9.5 mg/dL (8.4-10.2) 04/10/23 AST 15 U/L (5-31) 04/10/23 ALT 12 U/L (0-31) 04/10/23 Total Protein 7.3 g/dL (6.5-8.0) 04/10/23 Albumin 3.9 g/dL (3.5-5.0) 04/10/23 PFSH Medical History Insomnia GERD (gastroesophageal reflux disease) Choledocholithiasis On anticoagulant therapy Tubal ligation evaluation Venous stasis of lower extremity Pulmonary embolism DVT (deep venous thrombosis) Diabetes Antiphospholipid syndrome Surgical History (Updated 04/20/23 @ 09:24 by Paige Hartmann RN) History of esophagogastroduodenoscopy (EGD) H/O colonoscopy History of laparoscopic cholecystectomy (11/25/22) H/O skin graft H/O: knee surgery History of H/O gastric sleeve Family History Maternal Aunt Breast CA Social History Household Members: Significant Other and Family Housing: House Do you presently have visiting nurse or other home services: No Alcohol intake: never Patient Tobacco Use Status: Former Tobacco user Cigarettes Per Day: 4 Second Hand Smoke Exposure: No Substance Use Type: Marijuana service: No Current occupational status: employed Female Reproductive History Menstrual Age of Menarche: 13 Assessment & Plan Assessment & Plan (1) Morbid obesity: Code(s): E66.01 - Morbid (severe) obesity due to excess calories Plan pt will discuss nutrition plan with surgeon Telehealth Telehealth Location of provider rendering services: practice address Location of patient: address on file Patient Identification confirmed using: Name, : Yes Telehealth method: voice only Patient verbally consented to treatment: Yes Patient verbally consented to billing insurance company: Yes Patient informed of any privacy concerns related to visit: Yes Minutes spent on Phone/Video with Pt.: 30 Coding Level of Care Code Nutr Indiv Intake (37343) Diagnoses Morbid obesity E66.01 Time Spent (min) 30
== END 2023-04-20 15:37 | disposition home or self-care (01) ==
LOC: HO.HBS 15:19
PROVIDERS: PCP Internal Medicine; Visit Provider Dietitian, Registered
DX: E66.01 Morbid (severe) obesity due to excess calories (principal)

== ENCOUNTER → 2023-04-20 15:19 | Outpatient (BNVA) | payer OTHER, SELFPAY | PROVIDERS: PCP Internal Medicine; Visit Provider Dietitian, Registered | DX: E66.01 Morbid (severe) obesity due to excess calories (principal) | CPT/HCPCS: 97802 ==

== ENCOUNTER 2023-04-22 06:22 | Day surgery (SDC) | payer OTHER, SELFPAY ==
--- NOTE | 2023-04-18 09:41 | P.HPSUR_ITS ---
Pre-Procedural Eval Section A Date of Service: 04/18/23 The patient is an INPATIENT: No The History & Physical has been completed within 30 days and I have reviewed it.: Yes Section B Chief Complaint: Gastro-esophageal reflux disease without esophagit Relevant Family History (Specify if Yes): No Relevant Social History: None Present Medications: None Medical History: No relevant PMH History of Previous Operations: No relevant previous surgery Allergies: Allergies Allergy/AdvReac Type Severity Reaction Status Date / Time shellfish derived Allergy Unknown Verified 04/16/23 15:17 Review of Systems Sugical H&P ROS: Negative: Constitution, Cardiovascular, Respiratory, Neurological, Psychiatric, Hem-Onc, Allergic/Immunologic, Gastrointestinal, Genitourinary, Musculoskeletal, Integumentary, Endocrine and Eye s/Ears/Nose/Throat Exam Surgical H&P Exam: Normal: HEENT, Normal: Heart, Normal: Lungs, Normal: Extremities, Normal: Abdomen, Normal: Skin and Normal: Neurological Plan Diagnosis/Plan: Unchanged (EGD to assess for esophagitis. Risks for perforation and bleeding were discussed with patient. She is in agreement with the plan) I have reviewed the history and physical and performed a pertinent physical examination on my patient. No changes have occurred unless specified. Time Spent With Patient Time: Total time managing care of this patient today ____ minutes.
[2023-04-20 09:22] VITALS: BMI 42.5
--- NOTE | 2023-04-21 09:11 | P.CONAN_ITS ---
Documented by User: Corina Cleveland NP 04/21/23 09:14 HPI - Anesthesia Eval Consult details Narrative: 52yo F for Upper Endoscopy Xarelto - DVT/PE/Antiphospholipid syndrome PMFSH Active Problems Active Problems: All Active Problems (Updated 04/10/23 @ 11:33 by Jakub Gar MD) Vitamin D deficiency (Acute) Chronic cholecystitis due to cholelithiasis with choledocholithiasis (Acute) Medial meniscus tear (Acute) Osteoarthritis of right knee (Acute) Right knee pain (Acute) Varicose veins of right lower extremity with inflammation (Acute) Smoker (Acute) Morbid obesity (Acute) Precordial chest pain (Acute) Well woman exam (Acute) COVID-19 (Acute) Insomnia (Acute) GERD (gastroesophageal reflux disease) (Acute) On anticoagulant therapy (Acute) Pulmonary embolism (Acute) DVT (deep venous thrombosis) (Acute) Past Medical History Medical History Insomnia GERD (gastroesophageal reflux disease) Choledocholithiasis On anticoagulant therapy Tubal ligation evaluation Venous stasis of lower extremity Pulmonary embolism DVT (deep venous thrombosis) Diabetes Antiphospholipid syndrome Family History Family History Maternal Aunt Breast CA Family history of problems with anesthesia: No Surgical History Surgical History (Updated 04/20/23 @ 09:24 by Paige Hartmann RN) History of esophagogastroduodenoscopy (EGD) H/O colonoscopy History of laparoscopic cholecystectomy (11/25/22) H/O skin graft H/O: knee surgery History of H/O gastric sleeve History of Problems with Anesthesia: No Social History Social History Household Members: Significant Other and Family Housing: House Do you presently have visiting nurse or other home services: No Alcohol intake: never Patient Tobacco Use Status: Former Tobacco user Cigarettes Per Day: 4 Second Hand Smoke Exposure: No Substance Use Type: Marijuana service: No Current occupational status: employed Meds Allergies Allergy/AdvReac Type Severity Reaction Status Date / Time shellfish derived Allergy Unknown Verified 04/16/23 15:17 Home Medications Medication Instructions Recorded Confirmed Last Taken Type cyanocobalamin (vitamin B-12) 1,000 mcg PO DAILY 07/29/21 04/20/23 1 Week Ago History 1,000 mcg tablet ~11/14/22 multivitamin 1 tab PO DAILY 07/29/21 04/20/23 1 Week Ago History ~11/14/22 calcium carbonate 500 mg-vitamin 1 tab PO DAILY 11/14/21 04/20/23 1 Week Ago History D3 10 mcg (400 unit) tablet ~11/14/22 (Calcium 500 With D) rivaroxaban 20 mg tablet (Xarelto) 20 mg PO DAILY@1800 05/20/22 04/20/23 11/19/22 History omeprazole 40 mg capsule,delayed 40 mg PO DAILY@0630 10/17/22 04/20/23 11/20/22 History release diclofenac sodium 1 % topical gel 4 g topical QID PRN Pain 11/21/22 04/20/23 1 Week Ago History (Arthritis Pain (diclofenac)) ~11/14/22 nystatin-triamcinolone 100,000 1 appl topical DAILY PRN Itching 11/21/22 04/20/23 11/19/22 History unit/g-0.1 % topical cream zolpidem 5 mg tablet (Ambien) 5 mg PO BEDTIME 03/19/23 04/20/23 Unknown History Exam Height,Weight and Vital Signs: Height 5 ft 9 in Weight 130.635 kg Pertinent Lab Results Pertinent Lab Results: Laboratory Tests 04/10/23 06:52 WBC 4.2 L Hgb 11.5 L Hct 35.9 L Plt Count 313 Sodium 144 Potassium 4.6 Chloride 107 Carbon Dioxide 29 BUN 16 Creatinine 0.75 Narrative Narrative: EKG 04/2023 Vent. Rate : 065 BPM Atrial Rate : 065 BPM P-R Int : 136 ms QRS Dur : 086 ms QT Int : 416 ms P-R-T Axes : 026 060 031 degrees QTc Int : 432 ms Normal sinus rhythm Nonspecific T wave abnormality Borderline ECG When compared with ECG of 17-NOV-2022 09:06, No significant changes seen Assessment and Plan Assessment Anesthesia Assessment: Chart Reviewed Final Anesthetic Review Family History of Problems with Anesthesia: No History of Problems with Anesthesia: No Documented by User: Yovanny Huang MD 04/21/23 18:18 [facility] Past Medical History Medical History Insomnia GERD (gastroesophageal reflux disease) Choledocholithiasis On anticoagulant therapy Tubal ligation evaluation Venous stasis of lower extremity Pulmonary embolism DVT (deep venous thrombosis) Diabetes Antiphospholipid syndrome Family History Family History Maternal Aunt Breast CA Surgical History Surgical History (Updated 04/20/23 @ 09:24 by Paige Hartmann RN) History of esophagogastroduodenoscopy (EGD) H/O colonoscopy History of laparoscopic cholecystectomy (11/25/22) H/O skin graft H/O: knee surgery History of H/O gastric sleeve Social History Social History Household Members: Significant Other and Family Housing: House Do you presently have visiting nurse or other home services: No Alcohol intake: never Patient Tobacco Use Status: Former Tobacco user Cigarettes Per Day: 4 Second Hand Smoke Exposure: No Substance Use Type: Marijuana service: No Current occupational status: employed Meds Allergies Allergy/AdvReac Type Severity Reaction Status Date / Time shellfish derived Allergy Unknown Verified 04/16/23 15:17 Home Medications Medication Instructions Recorded Confirmed Last Taken Type cyanocobalamin (vitamin B-12) 1,000 mcg PO DAILY 07/29/21 04/20/23 1 Week Ago History 1,000 mcg tablet ~11/14/22 multivitamin 1 tab PO DAILY 07/29/21 04/20/23 1 Week Ago History ~11/14/22 calcium carbonate 500 mg-vitamin 1 tab PO DAILY 11/14/21 04/20/23 1 Week Ago History D3 10 mcg (400 unit) tablet ~11/14/22 (Calcium 500 With D) rivaroxaban 20 mg tablet (Xarelto) 20 mg PO DAILY@1800 05/20/22 04/20/23 11/19/22 History omeprazole 40 mg capsule,delayed 40 mg PO DAILY@0630 06/04/20/23 11/20/22 History release diclofenac sodium 1 % topical gel 4 g topical QID PRN Pain 11/21/22 04/20/23 1 Week Ago History (Arthritis Pain (diclofenac)) ~11/14/22 nystatin-triamcinolone 100,000 1 appl topical DAILY PRN Itching 11/21/22 04/20/23 11/19/22 History unit/g-0.1 % topical cream zolpidem 5 mg tablet (Ambien) 5 mg PO BEDTIME 03/19/23 04/20/23 Unknown History Exam Airway Mallampati Class: II Heart: rrr Lungs: cta Assessment and Plan Assessment Anesthesia Assessment: Anesthesia Plan Discussed Final Anesthetic Review NPO: Yes ASA Class: III Final Preanesthetic Review: No Changes in Pt Med Stat and Anes Risks/Benef Reviewed Patient Risk: Intermediate Procedure Risk: Intermediate Anesthetic Plan Anesthetic Plan: GA Disposition: Standard PACU
[2023-04-22 06:38] VITALS: BP 132/68; PULSE 65; RESP 16; TEMP 36.6; O2SAT 98; BMI 43.7
[2023-04-22 06:52] LABS: Glucose, Whole Blood 106 mg/dL (60-115)
[2023-04-22] MEDS: Lactated Ringers 1,000 ML 100 ML IVCONT (07:10)
--- NOTE | 2023-04-22 07:26 | PC.NURSE ---
Patient in preop. Dr. Gar at bedside. Patient stopped Xarelto last dose 04/19. Per Dr. Bagley, this okay. May proceed.
[2023-04-22 08:05] VITALS: BP 129/81; PULSE 78; RESP 16; TEMP 36.4; O2SAT 99
--- NOTE | 2023-04-22 08:11 | P.BOP_ITS ---
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 1) proximal mild fundal redundancy 2) stenosis incisura angularis PROCEDURE: [id number] with biopsies Surgeon: ?Mt Gar M.D.. Ph.D. Hospital Secretary: None ? Anesthesia: IV sedation Estimated blood loss: ?Minimal FINDINGS AND PROCEDURE: ? OPERATIVE INDICATIONS: ?The patient is a 52 year old female known to me who underwent a laparoscopic sleeve gastrectomy elsewhere. The patient had insufficient weight loss so far.? The patient has been complaining of GERD. Base d on this information I recommended an upper endoscopy to evaluate the patient's symptoms. Risks and complications of the surgery were discussed with the patient in advance particularly the possibility of perforation or bleeding that may require surgical intervention. The patient understood the risks and was in agreement with the plan. ? PROCEDURE: After informed consent was obtained by the patient, the patient was ?transferred to the Operating Room and was placed in the supine position.? After successful induction of IV sedation, a mouth block was inserted and the patient was placed in the left lateral decubitus position. An upper endoscopy was performed next, the oropharynx and esophagus appeared within the normal limits. There was no hiatal hernia. The z-line was smooth. One biopsy were obtained from the GE junction. The sleeve was entered and it appeared to be of normal size.There was proximal fundal redundancy. There was a stricture at the incisuran angularis but the scope wan be negotiated through this area. Biopsy was obtained from the proximal sleeve. No significant bleeding was noted from any of the biopsy sites. The scope was then advanced into the duodenum which appeared to be normal as well. At that point the duodenum ?and the sleeve were decompressed and the scope was withdrawn from the patient's mouth. The patient extubated and was transferred in stable condition to the Recovery Room for further care. I was present and performed all steps of the procedure. There were no residents to assist with this case. Mt Gar M.D., Ph.D. Surgeon: Jakub Gar MD Anesthesia: MAC Was an Hospital Secretary used for this Procedure?: No Estimated blood loss (mL): 0 IV fluids (mL): 400 Urine output (mL): 0 (No Walter to record output) Pathology: other (Path: 1) proximal sleeve/gastric fundus x1, 2) EGJ x1) Condition: stable Disposition: PACU
[2023-04-22 08:22] VITALS: BP 121/77; PULSE 69; RESP 18; TEMP 36.4; O2SAT 100
== END 2023-04-22 09:03 | disposition home or self-care (01) ==
PROVIDERS: PCP Internal Medicine; Visit Provider Surgery
PROC: 0DJ08ZZ Inspection of Upper Intestinal Tract, Via Natural or Artificial Opening Endoscopic (ICD-10-PCS; CPT 43235; principal; 2023-04-22 07:30)
DX: K95.89 Other complications of other bariatric procedure (principal); K31.2 Hourglass stricture and stenosis of stomach; K31.89 Other diseases of stomach and duodenum; K21.9 Gastro-esophageal reflux disease without esophagitis; Z90.3 Acquired absence of stomach [part of]; E66.01 Morbid (severe) obesity due to excess calories; Z68.41 Body mass index [BMI] 40.0-44.9, adult; D68.61 Antiphospholipid syndrome; E11.9 Type 2 diabetes mellitus without complications; G47.00 Insomnia, unspecified; I26.99 Other pulmonary embolism without acute cor pulmonale; I82.409 Acute embolism and thrombosis of unspecified deep veins of unspecified lower extremity; Z79.01 Long term (current) use of anticoagulants; Z79.899 Other long term (current) drug therapy; Z90.49 Acquired absence of other specified parts of digestive tract; Z87.891 Personal history of nicotine dependence; F12.90 Cannabis use, unspecified, uncomplicated
CPT/HCPCS: 43239; 82947; 88305; 88342; J2704

== ENCOUNTER → 2023-04-22 06:22 | Outpatient (BNV) | payer OTHER, SELFPAY | PROVIDERS: PCP Internal Medicine; Visit Provider Surgery | DX: K21.9 Gastro-esophageal reflux disease without esophagitis (principal); K31.2 Hourglass stricture and stenosis of stomach; Z90.3 Acquired absence of stomach [part of]; Z98.84 Bariatric surgery status | CPT/HCPCS: 43239 ==

== ENCOUNTER 2023-04-23 15:11 | Outpatient (AMB) | payer OTHER, SELFPAY ==
--- NOTE | 2023-04-23 14:52 | A.OFFWM_ITS ---
Intake Intake Visit Reasons: VIDEO BH Intake Allergies shellfish derived Allergy (Severe, Verified 04/22/23 06:44) Hives [facility] Medical History (Updated 04/23/23 @ 15:15 by Olga Pal) Insomnia GERD (gastroesophageal reflux disease) Choledocholithiasis On anticoagulant therapy Tubal ligation evaluation Venous stasis of lower extremity Pulmonary embolism DVT (deep venous thrombosis) Diabetes Antiphospholipid syndrome Surgical History History of esophagogastroduodenoscopy (EGD) H/O colonoscopy History of laparoscopic cholecystectomy (11/25/22) H/O skin graft H/O: knee surgery History of H/O gastric sleeve Family History Maternal Aunt Breast CA Social History Household Members: Significant Other and Family Housing: House Do you presently have visiting nurse or other home services: No Alcohol intake: never Patient Tobacco Use Status: Former Tobacco user Quit Date: 2022 Cigarettes Per Day: 4 Years Smoked: 2.5 Second Hand Smoke Exposure: No Substance Use Type: Marijuana service: No Current occupational status: employed Female Reproductive History Menstrual Age of Menarche: 13 Behavioral Health Assessment Weight Management Therapy Therapy Notes Details Pt is looking for weight loss surgery revision to help improve her health and quality of life. She is currently not in therapy but was many years ago due to depression/anxiety after her sister in 2013. Pt smoked marijuana in the past however no other history of alcohol or drug abuse. She has no history of inpatient mental health treatment. Presenting Concerns Referral Source provider Reason for referral weight loss surgery evaluation Precipitating Event obesity Living Situation Current Living Situation Own At risk of losing current housing? No Satisfied with current living situation? Yes Comments Pt lives with her fiance and her daughter and son in law. Food/Weight/Diet Expectations of change weight loss and maintenance History/Relationship with food Pt stated that she does not like vegetables. She likes bread and pasta. last June, she started snacking more. History/Relationship with weight Last Jun quit smoking cigarettes and cannabis and gained sig. weight since then. Pt stated that she was thin and then started to gain weight when she had her children. History/Relationship with dieting [id number] after LSG in 2016. Social History Family history and relationship Pt has two daughter in their 20's and two granddaughters. She lives with her fiance of 4 years. Pt was born in [place] and raised between [place] and [place] by single mother. her grandmother was also very present as well as her aunt. 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 none Education Preferred learning style Auditory, Verbal, Written, Learn by doing and Visual Currently enrolled in educational program? No Interested in further educational program? No Educational Interests/Skills Pt works in [employer] at [employer]. 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 No Meaningful activities adventist involvement Financial Situation Describe current financial situation Occasional struggle Financial assistance? None Service Service? No Mental Health and Addiction Treatment Current/Past substance abuse? Yes Comments Cannabis Current/Past addictive behavior concerns? No Medical and Physical Health Summary Physical exam in the last year? Yes Pain Screening Current pain? No Pain in the last few months? Yes Comments Arthritis in her knee causes some pain. Medications Is the patient compliant with medications? Yes Does the patient have [place] Guardian in place? Not applicable Does the patient use complimentary health approaches? No Trauma/Abuse History History of trauma? No Questionnaires PHQ-9 Over the last 2 weeks, how often have you been bothered by any of the following problems? 1. Little interest or pleasure in doing things: not at all 2. Feeling down, depressed, or hopeless: not at all 3. Trouble falling or staying asleep, or sleeping too much: more than half the days 4. Feeling tired or having little energy: not at all 5. Poor appetite or overeating: not at all 6. Feeling bad about yourself - or that you are a failure or have let yourself or your family down: not at all 7. Trouble concentrating on things, such as reading the newspaper or watching television: not at all 8. Moving or speaking so slowly that other people could have noticed. Or the opposite - being so fidgety or restless that you have been moving around a lot more than usual: not at all 9. Thoughts that you would be better off or of hurting yourself in some way: not at all Total score: 2 Source: Developed by Drs. Carlo Oliveros, Juju Riojas, Fausto Marcelino and colleagues, with an educational leatha from [employer]. Assessment & Plan Assessment & Plan (1) Adjustment disorder, unspecified: Code(s): F43.20 - Adjustment disorder, unspecified (2) Morbid obesity: Code(s): E66.01 - Morbid (severe) obesity due to excess calories Plan Patient reported doing well in the program. She has no serious mental health issues or other barriers. She is cleared for surgery. Telehealth Telehealth Location of provider rendering services: other Location of patient: other Patient Identification confirmed using: Name, : Yes Telehealth method: voice only Patient verbally consented to treatment: Yes Patient verbally consented to billing insurance company: Yes Patient informed of any privacy concerns related to visit: Yes Minutes spent on Phone/Video with Pt.: 45 Coding Level of Care Code Tele Psy Diag Eval (08637) Diagnoses Adjustment disorder, unspecified F43.20 Morbid obesity E66.01 Time Spent (min) 45
== END 2023-04-23 15:17 | disposition home or self-care (01) ==
LOC: HO.HBST 15:11
PROVIDERS: PCP Internal Medicine; Visit Provider Counselor Mental Health
DX: F43.20 Adjustment disorder, unspecified (principal); E66.01 Morbid (severe) obesity due to excess calories
CPT/HCPCS: 90791

== ENCOUNTER → 2023-04-23 15:11 | Outpatient (BNVA) | payer OTHER, SELFPAY | PROVIDERS: PCP Internal Medicine; Visit Provider Counselor Mental Health ==

== ENCOUNTER → 2023-05-08 08:05 | Outpatient (BNVA) | payer OTHER, SELFPAY | PROVIDERS: PCP Internal Medicine; Visit Provider Surgery ==

== ENCOUNTER 2023-05-14 15:15 | Outpatient (REF) | payer OTHER, SELFPAY ==
--- NOTE | ~2023-05-14 | MM_ITS ---
EXAMINATION: MM SCREENING DIGITAL BREAST TOMOSYNTHESIS, BILATERAL CLINICAL INFORMATION: Screening. Asymptomatic. COMPARISON: Mammography: This is a baseline mammogram TECHNIQUE: Digital breast tomosynthesis is performed in both the craniocaudal and mediolateral oblique views along with computer-aided detection (CAD). Synthesized 2D images are generated from the tomosynthesis. FINDINGS: The breasts are almost entirely fatty (ACR BI-RADS breast composition Category a). There are no significant masses, abnormal calcifications, or other abnormalities. MM/MM tomosynthesis screening BI IMPRESSION: No mammographic evidence of malignancy. ASSESSMENT: BI-RADS BI-RADS 1 - Negative RECOMMENDATION: Routine annual mammography screening. 1 year F/U This examination should not preclude the clinical evaluation of a suspicious palpable abnormality. This patient's information was entered into a reminder system with a target due date for their next mammogram.
== END 2023-05-14 15:16 | disposition home or self-care (01) ==
LOC: HO.MAMMO 15:15
PROVIDERS: PCP Internal Medicine; Visit Provider Internal Medicine
DX: Z12.31 Encounter for screening mammogram for malignant neoplasm of breast (principal)
CPT/HCPCS: 77063; 77067

== ENCOUNTER → 2023-05-14 15:15 | Outpatient (BNV) | payer OTHER, SELFPAY | PROVIDERS: PCP Internal Medicine; Visit Provider Radiology Diagnostic Radiology | DX: Z12.31 Encounter for screening mammogram for malignant neoplasm of breast (principal) | CPT/HCPCS: 77063; 77067 ==

== ENCOUNTER 2023-05-26 07:59 | Outpatient (REF) | payer OTHER, SELFPAY ==
--- NOTE | ~2023-05-26 | XR_ITS ---
EXAMINATION: XR LUMBOSACRAL SPINE CLINICAL INFORMATION: Pain. COMPARISON: None available. TECHNIQUE: 3 views of the lumbosacral spine. FINDINGS: Slight rightward curvature of the lumbar spine with straightening of the normal lumbar lordosis. Surgical clips overlie the lower thoracic spine. Facet arthritis in the lower lumbar spine. Moderate multilevel lumbar spondylosis. XR/XR lumbar spine 2-3V IMPRESSION: 1. Moderate multilevel lumbar spondylosis. 2. Facet arthritis in the lower lumbar spine.
== END 2023-05-26 08:00 | disposition home or self-care (01) ==
LOC: HO.US 07:59
PROVIDERS: PCP Internal Medicine; Referring Provider Internal Medicine; Visit Provider Surgery
DX: E66.01 Morbid (severe) obesity due to excess calories (principal); M17.11 Unilateral primary osteoarthritis, right knee; K21.9 Gastro-esophageal reflux disease without esophagitis; G47.00 Insomnia, unspecified; G47.33 Obstructive sleep apnea (adult) (pediatric); R06.83 Snoring; R40.0 Somnolence; I26.99 Other pulmonary embolism without acute cor pulmonale; I82.409 Acute embolism and thrombosis of unspecified deep veins of unspecified lower extremity; Z79.01 Long term (current) use of anticoagulants
CPT/HCPCS: 72100; 95806

== ENCOUNTER → 2023-05-26 12:25 | Outpatient (BNV) | payer OTHER, SELFPAY | PROVIDERS: PCP Internal Medicine; Referring Provider Internal Medicine; Visit Provider Internal Medicine | DX: G47.33 Obstructive sleep apnea (adult) (pediatric) (principal) | CPT/HCPCS: 95806 ==

== ENCOUNTER 2023-07-22 14:48 | Outpatient (AMB) | payer OTHER, SELFPAY ==
--- NOTE | 2023-07-22 14:56 | AM.OFFWIN_ITS ---
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 Intake Note: pt is here for right wrist and thumb pain that goes up her forearm pt says the pain has gotten so bad she could not wait to see her PCP the pain has been so bad pt says this has been going on for about a month Patient Tobacco Use Status: Former Tobacco user Quit Date: 2022 Allergies shellfish derived Allergy (Severe, Verified 07/22/23 15:01) Hives Do you need a note to return to daycare/school/sports/work: Yes HPI HPI Comments History of Present Illness Details 52 y/o female patient who presents to [facility] in clinic with c/o right hand/wrist/forearm pain x 1 month. Pt describes the pain as Sharp associated with numbness/tingling radiating up right forearm. She has tried using NSAIDs and Acetaminophen with minimal relief. Pt works in [employer] at [employer] - uses her right hand repeatedly. Denies injury or trauma. [facility] Medical History (Updated 04/23/23 @ 15:15 by Olga Pal) Insomnia GERD (gastroesophageal reflux disease) Choledocholithiasis On anticoagulant therapy Tubal ligation evaluation Venous stasis of lower extremity Pulmonary embolism DVT (deep venous thrombosis) Diabetes Antiphospholipid syndrome Surgical History History of esophagogastroduodenoscopy (EGD) H/O colonoscopy History of laparoscopic cholecystectomy (11/25/22) H/O skin graft H/O: knee surgery History of H/O gastric sleeve Family History Maternal Aunt Breast CA Social History Household Members: Significant Other and Family Housing: House Do you presently have visiting nurse or other home services: No Alcohol intake: never Patient Tobacco Use Status: Former Tobacco user Quit Date: 2022 Cigarettes Per Day: 4 Years Smoked: 2.5 Second Hand Smoke Exposure: No Substance Use Type: Marijuana service: No Current occupational status: employed Female Reproductive History Menstrual Age of Menarche: 13 Review of Systems Const All systems reviewed & are unremarkable except as noted in HPI and below Physical Exam Vital Signs: Last Vital Signs Pulse 90 07/22/23 14:57 BP 140/80 H 07/22/23 14:57 Pulse Ox 98 07/22/23 14:57 Oxygen Delivery Method Room Air 07/22/23 14:57 BMI result Body Mass Index 43.6 Const General: comfortable and no acute distress Nutritional Appearance: obese Orientation/consciousness: patient oriented x3 Neuro General: patient oriented x3, gait normal and moves all extremities Extrem Right upper extremity: elbow/forearm Details: normal to inspection and normal ROM; no swelling, wrist (limited ROM due to pain) Details: normal to inspection, tenderness Location: of the distal radius and of the distal ulna and swelling Location: of the dorsal wrist and Extremity exam: right hand Details: normal to inspection, normal capillary refill, neuromotor exam normal, neurosensory exam normal and normal ROM of fingers Left upper extremity: normal to inspection and full ROM Psych Speech and movement: Normal speech and movement present Assessment & Plan Assessment & Plan (1) Right forearm pain: Code(s): M79.631 - Pain in right forearm Plan: - XR Hand/wrist and forearm - Osteoarthritis vs sprain/strain - Applied Wrist/hand Brace - Rest the joint - IceHot - Acetaminophen for pain relief. - F/U with PCP as scheduled. Orders: Orders XR forearm RT 2V Today M79.631 - Pain in right forearm XR hand wrist RT Today M79.631 - Pain in right forearm Coding Level of Care Code Est Pt Level 3 (44969) Diagnoses Right forearm pain M79.631 Time Spent (min) 15
[2023-07-22 14:57] VITALS: BP 140/80; PULSE 90; O2SAT 98; BMI 43.6
== END 2023-07-22 15:54 | disposition home or self-care (01) ==
PROVIDERS: PCP Internal Medicine; Visit Provider Nurse Practitioner Family
DX: M79.631 Pain in right forearm (principal)
CPT/HCPCS: 99213

== ENCOUNTER 2023-07-22 15:20 | Outpatient (REF) | payer OTHER, SELFPAY ==
--- NOTE | ~2023-07-22 | XR_ITS ---
EXAMINATION: XR forearm RT 2V, XR hand wrist RT CLINICAL INFORMATION: Reason for Exam M79.631 - Pain in right forearm COMPARISON: None. TECHNIQUE: Three views of the hand and wrist and 2 views of the forearm FINDINGS: No acute fracture or dislocation. Joint spaces are maintained without significant degenerative change. Atherosclerotic vascular calcification. No elbow effusion. XR/XR forearm RT 2V IMPRESSION: No acute osseous abnormality.
--- NOTE | ~2023-07-22 | XR_ITS ---
EXAMINATION: XR forearm RT 2V, XR hand wrist RT CLINICAL INFORMATION: Reason for Exam M79.631 - Pain in right forearm COMPARISON: None. TECHNIQUE: Three views of the hand and wrist and 2 views of the forearm FINDINGS: No acute fracture or dislocation. Joint spaces are maintained without significant degenerative change. Atherosclerotic vascular calcification. No elbow effusion. XR/XR hand wrist RT IMPRESSION: No acute osseous abnormality.
== END 2023-07-22 15:21 | disposition home or self-care (01) ==
LOC: HO.HMGCX 15:20
PROVIDERS: Visit Provider Nurse Practitioner Family
DX: M79.631 Pain in right forearm (principal); M25.531 Pain in right wrist; M79.641 Pain in right hand
CPT/HCPCS: 73090; 73110; 73130

== ENCOUNTER 2023-09-29 15:09 | Outpatient (REF) | payer OTHER, SELFPAY ==
--- NOTE | ~2023-09-29 | XR_ITS ---
EXAMINATION: XR CALCANEUS, LEFT CLINICAL INFORMATION: Left heel pain, rule out spur. COMPARISON: None available. TECHNIQUE: Lateral and axial views of the left calcaneus were obtained. FINDINGS: Moderate plantar and small dorsal calcaneal spurs. Bone mineralization is normal. Mild degenerative changes with narrowing and hypertrophic change at the talonavicular joint. Faint soft tissue calcifications are likely vascular. XR/XR calcaneus LT min 2V IMPRESSION: Moderate plantar and small dorsal calcaneal spurs.
== END 2023-09-29 15:10 | disposition home or self-care (01) ==
LOC: HO.HMGCX 15:09
PROVIDERS: PCP Internal Medicine; Visit Provider Internal Medicine
DX: M79.672 Pain in left foot (principal); M77.32 Calcaneal spur, left foot
CPT/HCPCS: 73650

== ENCOUNTER 2023-10-08 14:58 | Outpatient (AMB) | payer OTHER, SELFPAY ==
--- NOTE | 2023-10-08 15:00 | A.OFFVIS_ITS ---
Vital Signs 10/08/23 15:04 Height 5 ft 9 in Weight 310 lb 2 oz BMI 45.8 BP 166/95 H Blood Pressure Location Lt brachial Position Sitting Pulse 71 Pulse Source Pulse Oximeter Pulse Oximetry (%) 96 Oxygen Delivery Method Room Air Intake Visit Reasons: RIGHT KNEE PAIN Intake Note: Pain today 5 Cycle Consultant Required: No Accompanied by: Self / Same As Patient Allergies shellfish derived Allergy (Severe, Verified 10/08/23 15:05) Hives HPI Comments Details: Patient presents today for follow up for right knee pain. She was initially seen in our office in October 2022 with pending Orthopedic evaluation as noted below. Patient also had Vascular follow up with Dr. Vidal in April 2023 re: large excoriated open ulcer in the right medial calf and was seen by [facility]. Patient continued to endorse significant anterior right knee pain and lower back pain that radiates into her left lateral and medial hip and thigh. She has gained some weight due to restricted mobility and decreased ROM due to pain as well as suffering from acute left foot plantar fasciitis pain with pending Podiatry referral. Patient is interested to undergo interventional treatments for her right knee as she was deemed non-surgical for TKA. She continues to take Xarelto and was able to stop for minor procedures with Lovenox. Patient requests refill topical compounding cream and knee brace which she was not able to get it through her regular pharmacy last year. Denies any recent cough, cold, infection, fever, any significant changes in her medical history, medications or recent hospitalizations. Orthopedic evaluation 01/29/23 Dr. Norton: This is a 52 year old woman with moderate-severe right knee OA. She has pain with daily activity, worse with ambulation, stairs, and at night. Her pain has improved since she switched duties at work, as she is now spending most of her shift ambulating opposed to sitting. She has a Hx of DVT & APS, and is S/P Cyanoacrylate ablation, DOS: 06/05/[address] Vidal. She found ~2 months of relief from her previous steroid injection and has been attending PT. I discussed her diagnosis and treatment options. TKA may be an option but her vascular status puts her at risk. She is currently taking Xarelto and is not able to take NSAIDs at this time. She would like to delay injections at this time as her pain is tolerable. I ordered a topical compounding cream for her to use prn. She can follow up prn. PRIOR: Patient is a very pleasant sent 52 years old female presents today significant right knee pain has been getting worse since June. This has been chronic pain for her but more acute symptoms are new. She had undergone right lower extremity Cyanoacralate ablation and developed venous ulcer per Dr. Vidal's notes. Initial x-ray imaging showed no acute abnormality and mild tricompartmental degenerative changes. She then completed a right knee MRI imaging significant for high-grade radial tear at the medial meniscal body with partial extrusion of the meniscal body. Probable small radial tear at the posterior horn, as well. Jrtertpj-bp-[id number] medial compartment osteoarthritis. More yctf-wn-qfxybhtz patellofemoral and mild lateral compartment osteoarthritis. Small joint effusion and Grayson's cyst. Patient reports her right knee pain has been progressively debilitating and affecting her daily ADLs, sleep, mobility and work. 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 She has not done physical therapy or injections previously and at this time due to severe right knee pain she is not able to participate in physical therapy or home exercise program. She is wearing tight leggings and compression stockings that also cover her knees for support. Patient reports due to blood thinner (Xarelto), she is not able to take NSAIDs but occasionally will take ibuprofen for severe pain. Patient has undergone gastric sleeve in 2017 and last 150 lb originally after surgery. She has gained it back in the recent past which she believes due to stopping smoking and decreased physical activity due to pain. Patient also sees Dr. Adkins for right lower medial offset due to antiphospholipid antibody syndrome which was diagnosed in 1988. Patient has upcoming orthopedic evaluation on 10/27/22. Location Right knee Duration Chronic mild right knee pain, worsening since June 2022 Characteristics of symptom or complaint Aching, dull, throbbing, shock- like, stabbing, sharp, burning Aggravating or associated factors Walking, standing, lying down, climbing stairs Relieving factors Ibuprofen (rarely due to blood thinners) Treatment None. Pending Orthopedic evaluation on 10/27/22 [facility] Medical History Insomnia GERD (gastroesophageal reflux disease) Choledocholithiasis On anticoagulant therapy Tubal ligation evaluation Venous stasis of lower extremity Pulmonary embolism DVT (deep venous thrombosis) Diabetes Antiphospholipid syndrome Surgical History History of esophagogastroduodenoscopy (EGD) H/O colonoscopy History of laparoscopic cholecystectomy (11/25/22) H/O skin graft H/O: knee surgery History of H/O gastric sleeve Family History Maternal Aunt Breast CA Social History Household Members: Significant Other and Family Housing: House Do you presently have visiting nurse or other home services: No Alcohol intake: never Patient Tobacco Use Status: Former Tobacco user Cigarettes Per Day: 4 Years Smoked: 2.5 Second Hand Smoke Exposure: No Substance Use Type: Marijuana service: No Current occupational status: employed Female Reproductive History Menstrual Age of Menarche: 13 Review of Systems Const All systems reviewed & are unremarkable except as noted in HPI and below Physical Exam Vital Signs: Last Vital Signs Pulse 71 10/08/23 15:04 BP 166/95 H 10/08/23 15:04 Pulse Ox 96 10/08/23 15:04 Oxygen Delivery Method Room Air 10/08/23 15:04 BMI result Body Mass Index 45.8 General: Appears afebrile. Morbidly obese. Moderate distress due to right knee pain. Alert and oriented. Mood and affect appropriate. Follows and participates in conversation appropriately. Respiratory effort is unlabored. No cough. No nasal discharge. Able to transition from sit to stand unassisted. Ambulates with bilaterally normal heel strike and toe off. General: Yes no CVA tenderness Back/Spine/Pelvis Back: no CVA tenderness Cervical Spine: cervical ROM normal and No Cervical spine tenderness Thoracic/Lumbar Spine: thoracic and lumbar spine normal to inspection, Lasegue's sign negative, straight leg raise negative bilaterally, pain with thoraco-lumbar ROM, paraspinal muscle tenderness, No thoracic spinal tenderness and lumbar spinal tenderness at L4 and at L5 Extrem General: Yes capillary refill normal, Yes no clubbing, cyanosis or edema and Yes no calf tenderness Right lower extremity: knee (Limited ROM r/t pain ) Details: tenderness (anterior knee) Location: of the medial joint line and of the lateral joint line, swelling and crepitus; no ecchymosis and no unusual warmth Results Reviewed Results Reviewed: MR KNEE WITHOUT CONTRAST, RIGHT 09/29/22 CLINICAL INFORMATION: Severe medial pain. Rule out tear. COMPARISON: Radiograph dated 07/17/2022. FINDINGS: MENISCI: MEDIAL MENISCUS: Meniscal body is partially extruded from the jointline. There is a radial tear through the meniscal body sparing the more peripheral, proximal fibers, involving at least two-thirds of the meniscal cross-section. Surrounding soft tissues are edematous. Mild undersurface fraying at the posterior horn. A small radial tear may also be present at the inner margin of the posterior horn, though assessment of this region is somewhat limited by motion artifact. LATERAL MENISCUS: Intact. LIGAMENTS: CRUCIATE: Intact. COLLATERAL: Edema signal around the MCL is likely reactive to the underlying meniscal abnormality. Collateral ligaments are intact. EXTENSOR MECHANISM: Intact. ARTICULAR CARTILAGE/BONE: PATELLOFEMORAL COMPARTMENT: At the central patella, there is a transverse band of full-thickness chondral fissuring with mbuv-gk-tkhkmgir nonuniform chondral thinning and mild subchondral edema. A 2 x 2 cm area of moderate to high-grade cartilage loss is also present at the inferior aspect of the lateral trochlear facet with underlying cortical irregularity and subcortical edema. MEDIAL COMPARTMENT: High-grade articular cartilage loss is present at the medial two-thirds of the posterior weightbearing surface of the medial femoral condyle over an area measuring roughly 2.3 x 1.6 cm. Similar high-grade cartilage loss is present at the medial two-thirds of the medial tibial plateau with articular cortical sclerosis, subchondral cystic change, and subchondral edema with marginal osteophytes. LATERAL COMPARTMENT: Mild nonuniform chondral thinning is present at the medial third of the lateral femoral condyle and lateral tibial plateau. Small marginal osteophytes. JOINT FLUID AND BURSAE: Small joint effusion and Grayson's cyst. IMPRESSION: 1. High-grade radial tear at the medial meniscal body with partial extrusion of the meniscal body. Probable small radial tear at the posterior horn, as well. 2. Owusphsy-xz-yznitl medial compartment osteoarthritis. More kfoi-sd-hlmqeosa patellofemoral and mild lateral compartment osteoarthritis. 3. Small joint effusion and Grayson's cyst. XR KNEE, RIGHT CLINICAL INFORMATION: Right knee pain following Venaseal procedure FINDINGS: No fracture or subluxation. Compartmental joint space narrowing is mild at the medial compartment. Mild patellofemoral compartment narrowing. Tricompartmental mild marginal osteophytes. No joint effusion. Mild soft tissue swelling throughout. IMPRESSION: No acute abnormality. Mild tricompartmental degenerative changes. XR LUMBOSACRAL SPINE 05/26/23 CLINICAL INFORMATION: Pain. FINDINGS: Slight rightward curvature of the lumbar spine with straightening of the normal lumbar lordosis. Surgical clips overlie the lower thoracic spine. Facet arthritis in the lower lumbar spine. Moderate multilevel lumbar spondylosis. IMPRESSION: 1. Moderate multilevel lumbar spondylosis. 2. Facet arthritis in the lower lumbar spine. Assessment & Plan Assessment & Plan (1) Right knee pain: Code(s): M25.561 - Pain in right knee Category: Medical (2) Osteoarthritis of right knee: Code(s): M17.11 - Unilateral primary osteoarthritis, right knee Category: Medical (3) Lumbar spondylosis: Code(s): M47.816 - Spondylosis without myelopathy or radiculopathy, lumbar region Category: Medical (4) Morbid obesity with BMI of 45.0-49.9, adult: Code(s): E66.01 - Morbid (severe) obesity due to excess calories; Z68.42 - Body mass index [BMI] 45.0-49.9, adult Category: Medical Plan Schedule Right diagnostic saphenous nerve block at the level of the adductor canal with local and US for potential Sprint PNS trial. We also discussed genic ular RFA. Expectations, risks and benefits were reviewed. Patient is aware she will be contacted to schedule this procedure. Compound topical cream sent to [facility] pharmacy at patient's request. Short script for oxycodone provided for moderate-severe pain only while patient awaits for injections. Side effects and precautions were discussed with patient. Narcan provided too. Continue daily physical activity as tolerate, rest, elevate, ice/heat therapy, activity modifications and weight loss. All questions were answered and the patient is in agreement of plan. Follow-up after injections and sooner as needed. Anticoagulation: Patient on anticoagulation (Xarelto) and instructions given on when to pause with prescribing physician permission. Justification for interventional therapy: ? Patient with average pain > 6/10 ? Patient has exhausted conservative therapy, Tylenol, opioids, topical applications cannot take NSAIDs due to anticoagulation ? Due to significant pain, patient is not able to participate in physical therapy at this time The risks, consequences, alternatives, and benefits of various treatment options were discussed with the patient in great detail, including conservative management, injections and procedures. Medications: New oxycodone Partial Fill upon patient request. 5 mg PO Q8H 7 days PRN 20 tabs 0RF pain M17.11 - Unilateral primary osteoarthritis, right knee, M25.561 - Pain in right knee, M47.816 - Spondylosis without myelopathy or radiculopathy, lumbar region naloxone 4 mg/actuation (Narcan) spray 1 dose into ONE nostril; alternate nostrils w each dose until help arrives 4 mg intranasal Q2M PRN 2 ea 0RF opioid overdose Changed From diclofenac sodium 1% (Arthritis Pain (diclofenac)) apply to affected areas 4 grams topical QID PRN Pain M17.11 - Unilateral primary osteoarthritis, right knee, M25.561 - Pain in right knee To diclofenac sodium 1% (Arthritis Pain (diclofenac)) apply pea-sized amount 3-5 times daily to painful areas as needed 4 grams topical QID PRN 120 grams 3RF Pain M17.11 - Unilateral primary osteoarthritis, right knee, M25.561 - Pain in right knee Refilled leg brace (Knee Support Brace) As directed 1 ea 0RF knee pain M17.11 - Unilateral primary osteoarthritis, right knee, M25.561 - Pain in right knee, S83.249A - Other tear of medial meniscus, current injury, unspecified knee, initial encounter Coding Level of Care Code Est Pt Level 4 (28583) Diagnoses Right knee pain M25.561 Osteoarthritis of right knee M17.11 Lumbar spondylosis M47.816 Morbid obesity with BMI of 45.0-49.9, adult E66.01; Z68.42
[2023-10-08 15:04] VITALS: BP 166/95; PULSE 71; O2SAT 96; BMI 45.8
== END 2023-10-08 15:36 | disposition home or self-care (01) ==
PROVIDERS: PCP Internal Medicine; Visit Provider Nurse Practitioner Family
DX: M25.561 Pain in right knee (principal); M17.11 Unilateral primary osteoarthritis, right knee; M47.816 Spondylosis without myelopathy or radiculopathy, lumbar region; E66.01 Morbid (severe) obesity due to excess calories; Z68.42 Body mass index [BMI] 45.0-49.9, adult
CPT/HCPCS: 99214

== ENCOUNTER → 2023-10-08 14:58 | Outpatient (BNVA) | payer OTHER, SELFPAY | PROVIDERS: PCP Internal Medicine; Visit Provider Nurse Practitioner Family | DX: M25.561 Pain in right knee (principal); M47.11 Other spondylosis with myelopathy, occipito-atlanto-axial region; M47.816 Spondylosis without myelopathy or radiculopathy, lumbar region; E66.01 Morbid (severe) obesity due to excess calories; Z68.42 Body mass index [BMI] 45.0-49.9, adult | CPT/HCPCS: 99212 ==

== ENCOUNTER 2023-11-09 15:39 | Outpatient (REF) | payer OTHER, SELFPAY ==
[2023-11-09 18:14] LABS: Rheumatoid Factor < 13.0 IU/mL (<15.0)
[2023-11-09 18:22] LABS: Erythrocyte Sedimentation Rate 25 MM/HR (0-20)
[2023-11-17 11:38] LABS: Anti Nuclear Antibody Screen NEGATIVE (NEGATIVE)
== END 2023-11-09 15:40 | disposition home or self-care (01) ==
LOC: HO.LAB 15:39
PROVIDERS: PCP Internal Medicine; Visit Provider Psychiatry & Neurology Neurology
DX: M79.641 Pain in right hand (principal)
CPT/HCPCS: 36415; 85652; 86038; 86140; 86431

== ENCOUNTER 2023-11-20 07:10 | Outpatient (REF) | payer OTHER, SELFPAY ==
[2023-11-20 07:27] LABS: MANUAL DIFF FLAG NO
[2023-11-20 07:50] LABS: Basophils Absolute Auto 0.1 X10*3/uL (0.0-0.2); Basophils Percent Auto 1.4 % (0-2); Eosinophils Absolute Auto 0.7 X10*3/uL (0.0-0.4); Eosinophils Percent Auto 11.5 % (0-4); Hematocrit 34.9 % (37.0-47.0); Imm Gran Abs Auto 0.01 X10*3/uL (0.00-0.03); Imm Gran Pct Auto 0.2 % (0.0-0.4); Lymphocytes Absolute Auto 1.8 X10*3/uL (1.2-4.9); Lymphocytes Percent Auto 30.8 % (20-40); Mean Corpuscular HGB Conc 31.5 g/dl (31.0-35.0); Mean Corpuscular Hemoglobin 24.8 pg (27.0-33.0); Mean Corpuscular Volume 78.8 fL (80.0-98.0); Mean Platelet Volume 10.7 fL (9.4-12.3); Monocytes Absolute Auto 0.3 X10*3/uL (0.1-1.2); Monocytes Percent Auto 5.6 % (2-11); Neutrophils Percent Auto 50.5 % (45-73); Platelet Count 327 X10*3/uL (160-400); Red Blood Count 4.43 X10*6/uL (4.20-5.50); Red Cell Distribution Width 14.6 % (11.0-16.0); White Blood Count 5.9 X10*3/uL (4.8-10.8)
[2023-11-20 18:22] LABS: Carbon Dioxide 26 mmol/L (22-29); Chloride 105 mmol/L (96-108); Potassium 4.3 mmol/L (3.3-5.1); Sodium 142 mmol/L (135-145)
[2023-11-20 18:23] LABS: Alanine Aminotransferase 14 U/L (0-31); Albumin Level 3.9 g/dL (3.5-5.0); Alkaline Phosphatase 87 U/L (39-117); Anion Gap 15 (12-20); Aspartate Amino Transferase 14 U/L (5-31); Bilirubin Total 0.4 mg/dL (0.0-1.0); Blood Urea Nitrogen 12 mg/dL (9-16); Calcium 9.6 mg/dL (8.4-10.2); Cholesterol 190 mg/dL (<200); Estimated Glomerular Filt Rate > 60; Free T4 (Free Thyroxine) 0.97 ng/dL (0.71-1.85); Glucose Fasting 94 mg/dL (60-99); HDL Cholesterol 72 mg/dL (>40); LDL Cholesterol Calculated 108 mg/dL (<100); Thyroid Stimulating Hormone 1.87 uIU/mL (0.32-4.0); Total Protein 7.1 g/dL (6.5-8.0); Triglycerides 51 mg/dL (<150)
== END 2023-11-20 07:11 | disposition home or self-care (01) ==
LOC: HO.LAB 07:10
PROVIDERS: PCP Internal Medicine; Visit Provider Internal Medicine
DX: E78.5 Hyperlipidemia, unspecified (principal); R53.83 Other fatigue
CPT/HCPCS: 36415; 80053; 80061; 84439; 84443; 85025

== ENCOUNTER 2023-12-10 07:46 | Emergency (ER) | payer OTHER, SELFPAY ==
--- NOTE | ~2023-12-10 | US_ITS ---
EXAMINATION: US VENOUS ULTRASOUND WITH DOPPLER LOWER EXTREMITY, LEFT CLINICAL INFORMATION: Left leg pain COMPARISON: Prior left lower extremity ultrasound 05/15/2022: Chronic nonocclusive thrombus in the left distal femoral vein. TECHNIQUE: Ultrasound of the deep veins is performed from the hip to the calf with compression sonography and color and pulse Doppler assessment. Spectral analysis with color-flow imaging is performed. FINDINGS: The study is extremely limited by body habitus and imaging of the distal femoral vein with thrombus had been seen on the 05/15/2022 study is limited. There is a suggestion that there remains chronic noncompressible thrombus in this region. There is normal venous compression and respiratory variation and augmented flow in the remainder of the lower extremity. The visualized common femoral vein, proximal femoral vein, profunda femoral vein, popliteal vein, and the trifurcation region shows no evidence of deep venous thrombosis. There is no significant popliteal fossa cyst. US/US venous duplex LE LT IMPRESSION: Limited study due to body habitus. There is a suggestion of chronic noncompressible thrombus in the distal femoral vein. No definite new acute DVT is seen.
[2023-12-10 07:54] VITALS: BP 131/77; PULSE 89; RESP 18; TEMP 36.2; O2SAT 98; BMI 46.1
--- NOTE | 2023-12-10 08:31 | ED.WOUNDLAC ---
HPI - Wound/Laceration General Chief Complaint: Wound/Laceration Stated Complaint: l leg vein blew bleeding Time Seen by Provider: 12/10/23 08:30 Source: patient Mode of arrival: ambulatory Limitations: no limitations History of Present Illness HPI narrative: 53-year-old female past medical history significant for antiphospholipid syndrome PE DVT on Xarelto recent diagnosis of gallstone pancreatitis approximately 1 year ago underwent laparoscopic cholecystectomy here with chronic leg pain. She has antiphospholipid syndrome chronic pain to bilateral legs known varicose veins to the left leg and states they have been hurting for several months today she was at work when she noticed quite a bit of bleeding to her lower leg she denies any falls or injuries to the area since fevers or chills Onset (ago): minute(s) Related Data Home Medications ?Medication ?Instructions ?Recorded ?Confirmed cyanocobalamin (vitamin B-12) 1,000 mcg PO DAILY 07/29/21 04/22/23 1,000 mcg tablet multivitamin 1 tab PO DAILY 07/29/21 04/22/23 calcium carbonate 500 mg-vitamin 1 tab PO DAILY 11/14/21 04/22/23 D3 10 mcg (400 unit) tablet (Calcium 500 With D) rivaroxaban 20 mg tablet (Xarelto) 20 mg PO DAILY@1800 05/20/22 04/22/23 omeprazole 40 mg capsule,delayed 40 mg PO DAILY@0630 10/17/22 04/22/23 release zolpidem 5 mg tablet (Ambien) 5 mg PO BEDTIME 03/19/23 04/22/23 fexofenadine-pseudoephedrine ER 1 tab PO QPM 07/22/23 180 mg-240 mg tablet,ext.release 24 hr (Allergy Relief-D (fexofenadine)) meclizine 25 mg tablet 25 mg PO TID PRN 07/22/23 betamethasone valerate 0.1 % topical 10/08/23 topical ointment cephalexin 500 mg capsule 500 mg PO DAILY 10/08/23 Previous Rx's ?Medication ?Instructions ?Recorded cholecalciferol (vitamin D3) 125 125 mcg PO DAILY #30 caps 07/10/23 mcg (5,000 unit) capsule diclofenac sodium 1 % topical gel 4 g topical QID PRN Pain #120 grams 10/08/23 (Arthritis Pain (diclofenac)) leg brace (Knee Support Brace) #1 ea 10/08/23 naloxone 4 mg/actuation nasal 4 mg intranasal Q2M PRN opioid 10/08/23 spray (Narcan) overdose #2 ea oxycodone 5 mg tablet 5 mg PO Q8H PRN pain 7 days #20 10/08/23 tabs Allergies Allergy/AdvReac Type Severity Reaction Status Date / Time shellfish derived Allergy Severe Hives Verified 12/10/23 07:56 Review of Systems Review of Systems: Review of systems: General: Patient denies any fever chills recent illness or falls Musculoskeletal: Denies back pain or body aches or other injuries HEENT: denies headache, runny nose, ear pain Respiratory: denies shortness of breath, cough Cardiovascular: no chest pain or palpitations : denies dysuria, frequency Abdomen: no nausea vomiting denies abdominal pain Extremities: no swelling, left leg pain ankle pain bleeding from left ankle the Skin: no diaphoresis Yes all other systems are reviewed and are negative PMFSH Past Medical History Medical History Insomnia GERD (gastroesophageal reflux disease) Choledocholithiasis On anticoagulant therapy Tubal ligation evaluation Venous stasis of lower extremity Pulmonary embolism DVT (deep venous thrombosis) Diabetes Antiphospholipid syndrome Surgical History History of esophagogastroduodenoscopy (EGD) H/O colonoscopy History of laparoscopic cholecystectomy (11/25/22) H/O skin graft H/O: knee surgery History of H/O gastric sleeve Family History Family History Maternal Aunt Breast CA Social History Social History Household Members: Significant Other and Family Housing: House Do you presently have visiting nurse or other home services: No Alcohol intake: never Patient Tobacco Use Status: Former Tobacco user Cigarettes Per Day: 4 Years Smoked: 2.5 Smoked in Last 30 Days: No Second Hand Smoke Exposure: No Use of substances other than those prescribed or required for medical reasons: No Substance Use Type: Marijuana Advance Directives: No Advance Directives Information Provided: Yes Do you have a plan to hurt others: No Plan service: No Current occupational status: employed Physical Exam Vital Signs: Vital Signs: Last Vital Signs Temp 97.8 F 12/10/23 10:11 Pulse 62 12/10/23 10:11 Resp 16 12/10/23 10:11 BP 144/62 H 12/10/23 10:11 Pulse Ox 99 12/10/23 10:11 O2 Del Method Room Air 12/10/23 10:11 BMI result Body Mass Index 46.1 General: Well-appearing well-nourished in no signs of distress HEENT: Normocephalic atraumatic Neck: No signs of JVD, no masses no tenderness or lymphadenopathy Cardiovascular: Regular rate and rhythm Respiratory: Clear to auscultation bilaterally Abdomen: Soft nontender no masses Extremities: Normal pedal pulses no signs of edema left lower leg looks like nonbleeding varicose vein that is open there is no redness the tire area is tender to palpation Skin: Dry warm no rashes Back: No tenderness full ROM Course Course Course Narrative: 1151 patient with distal DVT she is already on anticoagulation do not think there is anything further to do think the patient safe to be discharged home no more bleeding from the varicose vein I will discharge home at this time. Unsure of the reason for the delay for the ultrasound read I did contact them after 3 hours of do not read or sheet for their study it was posted immediately after I called. Medications Administered Discontinued Medications Generic Name Dose Route Start Last Admin Trade Name Connerq PRN Reason Stop Dose Admin Acetaminophen 650 mg 12/10/23 08:49 12/10/23 09:05 Acetaminophen 325 Mg Tablet PO 12/10/23 08:50 650 mg ONCE ONE Administration Morphine Sulfate 15 mg 12/10/23 08:49 12/10/23 09:04 Morphine Sulfate Immed Release 15 Mg Tablet PO 12/10/23 08:50 15 mg ONCE ONE Administration Medical Decision Making Medical Decision Making MDM Narrative: Patient has peripheral pulses I did close the wound with Dermabond I think the patient will be safe to get a ultrasound pain is out of proportion to exam I do not think there was any need for x-rays or labs Differential Diagnosis Differential Diagnoses: The differential diagnosis associated with the presentation includes Left ankle pain likely bleeding from a varicose vein chronic leg pain DVT Lab Data 12/10/23 10:11 12/10/23 10:11 Labs: Lab Results 12/10/23 Range/Units 10:11 WBC 6.0 (4.8-10.8) X10*3/uL RBC 4.18 L (4.20-5.50) X10*6/uL Hgb 10.6 L (12.0-16.0) g/dl Hct 32.8 L (37.0-47.0) % MCV 78.5 L (80.0-98.0) fL MCH 25.4 L (27.0-33.0) pg MCHC 32.3 (31.0-35.0) g/dl RDW 14.8 (11.0-16.0) % Plt Count 305 (160-400) X10*3/uL MPV 10.3 (9.4-12.3) fL Immature Gran % (Auto) 0.2 (0.0-0.4) % Neut % (Auto) 54.7 (45-73) % Lymph % (Auto) 27.0 (20-40) % [place] % (Auto) 7.4 (2-11) % Eos % (Auto) 9.7 H (0-4) % Baso % (Auto) 1.0 (0-2) % Lymph # (Auto) 1.6 (1.2-4.9) X10*3/uL [place] # (Auto) 0.4 (0.1-1.2) X10*3/uL Eos # (Auto) 0.6 H (0.0-0.4) X10*3/uL Baso # (Auto) 0.1 (0.0-0.2) X10*3/uL Abs Immat Gran (auto) 0.01 (0.00-0.03) X10*3/uL Absolute Neuts (auto) 3.3 (2.0-8.3) x10*3/uL Absolute Nucleated RBC 0.000 (0.0-0.012) X10*3/uL Nucleated RBC % (auto) 0.0 (0.0-0.2) /100WBC Sodium 140 (135-145) mmol/L Potassium 4.3 (3.3-5.1) mmol/L Chloride 107 (96-108) mmol/L Carbon Dioxide 24 (22-29) mmol/L Anion Gap 13 (12-20) BUN 14 (9-16) mg/dL Creatinine 0.78 (0.5-1.4) mg/dL Estim Creat Clear Calc 128.3 Estimated GFR > 60 Random Glucose 118 H (60-115) mg/dL Calcium 9.5 (8.4-10.2) mg/dL Discharge Plan Discharge Clinical Impression: Bleeding from varicose vein, DVT (deep venous thrombosis) Patient Disposition: Home, Self-Care Instructions: Deep Vein Thrombosis (ED), Deep Vein Thrombosis Prevention (ED), Phlebitis (ED) Additional Instructions: You were seen in the emergency department for leg pain and a bleeding varicose vein. You had an ultrasound that did show a distal DVT this should resolve with the anticoagulation that her on. Please call follow up your doctor if you have any other concerns please return to emergency department for Prescriptions: No Action cholecalciferol (vitamin D3) 125 mcg (5,000 unit) capsule 125 mcg PO DAILY Qty: 30 2RF multivitamin Tablet 1 tab PO DAILY cyanocobalamin (vitamin B-12) 1,000 mcg Tablet 1,000 mcg PO DAILY meclizine 25 mg tablet 25 mg PO TID PRN fexofenadine-pseudoephedrine [Allergy Relief-D(fexofenadine)] 180-240 mg tablet extended release 24 hr 1 tab PO QPM Xarelto 20 mg tablet 20 mg PO DAILY@1800 Hold Instructions: Resume on 11/30/22. calcium carbonate-vitamin D3 [Calcium 500 With D] 500 mg-10 mcg (400 unit) tablet 1 tab PO DAILY omeprazole 40 mg capsule,delayed release(DR/EC) 40 mg PO DAILY@0630 cephalexin 500 mg capsule 500 mg PO DAILY betamethasone valerate 0.1 % ointment topical (DME) Knee Support Brace [facility] [place] Instructions .Route Qty: 1 0RF Rx Instructions: As directed oxycodone 5 mg tablet 5 mg PO Q8H PRN (Reason: pain) 7 Days Qty: 20 0RF Rx Instructions: Partial Fill upon patient request. naloxone [Narcan] 4 mg/actuation spray,non-aerosol 4 mg intranasal Q2M PRN (Reason: opioid overdose) Qty: 2 0RF Rx Instructions: spray 1 dose into ONE nostril; alternate nostrils w each dose until help arrives diclofenac sodium [Arthritis Pain (diclofenac)] 1 % gel 4 g topical QID PRN (Reason: Pain) Qty: 120 3RF Rx Instructions: apply pea-sized amount 3-5 times daily to painful areas as needed zolpidem [Ambien] 5 mg tablet 5 mg PO BEDTIME Rx Instructions: may repeat once if no response in 30-60 minutes Stand Alone Forms: Work/School Release Print Language: Bulgarian
--- OUTSIDE RECORDS SUMMARY | 2023-12-10 08:49 | XMS_ITS | Continuity of Care Document ---
Author Organization [facility] ter Address [address] [place] [id number] Care Team Providers Care Deputy Manager Name Role Phone Zafar Espinoza MD Primary Care Physician [place] [facility] [place] 11/20/22 - 11/21/[address] [id number]- Discharge Disposition: A-D/C Walkout Attending Physician: Not on Staff, Attending MD Admitting Physician: Not on Staff, Admitting MD Referring Physician: Not on Staff, Referring MD Allergies, Adverse Reactions, Alerts No Known Allergies Medications oxyCODONE 5 mg oral tablet 5 mg, 1, tablet, By Mouth, Every 8 hours, PRN, # 12 tablet, Refills 0, Tot. Refills 0, Maintenance,as needed for pain, 11/17/22 22:35:00 EDT, Route to Pharmacy Electronically, [facility]/pharmacy #[id number], Partial fill upon patient request if the prescription... Start Date: 11/17/22 Status: Ordered Patient Care team information Care Team Personnel Name: Zafar Espinoza MD Position: Reference Physician Member Role: PCP Address: Address: [address] [place] [id number]
[2023-12-10] MEDS: Morphine Sulfate Immed Release 15 MG TABLET PO (09:04)
[2023-12-10] MEDS: Acetaminophen 325 MG TABLET 650 MG PO (09:05)
[2023-12-10 10:11] VITALS: BP 144/62; PULSE 62; RESP 16; TEMP 36.6; O2SAT 99
[2023-12-10 10:14] LABS: MANUAL DIFF FLAG NO
[2023-12-10 10:17] LABS: Basophils Absolute Auto 0.1 X10*3/uL (0.0-0.2); Eosinophils Absolute Auto 0.6 X10*3/uL (0.0-0.4); Eosinophils Percent Auto 9.7 % (0-4); Hematocrit 32.8 % (37.0-47.0); Hemoglobin 10.6 g/dl (12.0-16.0); Imm Gran Abs Auto 0.01 X10*3/uL (0.00-0.03); Imm Gran Pct Auto 0.2 % (0.0-0.4); Lymphocytes Absolute Auto 1.6 X10*3/uL (1.2-4.9); Mean Corpuscular HGB Conc 32.3 g/dl (31.0-35.0); Mean Corpuscular Hemoglobin 25.4 pg (27.0-33.0); Mean Corpuscular Volume 78.5 fL (80.0-98.0); Mean Platelet Volume 10.3 fL (9.4-12.3); Monocytes Absolute Auto 0.4 X10*3/uL (0.1-1.2); Monocytes Percent Auto 7.4 % (2-11); Neutrophils Absolute Auto 3.3 x10*3/uL (2.0-8.3); Neutrophils Percent Auto 54.7 % (45-73); Platelet Count 305 X10*3/uL (160-400); Red Blood Count 4.18 X10*6/uL (4.20-5.50); Red Cell Distribution Width 14.8 % (11.0-16.0)
[2023-12-10 10:34] LABS: Anion Gap 13 (12-20); Blood Urea Nitrogen 14 mg/dL (9-16); Calcium 9.5 mg/dL (8.4-10.2); Carbon Dioxide 24 mmol/L (22-29); Chloride 107 mmol/L (96-108); Creatinine Clr Calc Pharmacy 128.3; Estimated Glomerular Filt Rate > 60; Glucose Random 118 mg/dL (60-115); Potassium 4.3 mmol/L (3.3-5.1); Sodium 140 mmol/L (135-145)
[2023-12-10 12:05] VITALS: BP 144/62; PULSE 62; RESP 16; TEMP 36.6; O2SAT 99
== END 2023-12-10 12:05 | disposition home or self-care (01) ==
PROVIDERS: Emergency Provider Student in an Organized Health Care Education/Training Program; PCP Internal Medicine
DX: I83.892 Varicose veins of left lower extremity with other complications (principal); I82.512 Chronic embolism and thrombosis of left femoral vein; M79.605 Pain in left leg; E11.9 Type 2 diabetes mellitus without complications; Z86.718 Personal history of other venous thrombosis and embolism; Z86.711 Personal history of pulmonary embolism; Z87.891 Personal history of nicotine dependence; Z79.01 Long term (current) use of anticoagulants
CPT/HCPCS: 36415; 80048; 85025; 93971; 99284

== ENCOUNTER 2023-12-24 13:51 | Outpatient (AMB) | payer OTHER, SELFPAY ==
[2023-12-24 13:52] VITALS: BMI 46.1
--- NOTE | 2023-12-24 13:52 | MHC.OFFVIS ---
Vital Signs 12/24/23 13:52 Height 5 ft 9 in Weight 312 lb BMI 46.1 Intake Visit Reasons: OV - Right knee pain Intake Note: Emy is a 53 year old female who presents today for a follow up of her right knee OA. Last injection 10/27/2022.This only helped for about a month, she does not want to repeat it. TKA may be an option but her vascular status puts her at risk. She is currently taking Xarelto and is not able to take NSAIDs at this time. Pt is using a compound cream and elevates leg, she also takes Oxy 5mg at night Allergies shellfish derived Allergy (Severe, Verified 12/24/23 13:55) Hives HPI HPI OV - Right knee pain: Details: Emy is a 53 year old female who presents today for a follow up of her right knee OA. Last injection 10/27/2022.This only helped for about a month, she does not want to repeat it. TKA may be an option but her vascular status puts her at risk. She is currently taking Xarelto and is not able to take NSAIDs at this time. Pt is using a compound cream and elevates leg, she also takes Oxy 5mg at night. He has a history of multiple blood clots in the right leg and we had previously discussed surgical options but at that time felt that the risks were not warranted. She does have pain but it is not constant. [facility] Medical History Insomnia GERD (gastroesophageal reflux disease) Choledocholithiasis On anticoagulant therapy Tubal ligation evaluation Venous stasis of lower extremity Pulmonary embolism DVT (deep venous thrombosis) Diabetes Antiphospholipid syndrome Surgical History History of esophagogastroduodenoscopy (EGD) H/O colonoscopy History of laparoscopic cholecystectomy (11/25/22) H/O skin graft H/O: knee surgery History of H/O gastric sleeve Family History Maternal Aunt Breast CA Social History Household Members: Significant Other and Family Housing: House Do you presently have visiting nurse or other home services: No Alcohol intake: never Patient Tobacco Use Status: Former Tobacco user Cigarettes Per Day: 4 Years Smoked: 2.5 Second Hand Smoke Exposure: No Substance Use Type: Marijuana service: No Current occupational status: employed Female Reproductive History Menstrual Age of Menarche: 13 Physical Exam Vital Signs: BMI result Body Mass Index 46.1 Const General: no acute distress, alert and awake Orientation/consciousness: patient oriented x3 HEENT Head: Yes normocephalic and Yes atraumatic Eyes EOM: EOMs intact bilaterally Resp Effort & Inspection: normal respiratory effort and able to speak in complete sentences Cardio Jugular venous distension: no JVD Skin General skin exam: turgor normal Rashes: no rashes Neuro General: patient oriented x3 Extrem Other: Right Knee: Retropatellar TTP - Jose E's No JLT Ipsilateral skin breakdown distal lower leg Psych Appearance: grossly normal Affect: normal affect Attitude: cooperative Assessment & Plan Assessment & Plan (1) Osteoarthritis of right knee: Code(s): M17.11 - Unilateral primary osteoarthritis, right knee Category: Medical Plan: We discussed treatment options. Injections therapy and surgery but at this time surgery is not warranted given her vascular history and her open wounds of the lower leg. In addition she does not want surgery. (2) DVT (deep venous thrombosis): Code(s): I82.409 - Acute embolism and thrombosis of unspecified deep veins of unspecified lower extremity Category: Medical Plan: Chronic hypercoagulability Coding Level of Care Code Est Pt Level 4 (95730) Diagnoses Osteoarthritis of right knee M17.11 DVT (deep venous thrombosis) I82.409
== END 2023-12-24 14:24 | disposition home or self-care (01) ==
PROVIDERS: PCP Internal Medicine; Visit Provider Orthopaedic Surgery
DX: M17.11 Unilateral primary osteoarthritis, right knee (principal); I82.409 Acute embolism and thrombosis of unspecified deep veins of unspecified lower extremity
CPT/HCPCS: 99213

== ENCOUNTER 2023-12-24 16:49 | Outpatient (REF) | payer OTHER, SELFPAY ==
--- NOTE | ~2023-12-24 | CT_ITS ---
EXAMINATION: CT CHEST WITHOUT CONTRAST CLINICAL INFORMATION: Follow-up pulmonary nodule COMPARISON: CTA from 11/17/2022 TECHNIQUE: Multidetector volumetric CT imaging of the chest was done. Axial MIP volume rendering provided. Sagittal and coronal reformatted images were obtained. This CT examination was performed using dose optimization techniques as appropriate, variously including the following: *Automated exposure control *Adjustment of mA and/or kV according to patient size (this includes techniques or standardized protocols for targeted exams where dose is matched to indication/reason for exam; i.e. extremities or head) *Use of iterative reconstruction technique DLP: 308 mGy-cm FINDINGS: LUNGS: The lungs are clear with no evidence of inflammation. Stable 2 mm nodule in right upper lobe on image 116, series 5 consistent with a benign nodule. Previously seen groundglass nodule in the right upper lobe has resolved. MEDIASTINUM: The mediastinum is normal. Heart is normal in size. No mediastinal or hilar lymphadenopathy CORONARY ARTERY CALCIFICATION: None visualized on this study. PLEURA: There is no pleural effusion. No pleural mass or thickening. AXILLA: No lymphadenopathy. UPPER ABDOMEN: Postsurgical changes along the stomach. Status post cholecystectomy OSSEOUS STRUCTURES: Unremarkable. CT/CT chest wo IV con IMPRESSION: Stable 2 mm nodule in the right upper lobe consistent with a benign nodule. Previously seen groundglass nodule in the right upper lobe has resolved. No acute process. Electronically signed by: Killian Cardoso MD 01/18/2024 04:14 PM EDT
== END 2023-12-24 16:50 | disposition home or self-care (01) ==
LOC: HO.CT 16:49
PROVIDERS: PCP Internal Medicine; Visit Provider Internal Medicine
DX: R91.1 Solitary pulmonary nodule (principal)
CPT/HCPCS: 71250; 99212

== ENCOUNTER 2023-12-31 09:07 | Outpatient (AMB) | payer OTHER, SELFPAY ==
[2023-12-31 09:11] VITALS: BP 126/88; BMI 46.1
--- NOTE | 2023-12-31 09:11 | A.OFFVIS_ITS ---
Vital Signs 12/31/23 09:11 Height 5 ft 9 in Weight 312 lb BMI 46.1 BP 126/88 Blood Pressure Location Rt brachial Position Sitting Intake Visit Reasons: ED follow up Bleeding VV Intake Note: Emy is a 53 year old female who presents to the office today for a ED follow up bleeding VV. Pt states her wounds are healing and she is still going to [facility] wound care. She sees them once every week. Allergies shellfish derived Allergy (Severe, Verified 12/31/23 09:13) Hives [facility] HPI ED follow up Bleeding VV: Details: Very pleasant 53-year-old female well known to us for previous venous disease. She had large excoriated venous ulcer of the right medial calf. She had undergone right great saphenous vein Cyanoacralate ablation. This has gone on to heal. Most recently she presented to the emergency room with bleeding from her left lower extremity after a venous ulceration. She now presents for follow-up. Of note she has a medical history significant for antiphospholipid antibody with DVT and PE. She has been on Xarelto for this. [facility] Medical History Insomnia GERD (gastroesophageal reflux disease) Choledocholithiasis On anticoagulant therapy Tubal ligation evaluation Venous stasis of lower extremity Pulmonary embolism DVT (deep venous thrombosis) Diabetes Antiphospholipid syndrome Surgical History History of esophagogastroduodenoscopy (EGD) H/O colonoscopy History of laparoscopic cholecystectomy (11/25/22) H/O skin graft H/O: knee surgery History of H/O gastric sleeve Family History Maternal Aunt Breast CA Social History Household Members: Significant Other and Family Housing: House Do you presently have visiting nurse or other home services: No Alcohol intake: never Patient Tobacco Use Status: Former Tobacco user Cigarettes Per Day: 4 Years Smoked: 2.5 Second Hand Smoke Exposure: No Substance Use Type: Marijuana service: No Current occupational status: employed Female Reproductive History Menstrual Age of Menarche: 13 Review of Systems Const Reports as per HPI ENT Reports no additional complaints Card Denies chest pain, Denies chest pain at rest and Denies chest pain with activity Resp Denies chest congestion and Denies cough GI Reports no additional complaints Musc Details: pain over varicosities, aching of lower extremities, swelling, cramping, heaviness and tiredness, itching Denies abnormal gait Skin/Breast Reports pruritus and Denies wounds Neuro Reports no additional complaints and Denies abnormal gait Psych Denies no additional complaints Physical Exam Vital Signs: Last Vital Signs BP 126/88 12/31/23 09:11 BMI result Body Mass Index 46.1 Const General: cooperative, healthy appearing and comfortable Orientation/consciousness: oriented to person, oriented to place and oriented to time Neck Carotids: no bruits Chest Chest palpation & inspection: normal inspection of the chest and normal pa lpation of entire chest wall Resp Effort & Inspection: normal respiratory effort and able to speak in complete sentences Cardio Rate: regular rate Heart sounds: S1 normal heart sound present and S2 normal heart sound present Peripheral pulses: Peripheral pulses 2+ throughout GI Inspection: Yes normal to inspection Skin Other: +2 edema, left calf ulcer CEAP Classification C 6-open ulcer Ep - Etiology Primary As - superficial veins P - reflux General skin exam: dry skin Neuro General: oriented to person, oriented to place and oriented to time Extrem Right lower extremity: full ROM, normal capillary refill and edema Left lower extremity: full ROM, normal capillary refill and edema Psych Mental Status: mental status grossly normal Assessment & Plan Assessment & Plan (1) Varicose veins of right lower extremity with inflammation: Comment: 06/06/2022 - right great saphenous vein Cyanoacralate ablation Code(s): I83.11 - Varicose veins of right lower extremity with inflammation Category: Medical Plan: See below (2) Varicose veins of left lower extremity with inflammation: Code(s): I83.12 - Varicose veins of left lower extremity with inflammation Category: Medical Plan: In short patient has a history of venous disease. Most recently she has developed a left lower extremity venous bleed and now has gone on to have an ulceration. We will repeat left lower extremity venous insufficiency testing. We did discuss routine conservative measures including compression elevation and exercise. She will follow up with us after testing. Thank you for allowing us to assist in her care. Orders: Orders US venous duplex LE LT 1 Week I83.12 - Varicose veins of left lower extremity with inflammation Coding Level of Care Code Est Pt Level 4 (47171) Diagnoses Varicose veins of right lower extremity with inflammation I83.11 Varicose veins of left lower extremity with inflammation I83.12
== END 2023-12-31 09:37 | disposition home or self-care (01) ==
PROVIDERS: PCP Internal Medicine; Visit Provider Surgery Vascular Surgery
DX: I83.11 Varicose veins of right lower extremity with inflammation (principal); I83.12 Varicose veins of left lower extremity with inflammation
CPT/HCPCS: 99214

== ENCOUNTER → 2023-12-31 09:07 | Outpatient (BNVA) | payer OTHER, SELFPAY | PROVIDERS: PCP Internal Medicine; Visit Provider Surgery Vascular Surgery | DX: I83.11 Varicose veins of right lower extremity with inflammation (principal); I83.12 Varicose veins of left lower extremity with inflammation | CPT/HCPCS: 99212 ==

== ENCOUNTER 2024-01-14 08:34 | Outpatient (REF) | payer OTHER, SELFPAY ==
--- NOTE | ~2024-01-14 | US_ITS ---
EXAMINATION: US LOWER EXTREMITY VENOUS (REFLUX EXAM), BILATERAL CLINICAL INDICATION: Chronic venous insufficiency of the right lower extremity status post great saphenous vein Venaseal and deep venous thrombosis in the left lower shoulder COMPARISON: 12/10/2023 and 03/17/2023 TECHNIQUE: Color flow triplex imaging and compression Doppler was performed to evaluate both the deep and the superficial systems bilaterally. To evaluate the superficial system, the examination was performed in the upright position. Color-flow Doppler ultrasound and compression ultrasound were utilized. In addition, maneuvers were utilized to demonstrate reflux. FINDINGS: 1. DEEP VENOUS ULTRASOUND OF THE RIGHT LOWER EXTREMITY: Common Femoral Vein: Compressible, normal respiratory variation and augmented flow. Femoral Vein: Compressible, normal color flow and augmentation. Popliteal Vein: Compressible, normal augmentation. Deep Reflux: Deep venous reflux in the popliteal vein measuring 1768 ms There is no evidence of a Grayson's cyst. 2. SUPERFICIAL ULTRASOUND WITH DOPPLER OF RIGHT LOWER EXTREMITY: GREAT SAPHENOUS VEIN: Saphenofemoral Junction: 0.6 cm; Reflux: 0 ms Proximal Thigh: Occluded Mid Thigh: Occluded Above Knee: Occluded At Knee: Occluded Below Knee: 0.6 cm; Reflux: 0 ms Mid Calf: 0.3 cm; Reflux: 0 ms Ankle: 0.3 cm; Reflux: 0 ms DUPLICATED MEDIAL GREAT SAPHENOUS VEIN: Diameter: None imaged Reflux: NA DUPLICATED LATERAL GREAT SAPHENOUS VEIN: Diameter: 0.3 cm Reflux: None SMALL SAPHENOUS VEIN: Saphenopopliteal Junction: 0.4 cm; Reflux: 0 ms Proximal: 0.2 cm; Reflux: 0 ms Distal: 0.3 cm; Reflux: 0 ms VEIN OF GIACOMINI: Size: NA Reflux: NA PERFORATORS: Location: Proximal calf into calf varicosities Size: 0.3 to 0.6 cm Reflux: None VARICOSITIES: Location: Proximal thigh off the residual greater saphenous vein and proximal calf off the evaluation specialist vein Size: 0.3 to 0.4 cm Reflux: None 3. DEEP VENOUS ULTRASOUND OF THE LEFT LOWER EXTREMITY: Common Femoral Vein: Compressible, normal respiratory variation and augmented flow. Chronic wall thrombus is present. Femoral Vein: Compressible, normal color flow and augmentation. Popliteal Vein: Compressible, normal augmentation. Chronic wall thrombosis present. Deep Reflux: Deep venous reflux is seen in the femoral vein and popliteal vein ranging from 854 ms to 2048 ms There is no evidence of a Grayson's cyst. 4. SUPERFICIAL ULTRASOUND WITH DOPPLER OF LEFT LOWER EXTREMITY: GREAT SAPHENOUS VEIN: Saphenofemoral Junction: 0.8 cm; Reflux: 700 ms Proximal Thigh: 0.5 cm; Reflux: 988 ms Mid Thigh: 0.4 cm; Reflux: 948 ms Above Knee: 0.3 cm; Reflux: 1324 ms At Knee: 0.3 cm; Reflux: 624 ms Below Knee: 0.3 cm; Reflux: 2164 ms Mid Calf: 0.3 cm; Reflux: 0 ms Ankle: 0.3 cm; Reflux: 0 ms DUPLICATED MEDIAL GREAT SAPHENOUS VEIN: Diameter: None imaged Reflux: NA DUPLICATED LATERAL GREAT SAPHENOUS VEIN: Diameter: 0.3 cm Reflux: None SMALL SAPHENOUS VEIN: Saphenopopliteal Junction: 0.3 cm; Reflux: 0 ms Proximal: 0.4 cm; Reflux: 0 ms Distal: 0.3 cm; Reflux: 0 ms VEIN OF GIACOMINI: Size: 0.3 cm Reflux: 2492 ms PERFORATORS: Location: None imaged Size: NA Reflux: NA VARICOSITIES: Location: None Imaged Size: NA Reflux: NA US/US venous duplex LE BI IMPRESSION: 1. Right: Status post Venaseal of the right great saphenous vein with occlusion of the proximal thigh to the knee. No significant reflux in the residual right great saphenous vein. Small varicosities are seen in the proximal thigh and proximal calf. 2. Left: Chronic wall thrombus in the left common femoral vein and popliteal vein. Deep venous reflux in the left femoral vein and popliteal vein. 3. Significant superficial venous reflux in the left great saphenous vein. Electronically signed by: Killian Cardoso MD 01/18/2024 04:07 PM EDT
== END 2024-01-14 08:35 | disposition home or self-care (01) ==
LOC: HO.US 08:34
PROVIDERS: PCP Internal Medicine; Visit Provider Surgery Vascular Surgery
DX: I83.12 Varicose veins of left lower extremity with inflammation (principal); I83.11 Varicose veins of right lower extremity with inflammation
CPT/HCPCS: 93970

== ENCOUNTER 2024-02-11 15:01 | Outpatient (AMB) | payer SELFPAY ==
--- NOTE | 2024-02-11 15:04 | A.OFFVIS_ITS ---
Intake Visit Reasons: follow up s/p US 01/14/24 Intake Note: Patient presents for follow up US performed on 01/14/24. States her legs feel much better but is experiencing some discomfort behind the right knee. Accompanied by: Self / Same As Patient Allergies shellfish derived Allergy (Severe, Verified 02/11/24 15:06) [facility] HPI follow up s/p US 01/14/24: Details: Very pleasant 53-year-old female presents for follow-up regarding left lower extremity venous disease. He has undergone previous right great saphenous vein ablation. She did have some postprocedure discomfort and discoloration after that. Her right leg has gone on to heal. She is concerned about the swelling on her left leg and now presents for follow-up. [facility] Medical History Insomnia GERD (gastroesophageal reflux disease) Choledocholithiasis On anticoagulant therapy Tubal ligation evaluation Venous stasis of lower extremity Pulmonary embolism DVT (deep venous thrombosis) Diabetes Antiphospholipid syndrome Surgical History History of esophagogastroduodenoscopy (EGD) H/O colonoscopy History of laparoscopic cholecystectomy (11/25/22) H/O skin graft H/O: knee surgery History of H/O gastric sleeve Family History Maternal Aunt Breast CA Social History Household Members: Significant Other and Family Housing: House Do you presently have visiting nurse or other home services: No Alcohol intake: never Patient Tobacco Use Status: Former Tobacco user Cigarettes Per Day: 4 Years Smoked: 2.5 Second Hand Smoke Exposure: No Substance Use Type: Marijuana service: No Current occupational status: employed Female Reproductive History Menstrual Age of Menarche: 13 Review of Systems Const Reports as per HPI ENT Reports no additional complaints Card Denies chest pain, Denies chest pain at rest and Denies chest pain with activity Resp Denies chest congestion and Denies cough GI Reports no additional complaints Musc Details: pain over varicosities, aching of lower extremities, swelling, cramping, heaviness and tiredness, itching Denies abnormal gait Skin/Breast Reports pruritus and Denies wounds Neuro Reports no additional complaints and Denies abnormal gait Psych Denies no additional complaints Physical Exam Const General: cooperative, healthy appearing and comfortable Orientation/consciousness: oriented to person, oriented to place and oriented to time Neck Carotids: no bruits Chest Chest palpation & inspection: normal inspection of the chest and normal palpation of entire chest wall Resp Effort & Inspection: normal respiratory effort and able to speak in complete sentences Cardio Rate: regular rate Heart sounds: S1 normal heart sound present and S2 normal heart sound present Peripheral pulses: Peripheral pulses 2+ throughout GI Inspection: Yes normal to inspection Skin Other: +2 edema, large rope-like varicosities greater than 4 mm CEAP Classification C4 - skin color changes Ep - Etiology Primary As - superficial veins P - reflux General skin exam: dry skin Neuro General: oriented to person, oriented to place and oriented to time Extrem Right lower extremity: full ROM, normal capillary refill and edema Left lower extremity: full ROM, normal capillary refill and edema Psych Mental Status: mental status grossly normal Results Reviewed Results Reviewed: Brief summary of venous insufficiency testing is as follows: right great saphenous vein: negative right small saphenous vein: negative right accessory vein: none present left great saphenous vein: Positive left small saphenous vein: negative left accessory vein: none present Please note there is no evidence of any venous aneurysms or significant tortuosity Assessment & Plan Assessment & Plan (1) Varicose veins of left lower extremity with inflammation: Code(s): I83.12 - Varicose veins of left lower extremity with inflammation Category: Medical Plan: At the current time she does have some reflux in the left right great saphenous vein. She would benefit from a left great saphenous vein ablation. At the current time she has requested to hold off as she did have some difficulty with the last procedure. We did discuss routine conservative measures including compression elevation and exercise. In addition we did have a discussion about weight loss as well. She will follow up with us on as-needed basis. Thank you for allowing us to assist in her care. If there are any questions or concerns please do not hesitate to contact us Coding Level of Care Code Est Pt Level 4 (32997) Diagnoses Varicose veins of left lower extremity with inflammation I83.12
== END 2024-02-11 15:19 | disposition home or self-care (01) ==
PROVIDERS: PCP Internal Medicine; Visit Provider Surgery Vascular Surgery
DX: I83.12 Varicose veins of left lower extremity with inflammation (principal)
CPT/HCPCS: 99214

== ENCOUNTER → 2024-02-11 15:01 | Outpatient (BNVA) | payer OTHER, SELFPAY | PROVIDERS: PCP Internal Medicine; Visit Provider Surgery Vascular Surgery | DX: I83.12 Varicose veins of left lower extremity with inflammation (principal) | CPT/HCPCS: 99212 ==

== ENCOUNTER → 2024-03-09 15:38 | Outpatient (BNVA) | payer OTHER, SELFPAY | PROVIDERS: PCP Internal Medicine | DX: R21 Rash and other nonspecific skin eruption (principal) | CPT/HCPCS: 99212 ==

== ENCOUNTER → 2024-03-09 15:38 | Outpatient (AMB) | payer OTHER, SELFPAY ==
--- NOTE | 2024-03-09 15:53 | MHC.OFFWIV ---
Intake Vital Signs 03/09/24 15:54 Height 5 ft 9 in Weight 316 lb BMI 46.7 BP 122/80 Blood Pressure Location Rt brachial Position Sitting Pulse 72 Pulse Source Pulse Oximeter Pulse Oximetry (%) 98 Oxygen Delivery Method Room Air Intake Visit Reasons: EP Vaginal rash, progressed, burning. Intake Note: Patient here for vaginal rash which started in the bikini line area, states it is itching and burning and has been present for a couple of weeks and has worsened the last 1-2 weeks. Patient Tobacco Use Status: Former Tobacco user Allergies shellfish derived Allergy (Severe, Verified 03/09/24 15:57) Hives Do you need a note to return to daycare/school/sports/work: No HPI EP Vaginal rash, progressed, burning. HPI Details This note is constructed using voice recognition software. While every effort has been made to ensure accuracy, services rep errors may have been included. The patient is a 53 year old female who presents to the clinic today with groin rash bilaterally with burning for the past couple of weeks worsening. She notes that she initially started with a small rash underneath her breast, and underneath her pannus, which seemed to get worse. She tried cornstarch powder which did not seem to help right away. From corn starch she tried Silvadene, which did not seem to help. She shows a picture from yesterday showing excoriation to the perineum. She reports that the rash has been into her abdominal folds. She denies fever, chills, body aches, joint pains. [facility] Medical History Insomnia GERD (gastroesophageal reflux disease) Choledocholithiasis On anticoagulant therapy Tubal ligation evaluation Venous stasis of lower extremity Pulmonary embolism DVT (deep venous thrombosis) Diabetes Antiphospholipid syndrome Surgical History History of esophagogastroduodenoscopy (EGD) H/O colonoscopy History of laparoscopic cholecystectomy (11/25/22) H/O skin graft H/O: knee surgery History of H/O gastric sleeve Family History Maternal Aunt Breast CA Social History Household Members: Significant Other and Family Housing: House Do you presently have visiting nurse or other home services: No Alcohol intake: never Patient Tobacco Use Status: Former Tobacco user Cigarettes Per Day: 4 Years Smoked: 2.5 Second Hand Smoke Exposure: No Substance Use Type: Marijuana service: No Current occupational status: employed Female Reproductive History Menstrual Age of Menarche: 13 Review of Systems Const All systems reviewed & are unremarkable except as noted in HPI and below Physical Exam Vital Signs: Last Vital Signs Pulse 72 03/09/24 15:54 BP 122/80 03/09/24 15:54 Pulse Ox 98 03/09/24 15:54 Oxygen Delivery Method Room Air 03/09/24 15:54 BMI result Body Mass Index 46.7 Const General: cooperative, healthy appearing, comfortable, no acute distress and well developed Orientation/consciousness: patient oriented x3 Limitations: no limitations Resp Effort & Inspection: normal respiratory effort and able to speak in complete sentences Skin Other: Fungal rash, dry beneath breasts bilaterally. Moist fungal rash beneath abdominal folds, and pelvic region with signs of excoriation. Neuro General: patient oriented x3 Assessment & Plan Assessment & Plan (1) Rash: Code(s): R21 - Rash and other nonspecific skin eruption Plan: Consistent with likely fungal in origin, we will treat with nystatin topically. Advised patient to use this until rash has resolved. Advised that once it has resolved she may consider transitioning back to her previous powders, with a goal of keeping her skin clean and dry. Advised follow up with worsening or failure to resolve. Plan See above for full details and plan. Medications: New nystatin 1 appl topical BID PRN 60 grams 1RF rash Coding Level of Care Code Est Pt Level 3 (78550) Diagnoses Rash R21
[2024-03-09 15:54] VITALS: BP 122/80; PULSE 72; O2SAT 98; BMI 46.7
== END ==
PROVIDERS: PCP Internal Medicine; Visit Provider Registered Nurse
DX: R21 Rash and other nonspecific skin eruption (principal)

== ENCOUNTER 2024-03-16 15:08 | Outpatient (REF) | payer OTHER, SELFPAY ==
[2024-03-18 04:38] LABS: CT PCR NOT DETECTED (Not Detect.); NG PCR NOT DETECTED (Not Detect.)
[2024-03-18 09:54] LABS: Bacterial Vaginosis PCR NEGATIVE (Negative); Candida Group PCR NOT DETECTED (Not Detect); Candida glab krusei PCR NOT DETECTED (Not Detect); Trichomonas vaginalis PCR NOT DETECTED (Not Detect)
== END 2024-03-16 15:09 | disposition home or self-care (01) ==
LOC: HO.LNP 15:08
PROVIDERS: PCP Internal Medicine; Visit Provider Obstetrics & Gynecology
DX: B37.2 Candidiasis of skin and nail (principal)
CPT/HCPCS: 0352U; 87491; 87591; 99212

== ENCOUNTER 2024-03-16 15:08 | Outpatient (AMB) | payer OTHER, SELFPAY ==
--- NOTE | 2024-03-16 15:17 | A.OFFVIS_ITS ---
Vital Signs 03/16/24 15:22 Height 5 ft 9 in Weight 316 lb BMI 46.7 BP 124/74 Intake Visit Reasons: vaginal discomfort Intake Note: Has been using OTC Monistat/ Vagicream, vaginal itching some occasional burning. Was prescribed by Urgent care a powder, did help with moisture but did not relieve any of the discomfort/itching. Strawhat Inspector And Packer: Strawhat Inspector And Packer Present (Jaz) Accompanied by: Self / Same As Patient Allergies shellfish derived Allergy (Severe, Verified 03/16/24 15:19) Hives HPI Comments Details: Presenting complaining of vulvovaginal itching in addition to under her bilateral breast and months pubis and bilateral inguinal area PFSH Medical History Insomnia GERD (gastroesophageal reflux disease) Choledocholithiasis On anticoagulant therapy Tubal ligation evaluation Venous stasis of lower extremity Pulmonary embolism DVT (deep venous thrombosis) Diabetes Antiphospholipid syndrome Surgical History History of esophagogastroduodenoscopy (EGD) H/O colonoscopy History of laparoscopic cholecystectomy (11/25/22) H/O skin graft H/O: knee surgery History of H/O gastric sleeve Family History Maternal Aunt Breast CA Social History Household Members: Significant Other and Family Housing: House Do you presently have visiting nurse or other home services: No Alcohol intake: never Patient Tobacco Use Status: Former Tobacco user Cigarettes Per Day: 4 Years Smoked: 2.5 Second Hand Smoke Exposure: No Substance Use Type: Marijuana service: No Current occupational status: employed Female Reproductive History Menstrual Age of Menarche: 13 Review of Systems Const All systems reviewed & are unremarkable except as noted in HPI and below Physical Exam Vital Signs: Last Vital Signs BP 124/74 03/16/24 15:22 BMI result Body Mass Index 46.7 Other: Skin candidiasis underneath by hiatal breast, inguinal areas bilaterally , months pubis and bilateral vulvar area General: Yes no CVA tenderness External Female Exam: normal appearance of the urethra and erythema Speculum Exam - Vagina: normal appearance of the vagina, normal palpation, no lesions and no masses Speculum Exam - Cervix: normal appearance of the cervix, normal palpation, no lesions, no masses and nontender Bimanual exam- vagina & uterus: normal bimanual exam, normal palpation, uterine size normal, normal palpation, uterine shape normal, No Cervical tenderness present and non-tender Bimanual Exam- Adnexa, other: normal adnexae Back/Spine/Pelvis Back: no CVA tenderness Assessment & Plan Assessment & Plan (1) Skin candidiasis: Code(s): B37.2 - Candidiasis of skin and nail Category: Medical Plan: The patient was instructed to keep the area dry, use hair blower after showering, use baby powder without Talc and Desitin cream in addition to applying lotrisone cream BID x5 days. Diflucan 150 mg p.o. x1. Instructions given the patient to call in case symptoms not improve Medications: New clotrimazole-betamethasone 1-0.05 % 1 appl topical BID 5 days 45 grams 0RF fluconazole 150 mg PO ONCE 1 day 1 tab 0RF Discontinued oxycodone Partial Fill upon patient request. Discontinued Reason: Doctor's Order 5 mg PO Q8H 7 days PRN 20 tabs 0RF pain M17.11 - Unilateral primary osteoarthritis, right knee, M25.561 - Pain in right knee, M47.816 - Spondylosis without myelopathy or radiculopathy, lumbar region Coding Level of Care Code Est Pt Level 3 (08108) Diagnoses Skin candidiasis B37.2
[2024-03-16 15:22] VITALS: BP 124/74; BMI 46.7
== END 2024-03-16 15:55 | disposition home or self-care (01) ==
LOC: HO.HWS 15:08
PROVIDERS: PCP Internal Medicine; Visit Provider Obstetrics & Gynecology
DX: B37.2 Candidiasis of skin and nail (principal)
CPT/HCPCS: 99213

== ENCOUNTER 2024-03-25 15:22 | Outpatient (REF) | payer OTHER, SELFPAY | END 2024-03-25 15:23 | disposition home or self-care (01) | LOC: HO.HMGCX 15:22 | PROVIDERS: PCP Internal Medicine; Visit Provider Internal Medicine | DX: M25.531 Pain in right wrist (principal) | CPT/HCPCS: 73110 ==

== ENCOUNTER 2024-05-05 14:04 | Outpatient (AMB) | payer OTHER, SELFPAY ==
--- NOTE | 2024-05-05 15:27 | MHC.OFFWIV ---
Intake Vital Signs 05/05/24 15:28 Weight 312 lb BP 120/80 Blood Pressure Location Rt brachial Position Sitting Pulse 68 Pulse Source Pulse Oximeter Pulse Oximetry (%) 98 Oxygen Delivery Method Room Air Intake Visit Reasons: EP painful RT eye Intake Note: Patient here for right eye redness and swelling that started on 05/03. Patient Tobacco Use Status: Former Tobacco user Allergies shellfish derived Allergy (Severe, Verified 05/05/24 15:29) Hives Do you need a note to return to daycare/school/sports/work: No HPI HPI Comments History of Present Illness Details History of Present Illness - The patient is a 53-year-old female presenting with a swollen eyelid and sensation of sand in the eye. - Symptoms initiated after experiencing swelling and irritation in the upper eyelid on May 04, following exposure to dust. - A pustule-like formation on the eyelid was self-treated by the patient resulting in discharge. - The patient reports irritation and discomfort localized to the eyelid, with no impact on vision or intraocular pain. - Dust exposure during basement cleaning may have led to eyelid infection or corneal abrasion. Physical Exam General: Cooperative, healthy appearing, comfortable, no acute distress and well developed Orientation: Patient oriented x3 Limitations: No limitations Head: Normal to inspection Ears: Hearing grossly normal bilaterally Nose: Normal Nxternal nose present Face and sinus: Normal facial exam Eyes: right upper eyelid with swelling noted, possible corneal abrasion, otherwise normal Neck: Normal visual inspection and Yes full ROM Respiratory: Normal respiratory effort and able to speak in complete sentences. Skin: No rashes or lesions noted Neuro: Patient oriented x3 Extremities: Normal to inspection [facility] Medical History Insomnia GERD (gastroesophageal reflux disease) Choledocholithiasis On anticoagulant therapy Tubal ligation evaluation Venous stasis of lower extremity Pulmonary embolism DVT (deep venous thrombosis) Diabetes Antiphospholipid syndrome Surgical History History of esophagogastroduodenoscopy (EGD) H/O colonoscopy History of laparoscopic cholecystectomy (11/25/22) H/O skin graft H/O: knee surgery History of H/O gastric sleeve Family History Maternal Aunt Breast CA Social History Household Members: Significant Other and Family Housing: House Do you presently have visiting nurse or other home services: No Alcohol intake: never Patient Tobacco Use Status: Former Tobacco user Cigarettes Per Day: 4 Years Smoked: 2.5 Second Hand Smoke Exposure: No Substance Use Type: Marijuana service: No Current occupational status: employed Female Reproductive History Menstrual Age of Menarche: 13 Review of Systems Const All systems reviewed & are unremarkable except as noted in HPI and below Physical Exam Vital Signs: Last Vital Signs Pulse 68 05/05/24 15:28 BP 120/80 05/05/24 15:28 Pulse Ox 98 05/05/24 15:28 Oxygen Delivery Method Room Air 05/05/24 15:28 Assessment & Plan Assessment & Plan (1) Corneal abrasion, right: Code(s): S05.01XA - Injury of conjunctiva and corneal abrasion without foreign body, right eye, initial encounter Qualifiers: Encounter type: initial encounter Qualified Code(s): S05.01XA - Injury of conjunctiva and corneal abrasion without foreign body, right eye, initial encounter Plan: Assumed corneal abrasion with hordeolum. The patient is prescribed an antibiotic ointment to treat the potential eyelid infection and corneal abrasion. The application involves placing a small ribbon of ointment inside the eyelid four times daily for one week. Additionally, lid scrubs were recommended to help reduce swelling and keep the eyelid clean. The patient is advised to watch for signs such as pain or vision changes, which would warrant further medical evaluation by an ED or an ophthalmology referral. The current approach aims to relieve symptoms and prevent further complications. Patient was informed and verbally consented to the use of an ambient scribe for clinic note documentation during this visit. (2) Hordeolum externum of right upper eyelid: Code(s): H00.011 - Hordeolum externum right upper eyelid Plan: as above Medications: New erythromycin Apply to left eye 4 times a day while awake 0.5 inches ophthalmic (eye) QID 3.5 grams 0RF Coding Level of Care Code New Pt Level 3 (15795) Diagnoses Abrasion of right cornea, initial encounter S05.01XA Encounter type: initial encounter Hordeolum externum of right upper eyelid H00.011
[2024-05-05 15:28] VITALS: BP 120/80; PULSE 68; O2SAT 98
== END 2024-05-05 16:21 | disposition home or self-care (01) ==
PROVIDERS: PCP Internal Medicine; Visit Provider Physician Assistant
DX: S05.01XA Injury of conjunctiva and corneal abrasion without foreign body, right eye, initial encounter (principal); H00.011 Hordeolum externum right upper eyelid

== ENCOUNTER → 2024-05-05 14:04 | Outpatient (BNVA) | payer OTHER, SELFPAY | PROVIDERS: PCP Internal Medicine; Visit Provider Physician Assistant | DX: S05.01XA Injury of conjunctiva and corneal abrasion without foreign body, right eye, initial encounter (principal); H00.011 Hordeolum externum right upper eyelid | CPT/HCPCS: 99202 ==

== ENCOUNTER 2024-05-09 15:16 | Outpatient (REF) | payer OTHER, SELFPAY ==
--- NOTE | ~2024-05-09 | CT_ITS ---
EXAMINATION: CT CHEST WITHOUT CONTRAST CLINICAL INFORMATION: Follow-up pulmonary nodule right upper lobe. COMPARISON: 12/24/2023, [facility] 11/17/2022. TECHNIQUE: Multidetector volumetric CT imaging of the chest was done. Axial MIP volume rendering provided. Sagittal and coronal reformatted images were obtained. This CT examination was performed using dose optimization techniques as appropriate, variously including the following: *Automated exposure control *Adjustment of mA and/or kV according to patient size (this includes techniques or standardized protocols for targeted exams where dose is matched to indication/reason for exam; i.e. extremities or head) *Use of iterative reconstruction technique DLP: 341.2 mGy-cm Exam submitted for review 05/16/2024 12:20 PM LABORER PRESTRESSED CONCRETE. FINDINGS: PULMONARY NODULES: -Stable 3 mm groundglass nodule in the lateral right apex (series 7, image 157). This is benign. -Previously described groundglass nodule in the right upper lobe has resolved. -No new or suspicious pulmonary nodules. LUNGS: -The lungs are clear bilaterally. There are no consolidations or abnormal opacities. -There is no evidence of interstitial lung disease. -Small airways are normal. Central airways are patent and normal. -No effusion or pneumothorax. -Minimal scarring again noted right upper lobe and anterior right lower lobe/right middle lobe. MEDIASTINUM: -Normal thyroid. -No lymphadenopathy present. -Normal aorta and main pulmonary artery. -Heart size normal. No pericardial effusion. -Esophagus appears normal. There may be a small type I hiatus hernia. CORONARY ARTERY CALCIFICATION: None visualized on this study. PLEURA: There is no pleural effusion. No pleural mass or thickening. AXILLA/CHEST WALL: No lymphadenopathy. UPPER ABDOMEN: -There has been a prior gastric sleeve procedure. -There has been a cholecystectomy. -Remainder of the imaged upper abdominal contents appear normal. OSSEOUS STRUCTURES: -No suspicious lytic or blastic bony lesions identified. CT/CT chest wo IV con IMPRESSION: 1. No acute disease pneumothorax. The lungs are clear. 2. 3 mm groundglass nodule right upper lobe is stable from 2022 and benign. No further follow-up recommended. 3. No new or suspicious pulmonary nodules. 4. See the body the report for detail and additional ancillary findings. Electronically signed by: Sameer Blunt MD 05/16/2024 01:20 PM EST
--- OUTSIDE RECORDS SUMMARY | 2024-05-09 17:13 | XMS_ITS | Continuity of Care Document ---
Author Organization [facility] Address [address] [place] [address] Phone Care Team Providers Care Chief Operator Name Role Phone Anita Bobby APN Unavailable Unavailable Allergies, Adverse Reactions, Alerts Substance Reaction Status Criticality No Known Allergies Active No Inform ation Procedures Procedure Date Office/outpatient visit,[facility] 2017 Advance Directives Directive Yes / No Effective Date File Name No Information Encounters Encounter Description Practice Location Reason(s) For Visit Diagnoses Date Provider Office/outpati ent visit,[facility], [address] [place] [address], [address], tel:[phone] [facility] New Patient (chief complaint) Dizzy spellsVenous stasis ulcer of right ankle with fat layer exposed without varicose veinsNon-pressure chronic ulcer of right ankle with fat layer exposedType 2 diabetes mellitus with complication, without long-term current use of insulinAnti-phosp holipid syndromeHx of pulmonary embolusHistory of recurrent deep vein thrombosis (DVT)Body mass index (BMI) 36.0-36.9, adult [place], [address], [place]. tel:[phone] Family History Family Member Type Diagnosis Age At Onset No Information Payers Payer name Insurance type Covered alliance party ID Authoriza tion(s) Self Pay [email or web address] Social History Type Description Quantity Date Captured Comments Alcohol Use Details No Caffeine Use Details coffee Tobacco Use Status Current non-smoker 19 Smoking Status Never smoker Non-Smoking Tobacco Use Details : No Details Available : No Details Available Sex Female Gender Identity Female Vital Signs Date / Time: Height Weight BMI Pulse Rate Blood Pressure Temperature Respiratory Rate Body Surface Area Head Circumference Head Circ. Percentile Wt./Kd. Percentile BMI percentile Pulse Ox Inhaled Ox 8:52 AM 69.00 in 112.491 kg (248.00 lbs) 36.6 2 kg/m eter (2) 54 /min 128/52 mm[Hg] 97.00 F 16 /min 2.34 meter(2) Chief Complaint And Reason For Visit From encounter dated '10/02/2017 08:30'. New Patient (chief complaint). Description: Pt presents as new patient with multiple complaints. States has not been under the care of a PCP in over a year but reports hx of DVT (was suppose to take Xarelto) PE, Antiphospholipid syndrome (recurrent DVTs due to clotting disorder) gastric sleeve (), Left knee surgery 1990, type two diabetes and cesarian section. Pt states after the sleeve she no longer needed her diabetes medication. Pt reports for recurring dizzy spells over the past month and venous ulcer to right ankle stage 2. Pt reports ulcer began in August. Hx of vascular surgeon,Yanni boot use to help ulcers heal. Patient wearing compression stocking to try and help ulcer heal by improving circulation however pt reports site getting worse. History Of Present Illness Encounter Date Complaint History Of Prese nt Illness New Patient Pt presents as n ew patient with multiple complaints. States has not been under the care of a PCP in over a year but reports hx of DVT (was suppose to take Xarelto) PE, Antiphospholipid syndrome (recurrent DVTs due to clotting disorder) gastric sleeve (May 2016), Left knee surgery 1990, type two diabetes and cesarian section. Pt states after the sleeve she no longer needed her diabetes medication. Pt reports for recurring dizzy spells over the past month and venous ulcer to right ankle stage 2. Pt reports ulcer began in August. Hx of vascular surgeon, Yanni boot use to help ulcers heal. Patient wearing compression stocking to try and help ulcer heal by improving circulation however pt reports site getting worse. Instructions Date Instruction Additional Infor mation Due to hx of multipl e PE, DVT, and overall clotting disorder along with stage 2 venous ulcer (worsening), reports of dizziness, low heart rate (54bpm) and acute headache recommend going directly to the Hospital Immediately. Despite overall appearance, please consider ambulance for transport. Related to Dizzy spells Assessments Type Assessment Date assessment Dizzy spells assessment Venous stasis ulcer of right ankle with fat layer exposed without varicose veins assessment Non-pressure chronic ulcer of right ankle with fat layer exposed assessment Type 2 diabetes manny itus with complication, without long-term current use of insulin assessment Anti-phospholipid syndrome assessment Hx of pulmonary embolus 018 assessment History of recurrent deep vein t hrombosis (DVT) assessment Body mass index (BMI) 36.0-36.9, adult Mental Status Date Cognitive Assessment Orientation - [place] ed to time, place, person, situation.
== END 2024-05-09 15:17 | disposition home or self-care (01) ==
LOC: HO.CT 15:16
PROVIDERS: PCP Internal Medicine; Visit Provider Internal Medicine
DX: R91.1 Solitary pulmonary nodule (principal)
CPT/HCPCS: 71250

== ENCOUNTER → 2024-05-09 15:19 | Outpatient (BNV) | payer OTHER, SELFPAY | PROVIDERS: PCP Internal Medicine; Visit Provider Radiology Diagnostic Radiology | DX: R91.1 Solitary pulmonary nodule (principal) | CPT/HCPCS: 71250 ==

== ENCOUNTER 2024-06-21 08:40 | Outpatient (REF) | payer OTHER, SELFPAY ==
[2024-06-21 08:58] LABS: MANUAL DIFF FLAG NO
--- OUTSIDE RECORDS SUMMARY | 2024-06-21 09:09 | XMS_ITS | Clinical Summary ---
Author Organization [facility] Address [address] [place] [address] Care Team Providers Care Estimator Lumber Name Role Phone Unavailable Primary Care Provider Unavailabl e Social History Tobacco Use Types Packs/Day Years Used Date Smoking Tobacco: Never Assessed Comments Unknown Sex and Gender Information Value Date Recorded Sex Assigned at Not on file Legal Sex Female 8:58 PM EST Gender Identity Not on file Sexual Orientation Not on file Plan of Treatment Health Maintenance Due Date Last Done Comments Breast Cancer Screening 1970 DTaP,Tdap,and Td Vaccines (1 - Tdap) 09/26/1990 Hepatitis B Vaccines (1 of 3 - 19+ 3-dose series) 09/26/1990 Cervical Cancer Screening: P ap Smear 09/26/1992 Pneumococcal Vaccine: 50+ Ye ars (1 of 1 - PCV) 09/26/2021 Zoster Vaccines (1 of 2) 09/26/2021 Colorectal Cancer Screening: Colonoscopy 05/29/2023 Depression Screening 05/29/2023 HIV Screening 05/29/2023 Hepatitis C Screening 05/29/2023 Social Influencers of Health Screening 05/29/2023 COVID-19 Vaccine ( - 2023-2 5 season) 2024 Influenza Vaccine (#1) 2024 HIB Vaccines Aged Out No longer eligi ble based on patient's age to complete this topic HPV Vaccines Aged Out No longer eligi ble based on patient's age to complete this topic Hepatitis A Vaccines Aged Out No long er eligible based on patient's age to complete this topic IPV Vaccines Aged Out No longer eligi ble based on patient's age to complete this topic MMR Vaccines Aged Out No longer eligi ble based on patient's age to complete this topic Meningococcal ACWY Vaccine Aged Out N o longer eligible based on patient's age to complete this topic Meningococcal B Vacine Aged Out No lo nger eligible based on patient's age to complete this topic Pneumococcal Vaccine: Pediat rics (0 to 5 Years) and At-Risk Patients (6 to 64 Years) Aged Out No longer eligible b ased on patient's age to complete this topic RSV Immunization Patients Un dominga 20 months Aged Out No longer eligible b ased on patient's age to complete this topic Varicella Vaccines Aged Out No longer eligible based on patient's age to complete this topic
--- OUTSIDE RECORDS SUMMARY | 2024-06-21 09:09 | XMS_ITS | Continuity of Care Document ---
Author Organization [employer] [facility] Address [address] [place] [address] Phone Care Team Providers Care Executive Casino Host Name Role Phone Anita Bobby APN Unavailable Unavailable Allergies, Adverse Reactions, Alerts Substance Reaction Status Criticality No Known Allergies Active No Inform ation Procedures Procedure Date Office/outpatient visit,[facility] 2017 Advance Directives Directive Yes / No Effective Date File Name No Information Encounters Encounter Description Practice Location Reason(s) For Visit Diagnoses Date Provider Office/[facility]pati ent visit[facility] [address] [place] [address], [address], tel:[phone] [facility] [place] New Patient (chief complaint) Dizzy spellsVenous stasis ulcer of right ankle with fat layer exposed without varicose veinsNon-pressure chronic ulcer of right ankle with fat layer exposedType 2 diabetes mellitus with complication, without long-term current use of insulinAnti-phosp holipid syndromeHx of pulmonary embolusHistory of recurrent deep vein thrombosis (DVT)Body mass index (BMI) 36.0-36.9, adult Kanu Howard. [place], [address], [place]. tel:[phone] Family History Family Member Type Diagnosis Age At Onset No Information Payers Payer name Insurance type Covered constitution party ID Authoriza tion(s) Self Pay [email or web address] [...] Mental Status Date Cognitive Assessment Orientation - [place] ed to time, place, person, situation.
--- OUTSIDE RECORDS SUMMARY | 2024-06-21 09:09 | XMS_ITS | Patient Health Record ---
Author Organization [facility] Address [address] [place] [id number] Care Team Providers Care Chip Crusher Operator Name Role Phone Olga JENKINS, Zafar Primary Care Provider [facility] Melquiades Ramachandran Jr Unavailable ALLERGIES Allergen (clinical drug ingredient) Drug/Non Drug Allergy documented on EMR Reaction Allergy Type Onset Date Status diphenhydramine Benadryl SENSITIVITY Drug Allergy Active Shellfish (FN) SHELL FISH (uncoded) Unknown Allergy Active REASON FOR REFERRAL No Information MEDICATIONS Medication SIG (Take, Route, Frequency, Duration) Notes Start Date End Date Status Omeprazole 20 MG TAKE 1 CAPSULE BY [facility] EVERY DAY Oral for 30 Active Omeprazole 40 MG TAKE 1 CAPSULE BY [facility] EVERY DAY 30 MINUTES BEFORE MORNING MEAL FOR 30 DAYS for 30 Active Xarelto 10 MG Oral for 30 Acti ve Multivitamin - 1 tablet Orally Once a day for 30 day(s) Active Oyster Shell Calcium/D3 500-400 MG-UNIT Oral for 90 Active Vitamin B-12 500 MCG Oral for 90 Active MiraLax (colon prep) 17 GM/SCOOP mixed with Gatorade or Crystal Light Orally begin at 5:00 p.m. the day before the procedure for 1 day 10/24/2021 Active IMMUNIZATIONS Vaccine Route Administration Date Status Comme nts Influenza Unknown 10/24/2021 Refused SOCIAL HISTORY Tobacco Use: Social History Observation Description Date Details (start date - stop date) Current Smoker NA - NA Sex Assigned At : Social History Observation Description Sex Assigned At Unknown Tobacco Use/Smoking Question Answer Notes Patient is a current smoker How often do you smoke cigarettes? every day How many cigarettes a day do you smoke? 5 or les s Alcohol Screen Question Answer Notes Did you have a drink contain ing alcohol in the past year? Yes How often did you have a dri nk containing alcohol in the past year? Never (0 point) How many drinks did you have on a typical day when you were drinking in the past year? 1 or 2 drinks (0 point) How often did you have 6 or more drinks on one occasion in the past year? Never (0 point) Points 0 Interpretation Negative PROBLEMS Problem Type ICD Code Onset Dates Problem Status W/U Status Risk SNOMED Code Notes Problem Gastroesophageal reflux disease without esophagitis (K21.9) Active confirmed 949821827 Problem Colon cancer screening (Z12.11) Active confirmed 041933820 Problem GERD without esophagitis (K21.9) Active confirmed Gastroes ophageal reflux disease (058474426) PLAN OF TREATMENT Future Test Test Name Order Date UPPER GI ENDOSCOPY 10/24/2021 COLONOSCOPY 10/24/2021 Insurance Providers Payer Name Payer Address Payer Phone Subscriber Number Group Number Insured Name Patient Relationship to Insured Coverage Start Date Coverage End Date [facility] [address] [address] [place], [place] [id number] STACI VINSON Self - patient is the insured MEDICAL (GENERAL) HISTORY Medical History History ICD Code Pulmonary embolism DVT Antiphospholipid antibody syndrome Diabetes mellitus, resolved since gastri c sleeve Surgical History Surgery Date(Month/Year) section x2 89-95 Knee surgery, left 1989 Gastric sleeve, [place], [place] ci ty 2017
[2024-06-21 09:41] LABS: Basophils Absolute Auto 0.1 X10*3/uL (0.0-0.2); Basophils Percent Auto 1.1 % (0-2); Eosinophils Absolute Auto 0.3 X10*3/uL (0.0-0.4); Eosinophils Percent Auto 5.8 % (0-4); Hematocrit 35.1 % (37.0-47.0); Imm Gran Abs Auto 0.02 X10*3/uL (0.00-0.03); Imm Gran Pct Auto 0.4 % (0.0-0.4); Lymphocytes Absolute Auto 1.7 X10*3/uL (1.2-4.9); Lymphocytes Percent Auto 30.9 % (20-40); Mean Corpuscular HGB Conc 31.3 g/dl (31.0-35.0); Mean Corpuscular Volume 76.6 fL (80.0-98.0); Mean Platelet Volume 10.9 fL (9.4-12.3); Monocytes Absolute Auto 0.3 X10*3/uL (0.1-1.2); Monocytes Percent Auto 5.6 % (2-11); Neutrophils Absolute Auto 3.1 x10*3/uL (2.0-8.3); Neutrophils Percent Auto 56.2 % (45-73); Platelet Count 359 X10*3/uL (160-400); Red Blood Count 4.58 X10*6/uL (4.20-5.50); White Blood Count 5.6 X10*3/uL (4.8-10.8)
[2024-06-21 10:17] LABS: Erythrocyte Sedimentation Rate 30 MM/HR (0-20)
[2024-06-21 10:19] LABS: Rheumatoid Factor < 13.0 IU/mL (<15.0)
[2024-06-21 10:22] LABS: Estimated Average Glucose 137 mg/dL; Hemoglobin A1C 132.0459 umol/L; Hemoglobin A1c % 6.4 % (<6.0); Total Hemoglobin (HGBA1C) 2837.2062 umol/L
[2024-06-21 10:34] LABS: Alanine Aminotransferase 10 U/L (0-31); Albumin Level 3.9 g/dL (3.5-5.0); Alkaline Phosphatase 88 U/L (39-117); Anion Gap 13 (12-20); Aspartate Amino Transferase 17 U/L (5-31); Bilirubin Total 0.3 mg/dL (0.0-1.0); Blood Urea Nitrogen 11 mg/dL (9-16); Calcium 9.2 mg/dL (8.4-10.2); Carbon Dioxide 25 mmol/L (22-29); Chloride 109 mmol/L (96-108); Estimated Glomerular Filt Rate > 60; Glucose Random 128 mg/dL (60-115); Potassium 4.2 mmol/L (3.3-5.1); Sodium 143 mmol/L (135-145); Total Protein 7.4 g/dL (6.5-8.0)
[2024-06-23 14:39] LABS: Anti Nuclear Antibody Screen NEGATIVE (NEGATIVE)
== END 2024-06-21 08:41 | disposition home or self-care (01) ==
LOC: HO.LAB 08:40
PROVIDERS: PCP Internal Medicine; Visit Provider Internal Medicine
DX: E11.9 Type 2 diabetes mellitus without complications (principal); R53.83 Other fatigue; M25.50 Pain in unspecified joint
CPT/HCPCS: 36415; 80053; 83036; 85025; 85652; 86038; 86140; 86431

== ENCOUNTER 2024-07-25 14:55 | Outpatient (REF) | payer OTHER, SELFPAY ==
[2024-07-26 14:49] LABS: Bacterial Vaginosis PCR NEGATIVE (Negative); Candida Group PCR NOT DETECTED (Not Detect); Candida glab krusei PCR NOT DETECTED (Not Detect); Trichomonas vaginalis PCR NOT DETECTED (Not Detect)
[2024-07-26 15:09] LABS: CT PCR NOT DETECTED (Not Detect.); NG PCR NOT DETECTED (Not Detect.)
== END 2024-07-25 14:56 | disposition home or self-care (01) ==
LOC: HO.LNP 14:55
PROVIDERS: PCP Internal Medicine; Visit Provider Obstetrics & Gynecology
DX: N76.0 Acute vaginitis (principal); B96.89 Other specified bacterial agents as the cause of diseases classified elsewhere
CPT/HCPCS: 81515; 87491; 87591; 99212

== ENCOUNTER 2024-07-25 14:55 | Outpatient (AMB) | payer OTHER, SELFPAY ==
--- NOTE | 2024-07-25 15:37 | MHC.OFFVIS ---
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 Present (Jaz) Accompanied by: Self / Same As Patient Allergies shellfish derived Allergy (Severe, Verified 07/25/24 15:38) Hives HPI Comments Details: The patient is presenting complaining of vaginal foul odor, no other associated symptoms, no vaginal itching or any other complaint [facility] Medical History Insomnia GERD (gastroesophageal reflux disease) Choledocholithiasis On anticoagulant therapy Tubal ligation evaluation Venous stasis of lower extremity Pulmonary embolism DVT (deep venous thrombosis) Diabetes Antiphospholipid syndrome Surgical History History of esophagogastroduodenoscopy (EGD) H/O colonoscopy History of laparoscopic cholecystectomy (11/25/22) H/O skin graft H/O: knee surgery History of H/O gastric sleeve Family History Maternal Aunt Breast CA Social History Household Members: Significant Other and Family Housing: House Do you presently have visiting nurse or other home services: No Alcohol intake: never Patient Tobacco Use Status: Former Tobacco user Cigarettes Per Day: 4 Years Smoked: 2.5 Second Hand Smoke Exposure: No Substance Use Type: Marijuana service: No Current occupational status: employed Female Reproductive History Menstrual Age of Menarche: 13 Review of Systems Const All systems reviewed & are unremarkable except as noted in HPI and below Physical Exam General: Yes no CVA tenderness External Female Exam: normal external appearance and normal appearance of the urethra Speculum Exam - Vagina: normal appearance of the vagina, normal palpation, no lesions and no masses Speculum Exam - Cervix: normal appearance of the cervix, normal palpation, no lesions, no masses and nontender Bimanual exam- vagina & uterus: normal bimanual exam, normal palpation, uterine size normal, normal palpation, uterine shape normal, No Cervical tenderness present and non-tender Bimanual Exam- Adnexa, other: normal adnexae Back/Spine/Pelvis Back: no CVA tenderness Assessment & Plan Assessment & Plan (1) Bacterial vaginosis: Code(s): N76.0 - Acute vaginitis; B96.89 - Other specified bacterial agents as the cause of diseases classified elsewhere Category: Medical Plan: GC and chlamydia cultures with BV panel taken. Per CDC recommendation, will screen for STI, HepBs Ag, HIV, RPR, Hep C Ab ordered. Will treat with Flagyl 500 mg p.o. b.i.d. x 7 days, Instructions given to the patient to refrain from sexual activity or to use condoms consistently and correctly during the BV treatment regimen, not to douch, it might increase the risk for relapse, and to call if symptoms persist or recur. Orders: Orders Hepatitis C Antibody Today B96.89 - Other specified bacterial agents as the cause of diseases classified elsewhere, N76.0 - Acute vaginitis Hepatitis B Surface Antigen Today B96.89 - Other specified bacterial agents as the cause of diseases classified elsewhere, N76.0 - Acute vaginitis Syphilis Screen Today B96.89 - Other specified bacterial agents as the cause of diseases classified elsewhere, N76.0 - Acute vaginitis HIV Ab/Ag Today B96.89 - Other specified bacterial agents as the cause of diseases classified elsewhere, N76.0 - Acute vaginitis Medications: New metronidazole 500 mg PO BID 7 days 14 tabs 0RF Coding Level of Care Code Est Pt Level 3 (30858) Diagnoses Bacterial vaginosis N76.0; B96.89
--- OUTSIDE RECORDS SUMMARY | 2024-07-25 17:47 | XMS_ITS | Clinical Summary ---
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
--- OUTSIDE RECORDS SUMMARY | 2024-07-25 17:47 | XMS_ITS | Continuity of Care Document ---
Author Organization [facility] Address [address] [place] [address] Phone Care Team Providers Care Sales And Marketing Analyst Name Role Phone Anita Bobby APN Unavailable Unavailable Allergies, Adverse Reactions, Alerts Substance Reaction Status Criticality No Known Allergies Active No Inform ation Procedures Procedure Date Office/outpatient visit,[facility] 2017 Advance Directives Directive Yes / No Effective Date File Name No Information Encounters Encounter Description Practice Location Reason(s) For Visit Diagnoses Date Provider Office/outpati ent visit,[facility] [address] [place] [address], [facility], tel:[phone] [facility] [place] New Patient (chief complaint) Dizzy spellsVenous stasis ulcer of right ankle with fat layer exposed without varicose veinsNon-pressure chronic ulcer of right ankle with fat layer exposedType 2 diabetes mellitus with complication, without long-term current use of insulinAnti-phosp holipid syndromeHx of pulmonary embolusHistory of recurrent deep vein thrombosis (DVT)Body mass index (BMI) 36.0-36.9, adult [place], [address], [place]. tel:[phone] Family History Family Member Type Diagnosis Age At Onset No Information Payers Payer name Insurance type Covered constitution party ID Authoriza tion(s) Self Pay [email or web address] Social History Type Description Quantity Date Captured [...] Mental Status Date Cognitive Assessment Orientation - [place] ed to time, place, person, situation.
--- OUTSIDE RECORDS SUMMARY | 2024-07-25 17:47 | XMS_ITS | Data Portability ---
Author Organization [facility] [address] Address [address] [place] [address] Care Team Providers Care Well Head Pumper Name Role Phone NEFTALI SOMMER Primary Care Provider Assessment Encounter Date Assessment Date Assessment LastModified by Organization Details LastModified Time 05/29/2023 05/29/2023 Patient was seen in the office today for nausea. Reviewed history regarding recent illness, medications, symptoms, and physical exam. Studies ordered as below. Discussed plan with patient, who expresses understanding . Follow up as noted below. anabel Not available 05/29/2023 17:15:22 Plan of Treatment Reminders Order Date Submit Date Provider Last Modified By Organization Details Last Modified Time Details Appointments None recorded. Lab urinalysis, dipstick 2023 024 [email or web address], [address] [place], [address], 4 17:16:00 rapid flu (A+B) 2023 024 [email or web address], [address] [place], [address], 4 17:16:01 SARS CoV 2 (COVID-19) Ag, QL, IA, upper respiratory specimen 2023 024 [email or web address] [place], [address], 4 17:15:58 Referral None recorded. Procedures None recorded. Surgeries None recorded. Imaging None recorded. Medication Orders Allergy Relief (fluticason e) 50 mcg/actuati on nasal spray,suspe nsion [address] [id number] [address] [place], [address], 17:24:59 fexofenadin e-pseudoeph edrine ER 180 mg-240 mg tablet,ext. release [address] [id number], [address] [facility] ([facility], [address], 17:25:02 meclizine 25 mg tablet [address] [id number] [address] [place], [address], 17:25:01 Patient TargetsNo targets recorded. Patient Instructions Encounter Date Encounter Id Patient Instructions Last Modified By Organization Details Last Modified Time 05/29/2023 [id number] nausea and vomiting: care instructions [email or web address] Not available 05/29/2023 17:15:57 Try small amount s of clear liquids frequently. If vomiting occurs, wait 30-60 minutes before trying clear liquids again. Once you are able to tolerate clear liquids for at least 6 hours without vomiting, you can advance to a soft diet consisting of foods such as bananas, rice, applesauce, toast, crackers, and other foods rich in carbohydrates and low on fats and spices. If the diet is tolerated for 12-24 hours, you can slowly add other foods to your diet. If vomiting occurs, you should go back to clear liquids only and work your way back to a normal diet as outlined above. If much worse, you should seek treatment immediately. Not available 05/29/2023 16:33:43 Reason for Referral None Reported. Results Created Date Observation Date Name Description Value Unit Range Abnormal Flag Note LastModifiedBy Organization Detail LastModifiedTime 05/29/1905/29/2023 SARS CoV 2 (COVI D-19) Ag, QL, IA, upper respi rator y speci men Unknown Analyte negati ve Not Available [address] [place], [address], 05/29/2023 16:56:31 05/29/19 24 05/29/2023 SARS CoV 2 (COVI D-19) Ag, QL, IA, upper respi rator y speci men Unknown Analyte Negati ve Not Available [address] [place], [address], 05/29/2023 16:56:31 05/29/19 24 05/29/2023 SARS CoV 2 (COVI D-19) Ag, QL, IA, upper respi rator y speci men Unknown Analyte Yes Not Available [facility] [address] [place], [address], 05/29/2023 16:56:31 05/29/19 24 05/29/2023 rapid flu (A+B) Unknown Analyte negati ve Not Available [address] [place], [address], 05/29/2023 16:56:22 05/29/19 24 05/29/2023 rapid flu (A+B) Unknown Analyte negati ve Not Available [address] [place], [address], 05/29/2023 16:56:22 05/29/19 24 05/29/2023 rapid flu (A+B) Unknown Analyte Negati ve Not Available [address] [place], [address], 05/29/2023 16:56:22 05/29/19 24 05/29/2023 rapid flu (A+B) Unknown Analyte Yes Not Available [facility] [address] [place], [address], 05/29/2023 16:56:22 05/29/19 24 05/29/2023 urina lysis , dipst ick Unknown Analyte Normal = light yellow Not Available [address] [place], [address], 05/29/2023 16:48:19 05/29/19 24 05/29/2023 urina lysis , dipst ick Unknown Analyte Cortney Not Available [address] [place] [address] [address] [place], [address], 05/29/2023 16:48:19 05/29/19 24 05/29/2023 urina lysis , dipst ick Unknown Analyte Normal = clear Not Available [address] [place], [address], 05/29/2023 16:48:19 05/29/19 24 05/29/2023 urina lysis , dipst ick Unknown Analyte Clear Not Available [address] [place] [address] [address] [place], [address], 05/29/2023 16:48:19 05/29/19 24 05/29/2023 urina lysis , dipst ick Unknown Analyte Normal = negati ve Not Available [address] [place], [address], 05/29/2023 16:48:19 05/29/19 24 05/29/2023 urina lysis , dipst ick Unknown Analyte Negati ve Not Available [address] [place], [address], 05/29/2023 16:48:19 05/29/19 24 05/29/2023 urina lysis , dipst ick Unknown Analyte Normal = Negati ve Not Available [address] [place], [address], 05/29/2023 16:48:19 05/29/1905/29/2023 urina lysis , dipst ick Unknown Analyte Small Not Available [address] [place] [address] [address] [place], [address], 05/29/2023 16:48:19 05/29/19 24 05/29/2023 urina lysis , dipst ick Unknown Analyte Normal = Negati ve Not Available [address] [place], [address], 05/29/2023 16:48:19 05/29/19 24 05/29/2023 urina lysis , dipst ick Unknown Analyte Trace Not Available [address] [place] [address] [address] [place], [address], 05/29/2023 16:48:19 05/29/19 24 05/29/2023 urina lysis , dipst ick Unknown Analyte Normal = 1.010, 1.015, 1.020 Not Available [address] [place], [address], 05/29/2023 16:48:19 05/29/19 24 05/29/2023 urina lysis , dipst ick Unknown Analyte 1.030 Not Available [address] [place] [address] [address] [place], [address], 05/29/2023 16:48:19 05/29/19 24 05/29/2023 urina lysis , dipst ick Unknown Analyte Normal = Negati ve Not Available [address] [place], [address], 05/29/2023 16:48:19 05/29/19 24 05/29/2023 urina lysis , dipst ick Unknown Analyte Negati ve Not Available [address] [place], [address], 05/29/2023 16:48:19 05/29/19 24 05/29/2023 urina lysis , dipst ick Unknown Analyte Normal = 6.5, 7.0, 7.5, 8.0 Not Available [address] [place], [address], 05/29/2023 16:48:19 05/29/19 24 05/29/2023 urina lysis , dipst ick Unknown Analyte 6.0 Not Available [address] [place] [address] [address] [place], [address], 05/29/2023 16:48:19 05/29/19 24 05/29/2023 urina lysis , dipst ick Unknown Analyte Normal = Negati ve Not Available [facility] [address] [place], [address], 05/29/2023 16:48:19 05/29/1905/29/2023 urina lysis , dipst ick Unknown Analyte Trace Not Available [address] [place] [address] [address] [place], [address], 05/29/2023 16:48:19 05/29/1905/29/2023 urina lysis , dipst ick Unknown Analyte Normal = 0.2, 1.0 Not Available [address] [place], [address], 05/29/2023 16:48:19 05/29/19 24 05/29/2023 urina lysis , dipst ick Unknown Analyte 0.2 E.U./d L Not Available [address] [place], [address], 05/29/2023 16:48:19 05/29/19 24 05/29/2023 urina lysis , dipst ick Unknown Analyte Normal = Negati ve Not Available [address] [place], [address], 05/29/2023 16:48:19 05/29/19 24 05/29/2023 urina lysis , dipst ick Unknown Analyte Negati ve Not Available [address] [place], [address], 05/29/2023 16:48:19 05/29/19 24 05/29/2023 urina lysis , dipst ick Unknown Analyte Normal = Negati ve Not Available [address] [place], [address], 05/29/2023 16:48:19 05/29/19 24 05/29/2023 urina lysis , dipst ick Unknown Analyte Negati ve Not Available [address] [place], [address], 05/29/2023 16:48:19 Result Notes None recorded. 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 Procedures Surgical History Date Name Laterality Status Provider Name and Address Organization Details Recorded Time delivery completed Nita Mendez PA - [facility] 05/29/2023 16:42:01 procedure on knee completed Nita Mendez PA - [facility] 05/29/2023 16:42:10 cholecystectomy completed Nita Mendez PA - [facility] 05/29/2023 16:42:16 laparoscopic sleeve gastrectomy completed Nita Mendez PA - [facility] 05/29/2023 16:42:38 graft of skin to skin completed Nita Mendez PA - [facility] 05/29/2023 16:43:09 Imaging Results None recorded. Procedure Notes None recorded. Medical Equipment None Reported. Allergies Allergen ID Allergen Name Allergen Category Reaction Reaction Severity Criticality Documentation Date Start Date Code Code System Note Provider Name and Address Organization Details Recorded Time 316345 shellfish derived food,medi cation Not available Not available Not available 05/29/2023 07308 UNK Nita Mendez rubia PA - [facility] 16:39:13 Medications Name Sig Start Date Stop Date Status Note LastModified by Organization Details LastModified Time silver sulfadiazine 1 % topical cream APPLY TO AFFECTED AREA EVERY DAY active Not Available Not Available No t Available betamethason e valerate 0.1 % topical ointment PLEASE SEE ATTACHED FOR DETAILED DIRECTIONS active Not Available Not Available N ot Available prednisone 10 mg tablet PLEASE SEE ATTACHED FOR DETAILED DIRECTIONS active Not Available Not Available N ot Available ammonium lactate 12 % lotion USE EVERY DAY active Not Available Not Available No t Available omeprazole 40 mg capsule,darien yed release TAKE 1 CAPSULE BY MOUTH EVERY DAY 30 MINUTES BEFORE MORNING MEAL FOR 30 DAYS active Not Available Not Available No t Available tramadol 50 mg tablet TAKE 1/2 TABLET BY MOUTH TWICE A DAY NEEDED active Not Available Not Available No t Available betamethason e valerate 0.1 % topical cream APPLY TO AFFECTED AREA EVERY DAY TOPICALLY active Not Available Not Available No t Available meclizine 25 mg tablet TAKE 1 TABLET BY MOUTH THREE TIMES A DAY NEEDED FOR 5 DAYS active Not Available Not Available N ot Available cephalexin 500 mg capsule TAKE 1 CAPSULE BY MOUTH EVERY DAY active Not Available Not Available No t Available lidocaine 5 % topical patch 1 PATCH TOPICALLY DAILY FOR PAIN FOR 30 DAYS active Not Available Not Available No t Available nystatin-tri amcinolone 100,000 unit/g-0.1 % topical cream 1 APPL TOPICALLY DAILY APPLIED TO RIGHT MEDIAL CALF DAILY PRESCRIBED active Not Available Not Available N ot Available gabapentin 300 mg capsule TAKE 1 CAPSULE BY MOUTH 3 TIMES A DAY active Not Available Not Available Not Available omeprazole 20 mg capsule,darien yed release TAKE 1 CAPSULE BY MOUTH EVERY DAY active Not Available Not Available No t Available hydroxyzine HCl 25 mg tablet TAKE 1 TABLET ORALLY THREE TIMES DAILY active Not Available Not Available No t Available mupirocin 2 % topical ointment APPLY TO AFFECTED AREA TOPICALLY EVERY DAY active Not Available Not Available No t Available zolpidem 5 mg tablet TAKE 1 TABLET BY MOUTH EVERYDAY AT BEDTIME active Not Available Not Available No t Available ondansetron 4 mg disintegrati ng tablet DISSOLVE 1 TABLET UNDER THE TONGUE EVERY 8 HOURS NEEDED FOR NAUSEA AND VOMITING active Not Available Not Available No t Available cholecalcife rol (vitamin D3) 125 mcg (5,000 unit) capsule TAKE 1 CAPSULE BY MOUTH EVERY DAY active Not Available Not Available No t Available amoxicillin 875 mg-potassium clavulanate 125 mg tablet TAKE 1 TABLET BY MOUTH TWICE A DAY active Not Available Not Available No t Available oxycodone 5 mg tablet TAKE 1 TABLET BY MOUTH EVERY 6 HOURS NEEDED FOR PAIN SCALE 7-10 active Not Available Not Available No t Available omeprazole active Not Available Not Av ailable Not Available Vitamin D active Not Available Not Chante ilable Not Available Ambien active Not Available Not Availa ble Not Available Calcium 500 With D 500 mg-10 mcg (400 unit) tablet TAKE 1 TABLET BY MOUTH EVERY DAY active Not Available Not Available No t Available diclofenac 1 % topical gel APPLY 4 G TOPICALLY 4 TIMES A DAY FOR PAIN active Not Available Not Available No t Available Xarelto active Not Available Not Avail able Not Available Xarelto 20 mg tablet TAKE 1 TABLET BY MOUTH EVERY DAY active Not Available Not Available No t Available Allergy Relief (fluticasone ) 50 mcg/actuatio n nasal spray,suspen karen Baskin 1 spray every day by intranasal route as directed for 90 days. 2023 active Not Available Not Available Not Avai lable Allergy Relief-D (fexofenadin e) 180 mg-240 mg tablet,ext.r elease 24 hr TAKE 1 TABLET EVERY DAY BY ORAL ROUTE IN THE EVENING FOR 10 DAYS. active Not Available Not Available No t Available Vitals Date Recorded Body height Body weight Pain severity - 0-10 verbal numeric rating [Score] - Reported Respiratory rate Body temperature Oxygen saturation Oxygen saturation in Arterial blood by Pulse oximetry Heart rate Systolic blood pressure Diastolic blood pressure Provider Name and Address Organization Details Last Updated DateTime 175.26 cm 374720. 79 g 7 18 /min 97.8 [degF] 98 % 98 % 82 /min 112 mm[Hg] 86 mm[Hg] Nita Vanessa JIANG - [facility] 16:39:02 Social History Question Answer Notes LastModified by Organizat ion Details LastModified Time Tobacco Smoking Status Never Smoker Nita barkley PA - [facility] 05/29/2023 16:41:32 What Is Your Level Of Alcohol Consumption? None Information not available 05/29/2023 Have You Had A Flu Shot This Season? No Information not available 05/29/2023 If No, Would You Like A Flu Shot Today? No Information not available 05/29/2023 Have You Had Direct Contact, Or Contact During Intimacy, With Monkeypox Rash, Scabs, Or Body Fluids From A Person With Monkeypox? No Information not available 05/29/2023 What Was The Date Of Your Most Recent Tobacco Screening? 05/29/2023 Information not available 05/29/2023 Do You Use Any Illicit Or Recreational Drugs? No Information not available 05/29/2023 Have You Recently Traveled Abroad? No Information not available 05/29/2023 Do You Or Have You Ever Used Any Other Forms Of Tobacco Or Nicotine? No Information not available 05/29/2023 Sex: Unknown Functional Status None recorded. Mental Status None recorded. Family History Relationship Description Onset Age of this Age Resolved Age Notes LastModified by Organization Details LastModified Time Father No current problems or disability Not available 05/29 16:41:19 Mother No current problems or disability Not available 05/29 16:41:19 Medical History No medical history recorded. Gynecological HistoryNo gynecological history recorded. Obstetrics History GPAL:G 0 P 0 0 0 0 Past Encounters Encounter ID Performer Location Encounter Start Date Encounter Closed Date Diagnosis/Indication Diagnosis SNOMED-CT Code Diagnosis ICD10 Code Diagnosis Note [id number] [address] [facility] [place] [address] 07/01/2021 09:44:34 07/01/2021 10:19:29 [id number] [place] [address] [facility] [address] [facility] [address] 05/29/2023 14:47:07 05/29/2023 17:27:18 Exposure to SARS-CoV-2 068159205 Z20.822 If you test positive for COVID-19, stay home for at least 5 days and isolate from others in your home. You are likely most infectious during these first 5 days. Wear a high-quali ty mask if you must be around others at home and in public.Do not go places where you are unable to wear a mask. For travel guidance, see [facility] s Travel webpage.Do not travel.Sta y home and separate from others as much as possible.U se a separate bathroom, if possible.T sonny steps to improve ventilatio n at home, if possible.D on? t share personal household items, like cups, towels, and utensils.M onitor your symptoms. If you have an emergency warning sign (like trouble breathing) , seek emergency medical care immediatel y.If you had symptoms and:Your symptoms are improvingY ou may end isolation after day 5 if: You are fever-free for 24 hours (without the use of fever-redu cing medication ).Your symptoms are not improvingC ontinue to isolate until: You are fever-free for 24 hours (without the use of fever-redu cing medication ).Your symptoms are improving. Regardless of when you end isolationU ntil at least day 11:Avoid being around people who are more likely to get very sick from COVID-19.R emember to wear a high-quali ty mask when indoors around others at home and in public.Do not go places where you are unable to wear a mask until you are able to discontinu e masking (see below).For travel guidance, see [facility] s Travel webpage. Nausea and vomiting 2776 1999 R11.2 Try small amounts of clear liquids frequently .If vomiting occurs, wait 30-60 minutes before trying clear liquids again. Once you are able to tolerate clear liquids for at least 6 hours without vomiting, you can advance to a soft diet consisting of foods such as bananas, rice, applesauce , toast, crackers, and other foods rich in carbohydra miranda and low on fats and spices.If the diet is tolerated for 12-24 hours, you can slowly add other foods to your diet.If vomiting occurs, you should go back to clear liquids only and work your way back to a normal diet as outlined above. If much worse, you should seek treatment immediatel y. Benign par oxysmal positional vertigo 895905442 H81.10 Based on your physical exam and presentati on, you are being diagnosed with Eustachian Tube Dysfunctio n. This occurs when fluid/muco us or swelling closes off the tubes that help the ears equalize the pressure. The following are my recommenda tions to help with these symptoms and get this condition to resolve:1. Saline Nasal Spray2. Antihistam bekah like Claritin, Zyrtec, Henna, or benadryl3. Tylenol for discomfort and help with the inflammati on.4. Heating pad or warm rice back to help with the discomfort 5. You can try sudafed, but I would not take this more than 5 days. This may overly dry out your throat and chest and cause symptoms. Unfortunat brenda this condition may last 1-2 months, but usually resolve on its own. I am going to prescribe some medication s to help resolve this faster. You were prescribed Prednisone - Here is some general Informatio n regarding this medication .1. Make sure you take with Food2. Do not take right before bedtime -this should be taken during the day because it may make you a little more wired. May keep you from sleeping.3 . Prednisone will increase glucose -so if you are a diabetic then you will need to monitor your glucose closely. Please d/c if glucose goes above 300.4. Do not take this medication with Ibuprofen If this does not improve in 2-3 months - an ENT would be the appropriat e next step. Sometimes people will require Tubes to be placed temporaril y. Thank you for using [employer] , if you have any questions or concerns please do not hesitate to call or reach out to us. Acute sinusitis 61581752 J01.90 Sinusitis is an infection of the lining of the sinus cavities in your head. Sinusitis often follows a cold. It causes pain and pressure in your head and face. In most cases, sinusitis gets better on its own in 1 to 2 weeks. But some mild symptoms may last for several weeks. Sometimes antibiotic s are needed. if you are having problems. It's also a good idea to know your test results and keep a list of the medicines you take. How can you care for yourself at home? Take an over-the-c ounter pain medicine. Avoid Ibuprofen, Aleve and Aspirin if . If the doctor prescribed antibiotic s, take them as directed. Do not stop taking them just because you feel better. You need to take the full course of antibiotic s. Be careful when taking over-the-c ounter cold or influenza (flu) medicines and Tylenol at the same time. Many of these medicines have acetaminop hen, which is Tylenol. Read the labels to make sure that you are not taking more than the recommende d dose. Too much acetaminop hen (Tylenol) can be harmful. Breathe warm, moist air from a steamy shower, a hot bath, or a sink filled with hot water. Avoid cold, dry air. Using a humidifier in your home may help. Follow the directions for cleaning the machine. Use saline (saltwater ) nasal washes. This can help keep your nasal passages open and wash out mucus and bacteria. You can buy saline nose drops at a grocery store or drugstore. Or you can make your own at home by adding 1 teaspoon (5 millilitre s) of salt and 1 teaspoon (5 millilitre s) of baking soda to 2 cups (500 mL) of distilled water. If you make your own, fill a bulb syringe with the solution, insert the tip into your nostril, and squeeze gently. Blow your nose. Put a hot, wet towel or a warm gel pack on your face 3 or 4 times a day for 5 to 10 minutes each time. Try a decongesta nt nasal spray like oxymetazol ine (Drixoral) . Do not use it for more than 3 days in a row. Using it for more than 3 days can make your congestion worse. Health Concerns Section Related Observation LastModified by Organization Detai ls LastModified Time None Recorded Concern Status LastModified by Organization Details LastModified Time None Recorded Advance Directives Directive None Recorded Payers Encounter Date Sequence Insurance Name Policy Number Policy Wright Covered Member ID Wright Member ID Guarantor Name 07/01/2021 1 [facility] [place] [id number] Emy Leigh [id number] Emy Leigh 05/29/2023 1 [facility] [place] [place] [id number] Emy Leigh [id number] Emy Leigh OBGyn Episode No OBEpisode recorded.
--- OUTSIDE RECORDS SUMMARY | 2024-07-25 17:47 | XMS_ITS ---
Author Name [facility] Organization Unknown Encounters Encounter Type Encounter Reason Primary Diagnosis Location Date Ambulatory [facility] 01/24/20 Care Team Organization Name Specialty Phone Email Start Date End Da rachel [facility] 01/23/202301/03 [facility] 2022
--- OUTSIDE RECORDS SUMMARY | 2024-07-25 17:47 | XMS_ITS | Patient Health Record ---
Author Organization [facility] Address [address] [place] [id number] Care Team Providers Care Box Spring Frame Builder Name Role Phone Olga JENKINS, Zafar Primary Care Provider [facility] Melquiades Ramachandran Jr Unavailable Allergies Allergen (clinical drug ingredient) Drug/Non Drug Allergy documented on EMR Reaction Allergy Type Onset Date Status diphenhydramine Benadryl SENSITIVITY Drug Allergy Active Shellfish (FN) SHELL FISH (uncoded) Unknown Allergy Active Reason For Referral No Information Medications Medication SIG (Take, Route, Frequency, Duration) Notes Start Date End Date Status Omeprazole 20 MG TAKE 1 CAPSULE BY [facility] EVERY DAY Oral for 30 Active Omeprazole 40 MG TAKE 1 CAPSULE BY [facility] EVERY DAY 30 MINUTES BEFORE MORNING MEAL [...] the procedure for 1 day 10/24/2021 Active Immunizations Vaccine Route Administration Date Status Comme nts Influenza Unknown 10/24/2021 Refused Social History Tobacco Use: Social History Observation Description Date Details (start date - stop date) Current Smoker NA - NA Tobacco Use/Smoking Question Answer Notes Patient is [...] Never (0 point) Points 0 Interpretation Negative Problems Problem Type SNOMED Code ICD Code Onset Dates Problem Status W/U Status Risk Notes Problem 138518678 Colon cancer screening (Z12.11) Active confirmed Problem 241602200 Gastroesophageal reflux disease without esophagitis (K21.9) Active confirmed Problem Gastroesophageal reflux disease (773721052) GERD without esophagitis (K21.9) Active confirmed Plan Of Treatment Future Test Test Name Order Date UPPER GI ENDOSCOPY 10/24/2021 COLONOSCOPY 10/24/2021 Insurance Providers Payer Name Payer Address Payer Phone Subscriber Number Group Number Insured Name Patient Relationship to Insured Coverage Start Date Coverage End Date [facility] [address] [address] [place], [place] [id number] STACI VINSON Self - patient is the insured Medical (General) History Medical History History ICD Code Pulmonary embolism DVT Antiphospholipid antibody syndrome Diabetes mellitus, resolved since gastri c sleeve Surgical History Surgery Date(Month/Year) section x2 89-95 Knee surgery, left 1989 Gastric sleeve, [place], [place] ci ty 2017
== END 2024-07-25 15:46 | disposition home or self-care (01) ==
LOC: HO.HWS 14:55
PROVIDERS: PCP Internal Medicine; Visit Provider Obstetrics & Gynecology
DX: N76.0 Acute vaginitis (principal); B96.89 Other specified bacterial agents as the cause of diseases classified elsewhere
CPT/HCPCS: 99213

== ENCOUNTER → 2024-08-30 15:33 | Outpatient (BNV) | payer OTHER, SELFPAY | PROVIDERS: PCP Internal Medicine; Referring Provider Internal Medicine; Visit Provider Internal Medicine Medical Oncology | DX: D68.61 Antiphospholipid syndrome (principal) | CPT/HCPCS: 99204 ==

== ENCOUNTER 2024-10-24 15:12 | Outpatient (REF) | payer OTHER, SELFPAY ==
--- NOTE | ~2024-10-24 | XR_ITS ---
EXAMINATION: XR KNEE, LEFT CLINICAL INFORMATION: R/O OT Technique: AP and lateral lower extremity joint x-rays No prior FINDINGS: There is a joint effusion. There are enthesophytes in the distal quadriceps tendon above patella. There is amorphous and linear calcific density in the lateral joint line and in the medial meniscal body. There is mild narrowing of the medial joint space. There are tricompartmental marginal osteophytes. 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 Differential etiologies of pyrophosphate deposition includes hemachromatosis and hyperparathyroidism. Joint effusion Electronically signed by: Paco Devine MD 10/24/2024 03:58 PM EDT
--- NOTE | ~2024-10-24 | XR_ITS ---
EXAMINATION: XR KNEE, RIGHT CLINICAL INFORMATION: R/O OT COMPARISON: July 17, 2022. TECHNIQUE: AP and lateral views of the right knee. FINDINGS: There is joint space narrowing involving mostly the medial compartment with sclerosis along the articular surface of the medial femoral condyle and medial tibial plateau. Marginal osteophyte formation involving mostly the medial compartment and the posterior superior patella. No suprapatellar bursa joint effusion. No acute cortical disruption or malalignment. No lytic or blastic lesions. XR/XR knee RT 2V IMPRESSION: Tricompartmental osteoarthrosis involving mostly the medial compartment. Overall worsening since prior exam. Electronically signed by: Arsenio Campbell MD 10/24/2024 03:57 PM EDT
--- OUTSIDE RECORDS SUMMARY | 2024-10-24 16:46 | XMS_ITS | Clinical Summary ---
Author Organization [facility] it Address [address] [place] [address] Care Team Providers Care Wool Classer Name Role Phone Unavailable Primary Care Provider [...] - 2023-2 5 season) 2024 Influenza Vaccine (Season Ended) 2025 HIB Vaccines Aged Out No longer eligi [...] age to complete this topic Meningococcal B Vaccine Aged Out No l onger eligible based on patient's age to complete [...]
== END 2024-10-24 15:13 | disposition home or self-care (01) ==
LOC: HO.XRAY 15:12
PROVIDERS: Visit Provider Specialist
DX: M17.0 Bilateral primary osteoarthritis of knee (principal)
CPT/HCPCS: 73560

== ENCOUNTER → 2024-10-24 15:50 | Outpatient (BNV) | payer OTHER, SELFPAY | PROVIDERS: Visit Provider Radiology Diagnostic Radiology | DX: M25.462 Effusion, left knee (principal); M17.11 Unilateral primary osteoarthritis, right knee | CPT/HCPCS: 73560 ==

== ENCOUNTER 2025-01-30 15:04 | Outpatient (AMB) | payer OTHER, SELFPAY ==
--- NOTE | 2025-01-30 15:00 | A.OFFPC_ITS ---
Vital Signs 01/30/25 15:08 Height 5 ft 9 in Weight 310 lb 4 oz BMI 45.8 BP 134/77 Blood Pressure Location Lt brachial Position Sitting Respiration 20 Pulse 68 Pulse Source Pulse Oximeter Temp 97.2 F Temp Source Temporal Artery Scan Pulse Oximetry (%) 100 Oxygen Delivery Method Room Air Intake Visit Reasons: Est. care Accompanied by: Self / Same As Patient Allergies shellfish derived Allergy (Severe, Verified 01/30/25 15:41) Hives Medication List - Last Reconciled 01/30/25 by Livier Gutierrez PA-C ascorbic acid (vitamin C) (Vitamin C) 500 mg PO DAILY betamethasone valerate 0.1% 0.1 appl topical DAILY calcium carbonate-vitamin D3 500 mg-10 mcg (400 unit) (Calcium 500 With D) 1 tab PO DAILY cholecalciferol (vitamin D3) 125 mcg PO DAILY clotrimazole-betamethasone 1-0.05 % 1 appl topical BID 5 days cyanocobalamin (vitamin B-12) 1,000 mcg PO DAILY diclofenac sodium 1% (Arthritis Pain (diclofenac)) 4 grams topical QID PRN ferrous sulfate 325 mg PO DAILY leg brace (Knee Support Brace) As directed multivitamin 1 tab PO DAILY omeprazole 40 mg PO DAILY@0630 rivaroxaban (Xarelto) 20 mg PO DAILY@1800 Held on 11/27/22. Instructions: Resume on 11/30/22. zolpidem (Ambien) 5 mg PO BEDTIME Tobacco use date assessed: 01/30/25 Dental Screening Dental Screen Date: 01/30/25 Did you have a dental visit in the last 12 months?: Yes Was dental information given to patient?: Patient has dentist HPI Est. care HPI Details The patient is a 54-year-old female presenting for an annual physical examination in addition with menopausal symptoms and insomnia. She reports experiencing mood swings, difficulty sleeping despite exhaustion, and significant weight gain despite maintaining small portion sizes. The patient has a history of iron deficiency anemia, for which she is taking ferrous sulfate. She also has a history of antiphospholipid syndrome, which was recently evaluated by a cloth bin packer who noted that the condition appears resolved. The patient is prediabetic with a hemoglobin A1c of 6.4, noted in June. She has experienced weight gain, which may be contributing to her prediabetic status. She has osteoarthritis, particularly affecting her knees, and is currently using topical diclofenac for arthritis pain management. The patient has a history of a gastric sleeve surgery performed in 2012 in [place], which may have slipped, contributing to her current weight issues. She is considering weight loss injections as an alternative to revision surgery. She also reports Achilles tendinitis, for which she is receiving treatment from a plier worker. Social History - Employment: Previously worked full-arabella e and two part-time jobs, indicating a high level of activity. - Weight Management: History of gastric sleeve surgery in 2013, considering weight loss injections due to recent weight gain. [facility] Medical History (Updated 01/30/25 @ 16:28 by Livier Gutierrez PA-C) Flank pain Preventative health care Achilles tendonitis Osteoarthritis Menopausal symptoms Annual physical exam Pre-diabetes Depression Insomnia GERD (gastroesophageal reflux disease) Choledocholithiasis On anticoagulant therapy Tubal ligation evaluation Venous stasis of lower extremity Pulmonary embolism DVT (deep venous thrombosis) Diabetes Antiphospholipid syndrome Surgical History History of esophagogastroduodenoscopy (EGD) H/O colonoscopy History of laparoscopic cholecystectomy (11/25/22) H/O skin graft H/O: knee surgery History of H/O gastric sleeve Family History Maternal Aunt Breast CA Social History Household Members: Significant Other and Family Housing: Apartment Do you presently have visiting nurse or other home services: No Alcohol intake: never Patient Tobacco Use Status: Former Tobacco user Years Smoked: 2.5 Second Hand Smoke Exposure: No Substance Use Type: Marijuana service: No Current occupational status: employed Cognitive needs: No Hearing needs: No Vision needs: Yes (rx glasses) Female Reproductive History Menstrual Age of Menarche: 13 Questionnaire PHQ-9 Over the last 2 weeks, how often have you been bothered by any of the following problems? 1. Little interest or pleasure in doing things: more than half the days 2. Feeling down, depressed, or hopeless: more than half the days 3. Trouble falling or staying asleep, or sleeping too much: nearly every day 4. Feeling tired or having little energy: nearly every day 5. Poor appetite or overeating: several days 6. Feeling bad about yourself - or that you are a failure or have let yourself or your family down: more than half the days 7. Trouble concentrating on things, such as reading the newspaper or watching television: more than half the days 8. Moving or speaking so slowly that other people could have noticed. Or the opposite - being so fidgety or restless that you have been moving around a lot more than usual: more than half the days 9. Thoughts that you would be better off or of hurting yourself in some way: several days Total score: 18 Depression Screening Interpretation: Positive Depression Screening Follow-up: Existing condition Depression Screening Done: Yes 33455 - PHQ-9 Billing: Yes Source: Developed by Drs. Carlo Oliveros, Juju Riojas, Fausto Marcelino and colleagues, with an educational leatha from [employer]. Thrive Questionnaire Date Thrive assessed: 01/30/25 I am a: Patient What is your living situation today?: I have a steady place to live Within the past 12 months, did the food you bought not last and you didn't have the money to get more?: Never true Within the past 12 months, did you worry whether your food would run out before you got money to buy more?: Never true Do you have trouble paying for medicines?: No Do you have trouble getting transportation to medical appointments?: No Do you have trouble paying your heating and electricity bill?: No Do you have trouble taking care of your child, family member or friend?: No Do you have trouble with day-to-day activities such as bathing, preparing meals, shopping, managing finances, etc.?: Yes Are you currently unemployed and looking for a job?: No Are you interested in more education?: No Please select the resources that you would like help with: None THRIVE Score: 0 AUDIT C Alcohol Use Questionnaire (AUDIT-C) 1. How often do you have a drink containing alcohol?: Never Total Score: 0 Score Reviewed/Action Taken: No JUAN JOSE-7 AMB Questionnaire JUAN JOSE-7 Date JUAN JOSE - 7 assessed: 01/30/25 Feeling nervous, anxious, or on edge: 3 = Nearly every day Not being able to stop or control worryin = Nearly every day Worrying too much about different things: 3 = Nearly every day Trouble relaxin = Several days Being so restless that it is hard to sit still: 2 = More than half the days Becoming easily annoyed or irritable: 2 = More than half the days Feeling afraid as if something awful might happen: 2 = More than half the days Total JUAN JOSE-7 score (0-4 normal; 5-9 mild; 10-14 moderate; 15-21 severe): 16 Source: Developed by Drs. Carlo Oliveros, Juju Riojas, Fausto Marcelino and colleagues, with an educational leatha from [employer]. JUAN JOSE-7 Assessment Billing JUAN JOSE-7 Assessment Tool: JUAN JOSE-7 Assessment 22316 Review of Systems Const Details: - General: Reports significant weight gain despite small portion sizes. - Endocrine: Reports menopausal symptoms including mood swings and insomnia. - Musculoskeletal: Reports osteoarthritis in knees and Achilles tendinitis. - Hematologic: Reports history of iron deficiency anemia. - Psychiatric: Reports mood swings and insomnia. All systems reviewed & are unremarkable except as noted in HPI and below Physical exam (Primary Care) Vital Signs: Last Vital Signs Temp 97.2 F 01/30/25 15:08 Pulse 68 01/30/25 15:08 Resp 20 01/30/25 15:08 BP 134/77 01/30/25 15:08 Pulse Ox 100 01/30/25 15:08 Oxygen Delivery Method Room Air 01/30/25 15:08 Care Plan Goal for BP management: <140/90 at Goal BMI result Body Mass Index 45.8 BMI Assessment/Plan discussion: High BMI High, discussed plan: lifestyle, weight reduction, dietary, physical activity, alcohol moderation and other Tobacco/Smoking Status: Tobacco use Status Tobacco use date assessed 01/30/25 01/30/25 15:03 Patient Tobacco Use Status Former Tobacco user 01/30/25 15:03 PHQ-9: PHQ-9 Score PHQ-9: Total score 18 01/30/25 15:44 Depression Screening Interpretation: Positive Depression Screening Follow-up: Existing condition Thrive Assessment: Date of Thrive Assessment Date Thrive assessed 01/30/25 01/30/25 15:03 Const Other: Appearance: Alert. Oriented X3. No acute distress. Head: Normal external exam. Normocephalic. Atraumatic. Eyes: Pupils are equal, round, and reactive to light. Extraocular movements intact. Conjunctiva and sclera normal. Eyelids normal. Ears: External auditory canal normal. Tympanic membranes normal. Throat: Pharynx normal. Uvula midline. Moist mucous membranes. Neck: Normal inspection. Neck supple. Full range of motion. No adenopathy. Thyroid Normal. No meningeal signs. No neck mass noted. Cardiovascular: Normal heart rate and rhythm. Heart sound normal. No murmurs noted. Pulses normal throughout. Respiratory: No respiratory distress. Painless inspiration. Breath sounds normal. No wheezes/rales/rhonchi noted. Chest nontender. No accessory muscle usage noted or decreased air movement noted. Abdomen: Soft and nontender. Bowel sounds normal in all 4 quadrants. No distention noted. No organomegaly noted. No visible injury noted. Back: No costovertebral angle tenderness. Full range of motion noted. Skin: Skin warm and dry. Normal skin color. Normal skin turgor. No rashes/lesions/lacerations noted. Extremities: No lower extremity edema. Extremities exhibit normal range of motion. Extremities nontender. Neuro: Oriented X 3. No motor deficit. No sensory deficit. Reflexes normal. Office Procedures Flu Questionnaire Does the patient have a severe egg allergy?: No Does the patient have severe life threatening allergies?: No Does the patient have a fever or illness today?: No Has the patient ever had Guillain-[place] Syndrome?: No Has the patient ever had any past reaction to a flu shot?: No Results AMB Hemoglobin A1c AMB Hemoglobin A1c 6.4 % Last Edit by JULIANE Cunningham on 01/30/25 16:08 Immunizations Fluarix [id number] (PF) 45 mcg (15 mcg x 3)/0.5 mL IM syringe Performing Provider: Livier Gutierrez PA-C [facility] Documented (not given) by: Natalie Grider CMA on 01/30/25 15:27 Reason Not Given: Patient Refused Results Reviewed Results Reviewed: - Labs: Hemoglobin A1c 6.4, indicating prediabetes. - Labs: Hemoglobin 11.1, Hematocrit 34.5, indicating mild anemia. - Labs: Normal kidney function with GFR 60. Coding Level of Care Code New Pt Level 4 (83056) New Pt Prev Care 40-64y(98949) Diagnoses Annual physical exam Z00.00 Iron deficiency anemia D50.9 Antiphospholipid antibody syndrome D68.61 Menopausal symptoms N95.1 Pre-diabetes R73.03 Osteoarthritis M19.90 Insomnia G47.00 Achilles tendonitis M76.60 [facility] health care Z00.00 Additional Codes PHQ-9 - 82793 - PHQ-9 Billing: Yes ([id number]) JUAN JOSE-7 Assessment Billing - JUAN JOSE-7 Assessment Tool: JUAN JOSE-7 Assessment 81603 ([id number]) Time Spent (min) 60 Assessment & Plan Assessment & Plan (1) Annual physical exam: Code(s): Z00.00 - Encounter for general adult medical examination without abnormal findings Category: Medical (2) Iron deficiency anemia: Code(s): D50.9 - Iron deficiency anemia, unspecified Category: Medical Plan: The patient will continue with ferrous sulfate supplementation to manage iron deficiency anemia. (3) Antiphospholipid antibody syndrome: Code(s): D68.61 - Antiphospholipid syndrome Category: Medical Plan: The antiphospholipid syndrome appears resolved as per recent hematology evaluation, and no further treatment is currently required. (4) Menopausal symptoms: Code(s): N95.1 - Menopausal and female climacteric states Category: Medical Plan: A new medication sample was provided to address menopausal symptoms and associated insomnia, with a follow-up planned to assess efficacy. (5) Pre-diabetes: Code(s): R73.03 - Prediabetes Category: Medical Plan: Metformin 500 mg once daily was prescribed to manage prediabetes, with a follow- up in one month to evaluate response. (6) Osteoarthritis: Code(s): M19.90 - Unspecified osteoarthritis, unspecified site Category: Medical Plan: The patient will continue using topical diclofenac for arthritis pain management, and a referral to rheumatology was made for further evaluation. (7) Insomnia: Code(s): G47.00 - Insomnia, unspecified Category: Medical Plan: Trazodone was recommended as an alternative to Ambien for insomnia management, with instructions to adjust dosage as needed. (8) Achilles tendonitis: Code(s): M76.60 - Achilles tendinitis, unspecified leg Category: Medical Plan: The patient is receiving treatment from a plier worker for Achilles tendinitis, and no additional interventions were discussed. (9) Preventative health care: Code(s): Z00.00 - Encounter for general adult medical examination without abnormal findings Category: Medical Plan: Referrals for a mammogram and bone scan were made to ensure comprehensive preventative care. Plan Plan Patient was informed and verbally consented to the use of an ambient scribe for clinic note documentation during this visit. 1. Iron Deficiency Anemia The patient will continue with ferrous sulfate supplementation to manage iron deficiency anemia. 2. Antiphospholipid Syndrome The antiphospholipid syndrome appears resolved as per recent hematology evaluation, and no further treatment is currently required. 3. Menopausal Symptoms A new medication sample was provided to address menopausal symptoms and associated insomnia, with a follow-up planned to assess efficacy. 4. Prediabetes Metformin 500 mg once daily was prescribed to manage prediabetes, with a follow- up in one month to evaluate response. 5. Osteoarthritis The patient will continue using topical diclofenac for arthritis pain management, and a referral to rheumatology was made for further evaluation. 6. Insomnia Trazodone was recommended as an alternative to Ambien for insomnia management, with instructions to adjust dosage as needed. 7. Achilles Tendinitis The patient is receiving treatment from a plier worker for Achilles tendinitis, and no additional interventions were discussed. 8. Preventative Care Referrals for a mammogram and bone scan were made to ensure comprehensive preventative care. During the visit, we discussed the management of menopausal symptoms with a new medication sample, which may also aid in alleviating insomnia. We reviewed the patient's prediabetic status and prescribed metformin to help manage blood glucose levels. The patient was advised on the potential benefits of weight loss injections as an alternative to revision surgery for her gastric sleeve. Referrals were made for a mammogram and bone scan to ensure comprehensive preventative care. Orders: Orders Influenza [id number] Immunization Today Z23 - Encounter for immunization AMB Hemoglobin A1c Today Z13.9 - Encounter for screening, unspecified Complete Blood Count Auto Diff Today Z00.00 - Encounter for general adult medical examination without abnormal findings Comprehensive Elsa. Panel Fast Today Z00.00 - Encounter for general adult medical examination without abnormal findings Liver Panel Today Z00.00 - Encounter for general adult medical examination without abnormal findings Magnesium Today Z00.00 - Encounter for general adult medical examination without abnormal findings Vitamin B12 and Folate Today Z00.00 - Encounter for general adult medical examination without abnormal findings Vitamin D 25-OH Total Today Z00.00 - Encounter for general adult medical examination without abnormal findings Vitamin B1 Today Z00.00 - Encounter for general adult medical examination without abnormal findings Zinc Today Z00.00 - Encounter for general adult medical examination without a bnormal findings MM screening mammo BI Today Z12.31 - Encounter for screening mammogram for malignant neoplasm of breast CT abdomen wo IV con Today R10.9 - Unspecified abdominal pain C Reactive Protein Today Z00.00 - Encounter for general adult medical examination without abnormal findings Lipid Panel Today Z00.00 - Encounter for general adult medical examination without abnormal findings Vitamin A Today Z00.00 - Encounter for general adult medical examination without abnormal findings TSH reflex Free T4 Today Z00.00 - Encounter for general adult medical examination without abnormal findings UA CC w/rflx Micro + Cult Today Z00.00 - Encounter for general adult medical examination without abnormal findings XR DEXA axial skeleton Today M81.0 - Age-related osteoporosis without current pathological fracture Referrals Counseling Referral F32.A - Depression, unspecified Psychiatry Outpatient Consultation Service F32.A - Depression, unspecified, F43.20 - Adjustment disorder, unspecified Psychiatry Referral F32.A - Depression, unspecified Rheumatology Referral M17.11 - Unilateral primary osteoarthritis, right knee Medical Weight Management Referral E66.01 - Morbid (severe) obesity due to excess calories, R73.03 - Prediabetes, Z68.42 - Body mass index [BMI] 45.0-49.9, adult, 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] Medications: New cyanocobalamin (vitamin B-12) 1,000 mcg PO DAILY 90 tabs 3RF tirzepatide (weight loss) (Zepbound) for 4 weeks 2.5 mg (0.5 mL) subcut QWEEK 2 mL 0RF E66.01 - Morbid (severe) obesity due to excess calories, R73.03 - Prediabetes, Z68.42 - Body mass index [BMI] 45.0-49.9, adult trazodone 50 mg PO BEDTIME PRN 90 tabs 3RF sleep nystatin 1 appl topical DAILY 60 grams 6RF metformin 500 mg PO DAILY 30 tabs 0RF E66.01 - Morbid (severe) obesity due to excess calories, R73.03 - Prediabetes, Z68.42 - Body mass index [BMI] 45.0-49.9, adult Patient Instructions: - Continue taking ferrous sulfate for iron deficiency anemia. - Start the new medication sample for menopausal symptoms and monitor for improvement. - Take metformin 500 mg once daily for prediabetes. - Use topical diclofenac for arthritis pain as needed. - Try trazodone for insomnia, adjusting the dose if necessary. - Schedule and attend referrals for a mammogram and bone scan. - Follow up in one month to review progress and any side effects from medications.
[2025-01-30 15:08] VITALS: BP 134/77; PULSE 68; RESP 20; TEMP 36.2; O2SAT 100; BMI 45.8
--- OUTSIDE RECORDS SUMMARY | 2025-01-30 17:10 | XMS_ITS | Clinical Summary ---
Author Organization [facility] Address [address] [place] [address] Care Team Providers Care Business Initiatives Manager Name Role Phone Unavailable Primary Care Provider Unavailabl e Medications Medication Sig Dispensed Refills Start Date End Date Status mupirocin (BACTROBAN) 2 % ointment Apply topically daily. 22 g 0 01/23/2023 Active Social History Tobacco Use Types Packs/Day Years Used Date Smoking Tobacco: Never Assessed Sex and Gender Information Value Date Recorded Sex Assigned at Not on file Gender Identity Not on file Sexual Orientation Not on file Job Start Date Occupation Industry Not on file Not on file Not on file Plan of Treatment Health Maintenance Due Date Last Done Comments Hepatitis B Vaccines (1 of 3 - 3-dose series) 1971 Hepatitis C Screening 1971 COVID-19 Vaccine (#1) 03/29/1972 Depression Screening 1983 Preventative Health Evaluation 09/26/1989 DTap / Tdap / Td (1 - Tdap) 09/26/1990 Cervical Cancer Screening (P ap Smear) 09/26/1992 Colon Cancer Screening (Colonoscopy) 09/26/2016 Breast Cancer Screening (Mammogram) 09/26/2021 Shingrix-Zoster Vaccine (1 of 2) 09/26/2021 Influenza Vaccine (#1) 2025 Pneumococcal Vaccine Aged Out No long er eligible based on patient's age to complete this topic RSV Ped < 20 months Aged Out No longe r eligible based on patient's age to complete this topic
--- OUTSIDE RECORDS SUMMARY | 2025-01-30 17:10 | XMS_ITS | Patient Health Record ---
Author Organization [facility] Address [address] [place] [id number] Care Team Providers Care Archival Records Clerk Name Role Phone Olga (RETIRED) Zafar JENKINS Primary Care Provider Unavailable Melquiades Roblero Jr Unavailable Allergies Allergen (clinical drug ingredient) Drug/Non Drug Allergy documented on EMR Reaction Allergy Type Onset Date Status diphenhydramine Benadryl SENSITIVITY Drug Allergy Active Shellfish (FN) SHELL FISH (uncoded) Unknown Allergy Active Reason For Referral No Information Medications Medication SIG (Take, Route, Frequency, Duration) Notes Start Date End Date Status Omeprazole 20 MG TAKE 1 CAPSULE BY [facility] EVERY DAY Oral for 30 Active Omeprazole 40 MG TAKE 1 CAPSULE BY [facility] EVERY DAY 30 MINUTES BEFORE MORNING MEAL [...] Problem Status W/U Status Risk Notes Problem 543605807 Colon cancer screening (Z12.11) Active confirmed Problem 166747241 Gastroesophageal reflux disease without esophagitis (K21.9) Active confirmed Problem Gastroesophageal reflux disease (877896254) GERD without esophagitis (K21.9) Active confirmed Plan Of Treatment Future Test Test Name Order Date UPPER GI ENDOSCOPY 10/24/2021 COLONOSCOPY 10/24/2021 Insurance Providers Payer Name Payer Address Payer Phone Subscriber Number Group Number Insured Name Patient Relationship to Insured Coverage Start Date Coverage End Date [facility] [address] [address] [place], [place] [id number] STACI VINSON Self - patient is the insured Medical (General) History Medical History History ICD Code Pulmonary embolism DVT Antiphospholipid antibody syndrome Diabetes mellitus, resolved since gastri c sleeve Surgical History Surgery Date(Month/Year) section x2 89-95 Knee surgery, left 1989 Gastric sleeve, [place], [place] ci ty 2017
--- OUTSIDE RECORDS SUMMARY | 2025-01-30 17:10 | XMS_ITS | Clinical Summary ---
Author Organization [facility] Address [address] [place] [address] Phone Care Team Providers Care Tobacco Stripper Name Role Phone Unavailable Primary Care Provider Unavailabl e Social History Tobacco Use Types Packs/Day Years Used Date Smoking Tobacco: Never Assessed Education Answer Date Recorded Are you interested in more education? Not on iva e 04/08/2024 Are you concerned about learning? Not on file 04/08/2024 No 04/08/2024 No 04/08/2024 Digital Access Answer Date Recorded No 04/08/2024 No 04/08/2024 Reliable internet access at home? Not on file 04/08/2024 Device with a working camera? Not on file Comments Unknown Sex and Gender Information Value Date Recorded Sex Assigned at Female 03/18/2024 3:44 PM EST Legal Sex Female 3:31 PM EST Gender Identity Female 03/18/2024 3:44 PM EST Sexual Orientation Straight 03/18/2024 3: 44 PM EST Plan of Treatment Health Maintenance Due Date Last Done Comments Adult Td,Tdap Booster 1971 LIPID PANEL 1971 DEPRESSION SCREENING 1983 SMOKING Hx and SMOKELESS TOB ACCO SCREENING 09/26/1984 HEPATITIS C SCREENING 09/26/1989 HIV ONE-TIME SCREENING (18-6 5 YEARS) 09/26/1989 PAP SMEAR 09/26/1992 MAMMOGRAM 2011 COLOGUARD 09/26/2016 COLONOSCOPY 09/26/2016 COLORECTAL CANCER SCREENING 09/26/2016 FIT TEST 09/26/2016 FOBT 09/26/2016 SIGMOIDOSCOPY 09/26/2016 VIRTUAL COLONOSCOPY 09/26/2016 PNEUMOCOCCAL VACCINES (50+ y ears) (1 of 1 - PCV) 09/26/2021 ZOSTER VACCINES (1 of 2) 09/26/2021 INFLUENZA VACCINE (#1) 2024 COVID-19 VACCINE (2023-2 5 season) 2025 HEPATITIS A VACCINES Aged Out No long er eligible based on patient's age to complete this topic HIB VACCINES Aged Out No longer eligi ble based on patient's age to complete this topic MENINGOCOCCAL VACCINES (ACWY) Aged Out No longer eligible based on patient's age to complete this topic MENINGOCOCCAL VACCINES (B) Aged Out N o longer eligible based on patient's age to complete this topic Medical Devices Not on file Additional Source Comments The information contained in this document represents components of the legal health record. It is not the complete legal health record.[facility]
--- OUTSIDE RECORDS SUMMARY | 2025-01-30 17:10 | XMS_ITS ---
Author Name [facility] Organization Unknown Encounters Encounter Type Encounter Reason Primary Diagnosis Location Date Ambulatory [facility] 01/24/20 Care Team Organization Name Specialty Phone Email Start Date End Da te [facility] 202211/15/2024 [facility] 01/23/202301/03
--- OUTSIDE RECORDS SUMMARY | 2025-01-30 17:10 | XMS_ITS | Clinical Summary ---
Author Organization [facility] Address [address] [place] [address] Care Team Providers Care Mid Level Game Designer Name Role Phone Unavailable Primary Care Provider [...] 2) 09/26/2021 Colorectal Cancer Screening: Colonoscopy 05/29/2023 HIV Screening 05/29/2023 Hepatitis C Screening 05/29/2023 Social Influencers of Health Screening 05/29/2023 Depression Screening 05/04/2024 COVID-19 Vaccine ( - 2023-2 5 season) 2025 Influenza Vaccine (#1) 2025 HIB Vaccines Aged Out No longer [...]
== END 2025-01-30 16:11 | disposition home or self-care (01) ==
LOC: HO.HMCSH 15:04
PROVIDERS: PCP Physician Assistant Medical; Visit Provider Physician Assistant Medical
DX: Z00.00 Encounter for general adult medical examination without abnormal findings (principal); R73.03 Prediabetes; D50.9 Iron deficiency anemia, unspecified; G47.00 Insomnia, unspecified; D68.61 Antiphospholipid syndrome; N95.1 Menopausal and female climacteric states; M17.0 Bilateral primary osteoarthritis of knee

== ENCOUNTER → 2025-01-30 15:04 | Outpatient (BNVA) | payer OTHER, SELFPAY | PROVIDERS: PCP Physician Assistant Medical; Visit Provider Physician Assistant Medical | DX: Z00.00 Encounter for general adult medical examination without abnormal findings (principal); G47.00 Insomnia, unspecified; D50.9 Iron deficiency anemia, unspecified; R73.03 Prediabetes; M17.0 Bilateral primary osteoarthritis of knee; D68.61 Antiphospholipid syndrome; N95.1 Menopausal and female climacteric states; M81.0 Age-related osteoporosis without current pathological fracture; F32.A Depression, unspecified; F43.20 Adjustment disorder, unspecified; E66.01 Morbid (severe) obesity due to excess calories; Z68.41 Body mass index [BMI] 40.0-44.9, adult; Z98.84 Bariatric surgery status; Z28.21 Immunization not carried out because of patient refusal | CPT/HCPCS: 83036; 96127; 99202; 99386 ==

== ENCOUNTER 2025-04-20 10:20 | Outpatient (AMB) | payer OTHER, SELFPAY ==
--- NOTE | 2025-04-20 10:23 | MHC.PC.OV ---
Vital Signs 04/20/25 10:30 Height 5 ft 9 in Weight 309 lb BMI 45.6 BP 130/77 Blood Pressure Location Rt brachial Position Sitting Pulse 59 Pulse Source Pulse Oximeter Temp 98.0 F Temp Source Oral Pulse Oximetry (%) 98 Oxygen Delivery Method Room Air Intake Visit Reasons: WINSTON from [place] Allergies shellfish derived Allergy (Severe, Verified 04/20/25 10:24) Hives Tobacco use date assessed: 01/30/25 Dental Screening Dental Screen Date: 01/30/25 [facility] Medical History History of mammogram (~05/14/23) Flank pain Preventative health care Achilles tendonitis Osteoarthritis Menopausal symptoms Annual physical exam Pre-diabetes Depression Insomnia GERD (gastroesophageal reflux disease) Choledocholithiasis On anticoagulant therapy Tubal ligation evaluation Venous stasis of lower extremity Pulmonary embolism DVT (deep venous thrombosis) Diabetes Antiphospholipid syndrome Surgical History History of esophagogastroduodenoscopy (EGD) H/O colonoscopy (~11/28/21) History of laparoscopic cholecystectomy (11/25/22) H/O skin graft H/O: knee surgery History of H/O gastric sleeve Family History Maternal Aunt Breast CA Social History Household Members: Significant Other and Family Housing: House Do you presently have visiting nurse or other home services: No Alcohol intake: never Patient Tobacco Use Status: Former Tobacco user Years Smoked: 2.5 e-Cigarette/Vaping Use: Never Used Second Hand Smoke Exposure: No Substance Use Type: Marijuana service: No Current occupational status: employed and unemployed Cognitive needs: No Hearing needs: No Vision needs: Yes (rx glasses) Female Reproductive History Menstrual Age of Menarche: 13 Questionnaire PHQ-9 Over the last 2 weeks, how often have you been bothered by any of the following problems? 1. Little interest or pleasure in doing things: more than half the days 2. Feeling down, depressed, or hopeless: more than half the days 3. Trouble falling or staying asleep, or sleeping too much: nearly every day 4. Feeling tired or having little energy: nearly every day 5. Poor appetite or overeating: nearly every day 6. Feeling bad about yourself - or that you are a failure or have let yourself or your family down: nearly every day 7. Trouble concentrating on things, such as reading the newspaper or watching television: nearly every day 8. Moving or speaking so slowly that other people could have noticed. Or the opposite - being so fidgety or restless that you have been moving around a lot more than usual: not at all 9. Thoughts that you would be better off or of hurting yourself in some way: not at all Total score: 19 Depression Screening Interpretation: Positive Depression Screening Done: Yes 72143 - PHQ-9 Billing: Yes Source: Developed by Drs. Carlo Oliveros, Juju Riojas, Fausto Marcelino and colleagues, with an educational leatha from [employer]. Thrive Questionnaire Date Thrive assessed: 01/30/25 I am a: Patient What is your living situation today?: I have a steady place to live Within the past 12 months, did the food you bought not last and you didn't have the money to get more?: Never true Within the past 12 months, did you worry whether your food would run out before you got money to buy more?: Never true Do you have trouble paying for medicines?: No Do you have trouble getting transportation to medical appointments?: I choose not to answer this question Do you have trouble paying your heating and electricity bill?: I choose not to answer this question Do you have trouble taking care of your child, family member or friend?: No Are you currently unemployed and looking for a job?: Yes Are you interested in more education?: No Please select the resources that you would like help with: Housing/Detention, Transportation, Care for elder or disabled and Daily support Currently or been in a relationship where the following occur: No concerns reported THRIVE Score: 0 AUDIT C Alcohol Use Questionnaire (AUDIT-C) 1. How often do you have a drink containing alcohol?: Never Total Score: 0 JUAN JOSE-7 AMB Questionnaire JUAN JOSE-7 Date JUAN JOSE - 7 assessed: 01/30/25 Feeling nervous, anxious, or on edge: 2 = More than half the days Not being able to stop or control worryin = More than half the days Worrying too much about different things: 2 = More than half the days Trouble relaxin = More than half the days Being so restless that it is hard to sit still: 1 = Several days Becoming easily annoyed or irritable: 1 = Several days Feeling afraid as if something awful might happen: 0 = Not at all Total JUAN JOSE-7 score (0-4 normal; 5-9 mild; 10-14 moderate; 15-21 severe): 10 Source: Developed by Drs. Carlo Oliveros, Juju Riojas, Fausto Marcelino and colleagues, with an educational leatha from [employer]. JUAN JOSE-7 Assessment Billing JUAN JOSE-7 Assessment Tool: JUAN JOSE-7 Assessment 37321 Physical exam (Primary Care) Vital Signs: Last Vital Signs Temp 98.0 F 04/20/25 10:30 Pulse 59 04/20/25 10:30 BP 130/77 04/20/25 10:30 Pulse Ox 98 04/20/25 10:30 Oxygen Delivery Method Room Air 04/20/25 10:30 BMI result Body Mass Index 45.6 Tobacco/Smoking Status: Tobacco use Status Tobacco use date assessed 04/20/25 04/20/25 10:25 Patient Tobacco Use Status Former Tobacco user 04/20/25 10:25 e-Cigarette/Vaping Use Never Used 04/20/25 10:25 PHQ-9: PHQ-9 Score PHQ-9: Total score 19 04/20/25 10:48 Depression Screening Interpretation: Positive Thrive Assessment: Date of Thrive Assessment Date Thrive assessed 04/20/25 04/20/25 10:25 Currently or been in a relationship where the following occur: No concerns reported Coding Additional Codes JUAN JOSE-7 Assessment Billing - JUAN JOSE-7 Assessment Tool: JUAN JOSE-7 Assessment 55427 ([id number]) PHQ-9 - 19232 - PHQ-9 Billing: Yes ([id number]) Assessment & Plan Assessment & Plan Orders: Orders AMB Hemoglobin A1c Today Z13.9 - Encounter for screening, unspecified Influenza [id number] Immunization Today Z23 - Encounter for immunization Medications: New Fluarix [id number] (PF) (flu vac ts (6mos up)-PF) 0.5 mL IM ONCE 0.5 mL 0RF NS Z23 - Encounter for immunization
--- NOTE | 2025-04-20 10:24 | MHC.PC.OV ---
Vital Signs 04/20/25 10:30 Height 5 ft 9 in Weight 309 lb BMI 45.6 BP 130/77 Blood Pressure Location Rt brachial Position Sitting Pulse 59 Pulse Source Pulse Oximeter Temp 98.0 F Temp Source Oral Pulse Oximetry (%) 98 Oxygen Delivery Method Room Air Intake Visit Reasons: [facility] from [place] Intake Note: wants to discuss getting a cane. Knee pain worsening due to osteoarthritis. Has had intermittent sharp right flank pain. Weight concerns Accompanied by: Self / Same As Patient Allergies shellfish derived Allergy (Severe, Verified 04/20/25 10:24) Hives Tobacco use date assessed: 04/20/25 Dental Screening Dental Screen Date: 04/20/25 Did you have a dental visit in the last 12 months?: Yes Was dental information given to patient?: Patient has dentist [facility] Medical History (Updated 04/20/25 @ 11:13 by Chiki Headley MD) Menopause CPAP (continuous positive airway pressure) dependence TRANG (obstructive sleep apnea) Osteoarthritis, knee Chronic lower back pain History of mammogram (~05/14/23) Flank pain Preventative health care Achilles tendonitis Osteoarthritis Menopausal symptoms Annual physical exam Pre-diabetes Depression Insomnia GERD (gastroesophageal reflux disease) Choledocholithiasis On anticoagulant therapy Tubal ligation evaluation Venous stasis of lower extremity Pulmonary embolism DVT (deep venous thrombosis) Diabetes Antiphospholipid syndrome Surgical History History of esophagogastroduodenoscopy (EGD) H/O colonoscopy (~11/28/21) History of laparoscopic cholecystectomy (11/25/22) H/O skin graft H/O: knee surgery History of H/O gastric sleeve Family History Maternal Aunt Breast CA Social History Household Members: Significant Other and Family Housing: House Do you presently have visiting nurse or other home services: No Alcohol intake: never Patient Tobacco Use Status: Former Tobacco user Years Smoked: 2.5 e-Cigarette/Vaping Use: Never Used Second Hand Smoke Exposure: No Substance Use Type: Marijuana service: No Current occupational status: employed and unemployed Cognitive needs: No Hearing needs: No Vision needs: Yes (rx glasses) Female Reproductive History Menstrual Age of Menarche: 13 Questionnaire PHQ-9 Over the last 2 weeks, how often have you been bothered by any of the following problems? 1. Little interest or pleasure in doing things: more than half the days 2. Feeling down, depressed, or hopeless: more than half the days 3. Trouble falling or staying asleep, or sleeping too much: nearly every day 4. Feeling tired or having little energy: nearly every day 5. Poor appetite or overeating: nearly every day 6. Feeling bad about yourself - or that you are a failure or have let yourself or your family down: nearly every day 7. Trouble concentrating on things, such as reading the newspaper or watching television: nearly every day 8. Moving or speaking so slowly that other people could have noticed. Or the opposite - being so fidgety or restless that you have been moving around a lot more than usual: not at all 9. Thoughts that you would be better off or of hurting yourself in some way: not at all Total score: 19 Depression Screening Interpretation: Positive Depression Screening Done: Yes 24287 - PHQ-9 Billing: Yes Source: Developed by Drs. Carlo Oliveros, Juju Riojas, Fausto Marcelino and colleagues, with an educational leatha from [employer]. Thrive Questionnaire Date Thrive assessed: 04/20/25 I am a: Patient What is your living situation today?: I have a steady place to live Within the past 12 months, did the food you bought not last and you didn't have the money to get more?: Never true Within the past 12 months, did you worry whether your food would run out before you got money to buy more?: Never true Do you have trouble paying for medicines?: No Do you have trouble getting transportation to medical appointments?: I choose not to answer this question Do you have trouble paying your heating and electricity bill?: I choose not to answer this question Do you have trouble taking care of your child, family member or friend?: No Are you currently unemployed and looking for a job?: Yes Are you interested in more education?: No Please select the resources that you would like help with: Housing/Retirement, Transportation, Care for elder or disabled and Daily support Currently or been in a relationship where the following occur: No concerns reported THRIVE Score: 0 AUDIT C Alcohol Use Questionnaire (AUDIT-C) 1. How often do you have a drink containing alcohol?: Never Total Score: 0 JUAN JOSE-7 AMB Questionnaire JUAN JOSE-7 Date JUAN JOSE - 7 assessed: 04/20/25 Feeling nervous, anxious, or on edge: 2 = More than half the days Not being able to stop or control worryin = More than half the days Worrying too much about different things: 2 = More than half the days Trouble relaxin = More than half the days Being so restless that it is hard to sit still: 1 = Several days Becoming easily annoyed or irritable: 1 = Several days Feeling afraid as if something awful might happen: 0 = Not at all Total JUAN JOSE-7 score (0-4 normal; 5-9 mild; 10-14 moderate; 15-21 severe): 10 Source: Developed by Drs. Carlo Oliveros, Juju Riojas, Fausto Marcelino and colleagues, with an educational leatha from [employer]. Physical exam (Primary Care) Vital Signs: Last Vital Signs Temp 98.0 F 04/20/25 10:30 Pulse 59 04/20/25 10:30 BP 130/77 04/20/25 10:30 Pulse Ox 98 04/20/25 10:30 Oxygen Delivery Method Room Air 04/20/25 10:30 BMI result Body Mass Index 45.6 Tobacco/Smoking Status: Tobacco use Status Tobacco use date assessed 04/20/25 04/20/25 10:25 Patient Tobacco Use Status Former Tobacco user 04/20/25 10:25 e-Cigarette/Vaping Use Never Used 04/20/25 10:25 PHQ-9: PHQ-9 Score PHQ-9: Total score 19 04/20/25 10:50 Depression Screening Interpretation: Positive Thrive Assessment: Date of Thrive Assessment Date Thrive assessed 04/20/25 04/20/25 10:25 Currently or been in a relationship where the following occur: No concerns reported Office Procedures Flu Questionnaire Does the patient have a severe egg allergy?: No Does the patient have severe life threatening allergies?: No Does the patient have a fever or illness today?: No Has the patient ever had Guillain-[place]was[place] Syndrome?: No Has the patient ever had any past reaction to a flu shot?: No Results AMB Hemoglobin A1c AMB Hemoglobin A1c 6.5 % Last Edit by Natalie Grider CMA on 04/20/25 10:55 Immunizations Fluarix [id number] (PF) 45 mcg (15 mcg x 3)/0.5 mL IM syringe Performing Provider: Chiki Headley MD [facility] Document[facility] (not given) by: Natalie Grider CMA on 04/20/25 10:51 Reason Not Given: Patient Refused Results Reviewed Results Reviewed: Laboratory Last Values Hgb A1c (Clinic) 6.5 % (4.0-6.0) H 04/20/25 10:50 Coding Diagnoses Chronic lower back pain M54.50; G89.29 Osteoarthritis, knee M17.9 Varicose veins of right lower extremity with inflammation I83.11 Varicose veins of left lower extremity with inflammation I83.12 On anticoagulant therapy Z79.01 Antiphospholipid antibody syndrome D68.61 Pulmonary embolism I26.99 DVT (deep venous thrombosis) I82.409 H/O gastric sleeve Z90.3 Morbid obesity E66.01 GERD (gastroesophageal reflux disease) K21.9 Additional Codes PHQ-9 - 86741 - PHQ-9 Billing: Yes ([id number]) Assessment & Plan Assessment & Plan (1) Chronic lower back pain: Code(s): M54.50 - Low back pain, unspecified; G89.29 - Other chronic pain Category: Medical (2) Osteoarthritis, knee: Code(s): M17.9 - Osteoarthritis of knee, unspecified Category: Medical (3) Varicose veins of right lower extremity with inflammation: Comment: 06/06/2022 - right great saphenous vein Cyanoacralate ablation Code(s): I83.11 - Varicose veins of right lower extremity with inflammation Category: Medical (4) Varicose veins of left lower extremity with inflammation: Code(s): I83.12 - Varicose veins of left lower extremity with inflammation Category: Medical (5) On anticoagulant therapy: Code(s): Z79.01 - terminal block assembler (current) use of anticoagulants Category: Medical (6) Antiphospholipid antibody syndrome: Code(s): D68.61 - Antiphospholipid syndrome Category: Medical (7) Pulmonary embolism: Code(s): I26.99 - Other pulmonary embolism without acute cor pulmonale Category: Medical (8) DVT (deep venous thrombosis): Code(s): I82.409 - Acute embolism and thrombosis of unspecified deep veins of unspecified lower extremity Category: Medical (9) H/O gastric sleeve: Comment: [facility] Code(s): 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] Category: Surgical (10) Morbid obesity: Code(s): E66.01 - Morbid (severe) obesity due to excess calories Category: Medical (11) GERD (gastroesophageal reflux disease): Code(s): K21.9 - Gastro-esophageal reflux disease without esophagitis Category: Medical Orders: Orders AMB Hemoglobin A1c 04/20/25 Z13.9 - Encounter for screening, unspecified Complete Blood Count Auto Diff 04/20/25 Z13.9 - Encounter for screening, unspecified Hepatitis B Surface Antigen 04/20/25 Z13.9 - Encounter for screening, unspecified Syphilis Screen 04/20/25 Z13.9 - Encounter for screening, unspecified HIV Ab/Ag 04/20/25 Z13.9 - Encounter for screening, unspecified Magnesium 04/20/25 Z13.9 - Encounter for screening, unspecified Influenza [id number] Immunization 04/20/25 Z23 - Encounter for immunization Comprehensive Met. Panel 04/20/25 Z13.9 - Encounter for screening, unspecified Hepatitis C Antibody 04/20/25 Z13.9 - Encounter for screening, unspecified TSH reflex Free T4 04/20/25 Z13.9 - Encounter for screening, unspecified Lipid Panel 04/20/25 Z13.9 - Encounter for screening, unspecified Vitamin B12 and Folate 04/20/25 Z13.9 - Encounter for screening, unspecified Hemoglobin A1c 04/20/25 Z13.9 - Encounter for screening, unspecified Hepatitis B Surface Antibody 04/20/25 Z13.9 - Encounter for screening, unspecified Vitamin D 25-OH (D2 and D3) 04/20/25 Z13.9 - Encounter for screening, unspecified Microalbumin, Random (w Creat) 04/20/25 Z13.9 - Encounter for screening, unspecified RT home sleep study 04/20/25 G47.33 - Obstructive sleep apnea (adult) (pediatric), Z99.89 - Dependence on other enabling machines and devices PT Evaluation and Treatment 04/20/25 G89.29 - Other chronic pain, M17.9 - Osteoarthritis of knee, unspecified, M54.50 - Low back pain, unspecified, M76.60 - Achilles tendinitis, unspecified leg Referrals Open Access Screening Colonoscopy Referral Z12.11 - Encounter for screening for malignant neoplasm of colon, Z12.12 - Encounter for screening for malignant neoplasm of rectum Medications: New paroxetine mesylate(menop.sym) 7.5 mg PO BEDTIME 30 caps 0RF Z78.0 - Asymptomatic menopausal state
[2025-04-20 10:30] VITALS: BP 130/77; PULSE 59; TEMP 36.7; O2SAT 98; BMI 45.6
--- OUTSIDE RECORDS SUMMARY | 2025-04-20 12:45 | XMS_ITS | Clinical Summary ---
Author Organization [facility] Address [address] [place] [address] Phone Care Team Providers Care Senior International Tax Manager Name Role Phone Unavailable Primary Care [...] 09/26/2021 INFLUENZA VACCINE (#1) 2024 COVID-19 VACCINE ( - 2024-2 6 season) 2025 RSV VACCINE (1 - 1-dose 75+ series) 09/26/2046 HEPATITIS A VACCINES Aged Out No long [...] It is not the complete legal health record.[facility]
--- OUTSIDE RECORDS SUMMARY | 2025-04-20 12:45 | XMS_ITS | Patient Health Record ---
Author Organization [facility] Address [address] [place] [address] Care Team Providers Care Buffing Wheel Former Machine Name Role Phone Olga (RETIRED) Zafar JENKINS Primary Care Provider Unavailable Melquiades Roblero Jr Unavailable Allergies Allergen (clinical drug ingredient) Drug/Non Drug Allergy documented on EMR Reaction Allergy Type Onset Date Status SHELL FISH (uncoded) Unknown Allergy Active diphenhydramine Benadryl SENSITIVITY Drug Allergy Active Reason For Referral No Information Medications Medication SIG (Take, Route, Frequency, Duration) Notes Start Date End Date Status Omeprazole 20 MG Capsule Delayed Release TAKE 1 CAPSULE BY MOUTH EVERY DAY Oral; Duration: 30 Active Omeprazole 40 MG Capsule Delayed Release TAKE 1 CAPSULE BY MOUTH EVERY DAY 30 MINUTES BEFORE MORNING MEAL FOR 30 DAYS; Duration: 30 Active Xarelto 10 MG Tablet Oral; Duration: 30 Active Multivitamin - Tablet 1 tablet Orally On ce a day; Duration: 30 day(s) Active Oyster Shell Calcium/D3 500-400 MG-UNIT Tablet Oral; Duration: 90 Active Vitamin B-12 500 MCG Tablet Oral; Duration: 90 Active MiraLax (colon prep) 17 GM/SCOOP Powder mixed with Gatorade or Crystal Light Orally begin at 5:00 p.m. the day before the procedure; Duration: 1 day 10/24/2021 Active Immunizations Vaccine Route Administration Date Status Comme nts Influenza Unknown 10/24/2021 Refused Social History Tobacco Use: Social History Observation Description Date Details (start date - stop date) Current Smoker NA - NA Social History Drugs/Alcohol: Social Info Question Answer Notes Alcohol Screen Did you have a drink containing alcohol in the past year? Yes How often did you have a drink containing alcohol in the past year? Never (0 point) How many drinks did you have on a typical day when you were drinking in the past year? 1 or 2 drinks (0 point) How often did you have 6 or more drinks on one occasion in the past year? Never (0 point) Points 0 Interpretation Negative Tobacco Use: Social Info Question Answer Notes Tobacco Use/Smoking Patient is a current smoker How often do you smoke cigarettes? every day How many cigarettes a day do you smoke? 5 or less Additional Details Category Social Info Options Details Miscellaneous: Marital status: Occupation: [employer] Problems Problem Type SNOMED Code ICD Code Onset Dates Problem Status W/U Status Risk Notes Problem Colon cancer screening (334116176) Colon cancer screening (Z12.11) Active confirmed Problem Gastroesophageal reflux disease without esophagitis (420098792) Gastroesophageal reflux disease without esophagitis (K21.9) Active confirmed Problem Gastroesophageal reflux disease (301265545) GERD without esophagitis (K21.9) Active confirmed Plan Of Treatment Future Test Test Name Order Date UPPER GI ENDOSCOPY 10/24/2021 COLONOSCOPY 10/24/2021 Insurance Providers Payer Name Payer Address Payer Phone Subscriber Number Group Number Insured Name Patient Relationship to Insured Coverage Start Date Coverage End Date [facility] [address] [address] [place], [place] [id number] STACI VINSON Self - patient is the insured Medical (General) History Medical History History ICD Code Pulmonary embolism DVT Antiphospholipid antibody syndrome Diabetes mellitus, resolved since gastri c sleeve Surgical History Surgery Date(Month/Year) section x2 89-95 Knee surgery, left 1989 Gastric sleeve, [place], [place] ci ty 2017
--- OUTSIDE RECORDS SUMMARY | 2025-04-20 12:45 | XMS_ITS | Clinical Summary ---
Author Organization [facility] Prior to 10/01/24 Address [address] [place] [address] Care Team Providers Care Copy Lathe Operator Name Role Phone Unavailable Primary Care [...]
--- OUTSIDE RECORDS SUMMARY | 2025-04-20 12:45 | XMS_ITS | Clinical Summary ---
Author Organization [facility] ity Address [address] [place] [address] Care Team Providers Care Manager Talent Name Role Phone Unavailable Primary Care Provider [...] Last Done Comments Breast Cancer Screening 1971 Colorectal Cancer Screening: Colonoscopy 1971 DTaP,Tdap,and Td Vaccines (1 - Tdap) 09/26/1990 Hepatitis B Vaccines (1 of 3 - 19+ 3-dose series) 09/26/1990 Cervical Cancer Screening: P ap Smear 09/26/1992 Pneumococcal Vaccine: 50+ Ye ars (1 of 1 - PCV) 09/26/2021 Zoster Vaccines (1 of 2) 09/26/2021 HIV Screening 05/29/2023 Hepatitis C Screening 05/29/2023 Social Influencers of Health Screening 05/29/2023 Depression Screening 05/04/2024 COVID-19 Vaccine (1 - 2024-2 6 season) 2025 Influenza Vaccine (#1) 2025 RSV Immunization Adult Patie nts (1 - 1-dose 75+ series) 09/26/2046 HIB Vaccines Aged Out No longer eligi [...]
== END 2025-04-20 11:20 | disposition home or self-care (01) ==
PROVIDERS: PCP Physician Assistant Medical; Visit Provider Student in an Organized Health Care Education/Training Program
DX: Z23 Encounter for immunization (principal); Z13.9 Encounter for screening, unspecified

== ENCOUNTER 2025-04-20 10:20 | Outpatient (REF) | payer OTHER, SELFPAY ==
[2025-04-20 14:16] LABS: MANUAL DIFF FLAG NO
[2025-04-20 14:20] LABS: Appearance Urine Clear; Glucose Urine UA Negative (Negative); PH 5.5 (5.0-9.0); Specific Gravity - Urine 1.025 (1.005-1.025); UMIC TRIGGER UACC YES
[2025-04-20 14:27] LABS: Hematocrit 39.1 % (37.0-47.0); Hemoglobin 12.2 g/dl (12.0-16.0); Imm Gran Abs Auto 0.02 X10*3/uL (0.00-0.03); Imm Gran Pct Auto 0.3 % (0.0-0.4); Lymphocytes Absolute Auto 2.4 X10*3/uL (1.2-4.9); Mean Corpuscular HGB Conc 31.2 g/dl (31.0-35.0); Mean Corpuscular Hemoglobin 25.2 pg (27.0-33.0); Mean Corpuscular Volume 80.8 fL (80.0-98.0); NRBC Abs Auto 0.000 X10*3/uL (0.0-0.012); NRBC Pct Auto 0.0 /100WBC (0.0-0.2); Platelet Count 325 X10*3/uL (160-400); Red Blood Count 4.84 X10*6/uL (4.20-5.50); White Blood Count 7.5 X10*3/uL (4.8-10.8)
--- OUTSIDE RECORDS SUMMARY | 2025-04-20 14:58 | XMS_ITS | Data Portability ---
Author Organization [facility] [address] Address [address] [place] [address] Care Team Providers Care Live In Housekeeper Name Role Phone NEFTALI SOMMER Primary Care Provider [phone] Assessment Encounter Date Assessment Date Assessment LastModified by Organization Details LastModified Time 05/29/2023 05/29/2023 Patient was seen in the office today for nausea. Reviewed history regarding recent illness, medications, symptoms, and physical exam. Studies ordered as below. Discussed plan with patient, who expresses understanding . Follow up as noted below. [email or web address] Not available 05/29/2023 17:15:22 Plan of Treatment Reminders Order Date Submit Date Provider Last Modified By Organization Details Last Modified Time Details Appointments None recorded. Lab urinalysis, dipstick 2023 024 [email or web address] [address], [address] [place], [address], 4 17:16:00 rapid flu (A+B) 2023 024 [email or web address] [address], [address] [place], [address], 4 17:16:01 SARS CoV 2 (COVID-19) Ag, QL, IA, upper respiratory specimen 2023 024 [email or web address] [address] [place], [address], 4 17:15:58 Referral None recorded. Procedures None recorded. Surgeries None recorded. Imaging None recorded. Medication Orders Allergy Relief (fluticason e) 50 mcg/actuati on nasal spray,suspe nsion 2023 [id number] [address] [place], [address], 17:24:59 fexofenadin e-pseudoeph edrine ER 180 mg-240 mg tablet,ext. release 24 hr 2023 024 [id number], [address] [place], [address], 17:25:02 meclizine 25 mg tablet 2023 024 [id number] [address] [place], [address], 17:25:01 Patient TargetsNo targets recorded. Patient Instructions Encounter Date Encounter Id Patient Instructions Last Modified By Organization Details Last Modified Time 05/29/2023 [id number] nausea and vomiting: care instructions [email or web address] Not [...] men Unknown Analyte negati ve Not Available [address] [place], [address], 05/29/2023 16:56:31 05/29/19 24 05/29/2023 SARS CoV 2 (COVI D-19) Ag, QL, IA, upper respi rator y speci men Unknown Analyte Negati ve Not Available [address] [place], [address], 05/29/2023 16:56:31 05/29/19 24 05/29/2023 SARS CoV 2 (COVI D-19) Ag, QL, IA, upper respi rator y speci men Unknown Analyte Yes Not Available [facility] [address] [place], [address], 05/29/2023 16:56:31 05/29/19 24 05/29/2023 rapid flu (A+B) Unknown Analyte negati ve Not Available [address] [place], [address], 05/29/2023 16:56:22 05/29/19 24 05/29/2023 rapid flu (A+B) Unknown Analyte negati ve Not Available [address] [place], [address], 05/29/2023 16:56:22 05/29/19 24 05/29/2023 rapid flu (A+B) Unknown Analyte Negati ve Not Available [address] [place], [address], 05/29/2023 16:56:22 05/29/19 24 05/29/2023 rapid flu (A+B) Unknown Analyte Yes Not Available [facility] [address] [place], [address], 05/29/2023 16:56:22 05/29/19 24 05/29/2023 urina lysis , dipst ick Unknown Analyte Normal = light yellow Not Available [address] [place], [address], 05/29/2023 16:48:19 05/29/19 24 05/29/2023 urina lysis , dipst ick Unknown Analyte Cortney Not Available [id number] [place] [address] [address] [place], [address], 05/29/2023 16:48:19 05/29/19 24 05/29/2023 urina lysis , dipst ick Unknown Analyte Normal = clear Not Available [address] [place], [address], 05/29/2023 16:48:19 05/29/19 24 05/29/2023 urina lysis , dipst ick Unknown Analyte Clear Not Available [id number] [place] [address] [address] [place], [address], 05/29/2023 16:48:19 05/29/19 24 05/29/2023 urina lysis , dipst ick Unknown Analyte Normal = negati ve Not Available [address] [place], [address], 05/29/2023 16:48:19 05/29/19 24 05/29/2023 urina lysis , dipst ick Unknown Analyte Negati ve Not Available [address] [place], [address], 05/29/2023 16:48:19 05/29/19 24 05/29/2023 urina lysis , dipst ick Unknown Analyte Normal = Negati ve Not Available [address] [place], [address], 05/29/2023 16:48:19 05/29/1905/29/2023 urina lysis , dipst ick Unknown Analyte Small Not Available [id number] [place] [address] [address] [place], [address], 05/29/2023 16:48:19 05/29/19 24 05/29/2023 urina lysis , dipst ick Unknown Analyte Normal = Negati ve Not Available [address] [place], [address], 05/29/2023 16:48:19 05/29/19 24 05/29/2023 urina lysis , dipst ick Unknown Analyte Trace Not Available [address] [place] [address] [address] [place], [address], 05/29/2023 16:48:19 05/29/19 24 05/29/2023 urina lysis , dipst ick Unknown Analyte Normal = 1.010, 1.015, 1.020 Not Available [address] [place], [address], 05/29/2023 16:48:19 05/29/1905/29/2023 urina lysis , dipst ick Unknown Analyte 1.030 Not Available [address] [place] [address] [address] [place], [address], 05/29/2023 16:48:19 05/29/1905/29/2023 urina lysis , dipst ick Unknown Analyte Normal = Negati ve Not Available [address] [place], [address], 05/29/2023 16:48:19 05/29/1905/29/2023 urina lysis , dipst ick Unknown Analyte Negati ve Not Available [address] [place], [address], 05/29/2023 16:48:19 05/29/19 24 05/29/2023 urina lysis , dipst ick Unknown Analyte Normal = 6.5, 7.0, 7.5, 8.0 Not Available [address] [place], [address], 05/29/2023 16:48:19 05/29/1905/29/2023 urina lysis , dipst ick Unknown Analyte 6.0 Not Available [address] [place] [address] [address] [place], [address], 05/29/2023 16:48:19 05/29/1905/29/2023 urina lysis , dipst ick Unknown Analyte Normal = Negati ve Not Available [address] [place], [address], 05/29/2023 16:48:19 05/29/1905/29/2023 urina lysis , dipst ick Unknown Analyte Trace Not Available [address] [place] [address] [address] [place], [address], 05/29/2023 16:48:19 05/29/1905/29/2023 urina lysis , dipst ick Unknown Analyte Normal = 0.2, 1.0 Not Available [address] [place], [address], 05/29/2023 16:48:19 05/29/1905/29/2023 urina lysis , dipst ick Unknown Analyte 0.2 E.U./d L Not Available [address] [place], [address], 05/29/2023 16:48:19 05/29/19 24 05/29/2023 urina lysis , dipst ick Unknown Analyte Normal = Negati ve Not Available [address] [place], [address], 05/29/2023 16:48:19 05/29/19 24 05/29/2023 urina lysis , dipst ick Unknown Analyte Negati ve Not Available [address] [place], [address], 05/29/2023 16:48:19 05/29/19 24 05/29/2023 urina lysis , dipst ick Unknown Analyte Normal = Negati ve Not Available [address] [place], [address], 05/29/2023 16:48:19 05/29/19 24 05/29/2023 urina lysis , dipst ick Unknown Analyte Negati ve Not Available [address] [place], [address], 05/29/2023 16:48:19 Result Notes None recorded. 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 Nita barkley, PA - [facility] 16:40:41 Difficulty sleeping 366612794 Active 2023 Nita barkley, PA - [facility] 16:40:52 Acid reflux 179093373 Active 2023 [facility] [...] Name and Address Organization Details Recorded Time 635231 shellfish derived food,medi cation Not available Not available Not available 05/29/2023 Nita Mendez rubia PA - [facility] [...] ) 50 mcg/actuatio n nasal spray,suspen karen [place] 1 spray every day by intranasal route [...] Reported Respiratory rate Body temperature Oxygen saturation Heart rate Systolic And Diastolic Provider Name and Address Organization Details Last Updated DateTime 4 175.26 cm 197040. 79 g 7 18 /min 97.8 [degF] 98 % 82 /min 112/86 mm[Hg] Nita Vanessa JIANG Content [facility] 4 16:39:02 Social History Question Answer Notes LastModified by [employer] Details LastModified Time Tobacco Smoking Status Never Smoker Nita DEIDRE Rags[facility] 05/29/2023 16:41:32 Have You Had A Flu Shot This [...] Tobacco Screening? 05/29/2023 Information not available 05/29/2023 Have You Recently Traveled Abroad? No Information not available 05/29/2023 Sex: Unknown Functional Status Question Answer Note LastModified by [employer] Details LastModified Time Do you use any illicit or recreational drugs? No Information not available 05/29/2023 Do you or have you ever used any other forms of tobacco or nicotine? No Information not available 05/29/2023 What is your level of alcohol consumption? None Information not available 05/29/2023 Mental Status None recorded. Family History Relationship [...] Diagnosis SNOMED-CT Code Diagnosis ICD10 Code Diagnosis IMO Codes Diagnosis Note [id number] [facility] [address] [address] [facility] [facility] [place] [address] 07/01/2021 09:44:34 07/01/2021 10:19:29 [id number] Mark Golden LANDY [address] [place] [address] 05/29/2023 14:47:07 05/29/2023 17:27:18 Exposure to SARS-CoV-2 723661678 Z20.822 If you test positive for COVID-19, stay home for at least 5 days and isolate from others in your home. You are likely most infectious during these first 5 days. Wear a high-quali ty mask if you must be around others at home and in public.Do not go places where you are unable to wear a mask. For travel guidance, see CDC s Travel webpage.Do not travel.Sta y home and separate from others as much as possible.U se a separate bathroom, if possible.T sonny steps to improve ventilatio n at home, if possible.D on t share personal household items, like cups, [...] e masking (see below).For travel guidance, see CDC s Travel webpage. Nausea and vomiting 7788 1999 R11.2 Try small amounts of clear [...] immediatel y. Benign par oxysmal positional vertigo 211911088 H81.10 Based on your physical exam and [...] placed temporaril y. Thank you for using [facility] , if you have any questions or concerns please do not hesitate to call or reach out to us. Acute sinusitis 95783151 J01.90 Sinusitis is an infection of the [...] Recorded Advance Directives Directive None Recorded Payers Insurance Date Sequence Insurance Name Policy Number Policy Wright Covered Member ID Wright Member ID Guarantor Name 05/29/2023 1 [facility] (O) [id number] Emy Leigh [id number] Emy Leigh Notes Date Note Type Note Provider Name and Address Organization Details Recorded Time 05/29/2023 text/html Nausea UCReporte d by Patient Nausea / Vomiting UCReported by Patient Mark Golden NP [address] [place], [address], [place] - [facility] 05/29/2023 17:25:55 OBGyn Episode No OBEpisode recorded.
[2025-04-20 15:03] LABS: Alanine Aminotransferase 14 U/L (0-31); Albumin Level 4.2 g/dL (3.5-5.0); Alkaline Phosphatase 88 U/L (39-117); Anion Gap 13 (12-20); Aspartate Amino Transferase 19 U/L (5-31); Blood Urea Nitrogen 12 mg/dL (9-16); Calcium 9.4 mg/dL (8.4-10.2); Carbon Dioxide 27 mmol/L (22-29); Chloride 106 mmol/L (96-108); Cholesterol 208 mg/dL (<200); Estimated Glomerular Filt Rate > 60; HDL Cholesterol 60 mg/dL (>40); Magnesium 2.0 mg/dL (1.6-2.6); Potassium 4.5 mmol/L (3.3-5.1); Sodium 141 mmol/L (135-145); Total Protein 7.2 g/dL (6.5-8.0); Triglycerides 66 mg/dL (<150)
[2025-04-20 15:09] LABS: Microalbum/Creatinine Ratio Ur 6.7 ug/mg cr (<30)
[2025-04-20 15:12] LABS: Folate 9.5 ng/mL (> or = 4.0); Vitamin B12 476 pg/mL (200-900)
[2025-04-21 08:11] LABS: HBS Num1 0.00 mIU/mL (0-7.99); HBsAGNum1 0.35 S/CO (0.00-0.99); HIV Num 1 0.04 S/CO (0.00-0.99); Hepatitis B Surface Antigen Negative (Negative); ~HepC Num1 0.43 S/CO (0.00-0.79); ~Hepatitis B Surface Antibody NONREACTIVE (Nonreactive); ~Hepatitis C Antibody Nonreactive (Nonreactive)
[2025-04-21 08:45] LABS: Syphilis Screen Nonreactive (Nonreactive)
[2025-04-24 13:14] LABS: Vitamin D 25-OH, D2 <4 ng/mL; Vitamin D 25-OH, D3 39 ng/mL; Vitamin D 25-OH, Total 39 ng/mL (30-100)
== END 2025-04-20 10:21 | disposition home or self-care (01) ==
LOC: HO.HKASLDS 10:20
PROVIDERS: PCP Student in an Organized Health Care Education/Training Program; Visit Provider Student in an Organized Health Care Education/Training Program
DX: Z13.9 Encounter for screening, unspecified (principal); Z28.21 Immunization not carried out because of patient refusal; M54.50 Low back pain, unspecified; G89.29 Other chronic pain; M17.9 Osteoarthritis of knee, unspecified; I83.11 Varicose veins of right lower extremity with inflammation; I83.12 Varicose veins of left lower extremity with inflammation; D68.61 Antiphospholipid syndrome; I26.99 Other pulmonary embolism without acute cor pulmonale; I82.409 Acute embolism and thrombosis of unspecified deep veins of unspecified lower extremity; E66.01 Morbid (severe) obesity due to excess calories; K21.9 Gastro-esophageal reflux disease without esophagitis; N95.1 Menopausal and female climacteric states; F32.A Depression, unspecified; Z79.01 Long term (current) use of anticoagulants; Z90.3 Acquired absence of stomach [part of]; Z68.42 Body mass index [BMI] 45.0-49.9, adult
CPT/HCPCS: 36415; 80053; 80061; 81001; 82043; 82306; 82570; 82607; 82746; 83036; 83735; 84443; 85025; 86706; 86780; 86803; 87340; 87389; 90471; 96127; 99202